=== PATIENT | female | born 1955 | race Caucasian/White ===

== ENCOUNTER → 2016-02-21 | Outpatient (CLI) | payer OTHER ==
--- NOTE | 2016-02-21 15:13 | CT ---
EXAMINATION TYPE: CT lumbar spine wo con DATE OF EXAM: 02/21/2016 2:51 PM COMPARISON: NONE HISTORY: Lumbago CT DLP: 2067.80 mGycm Automated exposure control for dose reduction was used. Unenhanced CT of the lumbar spine was performed. Bone and soft tissue window settings are submitted as well as coronal and sagittal reconstructions. L1-L2: Normal disc space height. No disc herniation protrusion or central stenosis. No facet joint arthropathy. No evidence for foraminal encroachment. L2-L3: There is broad-based central disc bulging with mild compression of the thecal sac and hypertro phic change of the facets. Mild bilateral foraminal encroachment L3-L4: Vacuum disc compatible severe degenerative disc disease and circumferential disc bulging with hypertrophic change of the facets. Mild bilateral foraminal encroachment. L4-L5: Severe degenerative disc disease. There is circumferential disc bulging and mild to moderate b ilateral foraminal encroachment. Hypertrophic changes anteriorly are noted. No focal herniation. Cent ral stenosis suggested. L5-S1: Severe degenerative disc disease with vacuum disc. Hypertrophic change of the facets are seen. There is moderate bilateral foraminal encroachment. Air within the spinal canal may be related to th e vacuum disc should be correlated clinically to exclude infectious etiology. IMPRESSION: Severe multilevel degenerative disc disease with probable canal stenosis at L4-L5. Foraminal encroach ment at levels L3-S1 noted bilaterally. Recommend follow-up MRI. Diffuse disc bulging L2-L3 with effacement of the thecal sac and mild bilateral foraminal encroachmen t.
== END | disposition home or self-care (01) ==
LOC: RADCTMAIN 13:59
PROVIDERS: ATTEND Psychiatry & Neurology Neurology
DX: M99.73 Connective tissue and disc stenosis of intervertebral foramina of lumbar region (principal); M51.26 Other intervertebral disc displacement, lumbar region; M51.36 Other intervertebral disc degeneration, lumbar region
CPT/HCPCS: 72131

== ENCOUNTER → 2016-04-05 | Outpatient (CLI) | payer OTHER ==
[2016-04-05 09:48] LABS: CH 27.3; CHCM 32.6; HCT 39.6 % (34.0-46.0); HDW 2.61; HGB 13.3 gm/dL (11.4-16.0); MCH 28.2 pg (25.0-35.0); MCHC 33.6 g/dL (31.0-37.0); Mean Platelet Volume 7.4; RBC 4.71 m/uL (3.80-5.40); RDW 13.5 % (11.5-15.5); WBC 10.7 k/uL (3.8-10.6)
[2016-04-05 10:37] LABS: ALT 105 U/L (9-52); AST 105 U/L (14-36); Alkaline Phosphatase 77 U/L (38-126); Anion Gap 15 mmol/L; Blood Urea Nitrogen 19 mg/dL (7-17); C Reactive Protein 17.7 mg/L (<10.0); Carbon Dioxide 23 mmol/L (22-30); Chloride 102 mmol/L (98-107); Creatine Kinase 271 U/L (30-135); Glucose 285 mg/dL (74-99); Magnesium 1.5 mg/dL (1.6-2.3); Non-African American GFR(MDRD) >60 (>60 ml/min/1.73 sqM); Potassium 4.9 mmol/L (3.5-5.1); Sodium 140 mmol/L (137-145); Total Bilirubin 0.5 mg/dL (0.2-1.3); Total Protein 7.3 g/dL (6.3-8.2)
[2016-04-05 12:02] LABS: Erythrocyte Sedimentation Rate 22 mm/hr (0-20)
[2016-04-05 12:38] LABS: Hemoglobin A1C 9.4 % (4.2-6.1)
[2016-04-14 16:35] LABS: Vitamin K 827 pg/mL (80-1160)
== END | disposition home or self-care (01) ==
LOC: LABWHC1 09:03
PROVIDERS: ATTEND Psychiatry & Neurology Pain Medicine
DX: M79.7 Fibromyalgia (principal)
CPT/HCPCS: 36415; 80053; 82550; 83036; 83519; 83735; 84425; 84590; 84597; 85027; 85652; 86140

== ENCOUNTER → 2016-06-04 | Outpatient (CLI) | payer OTHER ==
[2016-06-04 11:53] LABS: Blood Urea Nitrogen 17 mg/dL (7-17); Non-African American GFR(MDRD) >60 (>60 ml/min/1.73 sqM)
[2016-06-04 16:34] LABS: ANA w/Reflex to Titer NEGATIVE (NEGATIVE)
[2016-06-27 08:06] LABS: Mis test requested (Blood) PMSCL
== END | disposition home or self-care (01) ==
LOC: LABWHC1 10:51
PROVIDERS: ATTEND Psychiatry & Neurology Pain Medicine
DX: Z01.812 Encounter for preprocedural laboratory examination (principal); M25.50 Pain in unspecified joint; R51 Headache; M54.2 Cervicalgia; Z79.899 Other long term (current) drug therapy
CPT/HCPCS: 36415; 82565; 83516; 84520; 86038; 86200; 86225; 86235

== ENCOUNTER 2016-09-28 08:01 | Emergency (ER) | payer OTHER ==
[2016-09-28 08:07] VITALS: RESP 18
[2016-09-28] MEDS ORDERED: ONDANSETRON 4 MG/2 ML VIAL IVP STA (08:26)
[2016-09-28] MEDS ORDERED: SODIUM CHLORIDE 0.9% 1,000 ML IV STA ×2 (08:26)
[2016-09-28] MEDS ORDERED: DICYCLOMINE 10 MG/ML 2 ML AMP IM STA (08:27)
--- NOTE | 2016-09-28 08:32 | ED ---
General Adult HPI - General Chief complaint: Nausea/Vomiting/Diarrhea Stated complaint: DIARRHEA Time Seen by Provider: 09/28/16 08:11 Source: patient, RN notes reviewed Mode of arrival: wheelchair Limitations: no limitations - History of Present Illness Initial comments: Patient 60-year-old female who presents emergency room today with a chief complaint of diarrhea 6 days. She states she's been going on average approximately 50 times a day. She states it has been a dark color but believes it may be due to something that she ate. She states not seeing any obvious blood. Denies any nausea or vomiting. She states she has brought up to her doctor in the past about having bouts of diarrhea. She states usually last approximately 3 days at a time this is been much longer. States she's never had further workup. She denies any other complaints or symptoms. Denies any recent travel or antibiotic use. Patient denies any recent fever, chills, shortness of breath, chest pain, back pain, numbness or tingling, dysuria or hematuria, constipation, headaches or visual changes, or any other complaints. - Related Data Home Medications Medication Instructions Recorded Confirmed DULoxetine HCL [Cymbalta] 60 mg PO W/BRKFST 06/21/13 09/28/16 Omeprazole [PriLOSEC] 20 mg PO W/SUPPER 04/12/14 09/28/16 sitaGLIPtin [Januvia] 100 mg PO W/BRKFST 12/03/14 09/28/16 Lisinopril [Zestril] 5 mg PO W/BRKFST 03/13/15 09/28/16 Aspirin EC [Ecotrin Low Dose] 81 mg PO W/LUNCH 03/14/15 09/28/16 Cyclobenzaprine [Flexeril] 10 mg PO HS 03/14/15 09/28/16 Multivitamins, Thera [Multivitamin 1 tab PO DAILY 03/14/15 09/28/16 (formulary)] metFORMIN HCL [Glucophage] 850 mg PO TID 03/14/15 09/28/16 Atenolol 100 mg PO BID 11/20/15 09/28/16 Clopidogrel [Plavix] 75 mg PO AC-LUNCH 11/20/15 09/28/16 Levothyroxine Sodium [Synthroid] 50 mcg PO DAILY 11/20/15 09/28/16 amLODIPine [Norvasc] 5 mg PO DAILY 11/20/15 09/28/16 Albuterol Inhaler [Ventolin Hfa 1 - 2 puff INHALATION RT-Q6H PRN 09/28/16 Inhaler] Cholecalciferol [Vitamin D3] 1,000 unit PO DAILY 09/28/16 09/28/16 Gabapentin 800 mg PO TID 09/28/16 09/28/16 Insulin Glargine [Lantus] 55 unit SQ HS 09/28/16 09/28/16 [place] Unknown Dose 1 tab PO DAILY PRN 09/28/16 09/28/16 Vitamin C/Biotin [Hair, Skin and 1 tab PO DAILY 09/28/16 09/28/16 Nails] Previous Rx's Medication Instructions Recorded Dicyclomine [Bentyl] 20 mg PO QID #20 tablet 09/28/16 Allergies Allergy/AdvReac Type Severity Reaction Status Date / Time No Known Allergies Allergy Verified 09/28/16 08:43 Review of Systems ROS Statement: Those systems with pertinent positive or pertinent negative responses have been documented in the HPI. ROS Other: All systems not noted in ROS Statement are negative. Past Medical History Past Medical History: Asthma, CVA/TIA, Eye Disorder, Fibromyalgia, GERD/Reflux, Hypertension, Liver Disease, Osteoarthritis (OA), Pneumonia, Thyroid Disorder Additional Past Medical History / Comment(s): 03/14/15 Pt presented to [facility] ER with back pain which started after a long bike ride and HTN. She is admitted with clinical impression of HTN. Other HX: TIA, NIDDM type II, pneumonia 2014, hypothyroidism, chronic low back pain, sciatica, ddd, DJD, basal cell ca 2007 removed L nares, PARTIAL DETATCHED RETINA LT EYE, MIGRAINES, SHAMAR [place] SPOTTED FEVER , bilateral legs and feet NEUROPATHY, migraines, fatty liver, stomach ulcer, hx of fx's R thumb, R wrist, L hand. History of Any Multi-Drug Resistant Organisms: None Reported Past Surgical History: Back Surgery, Cholecystectomy, Heart Catheterization, Hernia Repair, Hysterectomy, Tonsillectomy Additional Past Surgical History / Comment(s): cardiac cath, L nares skin cancer removed, UMBILCAL HERNIA SX three times, RT Hand SX for TRIGGER FINGER, FIBROID TUMORS REMOVED ABD/BACK, LAPROSCOPIES x 3, L5-S1 SX for HERNIATED DISCS Past Anesthesia/Blood Transfusion Reactions: Postoperative Nausea & Vomiting ( PONV) Additional Past Anesthesia/Blood Transfusion Reaction / Comment(s): AND SEVERE HEADACHE Past Psychological History: Anxiety, Bipolar, Depression Smoking Status: Former smoker Past Alcohol Use History: Rare Past Drug Use History: Marijuana - Past Family History Father Family Medical History: Unable to Obtain Additional Family Medical History / Comment(s): ONLY MET HIM ONCE IN HER LIFE [employer] IN HIS FAMILY Mother Family Medical History: Cancer Additional Family Medical History / Comment(s): breast CA. Mother is alive and is 85yrs old. General Exam - General Exam Comments Initial Comments: General: The patient is awake and alert, in no distress, and does not appear acutely ill. Eye: Pupils are equal, round and reactive to light, extra-ocular movements are intact. No nystagmus. There is normal conjunctiva bilaterally. No signs of icterus. Ears, nose, mouth and throat: There are moist mucous membranes and no oral lesions. Neck: The neck is supple, there is no tenderness or JVD. Cardiovascular: There is a regular rate and rhythm. No murmur, rub or gallop is appreciated. Respiratory: Lungs are clear to auscultation, respirations are non-labored, breath sounds are equal. No wheezes, stridor, rales, or rhonchi. Gastrointestinal: Soft, non-distended, non-tender abdomen without masses or organomegaly noted. There is no rebound or guarding present. No CVA tenderness. Bowel sounds are unremarkable. Musculoskeletal: Normal ROM, no tenderness. Strength 5/5. Sensation intact. Pulses equal bilaterally 2+. Neurological: A&O x 3. CN II-XII intact, There are no obvious motor or sensory deficits. Coordination appears grossly intact. Speech is normal. Skin: Skin is warm and dry and no rashes or lesions are noted. Psychiatric: Cooperative, appropriate mood & affect, normal judgment. Limitations: no limitations Course Vital Signs 09/28/16 09/28/16 08:03 10:00 Temperature 98.1 F Pulse Rate 76 69 Respiratory 18 18 Rate Blood Pressure 153/75 122/72 O2 Sat by Pulse 97 94 L Oximetry Medical Decision Making - Medical Decision Making Patient's CT shows 1. Irregular slightly hypodense lesion posterior right mid liver noncompatible with a cyst. However, this had a more normal appearance without enlargement from 2012 suggesting this is likely benign. Consider gregoria- angioma within the differential. 2. No suspicious acute changes CT abdomen and pelvis. As read by radiologist Dr. Cedeno. Please follow-up the family doctor over the next 2 days. Please have stool sample returned here to the emergency room. Please return to emergency room if any symptoms increase worsen or for any other concerns - Lab Data Result diagrams: 09/28/16 08:25 09/28/16 08:25 Lab Results 09/28/16 09/28/16 09/28/16 Range/Units 08:25 08:25 09:38 WBC 12.9 H (3.8-10.6) k/uL RBC 5.49 H (3.80-5.40) m/uL Hgb 14.9 (11.4-16.0) gm/dL Hct 47.0 H (34.0-46.0) % MCV 85.8 (80.0-100.0) fL MCH 27.2 (25.0-35.0) pg MCHC 31.7 (31.0-37.0) g/dL RDW 14.8 (11.5-15.5) % Plt Count 361 (150-450) k/uL Neutrophils % 56 % Lymphocytes % 35 % Monocytes % 5 % Eosinophils % 2 % Basophils % 1 % Neutrophils # 7.2 (1.3-7.7) k/uL Lymphocytes # 4.4 (1.0-4.8) k/uL Monocytes # 0.6 (0-1.0) k/uL Eosinophils # 0.2 (0-0.7) k/uL Basophils # 0.1 (0-0.2) k/uL Sodium 141 (137-145) mmol/L Potassium 4.6 (3.5-5.1) mmol/L Chloride 104 (98-107) mmol/L Carbon Dioxide 21 L (22-30) mmol/L Anion Gap 16 mmol/L BUN 15 (7-17) mg/dL Creatinine 0.95 (0.52-1.04) mg/dL Est GFR (MDRD) Af Amer >60 (>60 ml/min/1.73 sqM) Est GFR (MDRD) Non-Af 60 (>60 ml/min/1.73 sqM) Glucose 171 H (74-99) mg/dL Calcium 10.1 (8.4-10.2) mg/dL Total Bilirubin 0.6 (0.2-1.3) mg/dL AST 61 H (14-36) U/L ALT 102 H (9-52) U/L Alkaline Phosphatase 70 (38-126) U/L Total Protein 7.4 (6.3-8.2) g/dL Albumin 4.5 (3.5-5.0) g/dL Amylase <30 L (30-110) U/L Lipase 131 (23-300) U/L Urine Color Yellow Urine Appearance Cloudy H (Clear) Urine pH 6.0 (5.0-8.0) Ur Specific [place] 1.034 (1.001-1.035) Urine Protein 2+ H (Negative) Urine Glucose (UA) Negative (Negative) Urine Ketones Negative (Negative) Urine Blood Negative (Negative) Urine Nitrite Negative (Negative) Urine Bilirubin Negative (Negative) Urine Urobilinogen <2.0 (<2.0) mg/dL Ur Leukocyte Esterase Trace H (Negative) Urine RBC 1 (0-5) /hpf Urine WBC 4 (0-5) /hpf Ur Squamous Epith Cells 2 (0-4) /hpf Hyaline Casts 40 H (0-2) /lpf Urine Mucus Rare H (None) /hpf Disposition Clinical Impression: Acute diarrhea Disposition: HOME SELF-CARE Condition: Good Instructions: Acute Diarrhea (ED) Additional Instructions: Please follow-up family doctor over the next 2 days. Please have stool sample brought here to the lab for further analysis. Please return to emergency room symptoms increase or worsen or for any other concerns. Prescriptions: Dicyclomine [Bentyl] 20 mg PO QID #20 tablet Referrals: Benedicto Cabello DO [Primary Care Provider] - 1-2 days Time of Disposition: 10:44
[2016-09-28 08:57] LABS: Basophils # (A) 0.1 k/uL (0-0.2); Basophils % (A) 1 %; CH 28.3; CHCM 33.1; Eosinophils # (A) 0.2 k/uL (0-0.7); Eosinophils % (A) 2 %; HDW 2.51; HGB 14.9 gm/dL (11.4-16.0); Luc # (Auto) 0.24; Luc % (Auto) 2; Lymphocytes # (A) 4.4 k/uL (1.0-4.8); Lymphocytes % (A) 35 %; MCH 27.2 pg (25.0-35.0); MCHC 31.7 g/dL (31.0-37.0); MCV 85.8 fL (80.0-100.0); Mean Platelet Volume 7.9; Monocytes # (A) 0.6 k/uL (0-1.0); Monocytes % (A) 5 %; Neutrophils # (A) 7.2 k/uL (1.3-7.7); Neutrophils % (A) 56 %; RBC 5.49 m/uL (3.80-5.40); RDW 14.8 % (11.5-15.5); WBC 12.9 k/uL (3.8-10.6); WBC (Perox) 12.18
[2016-09-28 09:00] LABS: ALT 102 U/L (9-52); AST 61 U/L (14-36); Alkaline Phosphatase 70 U/L (38-126); Amylase <30 U/L (30-110); Anion Gap 16 mmol/L; Blood Urea Nitrogen 15 mg/dL (7-17); Calcium 10.1 mg/dL (8.4-10.2); Carbon Dioxide 21 mmol/L (22-30); Chloride 104 mmol/L (98-107); Glucose 171 mg/dL (74-99); Non-African American GFR(MDRD) 60 (>60 ml/min/1.73 sqM); Potassium 4.6 mmol/L (3.5-5.1); Sodium 141 mmol/L (137-145); Total Bilirubin 0.6 mg/dL (0.2-1.3); Total Protein 7.4 g/dL (6.3-8.2)
--- NOTE | 2016-09-28 09:00 | XR ---
EXAMINATION TYPE: XR KUB DATE OF EXAM: 09/28/2016 COMPARISON: 05/06/2012 INDICATION: Abdomen pain history of gallbladder surgery TECHNIQUE: Single view abdomen upright view FINDINGS: There is a normal bowel gas pattern. Psoas margins are normal. No organomegaly is present. No suspicious air-fluid levels or differential air-fluid levels are present. No free air is present. Cholecystectomy clips are present. IMPRESSION: 1. Unremarkable Abdomen
[2016-09-28] MEDS ORDERED: RX INFO: IV CONTRAST WAS GIVEN 1 EACH MISC MISCELLANE PRN (09:01)
--- NOTE | 2016-09-28 09:57 | CT ---
EXAMINATION TYPE: CT abdomen pelvis w con DATE OF EXAM: 09/28/2016 COMPARISON: 05/07/2011 INDICATION: diarrhea for 8 days DLP: 1829.5 mGycm, Automated exposure control for dose reduction was used. CONTRAST: 100 mL of Omnipaque 300. Study performed without Oral Contrast TECHNIQUE: Axial images were obtained from above the diaphragm to the pubic rami in the axial plane a t 5 mm thick sections. Reconstructed images are reviewed on the computer in the coronal plane. FINDINGS: Limited CT sections are obtained the lung bases. The lung bases are clear. CT ABDOMEN: Liver: It is moderate fatty infiltration to the liver. Within the posterior right mid liver is a 1.7 cm hypodensity. This is not a simple cyst. Spleen: Normal. Multiple splenules are adjacent. Pancreas: Normal Adrenal glands: The adrenal glands are normal. Gallbladder: Surgically absent Kidneys: No masses are evident. No hydronephrosis is present. No cysts are present. Delayed images were obtained through the kidneys, which remain unremarkable. Aorta: Vascular calcification is within the aorta. Inferior vena cava: Normal. There is an anterior abdominal wall hernia with mesenteric fat in the periumbilical region. A surgica l clip is within this region. The opening appears to be 3.[address] PELVIS: Loops of bowel within the abdomen and pelvis are normal. Appendix: Not identified. Urinary bladder: Normal. Genitourinary structures: Uterus and ovaries are not identified. No free fluid is within the pelvis. Osseous structures: No suspicious lytic or sclerotic lesions. Sacroiliac joint degenerative changes a re present. Some facet hypertrophy is the L5-S1 level. IMPRESSIONS: 1. Irregular slightly hypodense lesion posterior right mid liver not compatible with a cyst. However this had a more normal appearance without enlargement from 2011 suggesting this is likely benign. Co nsider hemangioma within the differential. 2. No suspicious acute changes CT abdomen pelvis
[2016-09-28 10:31] LABS: Appearance,Urine Cloudy (Clear); Bilirubin,Urine Negative (Negative); Glucose,Urine (UA) Negative (Negative); Ketones,Urine Negative (Negative); Leukocyte Esterase,Urine Trace (Negative); Mucus,Urine Rare /hpf; Nitrite,Urine Negative (Negative); Particle Count 5089; Protein,Urine 2+ (Negative); RBC,Urine 1 /hpf (0-5); Specific Gravity,Urine 1.034 (1.001-1.035); Squamous Epithelial Cell,Urine 2 /hpf (0-4); UA Billing (MACRO vs. MICRO) MICRO; Urobilinogen,Urine <2.0 mg/dL (<2.0); WBC,Urine 4 /hpf (0-5)
[2016-09-28 10:55] VITALS: BP 106/56; PULSE 71; TEMP 97.5
== END 2016-09-28 10:57 | disposition home or self-care (01) ==
LOC: EC 08:01
DX: R19.7 Diarrhea, unspecified (principal); J45.909 Unspecified asthma, uncomplicated; M79.7 Fibromyalgia; K21.9 Gastro-esophageal reflux disease without esophagitis; I10 Essential (primary) hypertension; M19.90 Unspecified osteoarthritis, unspecified site; E07.9 Disorder of thyroid, unspecified; E11.40 Type 2 diabetes mellitus with diabetic neuropathy, unspecified; F31.9 Bipolar disorder, unspecified; F41.9 Anxiety disorder, unspecified; Z86.73 Personal history of transient ischemic attack (TIA), and cerebral infarction without residual deficits; Z87.891 Personal history of nicotine dependence; Z79.01 Long term (current) use of anticoagulants; Z79.4 Long term (current) use of insulin; Z79.899 Other long term (current) drug therapy; Z79.82 Long term (current) use of aspirin
CPT/HCPCS: 36415; 80053; 82150; 83690; 85025; 81001; 74000; 74177; 99284; 96374; 96361 ×2; 96372; J0500; J2405; Q9967

== ENCOUNTER 2016-10-11 11:15 | Observation (INO) | payer OTHER ==
[2016-10-11] MEDS ORDERED: ASPIRIN 81 MG PO STA (11:34)
[2016-10-11] MEDS ORDERED: NITROGLYCERIN OINT 1 INCH/GM PACKET TOPICAL STA (11:34)
--- NOTE | 2016-10-11 11:37 | ED ---
General Adult HPI - General Chief complaint: Chest Pain Stated complaint: POSS CARDIAC ISSUE Time Seen by Provider: 10/11/16 11:15 Source: patient, RN notes reviewed Mode of arrival: ambulatory Limitations: no limitations - History of Present Illness Initial comments: This is a 60-year-old female who presents to the emergency department complaining of a diaphoretic episode last night associated with chest pressure tingling in her left arm mild shortness of breath and dizziness. Patient states the dizziness is sensation that she might fall over or that things are spinning not a near syncopal episode or feeling. Patient states she continues to have chest discomfort today and the dizziness. Patient denies any fever chills or cough. Patient denies any palpitations. Patient denies any abdominal pain patient denies nausea or vomiting currently however last night when it started she did vomit once. Patient denies any headache patient denies any numbness or weakness. - Related Data Home Medications Medication Instructions Recorded Confirmed DULoxetine HCL [Cymbalta] 60 mg PO W/BRKFST 06/21/13 09/28/16 Omeprazole [PriLOSEC] 20 mg PO W/SUPPER 04/12/14 09/28/16 sitaGLIPtin [Januvia] 100 mg PO W/BRKFST 12/03/14 09/28/16 Lisinopril [Zestril] 5 mg PO W/BRKFST 03/13/15 09/28/16 Aspirin EC [Ecotrin Low Dose] 81 mg PO W/LUNCH 03/14/15 09/28/16 Cyclobenzaprine [Flexeril] 10 mg PO HS 03/14/15 09/28/16 Multivitamins, Thera [Multivitamin 1 tab PO DAILY 03/14/15 09/28/16 (formulary)] metFORMIN HCL [Glucophage] 850 mg PO TID 03/14/15 09/28/16 Atenolol 100 mg PO BID 11/20/15 09/28/16 Clopidogrel [Plavix] 75 mg PO AC-LUNCH 11/20/15 09/28/16 Levothyroxine Sodium [Synthroid] 50 mcg PO DAILY 11/20/15 09/28/16 amLODIPine [Norvasc] 5 mg PO DAILY 11/20/15 09/28/16 Albuterol Inhaler [Ventolin Hfa 1 - 2 puff INHALATION RT-Q6H PRN 09/28/16 Inhaler] Cholecalciferol [Vitamin D3] 1,000 unit PO DAILY 09/28/16 09/28/16 Gabapentin 800 mg PO TID 09/28/16 09/28/16 Insulin Glargine [Lantus] 55 unit SQ HS 09/28/16 09/28/16 [place] Unknown Dose 1 tab PO DAILY PRN 09/28/16 09/28/16 Vitamin C/Biotin [Hair, Skin and 1 tab PO DAILY 09/28/16 09/28/16 Nails] Previous Rx's Medication Instructions Recorded Dicyclomine [Bentyl] 20 mg PO QID #20 tablet 09/28/16 Allergies Allergy/AdvReac Type Severity Reaction Status Date / Time No Known Allergies Allergy Verified 10/11/16 11:21 Review of Systems ROS Statement: Those systems with pertinent positive or pertinent negative responses have been documented in the HPI. ROS Other: All systems not noted in ROS Statement are negative. Past Medical History Past Medical History: Asthma, CVA/TIA, Eye Disorder, Fibromyalgia, GERD/Reflux, Hypertension, Liver Disease, Osteoarthritis (OA), Pneumonia, Thyroid Disorder Additional Past Medical History / Comment(s): 03/14/15 Pt presented to [facility] ER with back pain which started after a long bike ride and HTN. She is admitted with clinical impression of HTN. Other HX: TIA, NIDDM type II, pneumonia 2014, hypothyroidism, chronic low back pain, sciatica, ddd, DJD, basal cell ca 2007 removed L nares, PARTIAL DETATCHED RETINA LT EYE, MIGRAINES, SHAMAR [place] SPOTTED FEVER , bilateral legs and feet NEUROPATHY, migraines, fatty liver, stomach ulcer, hx of fx's R thumb, R wrist, L hand. History of Any Multi-Drug Resistant Organisms: None Reported Past Surgical History: Back Surgery, Cholecystectomy, Heart Catheterization, Hernia Repair, Hysterectomy, Tonsillectomy Additional Past Surgical History / Comment(s): cardiac cath, L nares skin cancer removed, UMBILCAL HERNIA SX three times, RT Hand SX for TRIGGER FINGER, FIBROID TUMORS REMOVED ABD/BACK, LAPROSCOPIES x 3, L5-S1 SX for HERNIATED DISCS Past Anesthesia/Blood Transfusion Reactions: Postoperative Nausea & Vomiting ( PONV) Additional Past Anesthesia/Blood Transfusion Reaction / Comment(s): AND SEVERE HEADACHE Past Psychological History: Anxiety, Bipolar, Depression Smoking Status: Former smoker Past Alcohol Use History: Rare Past Drug Use History: Marijuana - Past Family History Father Family Medical History: Unable to Obtain Additional Family Medical History / Comment(s): ONLY MET HIM ONCE IN HER LIFE [employer] IN HIS FAMILY Mother Family Medical History: Cancer Additional Family Medical History / Comment(s): breast CA. Mother is alive and is 85yrs old. General Exam - General Exam Comments Initial Comments: GENERAL: Patient is well-developed and well-nourished. Patient is nontoxic and well- hydrated and is in mild distress. ENT: Neck is soft and supple. No significant lymphadenopathy is noted. Oropharynx is clear. Moist mucous membranes. Neck has full range of motion without eliciting any pain. EYES: The sclera were anicteric and conjunctiva were pink and moist. Extraocular movements were intact and pupils were equal round and reactive to light. Eyelids were unremarkable. PULMONARY: Unlabored respirations. Good breath sounds bilaterally. No audible rales rhonchi or wheezing was noted. CARDIOVASCULAR: There is a regular rate and rhythm without any murmurs gallops or rubs. ABDOMEN: Soft and nontender with normal bowel sounds. No palpable organomegaly was noted. There is no palpable pulsatile mass. SKIN: Skin is clear with no lesions or rashes and otherwise unremarkable. NEUROLOGIC: Patient is alert and oriented x3. Cranial nerves II through XII are grossly intact. Motor and sensory are also intact. Normal speech, volume and content. Symmetrical smile. Cerebellar testing was normal bilaterally MUSCULOSKELETAL: Normal extremities with adequate strength and full range of motion. No lower extremity swelling or edema. No calf tenderness. LYMPHATICS: No significant lymphadenopathy is noted PSYCHIATRIC: Normal psychiatric evaluation. Normal interpersonal interactions appears functionally intact in deals appropriately with others. No signs of depression. No signs of anxiety. Limitations: no limitations Course Vital Signs 10/11/16 10/11/16 10/11/16 11:17 12:00 13:07 Temperature 97.6 F Pulse Rate 67 60 69 Respiratory 18 16 18 Rate Blood Pressure 116/67 112/60 113/59 O2 Sat by Pulse 97 96 95 Oximetry Medical Decision Making - Medical Decision Making EKG shows normal sinus rhythm at 65 bpm IL interval 128 QRS is 98 QT interval is 450 QTC is 468. Patient's EKG shows no ST segment elevation or depression or T wave abnormalities are noted. Patient's chest x-ray shows no acute abnormality. Patient's computed tomography scan of the brain shows no acute abnormality. Patient continues to have some chest pressure intermittently in the emergency department so at this point, decided to admit the patient and have her follow up with cardiology as an inpatient. I wrote admitting orders I spoke with Dr. Yanez. - Lab Data Result diagrams: 10/11/16 11:52 10/11/16 11:52 Lab Results 10/11/16 10/11/16 10/11/16 Range/Units 11:52 11:52 11:52 WBC 13.6 H (3.8-10.6) k/uL RBC 4.70 (3.80-5.40) m/uL Hgb 12.8 (11.4-16.0) gm/dL Hct 39.1 (34.0-46.0) % MCV 83.2 (80.0-100.0) fL MCH 27.2 (25.0-35.0) pg MCHC 32.7 (31.0-37.0) g/dL RDW 13.8 (11.5-15.5) % Plt Count 300 (150-450) k/uL Neutrophils % 49 % Lymphocytes % 41 % Monocytes % 4 % Eosinophils % 3 % Basophils % 1 % Neutrophils # 6.7 (1.3-7.7) k/uL Lymphocytes # 5.6 H (1.0-4.8) k/uL Monocytes # 0.5 (0-1.0) k/uL Eosinophils # 0.4 (0-0.7) k/uL Basophils # 0.1 (0-0.2) k/uL Polychromasia Present PT (9.0-12.0) sec INR (<1.2) APTT (22.0-30.0) sec Sodium 137 (137-145) mmol/L Potassium 4.1 (3.5-5.1) mmol/L Chloride 101 (98-107) mmol/L Carbon Dioxide 23 (22-30) mmol/L Anion Gap 13 mmol/L BUN 24 H (7-17) mg/dL Creatinine 1.37 H (0.52-1.04) mg/dL Est GFR (MDRD) Af Amer 47 (>60 ml/min/1.73 sqM) Est GFR (MDRD) Non-Af 39 (>60 ml/min/1.73 sqM) Glucose 104 H (74-99) mg/dL Calcium 8.9 (8.4-10.2) mg/dL Magnesium 1.4 L (1.6-2.3) mg/dL Total Bilirubin 0.4 (0.2-1.3) mg/dL AST 68 H (14-36) U/L ALT 81 H (9-52) U/L Alkaline Phosphatase 63 (38-126) U/L Total Creatine Kinase 268 H (30-135) U/L CK-MB (CK-2) 1.7 (0.0-2.4) ng/mL CK-MB (CK-2) Rel Index 0.6 Troponin I <0.012 (0.000-0.034) ng/mL Total Protein 6.9 (6.3-8.2) g/dL Albumin 4.3 (3.5-5.0) g/dL 10/11/16 Range/Units 11:52 WBC (3.8-10.6) k/uL RBC (3.80-5.40) m/uL Hgb (11.4-16.0) gm/dL Hct (34.0-46.0) % MCV (80.0-100.0) fL MCH (25.0-35.0) pg MCHC (31.0-37.0) g/dL RDW (11.5-15.5) % Plt Count (150-450) k/uL Neutrophils % % Lymphocytes % % Monocytes % % Eosinophils % % Basophils % % Neutrophils # (1.3-7.7) k/uL Lymphocytes # (1.0-4.8) k/uL Monocytes # (0-1.0) k/uL Eosinophils # (0-0.7) k/uL Basophils # (0-0.2) k/uL Polychromasia PT 10.8 (9.0-12.0) sec INR 1.1 (<1.2) APTT 25.2 (22.0-30.0) sec Sodium (137-145) mmol/L Potassium (3.5-5.1) mmol/L Chloride (98-107) mmol/L Carbon Dioxide (22-30) mmol/L Anion Gap mmol/L BUN (7-17) mg/dL Creatinine (0.52-1.04) mg/dL Est GFR (MDRD) Af Amer (>60 ml/min/1.73 sqM) Est GFR (MDRD) Non-Af (>60 ml/min/1.73 sqM) Glucose (74-99) mg/dL Calcium (8.4-10.2) mg/dL Magnesium (1.6-2.3) mg/dL Total Bilirubin (0.2-1.3) mg/dL AST (14-36) U/L ALT (9-52) U/L Alkaline Phosphatase (38-126) U/L Total Creatine Kinase (30-135) U/L CK-MB (CK-2) (0.0-2.4) ng/mL CK-MB (CK-2) Rel Index Troponin I (0.000-0.034) ng/mL Total Protein (6.3-8.2) g/dL Albumin (3.5-5.0) g/dL Critical Care Time Critical Care Time: Yes Total Critical Care Time: 35 Disposition Clinical Impression: Unstable angina pectoris, Vertigo Disposition: ADMITTED IP TO THIS HOSP Referrals: Benedicto Cabello DO [Primary Care Provider] - 1-2 days Time of Disposition: 13:48
[2016-10-11] MEDS ORDERED: MECLIZINE 25 MG TAB PO STA (12:04)
--- NOTE | 2016-10-11 12:09 | XR ---
EXAMINATION TYPE: XR chest 2V DATE OF EXAM: 10/11/2016 COMPARISON: Chest x-ray April 11, 2014 HISTORY: Weakness and chest pain. TECHNIQUE: Frontal and lateral views of the chest are obtained. FINDINGS: There is chronic parenchymal change without suspicious focal air space opacity, pleural ef fusion, or pneumothorax seen. The cardiac silhouette size is within normal limits with atherosclerot ic thoracic aorta. Slight underlying scoliotic curvature to the spine is redemonstrated. Cholecystect brandy clips are redemonstrated on lateral view IMPRESSION: Chronic changes without acute pulmonary process.
[2016-10-11 12:15] LABS: INR 1.1 (<1.2); Partial Thromboplastin Time 25.2 sec (22.0-30.0); Prothrombin Time 10.8 sec (9.0-12.0)
[2016-10-11 12:16] LABS: Calcium 8.9 mg/dL (8.4-10.2); Magnesium 1.4 mg/dL (1.6-2.3); Potassium 4.1 mmol/L (3.5-5.1); Total Bilirubin 0.4 mg/dL (0.2-1.3); Total Protein 6.9 g/dL (6.3-8.2)
[2016-10-11 12:20] LABS: Basophils # (A) 0.1 k/uL (0-0.2); Basophils % (A) 1 %; CH 27.3; CHCM 32.9; Eosinophils # (A) 0.4 k/uL (0-0.7); Eosinophils % (A) 3 %; HCT 39.1 % (34.0-46.0); HGB 12.8 gm/dL (11.4-16.0); Luc # (Auto) 0.32; Luc % (Auto) 2; Lymphocytes # (A) 5.6 k/uL (1.0-4.8); Lymphocytes % (A) 41 %; MCH 27.2 pg (25.0-35.0); MCHC 32.7 g/dL (31.0-37.0); MCV 83.2 fL (80.0-100.0); Mean Platelet Volume 6.7; Monocytes # (A) 0.5 k/uL (0-1.0); Monocytes % (A) 4 %; Neutrophils # (A) 6.7 k/uL (1.3-7.7); Neutrophils % (A) 49 %; RDW 13.8 % (11.5-15.5); WBC 13.6 k/uL (3.8-10.6); WBC (Perox) 13.62
[2016-10-11 12:26] LABS: Creatine Kinase 268 U/L (30-135)
[2016-10-11 12:40] LABS: Creatine Kinase MB 1.7 ng/mL (0.0-2.4); Troponin I <0.012 ng/mL (0.000-0.034)
--- NOTE | 2016-10-11 12:44 | CT ---
EXAMINATION TYPE: CT brain wo con DATE OF EXAM: 10/11/2016 HISTORY: Lt arm numbness, dizzy CT DLP: 1098.8 mGycm. Automated Exposure Control for Dose Reduction was Utilized. TECHNIQUE: CT scan of the head is performed without contrast. COMPARISON: CT brain December 03, 2014. FINDINGS: There is no acute intracranial hemorrhage or midline shift identified. There is diffuse v entricular and sulcal prominence consistent with diffuse age-related cerebral atrophy. There is low- attenuation in the periventricular white matter consistent with chronic small vessel ischemic change. The globes are intact and the visualized sinuses are clear. IMPRESSION: No acute intracranial hemorrhage or midline shift. There is mild diffuse age-related ce rebral atrophy and chronic small vessel ischemic change redemonstrated without significant change fro m prior study seen.
[2016-10-11 13:02] LABS: Polychromasia Present
[2016-10-11] MEDS ORDERED: KETOROLAC 60 MG/2 ML VIAL IVP STA (13:47)
[2016-10-11] MEDS ORDERED: HEPARIN SODIUM,PORCINE 5,000 UNIT/ML 1 ML VIAL IV ONE (13:48)
[2016-10-11] MEDS ORDERED: NITROGLYCERIN SL TABS 0.4 MG TAB SUBLINGUAL PRN (13:49)
--- NOTE | 2016-10-11 13:58 | CT ---
EXAMINATION TYPE: CT discontinued procedure DATE OF EXAM: 10/11/2016 COMPARISON: NONE HISTORY: Pain and diarrhea. CT DLP:Automated exposure control for dose reduction was used. FINDINGS: 2 director business management images of the abdomen and pelvis were performed by technologist and then exam was canceled by emergency care physician as was being performed on wrong patient. Seamer Operator images are grossly unremarka ble. IMPRESSION: ABOVE
[2016-10-11] MEDS ORDERED: HEPARIN SODIUM,PORCINE/D5W PMX 25,000 UNIT in DEXTROSE/WATER 1 500ML.BAG IV SCH (14:00)
[2016-10-11] MEDS ORDERED: SODIUM CHLORIDE 0.9% 1,000 ML IV STA (14:08)
[2016-10-11] MEDS ORDERED: HYDROcodone/APAP 7.5-325MG 1 EACH TAB PO PRN (15:49)
[2016-10-11] MEDS ORDERED: ALBUTEROL NEBULIZED 2.5 MG/3 ML INHALATION PRN (15:49)
[2016-10-11 16:51] LABS: Glucose,Whole Blood 101 mg/dL (75-99)
[2016-10-11] MEDS: amLODIPine 5 MG TAB PO SCH (17:00)
[2016-10-11] MEDS: GABAPENTIN 400 MG CAP PO SCH ×2 (17:01→20:25)
[2016-10-11] MEDS: LISINOPRIL 5 MG TAB PO SCH (17:02)
[2016-10-11] MEDS: DICYCLOMINE 20 MG TAB PO SCH (17:02)
[2016-10-11] MEDS: MULTIVITAMINS, THERA 1 EACH TAB PO SCH (17:02)
[2016-10-11] MEDS: ASCORBIC ACID 500 MG TAB PO SCH (17:03)
[2016-10-11] MEDS: metFORMIN 850 MG TAB PO SCH ×2 (17:03→18:58)
[2016-10-11] MEDS: DULoxetine HCL 60 MG CAPSULE.DR PO SCH (17:03)
[2016-10-11] MEDS: CLOPIDOGREL 75 MG TAB PO SCH (17:04)
[2016-10-11] MEDS: CHOLECALCIFEROL 1,000 UNIT TAB PO SCH (17:04)
[2016-10-11] MEDS ORDERED: PANTOPRAZOLE 40 MG TABLET PO SCH (17:30)
[2016-10-11 18:21] LABS: Creatine Kinase 219 U/L (30-135)
[2016-10-11 18:34] LABS: Creatine Kinase MB 1.4 ng/mL (0.0-2.4); Troponin I <0.012 ng/mL (0.000-0.034)
--- NOTE | 2016-10-11 19:11 | P.HPIM ---
History of Present Illness H&P Date: 10/11/16 Chief Complaint: Chest pain Mrs. 60-year-old female with history of fibromyalgia depression chronic back pain comes in to the hospital with this episode of sudden onset diaphoresis thereafter noted pain in her midsternal region and to the left side. Patient stated that she has had multiple episodes previously denies having any prior episodes of significant pain. Patient states that she is had some watery diarrhea over the last few days which is something new for her In the emergency room patient's EKG did not reveal ST-T wave changes initial troponin was negative patient was initially initiated on heparin. Patient apparently is very inactive is bedridden pretty much due to her fibromyalgia states that she is only able to take about 7 or 8 steps. Patient also has a history of COPD previous history of smoking Patient's last stress test was over 2 years ago has had a cardiac catheterization done by Dr. Newman multiple years ago without any intervention At this time patient states that her symptoms are improved however has some reproducible pain in her chest No cough fevers chills nausea or abdominal pain urinary urgency or frequency is reported Review of Systems All systems: negative (Noted in HPI) Past Medical History Past Medical History: Asthma, CVA/TIA, Eye Disorder, Fibromyalgia, GERD/Reflux, Hypertension, Liver Disease, Osteoarthritis (OA), Pneumonia, Thyroid Disorder Additional Past Medical History / Comment(s): 03/14/15 Pt presented to [facility] ER with back pain which started after a long bike ride and HTN. She is admitted with clinical impression of HTN. Other HX: TIA, NIDDM type II, pneumonia 2014, hypothyroidism, chronic low back pain, sciatica, ddd, DJD, basal cell ca 2007 removed L nares, PARTIAL DETATCHED RETINA LT EYE, MIGRAINES, SHAMAR [place] SPOTTED FEVER infant, bilateral legs and feet NEUROPATHY, migraines, fatty liver, stomach ulcer, hx of fx's R thumb, R wrist, L hand. History of Any Multi-Drug Resistant Organisms: None Reported Past Surgical History: Back Surgery, Cholecystectomy, Heart Catheterization, Hernia Repair, Hysterectomy, Tonsillectomy Additional Past Surgical History / Comment(s): cardiac cath, L nares skin cancer removed, UMBILCAL HERNIA SX three times, RT Hand SX for TRIGGER FINGER, FIBROID TUMORS REMOVED ABD/BACK, LAPROSCOPIES x 3, L5-S1 SX for HERNIATED DISCS Past Anesthesia/Blood Transfusion Reactions: Postoperative Nausea & Vomiting ( PONV) Additional Past Anesthesia/Blood Transfusion Reaction / Comment(s): AND SEVERE HEADACHE Past Psychological History: Anxiety, Bipolar, Depression Additional Psychological History / Comment(s): Pt resides alone in an apartment. She is independent. 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 She uses her insurance company's ride service or bikes. She uses either a cane of walker at times depending on how she is feeling. Smoking Status: Former smoker Past Alcohol Use History: Rare Additional Past Alcohol Use History / Comment(s): Pt states she quit smoking in 2004 and had started smoking in 1971. Past Drug Use History: Marijuana Additional Drug Use History / Comment(s): Pt states she has a medical marijuana card and once a month or more she may smoke or use edible marijuana if it is available to her. She denies any other drug use. Old medical record indicated chronic narcotic abuse and opiate use as well as illicit drug use in the past.. - Past Family History Father Family Medical History: Unable to Obtain Additional Family Medical History / Comment(s): ONLY MET HIM ONCE IN HER LIFE [employer] IN HIS FAMILY Mother Family Medical History: Cancer Additional Family Medical History / Comment(s): breast CA. Mother is alive and is 85yrs old. Medications and Allergies Home Medications Medication Instructions Recorded Confirmed Type DULoxetine HCL [Cymbalta] 60 mg PO W/BRKFST 06/21/13 10/11/16 History Omeprazole [PriLOSEC] 20 mg PO W/SUPPER 04/12/14 10/11/16 History sitaGLIPtin [Januvia] 100 mg PO W/BRKFST 12/03/14 10/11/16 History Lisinopril [Zestril] 5 mg PO W/BRKFST 03/13/15 10/11/16 History Aspirin EC [Ecotrin Low Dose] 81 mg PO W/LUNCH 03/14/15 10/11/16 History Cyclobenzaprine [Flexeril] 10 mg PO HS 03/14/15 10/11/16 History Multivitamins, Thera [Multivitamin 1 tab PO DAILY 03/14/15 10/11/16 History (formulary)] metFORMIN HCL [Glucophage] 850 mg PO TID 03/14/15 10/11/16 History Atenolol 100 mg PO BID 11/20/15 10/11/16 History Clopidogrel [Plavix] 75 mg PO AC-LUNCH 11/20/15 10/11/16 History Levothyroxine Sodium [Synthroid] 50 mcg PO DAILY 11/20/15 10/11/16 History amLODIPine [Norvasc] 5 mg PO DAILY 11/20/15 10/11/16 History Albuterol Inhaler [Ventolin Hfa 1 - 2 puff INHALATION RT-Q6H PRN 09/28/16 History Inhaler] Cholecalciferol [Vitamin D3] 1,000 unit PO DAILY 09/28/16 10/11/16 History Dicyclomine [Bentyl] 20 mg PO QID #20 tablet 09/28/16 10/11/16 Rx Gabapentin 800 mg PO TID 09/28/16 10/11/16 History Insulin Glargine [Lantus] 55 unit SQ HS 09/28/16 10/11/16 History Vitamin C/Biotin [Hair, Skin and 1 tab PO DAILY 09/28/16 10/11/16 History Nails] Ciprofloxacin HCl [Cipro] 500 mg PO BID 10/11/16 10/11/16 History HYDROcodone/APAP 7.5-325MG [[place] 1 tab PO DAILY PRN 10/11/16 10/11/16 History 7.5-325] Allergies Allergy/AdvReac Type Severity Reaction Status Date / Time No Known Allergies Allergy Verified 10/11/16 14:15 Physical Exam Vitals: Vital Signs Temp Pulse Pulse Resp BP BP Pulse Ox 10/11/16 16:43 16 10/11/16 15:48 97 10/11/16 14:40 97.7 F 68 16 110/68 94 L 10/11/16 14:34 98.0 F 66 18 125/61 95 10/11/16 13:07 69 18 113/59 95 10/11/16 12:00 60 16 112/60 96 10/11/16 11:17 97.6 F 67 18 116/67 97 Intake and Output 10/11/16 10/11/16 10/11/16 06:59 14:59 22:59 Other: Voiding Method Toilet Weight 108.862 kg Patient Weight 10/12/16 06:59 Weight 108.862 kg Physical exam Gen. appearance oriented 3 in no distress Neck is supple no JVD Lungs good air entry clear to auscultation no rhonchi or wheezing Heart S1-S2 heard regular rate and rhythm no murmurs appreciated point tenderness noted on the left side of the chest around the fourth intercostal space closer to the sternum Abdomen is soft nontender no organomegaly bowel sounds are intact Neurologically cranial nerves II-12 grossly intact no focal motor or sensory deficits noted Skin no abnormalities appreciated Results CBC & Chem 7: 10/11/16 11:52 10/11/16 11:52 Labs: Abnormal Lab Results - Last 24 Hours (Table) 10/11/16 10/11/16 10/11/16 Range/Units 11:52 11:52 11:52 WBC 13.6 H (3.8-10.6) k/uL Lymphocytes # 5.6 H (1.0-4.8) k/uL BUN 24 H (7-17) mg/dL Creatinine 1.37 H (0.52-1.04) mg/dL Glucose 104 H (74-99) mg/dL POC Glucose (mg/dL) (75-99) mg/dL Magnesium 1.4 L (1.6-2.3) mg/dL AST 68 H (14-36) U/L ALT 81 H (9-52) U/L Total Creatine Kinase 268 H (30-135) U/L 10/11/16 10/11/16 Range/Units 16:50 17:44 WBC (3.8-10.6) k/uL Lymphocytes # (1.0-4.8) k/uL BUN (7-17) mg/dL Creatinine (0.52-1.04) mg/dL Glucose (74-99) mg/dL POC Glucose (mg/dL) 101 H (75-99) mg/dL Magnesium (1.6-2.3) mg/dL AST (14-36) U/L ALT (9-52) U/L Total Creatine Kinase 219 H (30-135) U/L Thrombosis Risk Factor Assmnt - Choose All That Apply Each Factor Represents 1 point: Obesity (BMI >25) Other Risk Factors: Yes Each Risk Factor Represents 2 Points: Age 61-74 years Thrombosis Risk Factor Assessment Total Risk Factor Score: 3 Thrombosis Risk Factor Assessment Level: Moderate Risk Assessment and Plan Plan: #1 atypical chest pain #2 presyncopal episode #3 essential hypertension #4 fibromyalgia #5 dyslipidemia #6 diabetes myelitis #Chronic low back pain #8 COPD #9 obesity Plan Rule out ACS Cardiology evaluation will be requested DC heparin Telemetry monitoring DVT prophylaxis
[2016-10-11] MEDS ORDERED: SODIUM CHLORIDE 0.9% 1,000 ML IV SCH (19:15)
[2016-10-11] MEDS: NITROGLYCERIN OINT 1 INCH/GM PACKET TOPICAL SCH ×2 (20:16→23:31)
[2016-10-11 20:17] LABS: Glucose,Whole Blood 132 mg/dL (75-99)
[2016-10-11] MEDS ORDERED: INSULIN GLARGINE 100 UNIT/ML 10 ML VIAL SQ SCH (21:00)
[2016-10-11] MEDS ORDERED: CIPROFLOXACIN HCL 500 MG TAB PO SCH (21:00)
[2016-10-11] MEDS ORDERED: CYCLOBENZAPRINE 10 MG TAB PO SCH (21:00)
[2016-10-11] MEDS ORDERED: MELATONIN 3 MG TABLET PO PRN (23:45)
[2016-10-12] MEDS: ATENOLOL 50 MG TAB PO SCH ×2 (00:03→09:53)
[2016-10-12] MEDS: DICYCLOMINE 20 MG TAB PO SCH ×3 (00:03→13:20)
[2016-10-12 00:12] LABS: Creatine Kinase 169 U/L (30-135)
[2016-10-12 00:26] LABS: Creatine Kinase MB 1.1 ng/mL (0.0-2.4); Troponin I <0.012 ng/mL (0.000-0.034)
[2016-10-12 01:29] LABS: Appearance,Urine Clear (Clear); Bilirubin,Urine Negative (Negative); Glucose,Urine (UA) Negative (Negative); Ketones,Urine Negative (Negative); Leukocyte Esterase,Urine Negative (Negative); Nitrite,Urine Negative (Negative); PH, Urine 5.5 (5.0-8.0); Protein,Urine Negative (Negative); Specific Gravity,Urine 1.004 (1.001-1.035); UA Billing (MACRO vs. MICRO) CHEM; Urobilinogen,Urine <2.0 mg/dL (<2.0)
[2016-10-12 05:35] LABS: Basophils # (A) 0.1 k/uL (0-0.2); Basophils % (A) 1 %; CH 26.9; CHCM 32.4; Eosinophils # (A) 0.4 k/uL (0-0.7); Eosinophils % (A) 4 %; HCT 36.8 % (34.0-46.0); HDW 2.64; HGB 12.3 gm/dL (11.4-16.0); Luc # (Auto) 0.21; Luc % (Auto) 2; Lymphocytes % (A) 39 %; MCH 27.9 pg (25.0-35.0); MCHC 33.4 g/dL (31.0-37.0); MCV 83.3 fL (80.0-100.0); Mean Platelet Volume 6.9; Monocytes # (A) 0.4 k/uL (0-1.0); Monocytes % (A) 4 %; Neutrophils # (A) 5.3 k/uL (1.3-7.7); Neutrophils % (A) 52 %; RBC 4.41 m/uL (3.80-5.40); RDW 13.6 % (11.5-15.5); WBC 10.3 k/uL (3.8-10.6); WBC (Perox) 10.73
[2016-10-12 05:47] LABS: ALT 94 U/L (9-52); AST 85 U/L (14-36); Alkaline Phosphatase 62 U/L (38-126); Anion Gap 11 mmol/L; Blood Urea Nitrogen 21 mg/dL (7-17); Calcium 9.2 mg/dL (8.4-10.2); Carbon Dioxide 23 mmol/L (22-30); Chloride 105 mmol/L (98-107); Cholesterol 194 mg/dL (<200); Glucose 116 mg/dL (74-99); HDL Cholesterol 24 mg/dL (40-60); Non-African American GFR(MDRD) >60 (>60 ml/min/1.73 sqM); Potassium 4.5 mmol/L (3.5-5.1); Sodium 139 mmol/L (137-145); Total Bilirubin 0.3 mg/dL (0.2-1.3); Total Protein 6.1 g/dL (6.3-8.2)
[2016-10-12] MEDS ORDERED: LEVOTHYROXINE 50 MCG TAB PO SCH (06:30)
[2016-10-12 07:00] LABS: Glucose,Whole Blood 91 mg/dL (75-99)
[2016-10-12] MEDS ORDERED: LINAGLIPTIN 5 MG TABLET PO SCH (07:30)
[2016-10-12 08:03] VITALS: RESP 16
[2016-10-12] MEDS ORDERED: ASPIRIN 325 MG TAB PO SCH (09:00)
[2016-10-12] MEDS: metFORMIN 850 MG TAB PO SCH ×2 (09:53→13:20)
[2016-10-12] MEDS: DULoxetine HCL 60 MG CAPSULE.DR PO SCH (09:54)
[2016-10-12] MEDS: NITROGLYCERIN OINT 1 INCH/GM PACKET TOPICAL SCH ×2 (09:54→13:19)
[2016-10-12] MEDS: GABAPENTIN 400 MG CAP PO SCH (09:54)
[2016-10-12] MEDS: MULTIVITAMINS, THERA 1 EACH TAB PO SCH (09:55)
[2016-10-12] MEDS: amLODIPine 5 MG TAB PO SCH (09:55)
[2016-10-12] MEDS: LISINOPRIL 5 MG TAB PO SCH (09:55)
[2016-10-12] MEDS: ASCORBIC ACID 500 MG TAB PO SCH (09:55)
[2016-10-12] MEDS: CHOLECALCIFEROL 1,000 UNIT TAB PO SCH (09:56)
[2016-10-12 10:55] VITALS: BP 111/67
[2016-10-12] MEDS: MAGNESIUM OXIDE 400 MG TAB PO SCH ×2 (11:23→13:18)
[2016-10-12 11:48] LABS: Glucose,Whole Blood 172 mg/dL (75-99)
[2016-10-12] MEDS ORDERED: ASPIRIN 81 MG PO SCH (12:30)
[2016-10-12 12:31] VITALS: PULSE 61; TEMP 97.9
[2016-10-12] MEDS: CLOPIDOGREL 75 MG TAB PO SCH (13:20)
--- NOTE | 2016-10-12 16:52 | P.DS ---
Providers Date of admission: 10/11/16 13:49 Attending physician: Red Yanez MD Consults: 10/11/16 13:49 Consult Physician Urgent Consulting Provider: [facility] Consult Reason/Comments: Unstable angina Do you want consulting provider notified?: Yes Primary care physician: Benedicto Cabello [facility] Course: Acute kidney injury likely prerenal Hypothyroidism Original Note: History of Present Illness H&P Date: 10/11/16 Chief Complaint: Chest pain Mrs. 60-year-old female with history of fibromyalgia depression chronic back pain comes in to the hospital with this episode of sudden onset diaphoresis thereafter noted pain in her midsternal region and to the left side. Patient stated that she has had multiple episodes previously denies having any prior episodes of significant pain. Patient states that she is had some watery diarrhea over the last few days which is something new for her In the emergency room patient's EKG did not reveal ST-T wave changes initial troponin was negative patient was initially initiated on heparin. Patient apparently is very inactive is bedridden pretty much due to her fibromyalgia states that she is only able to take about 7 or 8 steps. Patient also has a history of COPD previous history of smoking Patient's last stress test was over 2 years ago has had a cardiac catheterization done by Dr. Newman multiple years ago without any intervention At this time patient states that her symptoms are improved however has some reproducible pain in her chest No cough fevers chills nausea or abdominal pain urinary urgency or frequency is reported 10/12/2016 Patient is having any further episodes of chest pain. Patient does state to have had a previous episode of from vagal symptoms at that time apparently patient was told about a abnormal heart rhythm which resolved on its own Physical exam Gen. appearance oriented 3 in no distress Neck is supple no JVD Lungs good air entry clear to auscultation no rhonchi or wheezing Heart S1-S2 heard regular rate and rhythm no murmurs appreciated point tenderness noted on the left side of the chest around the fourth intercostal space closer to the sternum Abdomen is soft nontender no organomegaly bowel sounds are intact Neurologically cranial nerves II-12 grossly intact no focal motor or sensory deficits noted Skin no abnormalities appreciated Assessment and Plan Plan: #1 atypical chest pain #2 suspicion for SVT #3 essential hypertension #4 fibromyalgia #5 dyslipidemia #6 diabetes myelitis #Chronic low back pain #8 COPD #9 obesity She'll be discharged home blood pressure medications were changed patient is to follow-up for EP study to an induce if there is any arrhythmogenic potential A statin will also be initiated Plan - Discharge Summary New Discharge Prescriptions: New Pravastatin Sodium [Pravachol] 20 mg PO DAILY #30 tab Continue DULoxetine HCL [Cymbalta] 60 mg PO W/BRKFST Omeprazole [PriLOSEC] 20 mg PO W/SUPPER sitaGLIPtin [Januvia] 100 mg PO W/BRKFST metFORMIN HCL [Glucophage] 850 mg PO TID Multivitamins, Thera [Multivitamin (formulary)] 1 tab PO DAILY Cyclobenzaprine [Flexeril] 10 mg PO HS Aspirin EC [Ecotrin Low Dose] 81 mg PO W/LUNCH Clopidogrel [Plavix] 75 mg PO AC-LUNCH Levothyroxine Sodium [Synthroid] 50 mcg PO DAILY Vitamin C/Biotin [Hair, Skin and Nails] 1 tab PO DAILY Insulin Glargine [Lantus] 55 unit SQ HS Cholecalciferol [Vitamin D3] 1,000 unit PO DAILY Gabapentin 800 mg PO TID Albuterol Inhaler [Ventolin Hfa Inhaler] 1 - 2 puff INHALATION RT-Q6H PRN PRN Reason: Shortness Of Breath Dicyclomine [Bentyl] 20 mg PO QID #20 tablet HYDROcodone/APAP 7.5-325MG [[place] 7.5-325] 1 tab PO DAILY PRN PRN Reason: Pain Changed amLODIPine [Norvasc] 10 mg PO DAILY #0 Atenolol 50 mg PO DAILY #30 Lisinopril [Zestril] 20 mg PO W/BRKFST #30 Discontinued Ciprofloxacin HCl [Cipro] 500 mg PO BID Discharge Medication List DULoxetine HCL [Cymbalta] 60 mg PO W/BRKFST 06/21/13 [History] Omeprazole [PriLOSEC] 20 mg PO W/SUPPER 04/12/14 [History] sitaGLIPtin [Januvia] 100 mg PO W/BRKFST 12/03/14 [History] Aspirin EC [Ecotrin Low Dose] 81 mg PO W/LUNCH 03/14/15 [History] Cyclobenzaprine [Flexeril] 10 mg PO HS 03/14/15 [History] Multivitamins, Thera [Multivitamin (formulary)] 1 tab PO DAILY 03/14/15 [History ] metFORMIN HCL [Glucophage] 850 mg PO TID 03/14/15 [History] Clopidogrel [Plavix] 75 mg PO AC-LUNCH 11/20/15 [History] Levothyroxine Sodium [Synthroid] 50 mcg PO DAILY 11/20/15 [History] Albuterol Inhaler [Ventolin Hfa Inhaler] 1 - 2 puff INHALATION RT-Q6H PRN [History] Cholecalciferol [Vitamin D3] 1,000 unit PO DAILY 09/28/16 [History] Dicyclomine [Bentyl] 20 mg PO QID #20 tablet 09/28/16 [Rx] Gabapentin 800 mg PO TID 09/28/16 [History] Insulin Glargine [Lantus] 55 unit SQ HS 09/28/16 [History] Vitamin C/Biotin [Hair, Skin and Nails] 1 tab PO DAILY 09/28/16 [History] HYDROcodone/APAP 7.5-325MG [[place] 7.5-325] 1 tab PO DAILY PRN 10/11/16 [History] Atenolol 50 mg PO DAILY #30 10/12/16 [Rx] Lisinopril [Zestril] 20 mg PO W/BRKFST #30 10/12/16 [Rx] Pravastatin Sodium [Pravachol] 20 mg PO DAILY #30 tab 10/12/16 [Rx] amLODIPine [Norvasc] 10 mg PO DAILY #0 10/12/16 [Rx] Follow up Appointment(s)/Referral(s): Luan Stearns MD [STAFF PHYSICIAN] - 10/15/16 Benedicto Cabello DO [Primary Care Provider] - 1-2 days Patient Instructions/Handouts: Chest Pain (GEN) Activity/Diet/Wound Care/Special Instructions: hold atenolol on the day of ep study, Dr Stearns's office will call you to inform Discharge Disposition: HOME SELF-CARE
--- NOTE | 2016-10-12 17:16 | CONS ---
CONSULTATION This is a 59-year-old female patient of Dr. Ronak Martinez who comes in once again with symptoms that resemble what happened 5-7 years back. The patient states that she was lying in bed when she had sudden onset of sweating. She was a bit nauseous and very dizzy. She may have had a rapid heart beat. She sat up and she felt worse and, therefore, came to the emergency room. By the time she came to the emergency room her ECG showed sinus mechanism at 65 beats per minute. Her prior ECG showed sinus rhythm, normal RI, narrow QRS, no delta waves, normal ST segments, normal QT interval. Followup ECG did not show any significant change, the heart rate is down in the 50s. She is on atenolol 100 mg twice daily. PAST HISTORY: She has had a similar episode about 7 years back with sudden onset of sweating and being extremely dizzy. According to her, when she was in the ambulance one of the shredded filler cigar maker machine told her that her heart was beating very fast but by the time she came to the emergency room he heart rhythm was normal and nothing else was found. At that time, she underwent coronary angiography which revealed mild coronary artery disease. I do not have the details with me at the time. This is about 7 years back. In the interim, she has never had any similar episodes. Last year she came in with hypertension. Past history also includes diabetes, hypertension and dyslipidemia. She has increased BMI. HOME MEDICATION LIST: Was reviewed and includes atenolol 100 mg twice daily, aspirin and she is also on Plavix. She has never undergone coronary stenting, I am not sure why she is on Plavix. Synthroid, diabetes medications, lisinopril 5 mg a day, amlodipine 5 mg a day, Metformin. PAST SOCIAL HISTORY: She was a smoker in the past. She stopped in 1996. She has a history of marijuana use in the past. She has a history of partially detached retina in the left eye, history of migraines, history of [place] spotted fever. PAST SURGICAL HISTORY: Cholecystectomy, coronary angiography by Dr. Ronak Martinez 7 years back, hernia repair, hysterectomy, tonsillectomy, skin cancer which has been removed, umbilical hernia, anxiety disorder. 2D echo last year showed normal LV size and systolic function. EXAMINATION: Her blood pressure is in the normal range, 124/76, 136/84 and 111/67 mmHg. She is mildly orthostatic, about 20 points. Heart rate in the 50s, afebrile. HEAD AND NECK: Normal. HEART: Heart sounds are normal. LUNGS: Clear to auscultation. EXTREMITIES: Warm. No edema. She is obese, BMI of 38.7. IMPRESSION: 1. Two episodes of sudden onset of sweating with feeling very lightheaded and dizzy and possibly may have had palpitations. Normal cardiac enzymes, normal ECG. No arrhythmias here. 2. Past history of the exact same scenario. At that time the EMT told her that her that her heart was beating extremely fast while she was in the ambulance. 3. Diabetes on medical treatment. 4. Hypertension. Blood pressure is well controlled on current medication. 5. Dyslipidemia but she is not on a statin. SUGGEST: 1. This lady could possibly be experiencing an arrhythmia based upon her history. I would suggest a diagnostic EP study and if she has any inducible SVT we should proceed with an ablation at the same time. Otherwise, a loop monitor may be considered since she has had only 2 such episodes almost 5 to 7 years apart. Therefore, a short duration monitor would be pointless. 2. Diabetes mellitus, managed by admitting physician. 3. For hypertension, I would increase the dose of atenolol to 10 mg p.o. daily, lisinopril to 20 mg p.o. daily and I would back off on the atenolol prior to the EP study to 50 mg once daily. She can hold her atenolol on the day of the EP study which I will schedule as an outpatient. If the EP study is completely normal then a loop monitor should be considered. She is also not on a statin and should be on statins. She has a history of fibromyalgia and I suspect that is the reason why she is not taking it. I would at least give her Pravachol 10 mg p.o. daily but I would draw a lipid panel on her to get a baseline value at this time. I would also check a TSH on her. She may go home from a cardiac standpoint today and I will schedule her for an EP study and give her a call on Thursday and hopefully we should be able to do the study in the next 1-2 weeks. MMODL / IJN: [id number] /
== END 2016-10-12 15:08 | disposition home or self-care (01) ==
LOC: EC 11:15 → 3OBS 13:49
PROVIDERS: ADMIT Internal Medicine; ATTEND Internal Medicine
DX: R07.89 Other chest pain (principal); I10 Essential (primary) hypertension; M79.7 Fibromyalgia; E78.5 Hyperlipidemia, unspecified; G89.29 Other chronic pain; M54.5 Low back pain; J44.9 Chronic obstructive pulmonary disease, unspecified; E66.9 Obesity, unspecified; Z68.38 Body mass index [BMI] 38.0-38.9, adult; R19.7 Diarrhea, unspecified; R61 Generalized hyperhidrosis; R55 Syncope and collapse; R42 Dizziness and giddiness; E11.40 Type 2 diabetes mellitus with diabetic neuropathy, unspecified; R20.2 Paresthesia of skin; R06.02 Shortness of breath; E03.9 Hypothyroidism, unspecified; N17.9 Acute kidney failure, unspecified; Z79.899 Other long term (current) drug therapy; Z79.82 Long term (current) use of aspirin; Z79.84 Long term (current) use of oral hypoglycemic drugs; Z79.02 Long term (current) use of antithrombotics/antiplatelets; Z79.4 Long term (current) use of insulin; Z87.891 Personal history of nicotine dependence; Z85.828 Personal history of other malignant neoplasm of skin; Z80.3 Family history of malignant neoplasm of breast; Z86.73 Personal history of transient ischemic attack (TIA), and cerebral infarction without residual deficits; Z87.01 Personal history of pneumonia (recurrent); Z87.11 Personal history of peptic ulcer disease; J45.909 Unspecified asthma, uncomplicated; K21.9 Gastro-esophageal reflux disease without esophagitis; M19.90 Unspecified osteoarthritis, unspecified site; F41.9 Anxiety disorder, unspecified; F32.9 Major depressive disorder, single episode, unspecified; F31.9 Bipolar disorder, unspecified; K76.0 Fatty (change of) liver, not elsewhere classified; G62.9 Polyneuropathy, unspecified
CPT/HCPCS: 99291; 96374; 96375 ×2; 36415; 93005; 80061; 80053 ×2; 82550; 82553; 83735; 84484; 85025 ×2; 85610; 85730; 81003; 71020; 70450; G0378 ×2; J1644 ×2; J1885; 76380

== ENCOUNTER → 2017-04-21 | Outpatient (CLI) | payer OTHER ==
--- NOTE | 2017-04-22 13:13 | MM ---
Reason for exam: screening (asymptomatic). Last mammogram was performed 2 years and 2 months ago. History: Patient is postmenopausal and history of other cancer. Family history of premenopausal breast cancer in mother. Physical Findings: A clinical breast exam by your physician is recommended on an annual basis and results should be correlated with mammographic findings. MG Screening Mammo w CAD Bilateral CC and MLO view(s) were taken. Prior study comparison: March 06, 2015, bilateral MG screening mammo w CAD. May 18, 2013, bilateral digital screening mammo w/CAD. There are scattered fibroglandular densities. No significant changes when compared with prior studies. ASSESSMENT: Negative, BI-RAD 1 RECOMMENDATION: Routine screening mammogram of both breasts in 1 year.
== END | disposition home or self-care (01) ==
LOC: RADMAMWWP 13:01
PROVIDERS: ATTEND Family Medicine
DX: Z12.31 Encounter for screening mammogram for malignant neoplasm of breast (principal)
CPT/HCPCS: 77067

== ENCOUNTER → 2017-05-07 | Outpatient (CLI) | payer OTHER ==
[2017-05-07 13:33] LABS: INR 1.1 (<1.2)
[2017-05-07 13:34] LABS: Prothrombin Time 10.6 sec (9.0-12.0)
== END | disposition home or self-care (01) ==
LOC: LABWHC1 12:40
PROVIDERS: ATTEND Psychiatry & Neurology Neurology
DX: D65 Disseminated intravascular coagulation [defibrination syndrome] (principal)
CPT/HCPCS: 36415; 85610

== ENCOUNTER 2017-05-19 07:57 | Emergency (ER) | payer OTHER ==
[2017-05-19] MEDS ORDERED: SODIUM CHLORIDE 0.9% 1,000 ML IV STA (08:15)
[2017-05-19] MEDS ORDERED: MECLIZINE 12.5 MG TAB PO STA (08:16)
[2017-05-19 08:27] LABS: Glucose,Whole Blood 189 mg/dL (75-99)
[2017-05-19] MEDS ORDERED: IPRATROPIUM-ALBUTEROL 3 ML NEB INHALATION STA (08:31)
[2017-05-19 08:34] VITALS: RESP 18
[2017-05-19 08:49] LABS: Basophils # (A) 0.1 k/uL (0-0.2); Basophils % (A) 1 %; Eosinophils # (A) 0.5 k/uL (0-0.7); Eosinophils % (A) 5 %; HGB 13.9 gm/dL (11.4-16.0); Lymphocytes # (A) 4.7 k/uL (1.0-4.8); Lymphocytes % (A) 45 %; MCH 26.8 pg (25.0-35.0); MCHC 33.1 g/dL (31.0-37.0); MCV 80.8 fL (80.0-100.0); Mean Platelet Volume 7.8; Monocytes # (A) 0.5 k/uL (0-1.0); Monocytes % (A) 5 %; Neutrophils # (A) 4.5 k/uL (1.3-7.7); Neutrophils % (A) 43 %; Platelet Count 321 k/uL (150-450); RDW 14.6 % (11.5-15.5); WBC 10.5 k/uL (3.8-10.6)
--- NOTE | 2017-05-19 08:54 | ED ---
General Adult HPI - General Chief complaint: Nausea/Vomiting/Diarrhea Stated complaint: NV Time Seen by Provider: 05/19/17 08:03 Source: patient, EMS, RN notes reviewed, old records reviewed Mode of arrival: EMS - History of Present Illness Initial comments: 61-year-old female presents emergency Department chief complaint of nausea, sweats, and dizziness. She reports it's been having symptoms for the past 2 weeks. She also reports that today she's had some episodes of vomiting and diarrhea. She's been coughing. Heart was diagnosed with bronchitis. She is not on any antibiotics currently. Patient relates that she will feel dizzy and weak and ate a small snack. Shortly afterwards she'll break out in severe sweats. She states that this happened last night multiple times. Patient reports she has no significant abdominal pain this time. She denies any chest pain but does feel short of breath due to the coughing. - Related Data Home Medications Medication Instructions Recorded Confirmed DULoxetine HCL [Cymbalta] 60 mg PO W/BRKFST 06/21/13 05/19/17 Omeprazole [PriLOSEC] 20 mg PO W/SUPPER 04/12/14 05/19/17 sitaGLIPtin [Januvia] 100 mg PO W/BRKFST 12/03/14 05/19/17 Aspirin EC [Ecotrin Low Dose] 81 mg PO W/LUNCH 03/14/15 05/19/17 Cyclobenzaprine [Flexeril] 10 mg PO HS 03/14/15 05/19/17 Multivitamins, Thera [Multivitamin 1 tab PO DAILY 03/14/15 05/19/17 (formulary)] metFORMIN HCL [Glucophage] 850 mg PO TID 03/14/15 05/19/17 Levothyroxine Sodium [Synthroid] 50 mcg PO DAILY 11/20/15 05/19/17 Albuterol Inhaler [Ventolin Hfa 1 - 2 puff INHALATION RT-Q6H PRN 09/28/16 Inhaler] Cholecalciferol [Vitamin D3] 1,000 unit PO DAILY 09/28/16 05/19/17 Gabapentin 800 mg PO TID 09/28/16 05/19/17 Insulin Glargine [Lantus] 120 unit SQ HS 09/28/16 05/19/17 Vitamin C/Biotin [Hair, Skin and 1 tab PO DAILY 09/28/16 05/19/17 Nails] HYDROcodone/APAP 7.5-325MG [[place] 1 tab PO TID 10/11/16 05/19/17 7.5-325] Glimepiride [Amaryl] 4 mg PO BID 11/24/16 05/19/17 Lisinopril [Zestril] 5 mg PO DAILY 11/24/16 05/19/17 Atenolol [Tenormin] 25 mg PO DAILY 05/19/17 05/19/17 Warfarin [Coumadin] 5 mg PO SUTUTHSA 05/19/17 05/19/17 Warfarin [Coumadin] 10 mg PO MOWEFR 05/19/17 05/19/17 Previous Rx's Medication Instructions Recorded Pravastatin Sodium [Pravachol] 20 mg PO DAILY #30 tab 10/12/16 amLODIPine [Norvasc] 10 mg PO DAILY #0 10/12/16 Rivaroxaban [Xarelto] 20 mg PO DAILY #30 tab 11/27/16 Albuterol Inhaler [Ventolin Hfa 1 - 2 puff INHALATION Q6HR PRN #1 05/19/17 Inhaler] inhaler Levofloxacin [Levaquin] 750 mg PO DAILY 5 Days #5 tab 05/19/17 predniSONE 50 mg PO DAILY #5 tablet 05/19/17 Allergies Allergy/AdvReac Type Severity Reaction Status Date / Time No Known Allergies Allergy Verified 05/19/17 08:33 Review of Systems ROS Statement: Those systems with pertinent positive or pertinent negative responses have been documented in the HPI. ROS Other: All systems not noted in ROS Statement are negative. Past Medical History Past Medical History: Asthma, Cancer, COPD, CVA/TIA, Diabetes Mellitus, Eye Disorder, Fibromyalgia, GERD/Reflux, Hypertension, Osteoarthritis (OA), Pneumonia, Thyroid Disorder Additional Past Medical History / Comment(s): chronic low back pain, sciatica, ddd, DJD, basal cell ca 2007 removed L nares, PARTIAL DETATCHED RETINA LT EYE , MIGRAINES, SHAMAR [place] SPOTTED FEVER infant, bilateral legs and feet NEUROPATHY, [place] LEFT, fatty liver, stomach ulcer, hx of fx's R thumb, R wrist, L hand. History of Any Multi-Drug Resistant Organisms: None Reported Past Surgical History: Back Surgery, Cholecystectomy, Heart Catheterization, Hernia Repair, Hysterectomy, Tonsillectomy Additional Past Surgical History / Comment(s): L nares skin cancer removed, UMBILICAL HERNIA SX 3X, RT Hand SX for TRIGGER FINGER, FIBROID TUMORS REMOVED ABD/BACK, LAPROSCOPIES x 3, L5-S1 SX for HERNIATED DISCS Past Anesthesia/Blood Transfusion Reactions: Postoperative Nausea & Vomiting ( PONV) Additional Past Anesthesia/Blood Transfusion Reaction / Comment(s): AND SEVERE HEADACHE Past Psychological History: Anxiety, Bipolar, Depression Smoking Status: Former smoker - Past Family History Father Family Medical History: Unable to Obtain Additional Family Medical History / Comment(s): ONLY MET HIM ONCE IN HER LIFE [employer] IN HIS FAMILY Mother Family Medical History: Cancer Additional Family Medical History / Comment(s): breast CA. Mother is alive and is 85yrs old. General Exam - General Exam Comments Initial Comments: 61-year-old female. Patient appears weak. General: Well appearing, well nourished, in no distress. Oriented x 3, normal mood and affect . Ambulating without difficulty. Skin: Good turgor, no rash, unusual bruising or prominent lesions Hair: Normal texture and distribution. HEENT: Head: Normocephalic, atraumatic, no visible or palpable masses, depressions, or scaring. Eyes: Visual acuity intact, conjunctiva clear, sclera non-icteric, EOM intact, PERRL. Ears: EACs clear, TMs translucent & cone of light visualized. hearing intact. Nose: No external lesions, mucosa non-inflamed, septum and turbinates normal Mouth: Mucous membranes moist, no mucosal lesions. Teeth/Gums: No obvious caries or periodontal disease. No gingival inflammation or significant resorption. Pharynx: Mucosa non-inflamed, no tonsillar hypertrophy or exudate Neck: Supple, without lesions, bruits, or adenopathy, thyroid non-enlarged and non-tender Heart: No cardiomegaly or thrills; regular rate and rhythm, no murmur or gallop Lungs: Patient has wheezing noted bilaterally. Abdomen: Bowel sounds normal, no tenderness, organomegaly, masses, or hernia Back: Spine normal without deformity or tenderness, no CVA tenderness Extremities: No amputations or deformities, cyanosis, edema or varicosities, peripheral pulses intact Musculoskeletal: Normal gait and station. No misalignment, asymmetry, crepitation, defects, tenderness, masses, effusions, decreased range of motion, instability, atrophy or abnormal strength or tone in the head, neck, spine, ribs , pelvis or extremities. Neurologic: CN 2-12 normal. Sensation to pain, touch, and proprioception normal. DTRs normal in upper and lower extremities. No pathologic reflexes. Psychiatric: Oriented X3, intact recent and remote memory, judgment and insight , normal mood and affect. Course Vital Signs 05/19/17 05/19/17 05/19/17 07:57 08:49 09:00 Temperature 99.1 F Pulse Rate 98 96 96 Respiratory 18 Rate Blood Pressure 117/86 O2 Sat by Pulse 98 Oximetry 05/19/17 12:06 Temperature Pulse Rate 86 Respiratory 18 Rate Blood Pressure 131/69 O2 Sat by Pulse 97 Oximetry Medical Decision Making - Medical Decision Making 61-year-old female presents emergency department today chief complaint of cough congestion dizziness. She states that she also has episodes of sweating after she eats. At this time patient was given IV fluids labwork obtained. LABWORK was reviewed and normal. Chest x-ray shows diffuse changes but no significant she had her medicines including pneumonia. Troponins negative. EKG was within normal limits. KUB is normal. She is no abdominal tenderness or pain. Patient does have some wheezing noted. Patient will be given treatment for bronchitis with Levaquin and steroids. Discussed using breathing treatments. All questions answered and return parameters were discussed. - Lab Data Result diagrams: 05/19/17 08:00 05/19/17 08:00 Lab Results 05/19/17 05/19/17 05/19/17 Range/Units 08:00 08:00 08:00 WBC 10.5 (3.8-10.6) k/uL RBC 5.20 (3.80-5.40) m/uL Hgb 13.9 (11.4-16.0) gm/dL Hct 42.0 (34.0-46.0) % MCV 80.8 (80.0-100.0) fL MCH 26.8 (25.0-35.0) pg MCHC 33.1 (31.0-37.0) g/dL RDW 14.6 (11.5-15.5) % Plt Count 321 (150-450) k/uL Neutrophils % 43 % Lymphocytes % 45 % Monocytes % 5 % Eosinophils % 5 % Basophils % 1 % Neutrophils # 4.5 (1.3-7.7) k/uL Lymphocytes # 4.7 (1.0-4.8) k/uL Monocytes # 0.5 (0-1.0) k/uL Eosinophils # 0.5 (0-0.7) k/uL Basophils # 0.1 (0-0.2) k/uL PT (9.0-12.0) sec INR (<1.2) APTT (22.0-30.0) sec Sodium 142 (137-145) mmol/L Potassium 4.8 (3.5-5.1) mmol/L Chloride 101 (98-107) mmol/L Carbon Dioxide 22 (22-30) mmol/L Anion Gap 19 mmol/L BUN 17 (7-17) mg/dL Creatinine 1.03 (0.52-1.04) mg/dL Est GFR (CKD-EPI)AfAm 67 (>60 ml/min/1.73 sqM) Est GFR (CKD-EPI)NonAf 58 (>60 ml/min/1.73 sqM) Glucose 161 H (74-99) mg/dL POC Glucose (mg/dL) (75-99) mg/dL POC Glu [employer]ated [employer] Specialist ID Calcium 9.7 (8.4-10.2) mg/dL Magnesium 1.3 L (1.6-2.3) mg/dL Total Bilirubin 0.5 (0.2-1.3) mg/dL AST 61 H (14-36) U/L ALT 48 (9-52) U/L Alkaline Phosphatase 63 (38-126) U/L Total Creatine Kinase 204 H (30-135) U/L CK-MB (CK-2) 1.1 (0.0-2.4) ng/mL CK-MB (CK-2) Rel Index 0.5 Troponin I <0.012 (0.000-0.034) ng/mL Total Protein 7.2 (6.3-8.2) g/dL Albumin 4.3 (3.5-5.0) g/dL Amylase 49 (30-110) U/L Lipase 259 (23-300) U/L Urine Color Urine Appearance (Clear) Urine pH (5.0-8.0) Ur Specific [place] (1.001-1.035) Urine Protein (Negative) Urine Glucose (UA) (Negative) Urine Ketones (Negative) Urine Blood (Negative) Urine Nitrite (Negative) Urine Bilirubin (Negative) Urine Urobilinogen (<2.0) mg/dL Ur Leukocyte Esterase (Negative) Urine RBC (0-5) /hpf Urine WBC (0-5) /hpf Ur Squamous Epith Cells (0-4) /hpf Hyaline Casts (0-2) /lpf Urine Mucus (None) /hpf 05/19/17 05/19/17 05/19/17 Range/Units 08:00 08:21 11:08 WBC (3.8-10.6) k/uL RBC (3.80-5.40) m/uL Hgb (11.4-16.0) gm/dL Hct (34.0-46.0) % MCV (80.0-100.0) fL MCH (25.0-35.0) pg MCHC (31.0-37.0) g/dL RDW (11.5-15.5) % Plt Count (150-450) k/uL Neutrophils % % Lymphocytes % % Monocytes % % Eosinophils % % Basophils % % Neutrophils # (1.3-7.7) k/uL Lymphocytes # (1.0-4.8) k/uL Monocytes # (0-1.0) k/uL Eosinophils # (0-0.7) k/uL Basophils # (0-0.2) k/uL PT 11.2 (9.0-12.0) sec INR 1.2 H (<1.2) APTT 27.0 (22.0-30.0) sec Sodium (137-145) mmol/L Potassium (3.5-5.1) mmol/L Chloride (98-107) mmol/L Carbon Dioxide (22-30) mmol/L Anion Gap mmol/L BUN (7-17) mg/dL Creatinine (0.52-1.04) mg/dL Est GFR (CKD-EPI)AfAm (>60 ml/min/1.73 sqM) Est GFR (CKD-EPI)NonAf (>60 ml/min/1.73 sqM) Glucose (74-99) mg/dL POC Glucose (mg/dL) 189 H (75-99) mg/dL POC Glu Automated Logistics Specialist ID Christina Arcos Calcium (8.4-10.2) mg/dL Magnesium (1.6-2.3) mg/dL Total Bilirubin (0.2-1.3) mg/dL AST (14-36) U/L ALT (9-52) U/L Alkaline Phosphatase (38-126) U/L Total Creatine Kinase (30-135) U/L CK-MB (CK-2) (0.0-2.4) ng/mL CK-MB (CK-2) Rel Index Troponin I (0.000-0.034) ng/mL Total Protein (6.3-8.2) g/dL Albumin (3.5-5.0) g/dL Amylase (30-110) U/L Lipase (23-300) U/L Urine Color Yellow Urine Appearance Clear (Clear) Urine pH 5.5 (5.0-8.0) Ur Specific [place] 1.008 (1.001-1.035) Urine Protein 1+ H (Negative) Urine Glucose (UA) Negative (Negative) Urine Ketones Negative (Negative) Urine Blood Negative (Negative) Urine Nitrite Negative (Negative) Urine Bilirubin Negative (Negative) Urine Urobilinogen <2.0 (<2.0) mg/dL Ur Leukocyte Esterase Trace H (Negative) Urine RBC <1 (0-5) /hpf Urine WBC 2 (0-5) /hpf Ur Squamous Epith Cells <1 (0-4) /hpf Hyaline Casts 4 H (0-2) /lpf Urine Mucus Rare H (None) /hpf 05/19/17 11:22 EKG performed 823 shows normal sinus rhythm with left axis deviation. WA interval is 140 ms. QRS duration 90 ms. QT QTC 396/476 ms. No evidence of ST elevation or T-wave inversion. No endometrial ventricular arrhythmias. Disposition Clinical Impression: Bronchitis, Sweating Disposition: HOME SELF-CARE Condition: Good Instructions: Acute Bronchitis (ED) Additional Instructions: Patient has a follow-up with primary care provider within the next 1-2 days. Take the medications as prescribed. Return to emergency department if any alarming signs or symptoms occur. Prescriptions: Albuterol Inhaler [Ventolin Hfa Inhaler] 1 - 2 puff INHALATION Q6HR PRN #1 inhaler PRN Reason: Shortness Of Breath Levofloxacin [Levaquin] 750 mg PO DAILY 5 Days #5 tab predniSONE 50 mg PO DAILY #5 tablet Referrals: Benedicto Cabello DO [Primary Care Provider] - 1-2 days Time of Disposition: 12:52
[2017-05-19 09:01] LABS: Albumin 4.3 g/dL (3.5-5.0); Calcium 9.7 mg/dL (8.4-10.2); Magnesium 1.3 mg/dL (1.6-2.3); Potassium 4.8 mmol/L (3.5-5.1); Total Bilirubin 0.5 mg/dL (0.2-1.3); Total Protein 7.2 g/dL (6.3-8.2)
[2017-05-19 09:10] LABS: INR 1.2 (<1.2); Prothrombin Time 11.2 sec (9.0-12.0)
[2017-05-19 09:16] LABS: Creatine Kinase 204 U/L (30-135)
[2017-05-19 09:28] LABS: Troponin I <0.012 ng/mL (0.000-0.034)
[2017-05-19 09:40] LABS: Creatine Kinase MB 1.1 ng/mL (0.0-2.4)
--- NOTE | 2017-05-19 10:24 | XR ---
EXAMINATION TYPE: XR chest 2V DATE OF EXAM: 05/19/2017 COMPARISON: 10/11/2016 HISTORY: 61-year-old female with chest pain TECHNIQUE: AP and lateral views FINDINGS: Heart normal size. Aorta and pulmonary vasculature within normal limits. Mild interstitial prominence of the chronic appearance. Anterior endplate spondylosis mid to lower thoracic spine. No consolidati on or pleural effusion. IMPRESSION: Chronic changes without acute cardiopulmonary process.
[2017-05-19] MEDS ORDERED: LEVOFLOXACIN 750 MG TAB PO STA (11:18)
[2017-05-19] MEDS ORDERED: metFORMIN 500 MG TAB PO STA (11:18)
[2017-05-19 11:35] LABS: Appearance,Urine Clear (Clear); Bilirubin,Urine Negative (Negative); Blood,Urine Negative (Negative); Color,Urine Yellow; Glucose,Urine (UA) Negative (Negative); Hyaline Casts,Urine 4 /lpf (0-2); Ketones,Urine Negative (Negative); Leukocyte Esterase,Urine Trace (Negative); Mucus,Urine Rare /hpf; Nitrite,Urine Negative (Negative); PH, Urine 5.5 (5.0-8.0); Protein,Urine 1+ (Negative); RBC,Urine <1 /hpf (0-5); Specific Gravity,Urine 1.008 (1.001-1.035); Squamous Epithelial Cell,Urine <1 /hpf (0-4); Urobilinogen,Urine <2.0 mg/dL (<2.0); WBC,Urine 2 /hpf (0-5)
[2017-05-19 13:09] VITALS: BP 122/61; PULSE 92; TEMP 98.9
== END 2017-05-19 13:21 | disposition home or self-care (01) ==
LOC: EC 07:57
DX: J40 Bronchitis, not specified as acute or chronic (principal); R61 Generalized hyperhidrosis; E11.9 Type 2 diabetes mellitus without complications; M79.7 Fibromyalgia; K21.9 Gastro-esophageal reflux disease without esophagitis; I10 Essential (primary) hypertension; M19.90 Unspecified osteoarthritis, unspecified site; E07.9 Disorder of thyroid, unspecified; F41.9 Anxiety disorder, unspecified; F32.9 Major depressive disorder, single episode, unspecified; Z87.891 Personal history of nicotine dependence; Z95.818 Presence of other cardiac implants and grafts; Z85.828 Personal history of other malignant neoplasm of skin; Z86.73 Personal history of transient ischemic attack (TIA), and cerebral infarction without residual deficits; Z79.01 Long term (current) use of anticoagulants; Z79.4 Long term (current) use of insulin; Z79.891 Long term (current) use of opiate analgesic; Z79.82 Long term (current) use of aspirin; Z79.899 Other long term (current) drug therapy
CPT/HCPCS: 36415; 71046; 80053; 81001; 82150; 82550; 82553; 83690; 83735; 84484; 85025; 85610; 85730; 87040; 93005; 94640; 96360; 96361; 99285

== ENCOUNTER 2017-06-08 16:30 | Inpatient (IN) | payer OTHER ==
[2017-06-08 17:38] LABS: Basophils # (A) 0.1 k/uL (0-0.2); Basophils % (A) 1 %; Eosinophils # (A) 0.3 k/uL (0-0.7); Eosinophils % (A) 2 %; HCT 40.9 % (34.0-46.0); HGB 13.3 gm/dL (11.4-16.0); Lymphocytes # (A) 4.5 k/uL (1.0-4.8); Lymphocytes % (A) 28 %; MCH 26.8 pg (25.0-35.0); MCHC 32.6 g/dL (31.0-37.0); MCV 82.2 fL (80.0-100.0); Mean Platelet Volume 6.7; Monocytes # (A) 0.7 k/uL (0-1.0); Monocytes % (A) 4 %; Neutrophils % (A) 63 %; Platelet Count 374 k/uL (150-450); RBC 4.97 m/uL (3.80-5.40); RDW 14.2 % (11.5-15.5); WBC 15.9 k/uL (3.8-10.6)
[2017-06-08 17:49] LABS: Partial Thromboplastin Time 59.1 sec (22.0-30.0); Prothrombin Time 60.3 sec (9.0-12.0)
[2017-06-08 17:52] LABS: INR 6.6 (<1.2)
[2017-06-08] MEDS ORDERED: ACETAMINOPHEN TAB 325 MG TAB PO STA (17:55)
[2017-06-08] MEDS ORDERED: ONDANSETRON 4 MG/2 ML VIAL IVP STA (17:55)
[2017-06-08] MEDS ORDERED: SODIUM CHLORIDE 0.9% 500 ML IV ONE (17:55)
[2017-06-08 17:56] LABS: Creatine Kinase 161 U/L (30-135)
[2017-06-08 18:03] LABS: Albumin 4.5 g/dL (3.5-5.0); Calcium 10.4 mg/dL (8.4-10.2); Potassium 5.1 mmol/L (3.5-5.1); Total Bilirubin 0.5 mg/dL (0.2-1.3); Total Protein 7.4 g/dL (6.3-8.2)
--- NOTE | 2017-06-08 18:04 | CT ---
EXAMINATION TYPE: CT brain sigifredoine wo con DATE OF EXAM: 06/08/2017 COMPARISON: CT brain October 11, 2016 HISTORY: Syncope with weakness and neck pain. Automated Exposure Control for Dose Reduction was Utilized. TECHNIQUE: CT scan of the head and cervical spine are performed without contrast. FINDINGS: There is no acute intracranial hemorrhage, mass effect, or midline shift identified. The ventricles and sulci are within normal limits in size. Some low-attenuation periventricular white m atter is redemonstrated. The calvarium is intact. The globes are intact and the visualized sinuses ar e clear. Cervical spine is visualized in its entirety from C1 through upper thoracic levels and demonstrates s traightened alignment without evidence of acute fracture or dislocation. Prevertebral soft tissue ap pears within normal limits. The C1-C2 articulation is within normal limits on the coronal images. Ve rtebral body heights and disc space heights are maintained. No large posterior disc herniations are s een on sagittal or axial images. Thyroid gland is felt within normal limits. Lung apices are clear. IMPRESSION: 1. There is no acute fracture or dislocation evident in the cervical spine. 2. No acute intracranial hemorrhage or midline shift is seen.
--- NOTE | 2017-06-08 18:04 | ED ---
General Adult HPI - General Chief complaint: Recheck/Abnormal Lab/Rx Stated complaint: lightheaded/syncope hit head Time Seen by Provider: 06/08/17 17:45 Source: patient Mode of arrival: wheelchair Limitations: no limitations - History of Present Illness Initial comments: 61-year-old female patient presents to the emergency department today for complaints of headache, nausea, and dizziness. Patient states that she has been taking Coumadin since of November and did experience a syncopal event on Thursday. She states that she did strike her head during the fall. Patient states that she was unconscious for a couple of seconds. Patient states leading up to that she was lightheaded and dizzy throughout the day. Patient states that she has been having intermittent left-sided chest pain for over a week. Describes the pain as sharp and in her "heart". Patient states she has been having sweats. Does have issues with low blood sugar occasionally, but has never passed out from this. Patient denies any recent rash, fever, chills, shortness breath, abdominal pain, diarrhea, constipation, back pain, numbness, tingling, weakness, hematuria, dysuria, urinary urgency, urinary frequency, or any other complaints. - Related Data Home Medications Medication Instructions Recorded Confirmed DULoxetine HCL [Cymbalta] 60 mg PO W/BRKFST 06/21/13 06/08/17 Omeprazole [PriLOSEC] 20 mg PO W/SUPPER 04/12/14 06/08/17 sitaGLIPtin [Januvia] 100 mg PO W/BRKFST 12/03/14 06/08/17 Aspirin EC [Ecotrin Low Dose] 81 mg PO W/LUNCH 03/14/15 06/08/17 Cyclobenzaprine [Flexeril] 10 mg PO HS 03/14/15 06/08/17 Multivitamins, Thera [Multivitamin 1 tab PO DAILY 03/14/15 06/08/17 (formulary)] Albuterol Inhaler [Ventolin Hfa 1 - 2 puff INHALATION RT-Q6H PRN 09/28/16 Inhaler] Cholecalciferol [Vitamin D3] 1,000 unit PO DAILY 09/28/16 06/08/17 Gabapentin 800 mg PO TID 09/28/16 06/08/17 Insulin Glargine [Lantus] 120 unit SQ HS 09/28/16 06/08/17 Vitamin C/Biotin [Hair, Skin and 1 tab PO DAILY 09/28/16 06/08/17 Nails] Glimepiride [Amaryl] 4 mg PO BID 11/24/16 06/08/17 Lisinopril [Zestril] 5 mg PO DAILY 11/24/16 06/08/17 Atenolol [Tenormin] 25 mg PO DAILY 05/19/17 06/08/17 Carbidopa-Levodopa 25-100 mg 1 tab PO TID 05/19/17 06/08/17 [Sinemet 25-100] HYDROcodone/APAP 10-325MG [[place] 1 tab PO TID PRN 05/19/17 06/08/17 10-325] Levothyroxine Sodium [Synthroid] 75 mcg PO DAILY 05/19/17 06/08/17 Metoclopramide [Reglan] 10 mg PO DAILY PRN 05/19/17 06/08/17 Primidone [Mysoline] 50 mg PO DAILY 05/19/17 06/08/17 Warfarin [Coumadin] 5 mg PO SUTUTHSA 05/19/17 06/08/17 Warfarin [Coumadin] 10 mg PO MOWEFR 05/19/17 06/08/17 Zolpidem [Ambien] 10 mg PO HS PRN 05/19/17 06/08/17 metFORMIN HCL [Glucophage] 500 mg PO BID 05/19/17 06/08/17 Previous Rx's Medication Instructions Recorded Pravastatin Sodium [Pravachol] 20 mg PO DAILY #30 tab 10/12/16 amLODIPine [Norvasc] 10 mg PO DAILY #0 10/12/16 Rivaroxaban [Xarelto] 20 mg PO DAILY #30 tab 11/27/16 Allergies Allergy/AdvReac Type Severity Reaction Status Date / Time No Known Allergies Allergy Verified 06/08/17 18:41 Review of Systems ROS Statement: Those systems with pertinent positive or pertinent negative responses have been documented in the HPI. ROS Other: All systems not noted in ROS Statement are negative. Past Medical History Past Medical History: Asthma, Cancer, COPD, CVA/TIA, Diabetes Mellitus, Eye Disorder, Fibromyalgia, GERD/Reflux, Hypertension, Osteoarthritis (OA), Pneumonia, Thyroid Disorder Additional Past Medical History / Comment(s): chronic low back pain, sciatica, ddd, DJD, basal cell ca 2008 removed L nares, PARTIAL DETATCHED RETINA LT EYE , MIGRAINES, SHAMAR [place] SPOTTED FEVER infant, bilateral legs and feet NEUROPATHY, [place] LEFT, fatty liver, stomach ulcer, hx of fx's R thumb, R wrist, L hand. History of Any Multi-Drug Resistant Organisms: None Reported Past Surgical History: Back Surgery, Cholecystectomy, Heart Catheterization, Hernia Repair, Hysterectomy, Tonsillectomy Additional Past Surgical History / Comment(s): L nares skin cancer removed, UMBILICAL HERNIA SX 3X, RT Hand SX for TRIGGER FINGER, FIBROID TUMORS REMOVED ABD/BACK, LAPROSCOPIES x 3, L5-S1 SX for HERNIATED DISCS Past Anesthesia/Blood Transfusion Reactions: Postoperative Nausea & Vomiting ( PONV) Additional Past Anesthesia/Blood Transfusion Reaction / Comment(s): AND SEVERE HEADACHE Past Psychological History: Anxiety, Bipolar, Depression Smoking Status: Former smoker Past Alcohol Use History: Rare Past Drug Use History: Marijuana - Past Family History Father Family Medical History: Unable to Obtain Additional Family Medical History / Comment(s): ONLY MET HIM ONCE IN HER LIFE [employer] IN HIS FAMILY Mother Family Medical History: Cancer Additional Family Medical History / Comment(s): breast CA. Mother is alive and is 85yrs old. General Exam Limitations: no limitations General appearance: alert, in no apparent distress, other (This is a well- developed, obese adult female patient in no acute distress. Vital signs upon presentation are temperature 98.1F, pulse 88, respirations 18, blood pressure 106/66, pulse ox 94% on room air.) Eye exam: Present: normal appearance, PERRL, EOMI. Absent: scleral icterus, conjunctival injection, periorbital swelling ENT exam: Present: normal exam, normal oropharynx, mucous membranes moist Neck exam: Present: normal inspection, full ROM, other (Nontender, no step-off, no deformity to firm midline palpation of the posterior cervical spine. Full range of motion without pain or limitation.). Absent: tenderness, meningismus, lymphadenopathy Respiratory exam: Present: normal lung sounds bilaterally. Absent: respiratory distress, wheezes, rales, rhonchi, stridor Cardiovascular Exam: Present: regular rate, normal rhythm, normal heart sounds. Absent: systolic murmur, diastolic murmur, rubs, gallop, clicks GI/Abdominal exam: Present: soft, normal bowel sounds. Absent: distended, tenderness, guarding, rebound, rigid Neurological exam: Present: alert, oriented X3, CN II-XII intact, other ( Strength in all 4 extremities is 5/5) Psychiatric exam: Present: normal affect, normal mood Skin exam: Present: warm, dry, intact, normal color. Absent: rash Course Vital Signs 06/08/17 06/08/17 16:49 20:25 Temperature 98.1 F 97.3 F L Pulse Rate 88 87 Respiratory 18 18 Rate Blood Pressure 106/66 128/73 O2 Sat by Pulse 94 L 93 L Oximetry EKG Findings - EKG Comments: EKG Findings:: EKG obtained at 1712 shows normal sinus rhythm with a ventricular rate of 83,. Interval 152, QRS duration 92, QT 388, QTC 455. No evidence of ST elevation or depression. No T-wave inversion. Medical Decision Making - Medical Decision Making 61-year-old female patient presented to the emergency department today for complaints of syncope, chest pain, and headache. Physical examination was unremarkable. Patient is neurologically intact. Labs reviewed and showed a white blood cell count of 15.9, PTT 60.3, INR 6.6, PTT 59.1. Urinalysis showed a cloudy appearance with 3+ protein, 3+ glucose, trace ketones, large blood, small leukocyte esterase, greater than 182 red blood cells, 37 white blood cells , 14 squamous epithelial cells, 105 hyaline casts, occasional mucous. EKG showed normal sinus rhythm. I did discuss findings with the patient, given her hypercoagulability, chest pain, and syncope we will admit her to the hospital for observation. We'll administer vitamin K. Urine has been cultured. Patient will be admitted to Dr. Cabello. She verbalizes understanding and agrees with this plan. - Lab Data Result diagrams: 06/08/17 17:23 06/08/17 17:23 Lab Results 06/08/17 06/08/17 06/08/17 Range/Units 17:23 17:23 17:23 WBC 15.9 H (3.8-10.6) k/uL RBC 4.97 (3.80-5.40) m/uL Hgb 13.3 (11.4-16.0) gm/dL Hct 40.9 (34.0-46.0) % MCV 82.2 (80.0-100.0) fL MCH 26.8 (25.0-35.0) pg MCHC 32.6 (31.0-37.0) g/dL RDW 14.2 (11.5-15.5) % Plt Count 374 (150-450) k/uL Neutrophils % 63 % Lymphocytes % 28 % Monocytes % 4 % Eosinophils % 2 % Basophils % 1 % Neutrophils # 10.0 H (1.3-7.7) k/uL Lymphocytes # 4.5 (1.0-4.8) k/uL Monocytes # 0.7 (0-1.0) k/uL Eosinophils # 0.3 (0-0.7) k/uL Basophils # 0.1 (0-0.2) k/uL PT (9.0-12.0) sec INR (<1.2) APTT (22.0-30.0) sec Sodium 141 (137-145) mmol/L Potassium 5.1 (3.5-5.1) mmol/L Chloride 101 (98-107) mmol/L Carbon Dioxide 22 (22-30) mmol/L Anion Gap 18 mmol/L BUN 19 H (7-17) mg/dL Creatinine 0.90 (0.52-1.04) mg/dL Est GFR (CKD-EPI)AfAm 79 (>60 ml/min/1.73 sqM) Est GFR (CKD-EPI)NonAf 69 (>60 ml/min/1.73 sqM) Glucose 237 H (74-99) mg/dL Calcium 10.4 H (8.4-10.2) mg/dL Total Bilirubin 0.5 (0.2-1.3) mg/dL AST 29 (14-36) U/L ALT 14 (9-52) U/L Alkaline Phosphatase 73 (38-126) U/L Total Creatine Kinase 161 H (30-135) U/L CK-MB (CK-2) 1.5 (0.0-2.4) ng/mL CK-MB (CK-2) Rel Index 0.9 Troponin I <0.012 (0.000-0.034) ng/mL Total Protein 7.4 (6.3-8.2) g/dL Albumin 4.5 (3.5-5.0) g/dL Amylase (30-110) U/L Lipase (23-300) U/L Urine Color Urine Appearance (Clear) Urine pH (5.0-8.0) Ur Specific [place] (1.001-1.035) Urine Protein (Negative) Urine Glucose (UA) (Negative) Urine Ketones (Negative) Urine Blood (Negative) Urine Nitrite (Negative) Urine Bilirubin (Negative) Urine Urobilinogen (<2.0) mg/dL Ur Leukocyte Esterase (Negative) Urine RBC (0-5) /hpf Urine WBC (0-5) /hpf Ur Squamous Epith Cells (0-4) /hpf Hyaline Casts (0-2) /lpf Urine Mucus (None) /hpf 06/08/17 06/08/17 06/08/17 Range/Units 17:23 17:23 18:15 WBC (3.8-10.6) k/uL RBC (3.80-5.40) m/uL Hgb (11.4-16.0) gm/dL Hct (34.0-46.0) % MCV (80.0-100.0) fL MCH (25.0-35.0) pg MCHC (31.0-37.0) g/dL RDW (11.5-15.5) % Plt Count (150-450) k/uL Neutrophils % % Lymphocytes % % Monocytes % % Eosinophils % % Basophils % % Neutrophils # (1.3-7.7) k/uL Lymphocytes # (1.0-4.8) k/uL Monocytes # (0-1.0) k/uL Eosinophils # (0-0.7) k/uL Basophils # (0-0.2) k/uL PT 60.3 H (9.0-12.0) sec INR 6.6 H* (<1.2) APTT 59.1 H (22.0-30.0) sec Sodium (137-145) mmol/L Potassium (3.5-5.1) mmol/L Chloride (98-107) mmol/L Carbon Dioxide (22-30) mmol/L Anion Gap mmol/L BUN (7-17) mg/dL Creatinine (0.52-1.04) mg/dL Est GFR (CKD-EPI)AfAm (>60 ml/min/1.73 sqM) Est GFR (CKD-EPI)NonAf (>60 ml/min/1.73 sqM) Glucose (74-99) mg/dL Calcium (8.4-10.2) mg/dL Total Bilirubin (0.2-1.3) mg/dL AST (14-36) U/L ALT (9-52) U/L Alkaline Phosphatase (38-126) U/L Total Creatine Kinase (30-135) U/L CK-MB (CK-2) (0.0-2.4) ng/mL CK-MB (CK-2) Rel Index Troponin I (0.000-0.034) ng/mL Total Protein (6.3-8.2) g/dL Albumin (3.5-5.0) g/dL Amylase 53 (30-110) U/L Lipase 176 (23-300) U/L Urine Color Red Urine Appearance Cloudy H (Clear) Urine pH 5.5 (5.0-8.0) Ur Specific [place] 1.020 (1.001-1.035) Urine Protein 3+ H (Negative) Urine Glucose (UA) 3+ H (Negative) Urine Ketones Trace H (Negative) Urine Blood Large H (Negative) Urine Nitrite Negative (Negative) Urine Bilirubin Negative (Negative) Urine Urobilinogen <2.0 (<2.0) mg/dL Ur Leukocyte Esterase Small H (Negative) Urine RBC >182 H (0-5) /hpf Urine WBC 37 H (0-5) /hpf Ur Squamous Epith Cells 14 H (0-4) /hpf Hyaline Casts 105 H (0-2) /lpf Urine Mucus Occasional H (None) /hpf - Radiology Data Radiology results: report reviewed, image reviewed Two-view x-ray of the chest shows chronic parenchymal changes suspicious no focal airspace opacity, pleural effusion, or pneumothorax. The cardiac silhouette size is within normal limits without reflect chronic changes in aortic knob. Cholecystectomy clips are noted on lateral view. Impression by Dr. Noel shows chronic changes without acute pulmonary process. Disposition Clinical Impression: Syncope, Hypercoagulopathy, Chest pain Disposition: ADMITTED IP TO THIS [facility] Condition: Serious Decision to Admit Reason: Admit from EC Decision Date: 06/08/17 Decision Time: 20:25
[2017-06-08 18:07] LABS: Creatine Kinase MB 1.5 ng/mL (0.0-2.4); Troponin I <0.012 ng/mL (0.000-0.034)
--- NOTE | 2017-06-08 18:45 | XR ---
EXAMINATION TYPE: XR chest 2V DATE OF EXAM: 06/08/2017 COMPARISON: Chest x-ray May 19, 2017 HISTORY: Syncope and weakness. TECHNIQUE: Frontal and lateral views of the chest are obtained. FINDINGS: There is some chronic parenchymal change without suspicious new focal air space opacity, p leural effusion, or pneumothorax seen. The cardiac silhouette size is within normal limits without r eflect chronic change in aortic knob. Minimal spurring in thoracic spine is redemonstrated. Cholecyst ectomy clips are noted on lateral view. IMPRESSION: Chronic changes without acute pulmonary process.
[2017-06-08 18:54] LABS: Appearance,Urine Cloudy (Clear); Bilirubin,Urine Negative (Negative); Blood,Urine Large (Negative); Color,Urine Red; Glucose,Urine (UA) 3+ (Negative); Hyaline Casts,Urine 105 /lpf (0-2); Ketones,Urine Trace (Negative); Leukocyte Esterase,Urine Small (Negative); Mucus,Urine Occasional /hpf; Nitrite,Urine Negative (Negative); PH, Urine 5.5 (5.0-8.0); Protein,Urine 3+ (Negative); RBC,Urine >182 /hpf (0-5); Squamous Epithelial Cell,Urine 14 /hpf (0-4); Urobilinogen,Urine <2.0 mg/dL (<2.0); WBC,Urine 37 /hpf (0-5)
[2017-06-08 19:02] LABS: Amylase 53 U/L (30-110); Lipase 176 U/L (23-300)
[2017-06-08] MEDS ORDERED: NALOXONE 0.4 MG/ML 1 ML VIAL IV PRN (19:49)
[2017-06-08] MEDS ORDERED: ACETAMINOPHEN TAB 325 MG TAB PO PRN (19:55)
[2017-06-08] MEDS ORDERED: ONDANSETRON 4 MG/2 ML VIAL IVP PRN (19:55)
[2017-06-08] MEDS ORDERED: PHYTONADIONE ORAL 5 MG/5 ML ORAL.SYRG PO STA (20:05)
[2017-06-08] MEDS ORDERED: ALBUTEROL NEBULIZED 2.5 MG/3 ML INHALATION PRN (20:35)
[2017-06-08] MEDS ORDERED: METOCLOPRAMIDE 10 MG TAB PO PRN (20:35)
[2017-06-08] MEDS ORDERED: ZOLPIDEM 10 MG TAB PO PRN (20:35)
[2017-06-08 20:56] LABS: Glucose,Whole Blood 149 mg/dL (75-99)
[2017-06-08] MEDS ORDERED: INSULIN DETEMIR 100 UNIT/ML 10 ML VIAL SQ SCH (21:00)
[2017-06-08] MEDS: SODIUM CHLORIDE 0.9% 1,000 ML IV SCH (21:39)
[2017-06-08] MEDS: CYCLOBENZAPRINE 10 MG TAB PO SCH (21:39)
[2017-06-08] MEDS: metFORMIN 500 MG TAB PO SCH (21:40)
[2017-06-08] MEDS: GABAPENTIN 400 MG CAP PO SCH (21:40)
[2017-06-08] MEDS: CARBIDOPA-LEVODOPA 25-100 MG 1 EACH TAB PO SCH (21:42)
[2017-06-09] MEDS: HYDROcodone/APAP 10-325MG 1 EACH TAB PO PRN ×3 (06:25→17:07)
[2017-06-09] MEDS: LEVOTHYROXINE 75 MCG TAB PO SCH (06:53)
[2017-06-09 07:26] LABS: Basophils % (A) 0 %; Eosinophils # (A) 0.3 k/uL (0-0.7); Eosinophils % (A) 2 %; HCT 34.9 % (34.0-46.0); HGB 11.3 gm/dL (11.4-16.0); Lymphocytes # (A) 4.6 k/uL (1.0-4.8); Lymphocytes % (A) 44 %; MCH 26.5 pg (25.0-35.0); MCHC 32.3 g/dL (31.0-37.0); MCV 82.2 fL (80.0-100.0); Mean Platelet Volume 6.8; Monocytes # (A) 0.4 k/uL (0-1.0); Monocytes % (A) 4 %; Neutrophils % (A) 48 %; Platelet Count 320 k/uL (150-450); RBC 4.24 m/uL (3.80-5.40); RDW 14.3 % (11.5-15.5); WBC 10.4 k/uL (3.8-10.6)
[2017-06-09 07:32] LABS: Prothrombin Time 49.7 sec (9.0-12.0)
[2017-06-09 07:38] LABS: INR 5.5 (<1.2)
[2017-06-09 08:19] LABS: Glucose,Whole Blood 139 mg/dL (75-99)
[2017-06-09 08:35] LABS: ALT 20 U/L (9-52); AST 27 U/L (14-36); Albumin 3.7 g/dL (3.5-5.0); Alkaline Phosphatase 64 U/L (38-126); Anion Gap 12 mmol/L; Blood Urea Nitrogen 20 mg/dL (7-17); Carbon Dioxide 23 mmol/L (22-30); Chloride 104 mmol/L (98-107); Glucose 144 mg/dL (74-99); Potassium 4.8 mmol/L (3.5-5.1); Sodium 139 mmol/L (137-145); Total Bilirubin 0.4 mg/dL (0.2-1.3); Total Protein 6.1 g/dL (6.3-8.2)
[2017-06-09] MEDS: metFORMIN 500 MG TAB PO SCH ×2 (09:53→17:08)
[2017-06-09] MEDS: CARBIDOPA-LEVODOPA 25-100 MG 1 EACH TAB PO SCH ×3 (09:53→21:09)
[2017-06-09] MEDS: GABAPENTIN 400 MG CAP PO SCH ×3 (09:54→21:08)
[2017-06-09] MEDS: DULoxetine HCL 60 MG CAPSULE.DR PO SCH (09:55)
[2017-06-09] MEDS: LINAGLIPTIN 5 MG TABLET PO SCH (09:55)
[2017-06-09] MEDS: GLIMEPIRIDE 4 MG TAB PO SCH ×2 (09:55→17:08)
[2017-06-09] MEDS: MULTIVITAMINS, THERA 1 EACH TAB PO SCH (09:56)
[2017-06-09] MEDS: PRIMIDONE 50 MG TAB PO SCH (09:56)
[2017-06-09] MEDS: CHOLECALCIFEROL 1,000 UNIT TAB PO SCH (09:56)
[2017-06-09] MEDS: PRAVASTATIN SODIUM 20 MG TAB PO SCH (09:57)
[2017-06-09] MEDS: ASPIRIN 81 MG PO SCH (09:57)
--- NOTE | 2017-06-09 15:12 | CONS ---
CONSULTATION This patient's medical chart is reviewed. Mrs. Edwards is a 61-year-old female, who came to the emergency room with a complaint of lightheadedness and syncope and head injury. The patient gives a history that she was working in her kitchen putting the groceries away and she felt lightheaded. She fell down. She subsequently got up and tried to do it again and she passed out and fell on her head. She did not have any significant nausea or vomiting. She denies any palpitations. The patient had occasional chest pains. This patient has a history of heart palpitations. She had underwent atrial flutter ablation in November of 2016. According to her she has been taking Coumadin but she is not taking Xarelto. Patient has a history of hypertension and diabetes. The patient's Coumadin is being monitored by Dr. Cabello. The patient gives a history that she had a cardiac catheterization done before. No significant coronary artery disease was detected. The patient is physically and functionally independent. HOME MEDICATIONS: Include Cymbalta, Prilosec, Januvia, Flexeril, vitamin D, Lantus, Amaryl, Zestril, Tenormin, Mysoline, Coumadin, Glucophage, Pravachol, amlodipine and Xarelto. REVIEW OF THE SYSTEM: Otherwise unremarkable. PAST MEDICAL HISTORY: Includes history of migraine, history of . history of atrial flutter ablation, back surgery, cholecystectomy, prior cardiac catheterization, hernia repair, hysterectomy and tonsillectomy. PHYSICAL EXAMINATION: At present reveals a 61-year-old, obesely built female who does not appear to be in any acute distress. The patient is afebrile. In the emergency room initially patient's vital signs were stable. Heart rate is 90 per minute, blood pressure is 106/66 mmHg. HEENT and neck examination is negative. Neck is slightly tender. Both the carotid pulses are felt. There is no bruit. Chest is symmetrical. Heart: The PMI is not felt. First and second heart sounds are normal. There is no evidence of any murmur. Lungs are clinically clear to auscultation and percussion. Abdomen is soft. Liver and spleen not enlarged. Extremities: Peripheral pulses are 2+. EKG shows sinus tachycardia without any acute ischemic changes. No arrhythmias are noted so far. The patient's electrolytes are normal. Patient's creatinine is 0.76. The patient's INR was 5.5. FINAL IMPRESSION: 1. This patient had an episode of syncope exact etiology undetermined, , rule out any significant arrhythmia. 2. The patient is status post atrial flutter ablation. 3. The patient's INR is elevated and a CT scan of the head was negative for any hemorrhage. RECOMMENDATIONS: We will continue to monitor the patient for 24 hours. Orthostatic blood pressure changes will be done. We will discharge the patient on Event monitor to rule out any significant arrhythmia and we will check that the patient is covered for Xarelto and discontinue Coumadin. MMODL / IJN: [id number] /
[2017-06-09] MEDS: [UNRECOGNIZED DRUG - OTHER] PO SCH (16:22)
[2017-06-09] MEDS: LISINOPRIL 5 MG TAB PO SCH (16:22)
[2017-06-09] MEDS: ATENOLOL 25 MG TAB PO SCH (16:22)
[2017-06-09] MEDS: BIOTIN PO SCH (16:22)
[2017-06-09] MEDS: amLODIPine 10 MG TAB PO SCH (16:22)
[2017-06-09 16:50] LABS: Glucose,Whole Blood 189 mg/dL (75-99)
[2017-06-09] MEDS ORDERED: PHYTONADIONE ORAL 5 MG/5 ML ORAL.SYRG PO STA (16:53)
[2017-06-09] MEDS: PANTOPRAZOLE 40 MG TABLET PO SCH (17:08)
[2017-06-09] MEDS: INSULIN ASPART 100 UNIT/ML 1 ML 10 ML VIAL SQ SCH ×2 (17:09→20:44)
[2017-06-09] MEDS: SODIUM CHLORIDE 0.9% 1,000 ML IV SCH (17:09)
[2017-06-09 20:56] LABS: Glucose,Whole Blood 115 mg/dL (75-99)
[2017-06-09] MEDS: CYCLOBENZAPRINE 10 MG TAB PO SCH (21:09)
[2017-06-09] MEDS: INSULIN DETEMIR 100 UNIT/ML 10 ML VIAL SQ SCH (21:09)
--- NOTE | 2017-06-09 22:50 | HP ---
HISTORY AND PHYSICAL DATE OF DICTATION AND DATE PATIENT WAS SEEN: 06/09/2017 This is a pleasant 61-year-old white female who was admitted through the emergency department with hypercoagulable state secondary to Coumadin toxicity. She initially had a syncopal event 2 days ago where she developed headache, nausea and some dizziness. She was worried about the fact that she was on Coumadin and easily bruising, but she had no idea that her levels were at this state. Her initial INR was over 6. She states she does not remember the events leading up to her syncopal episode, and she was only unconscious for a couple of seconds, but she states she did fall and hit her left posterior scalp and neck area during the fall. Also on admission she complained of some left-sided chest pain for approximately 1 week and has been having sweats associated with this. The patient has had other incidents of syncope, mostly related to sugar either too high or too low. She denies any nausea, vomiting, diarrhea, constipation. She denies any stroke or paralysis. MEDICATIONS: 1. Cymbalta. 2. Prilosec. 3. Januvia. 4. Ecotrin. 5. Flexeril. 6. Coumadin, which is currently on hold. 7. Albuterol. 8. Gabapentin. 9. Vitamin D. 10.Lantus. 11.Amaryl. 12.Zestril. 13.Tenormin. 14.Sinemet. 15.Synthroid. 16.Reglan. 17.Mysoline. 18.Ambien. 19.Glucophage. 20.[place]. ALLERGIES: NO KNOWN DRUG ALLERGIES. PAST MEDICAL HISTORY: 1. Diabetes, type 2. 2. Asthma. 3. COPD. 4. History of previous CVA/TIA. 5. Fibromyalgia. 6. Gastroesophageal reflux disease. 7. Degenerative osteoarthritis. 8. Degenerative spine. 9. Hypothyroidism. 10.Hypertension. 11.Chronic low back pain. 12.Sciatic nerve neuropathy. 13.Migraine headache. 14.Diabetes with diabetic neuropathy. 15.History of a detached retina, left eye. PAST SURGICAL HISTORY: 1. Laminectomy. 2. Cholecystectomy. 3. Heart catheterization. 4. Hernia repair. 5. Hysterectomy. 6. Tonsils and adenoids. 7. Umbilical hernia. 8. Fibroid tumor with multiple laparoscopies. 9. Herniated disc surgery. SOCIAL: Former smoker. Past abuse of narcotics as well as marijuana. FAMILY HISTORY: Her father had diabetes. Mother has a history of breast cancer. REVIEW OF SYSTEMS: The rest of review of systems is essentially unremarkable. PHYSICAL EXAMINATION: GENERAL: She is currently awake, alert, answering questions appropriately in the emergency department hold area. Pulse was tachy on admission with blood pressure in the 100/60 range. HEENT: Head normocephalic and atraumatic. Sclerae non-icteric. NECK: Supple. HEART: Regular rate and rhythm. LUNGS: Clear to auscultation. ABDOMEN: Soft, nontender. No rebound, rigidity or guarding. NEUROLOGICAL: Cranial nerves 2-12 grossly intact. PSYCHOLOGICAL: Answers questions appropriately. Skin is warm and dry to palpation. IMPRESSIONS: 1. Coumadin toxicity with coagulopathy. 2. Syncope with fall with head trauma with Coumadin toxicity. 3. Hematuria with urinary tract infection with sepsis with hypotension, tachycardia. 4. Diabetes, type 2, with diabetic neuropathy. 5. Leukocytosis, acute. 6. History of chronic obstructive pulmonary disease. 7. Hypothyroidism. PLAN: Admit patient. Correct coagulopathy. Continue to monitor patient's overall prognosis. Treat urinary tract infection. MMODL / IJN: [id number] /
[2017-06-10 01:39] LABS: Glucose,Whole Blood 120 mg/dL (75-99)
[2017-06-10] MEDS: HYDROcodone/APAP 10-325MG 1 EACH TAB PO PRN ×2 (02:02→10:25)
[2017-06-10 06:04] LABS: Glucose,Whole Blood 152 mg/dL (75-99)
[2017-06-10] MEDS: DULoxetine HCL 60 MG CAPSULE.DR PO SCH (06:21)
[2017-06-10] MEDS: GLIMEPIRIDE 4 MG TAB PO SCH ×2 (06:21→15:20)
[2017-06-10] MEDS: LEVOTHYROXINE 75 MCG TAB PO SCH (06:21)
[2017-06-10] MEDS: metFORMIN 500 MG TAB PO SCH ×2 (06:21→15:20)
[2017-06-10] MEDS: LINAGLIPTIN 5 MG TABLET PO SCH (06:22)
[2017-06-10] MEDS: INSULIN ASPART 100 UNIT/ML 1 ML 10 ML VIAL SQ SCH ×4 (06:29→21:34)
[2017-06-10 06:59] LABS: Basophils % (A) 0 %; Eosinophils # (A) 0.2 k/uL (0-0.7); Eosinophils % (A) 3 %; HCT 33.8 % (34.0-46.0); HGB 10.6 gm/dL (11.4-16.0); Hypochromasia Slight; Lymphocytes # (A) 3.9 k/uL (1.0-4.8); Lymphocytes % (A) 42 %; MCH 26.1 pg (25.0-35.0); MCHC 31.4 g/dL (31.0-37.0); Mean Platelet Volume 7.4; Monocytes # (A) 0.4 k/uL (0-1.0); Monocytes % (A) 5 %; Neutrophils # (A) 4.6 k/uL (1.3-7.7); Neutrophils % (A) 49 %; Platelet Count 237 k/uL (150-450); RBC 4.07 m/uL (3.80-5.40); RDW 14.4 % (11.5-15.5); WBC 9.3 k/uL (3.8-10.6)
[2017-06-10 07:14] LABS: INR 2.7 (<1.2)
[2017-06-10 07:18] LABS: ALT 20 U/L (9-52); AST 27 U/L (14-36); Albumin 3.4 g/dL (3.5-5.0); Alkaline Phosphatase 54 U/L (38-126); Anion Gap 13 mmol/L; Blood Urea Nitrogen 15 mg/dL (7-17); Carbon Dioxide 21 mmol/L (22-30); Chloride 106 mmol/L (98-107); Glucose 140 mg/dL (74-99); Sodium 140 mmol/L (137-145); Total Bilirubin 0.3 mg/dL (0.2-1.3); Total Protein 5.8 g/dL (6.3-8.2)
[2017-06-10] MEDS: GABAPENTIN 400 MG CAP PO SCH ×3 (08:17→21:25)
[2017-06-10] MEDS: amLODIPine 10 MG TAB PO SCH (08:18)
[2017-06-10] MEDS: CARBIDOPA-LEVODOPA 25-100 MG 1 EACH TAB PO SCH ×3 (08:18→21:25)
[2017-06-10] MEDS: CHOLECALCIFEROL 1,000 UNIT TAB PO SCH (08:18)
[2017-06-10] MEDS: ATENOLOL 25 MG TAB PO SCH (08:18)
[2017-06-10] MEDS: PRIMIDONE 50 MG TAB PO SCH (08:19)
[2017-06-10] MEDS: MULTIVITAMINS, THERA 1 EACH TAB PO SCH (08:19)
[2017-06-10] MEDS: PRAVASTATIN SODIUM 20 MG TAB PO SCH (08:19)
[2017-06-10] MEDS: LISINOPRIL 5 MG TAB PO SCH (08:19)
[2017-06-10] MEDS: [UNRECOGNIZED DRUG - OTHER] PO SCH (08:20)
[2017-06-10] MEDS: BIOTIN PO SCH (08:20)
--- NOTE | 2017-06-10 10:02 | P.PN ---
Subjective Progress Note Date: 06/10/17 06/09/2017-Per Dr. Cabello This is a pleasant 61-year-old white female who was admitted to the emergency department with hyper coagulable state secondary to Coumadin toxicity. She initially had a syncopal event 2 days ago where she developed headache, nausea and dizziness. She is worried about the fact that she was on Coumadin and easily bruises but she had no idea that her levels were at this state. Her initial INR was over 6. She states she does not reveal any events leading up to her syncopal episode and she was only unconscious for a couple of seconds but she states she did fall and hit her left posterior scalp and neck. During the fall. Also on admission she complained of some left-sided chest pain for approximately one week and has been having sweats associated with this. The patient has had other incidents of syncope mostly related to sugar either too high or too low. She denies any nausea, vomiting, diarrhea, constipation. She denies any stroke or paralysis. 06/10/2017 Patient seen and examined at the bedside on rounds with Dr. Cabello. Patient states he is not feeling well this morning. She states her appetite is good. She complains of right sided flank pain. Denies nausea or vomiting. Denies chest pain or pressure. Denies shortness of breath. INR this morning is 2.7. She received Vitamin K yesterday. Cardiology was consulted. Plan is to switch patient to Xarelto from Coumadin. Patient states she used to be on Xarelto in the past but does not remember why she switched back to Coumadin, but states it may have been due to cost. Patient to receive event monitor at the time of discharge per cardiology. Urine culture reveals normal skin and/or genital arely. Objective - Vital Signs Vital signs: Vital Signs Temp 97.2 F L 06/10/17 04:00 Pulse 85 06/10/17 06:32 Resp 16 06/10/17 04:00 BP 148/86 06/10/17 06:32 Pulse Ox 94 L 06/10/17 04:00 Intake & Output 06/09/17 06/10/17 06/10/17 18:59 06:59 18:59 Intake Total 400 236 Balance 400 236 Weight 107.3 kg Intake: Intake, IV Titration 400 Amount Sodium Chloride 0.9% 1, 400 000 ml @ 50 mls/hr IV . Q20H [facility] Rx#:[id number] Oral 236 Other: Voiding Method Bedside Commode # Voids 1 - Exam GENERAL: This is a 61-year-old female in no apparent distress at the time of examination. Pleasant and cooperative. HEENT: Head is atraumatic, normocephalic. Pupils are equal, round, and reactive to light. Sclerae anicteric. Conjunctivae are clear. Mucus membranes of the mouth are moist. Neck is supple. RESPIRATORY: Clear to ausculation. No wheezes, rales, or rhonchi. No use of accessory muscles. Patient maintaining oxygen saturation greater than 92%. No chest wall tenderness is noted on palpation or with deep breathing. CARDIOVASCULAR: Regular rate and rhythm. S1 and S2 noted. No systolic or diastolic murmur auscultated. No JVD noted. No S3 or S4 noted. GASTROINTESTINAL: No distention noted. Abdomen soft and round. Normal active bowel sounds auscultated x 4 quadrants. No pain or tenderness noted upon palpation. Patient does have pain and tenderness upon palpation of right flank region. INTEGUMENTARY: No cyanosis. No jaundice. No rashes noted. No cellulitis noted. EXTREMITIES: 2+ peripheral pulses. No evidence of peripheral edema. No calf tenderness noted. NEUROLOGIC: Cranial nerves II-XII intact. PSYCHIATRIC: Awake, alert, and oriented X 3. Appropriate affect. Intact judgement and insight. - Labs CBC & Chem 7: 06/10/17 06:14 06/10/17 06:14 Labs: Abnormal Lab Results - Last 24 Hours (Table) 06/09/17 06/09/17 06/10/17 Range/Units 16:43 20:44 01:27 Hgb (11.4-16.0) gm/dL Hct (34.0-46.0) % PT (9.0-12.0) sec INR (<1.2) Carbon Dioxide (22-30) mmol/L Glucose (74-99) mg/dL POC Glucose (mg/dL) 189 H 115 H 120 H (75-99) mg/dL Total Protein (6.3-8.2) g/dL Albumin (3.5-5.0) g/dL 06/10/17 06/10/17 06/10/17 Range/Units 06:03 06:14 06:14 Hgb 10.6 L (11.4-16.0) gm/dL Hct 33.8 L (34.0-46.0) % PT 24.0 H (9.0-12.0) sec INR 2.7 H (<1.2) Carbon Dioxide (22-30) mmol/L Glucose (74-99) mg/dL POC Glucose (mg/dL) 152 H (75-99) mg/dL Total Protein (6.3-8.2) g/dL Albumin (3.5-5.0) g/dL 06/10/17 Range/Units 06:14 Hgb (11.4-16.0) gm/dL Hct (34.0-46.0) % PT (9.0-12.0) sec INR (<1.2) Carbon Dioxide 21 L (22-30) mmol/L Glucose 140 H (74-99) mg/dL POC Glucose (mg/dL) (75-99) mg/dL Total Protein 5.8 L (6.3-8.2) g/dL Albumin 3.4 L (3.5-5.0) g/dL Microbiology - Last 24 Hours (Table) 06/08/17 20:40 Urine Culture - Final Urine,Voided Assessment and Plan Plan: ASSESSMENT: Syncope with fall with head trauma, CT negative for acute process, etiology unclear Coumadin toxicity with coagulopathy, resolved Hematuria, secondary to supratherapeutic INR, resolving Pyuria, suspected urinary tract infection, culture reveals normal genital arely Early sepsis with hypotension and tachycardia, due to UTI, resolved Diabetes mellitus, type II, with diabetic neuropathy Chronic obstructive pulmonary disease, no evidence of acute exacerbation Hypothyroidism Obesity: BMI 38.2 PLAN: Obtain US of kidneys and bladder Await cardiology recommendations regarding anticoagulation Patient to receive event monitor at time of discharge per cardiology Home meds as appropriate Monitor labs Monitor vital signs and address as appropriate Further recommendations pending patient's course Possible discharge home this afternoon Nurse practitioner note has been reviewed by physician. Signing provider agrees with the documented findings, assessment, and plan of care.
[2017-06-10] MEDS: cefTRIAXone IN SWFI 1,000 MG/10 ML SYRINGE IVP SCH (10:26)
--- NOTE | 2017-06-10 10:35 | US ---
EXAMINATION TYPE: US kidneys/renal and bladder DATE OF EXAM: 06/10/2017 COMPARISON: CT 09/28/2016, US 11/11/2011 CLINICAL HISTORY: flank pain. EXAM MEASUREMENTS: Right Kidney: 10.7 x 5.3 x 4.7 cm Left Kidney: 11.3 x 5.3 x 4.7 cm Right Kidney: No hydronephrosis or masses seen Left Kidney: No hydronephrosis or masses seen Bladder: wnl as visualized, not full distended Bilateral Jets seen: Yes Liver appears echogenic, probable fatty liver There is no evidence for hydronephrosis at this point in time. No nephrolithiasis is seen. No tere s are identified. The urinary bladder is anechoic. Bilateral ureteral jets are seen. IMPRESSION: 1. Unremarkable evaluation of the kidneys. 2. Probable hepatic steatosis is seen incidentally.
[2017-06-10] MEDS: SODIUM CHLORIDE 0.9% 1,000 ML IV SCH ×2 (11:14→15:21)
[2017-06-10] MEDS: ASPIRIN 81 MG PO SCH (11:16)
[2017-06-10 11:32] LABS: Glucose,Whole Blood 196 mg/dL (75-99)
[2017-06-10 12:42] LABS: Hemoglobin A1C 7.6 % (4.0-6.0)
[2017-06-10] MEDS: PANTOPRAZOLE 40 MG TABLET PO SCH (15:21)
--- NOTE | 2017-06-10 15:42 | P.PN ---
Subjective Progress Note Date: 06/10/17 Principal diagnosis: Syncope This is a 61-year-old female who presented to the hospital with symptoms of lightheadedness, followed by syncopal episode. She was seen in consultation yesterday by Dr. VC Marin. Patient does have history of atrial flutter for which she underwent an ablation in November 2016 since then the patient has been taking Coumadin. She does have history of hypertension and diabetes. It appears that her syncope may be vasovagal in nature. No arrhythmias have been noted on the monitor. No significant orthostasis documented. Blood pressure this morning 142/80 with a heart rate in the 80s. Hemoglobin 10.6, platelet count 237, INR 2.7, sodium 140, potassium 5.0, BUN 15, creatinine 0.6. Objective - Vital Signs Vital signs: Vital Signs Temp 97.8 F 06/10/17 12:00 Pulse 82 06/10/17 12:00 Resp 18 06/10/17 12:00 BP 143/82 06/10/17 12:00 Pulse Ox 91 L 06/10/17 12:00 Intake & Output 06/09/17 06/10/17 06/10/17 18:59 06:59 18:59 Intake Total 400 236 Balance 400 236 Weight 107.3 kg Intake: Intake, IV Titration 400 Amount Sodium Chloride 0.9% 1, 400 000 ml @ 50 mls/hr IV . Q20H [facility] Rx#:[id number] Oral 236 Other: Voiding Method Bedside Commode Bedside Commode # Voids 1 2 - Exam PHYSICAL EXAMINATION: HEENT: Head is atraumatic, normocephalic. Pupils equal, round. Neck is supple. There is no elevated jugular venous pressure. HEART EXAMINATION: Heart S1, S2 normal. No murmur or gallop heard. CHEST EXAMINATION: Lungs are clear to auscultation and precussion. No chest wall tenderness is noted on palpation or with deep breathing. ABDOMEN: Soft, nontender. Bowel sounds are heard. No organomegaly noted. EXTREMITIES: 2+ peripheral pulses with no evidence of peripheral edema and no calf tenderness noted. NEUROLOGIC patient is awake, alert and oriented -3. . - Labs CBC & Chem 7: 06/10/17 06:14 06/10/17 06:14 Labs: Abnormal Lab Results - Last 24 Hours (Table) 06/09/17 06/09/1706/10/18 Range/Units 16:43 20:44 01:27 Hgb (11.4-16.0) gm/dL Hct (34.0-46.0) % PT (9.0-12.0) sec INR (<1.2) Carbon Dioxide (22-30) mmol/L Glucose (74-99) mg/dL POC Glucose (mg/dL) 189 H 115 H 120 H (75-99) mg/dL Hemoglobin A1c (4.0-6.0) % Total Protein (6.3-8.2) g/dL Albumin (3.5-5.0) g/dL 06/10/17 06/10/17 06/10/17 Range/Units 06:03 06:14 06:14 Hgb 10.6 L (11.4-16.0) gm/dL Hct 33.8 L (34.0-46.0) % PT (9.0-12.0) sec INR (<1.2) Carbon Dioxide (22-30) mmol/L Glucose (74-99) mg/dL POC Glucose (mg/dL) 152 H (75-99) mg/dL Hemoglobin A1c 7.6 H (4.0-6.0) % Total Protein (6.3-8.2) g/dL Albumin (3.5-5.0) g/dL 06/10/17 06/10/17 06/10/17 Range/Units 06:14 06:14 11:29 Hgb (11.4-16.0) gm/dL Hct (34.0-46.0) % PT 24.0 H (9.0-12.0) sec INR 2.7 H (<1.2) Carbon Dioxide 21 L (22-30) mmol/L Glucose 140 H (74-99) mg/dL POC Glucose (mg/dL) 196 H (75-99) mg/dL Hemoglobin A1c (4.0-6.0) % Total Protein 5.8 L (6.3-8.2) g/dL Albumin 3.4 L (3.5-5.0) g/dL Microbiology - Last 24 Hours (Table) 06/08/17 20:40 Urine Culture - Final Urine,Voided Assessment and Plan Plan: Assessment and plan #1 syncope, no evidence of orthostatic hypotension, no arrhythmias noted on the monitor. Likely vasovagal in nature. CT negative. #2 history of atrial flutter ablation, on Coumadin for anticoagulation, coagulopathy on admission, resolved. #3 diabetes #4 hypothyroidism #5 urinary tract infection with early sepsis, hypotension and tachycardia, resolved. Plan No arrhythmias noted on the patient's monitor, the patient was discharged home we will recommend a 30 day event monitor on discharge. Follow-up in the office post discharge. DNP note has been reviewed, I agree with a documented findings and plan of care. Patient was seen and examined.
[2017-06-10 16:32] LABS: Glucose,Whole Blood 163 mg/dL (75-99)
[2017-06-10 20:46] LABS: Glucose,Whole Blood 197 mg/dL (75-99)
[2017-06-10] MEDS: CYCLOBENZAPRINE 10 MG TAB PO SCH (21:25)
[2017-06-10] MEDS: INSULIN DETEMIR 100 UNIT/ML 10 ML VIAL SQ SCH (21:34)
[2017-06-11 05:56] LABS: Glucose,Whole Blood 129 mg/dL (75-99)
[2017-06-11] MEDS: DULoxetine HCL 60 MG CAPSULE.DR PO SCH (06:44)
[2017-06-11] MEDS: LEVOTHYROXINE 75 MCG TAB PO SCH (06:44)
[2017-06-11] MEDS: INSULIN ASPART 100 UNIT/ML 1 ML 10 ML VIAL SQ SCH (06:45)
[2017-06-11] MEDS: GLIMEPIRIDE 4 MG TAB PO SCH (06:45)
[2017-06-11] MEDS: metFORMIN 500 MG TAB PO SCH (06:45)
[2017-06-11] MEDS: LINAGLIPTIN 5 MG TABLET PO SCH (06:45)
[2017-06-11] MEDS: HYDROcodone/APAP 10-325MG 1 EACH TAB PO PRN (06:51)
[2017-06-11 07:27] LABS: INR 1.5 (<1.2)
[2017-06-11 07:28] LABS: Prothrombin Time 13.9 sec (9.0-12.0)
[2017-06-11 07:43] LABS: ALT 27 U/L (9-52); AST 23 U/L (14-36); Alkaline Phosphatase 65 U/L (38-126); Anion Gap 14 mmol/L; Blood Urea Nitrogen 11 mg/dL (7-17); Calcium 9.4 mg/dL (8.4-10.2); Carbon Dioxide 28 mmol/L (22-30); Chloride 102 mmol/L (98-107); Glucose 117 mg/dL (74-99); Potassium 4.2 mmol/L (3.5-5.1); Sodium 144 mmol/L (137-145); Total Bilirubin 0.4 mg/dL (0.2-1.3); Total Protein 6.4 g/dL (6.3-8.2)
[2017-06-11 08:03] LABS: Basophils # (A) 0.1 k/uL (0-0.2); Basophils % (A) 1 %; Eosinophils # (A) 0.2 k/uL (0-0.7); Eosinophils % (A) 2 %; HCT 36.4 % (34.0-46.0); HGB 12.2 gm/dL (11.4-16.0); Lymphocytes # (A) 4.1 k/uL (1.0-4.8); Lymphocytes % (A) 36 %; MCH 26.5 pg (25.0-35.0); MCHC 33.5 g/dL (31.0-37.0); MCV 79.4 fL (80.0-100.0); Mean Platelet Volume 7.5; Monocytes # (A) 0.4 k/uL (0-1.0); Monocytes % (A) 4 %; Neutrophils # (A) 6.3 k/uL (1.3-7.7); Neutrophils % (A) 56 %; Platelet Count 346 k/uL (150-450); RBC 4.58 m/uL (3.80-5.40); RDW 13.7 % (11.5-15.5); WBC 11.2 k/uL (3.8-10.6)
[2017-06-11] MEDS: ATENOLOL 25 MG TAB PO SCH (08:04)
[2017-06-11] MEDS: CARBIDOPA-LEVODOPA 25-100 MG 1 EACH TAB PO SCH (08:05)
[2017-06-11] MEDS: amLODIPine 10 MG TAB PO SCH (08:05)
[2017-06-11] MEDS: PRAVASTATIN SODIUM 20 MG TAB PO SCH (08:06)
[2017-06-11] MEDS: LISINOPRIL 5 MG TAB PO SCH (08:06)
[2017-06-11] MEDS: PRIMIDONE 50 MG TAB PO SCH (08:06)
[2017-06-11] MEDS: CHOLECALCIFEROL 1,000 UNIT TAB PO SCH (08:06)
[2017-06-11] MEDS: MULTIVITAMINS, THERA 1 EACH TAB PO SCH (08:06)
[2017-06-11] MEDS: GABAPENTIN 400 MG CAP PO SCH (08:06)
[2017-06-11] MEDS: [UNRECOGNIZED DRUG - OTHER] PO SCH (08:07)
[2017-06-11] MEDS: cefTRIAXone IN SWFI 1,000 MG/10 ML SYRINGE IVP SCH (08:07)
[2017-06-11] MEDS: BIOTIN PO SCH (08:07)
[2017-06-11 09:13] VITALS: BP 131/80; PULSE 94; RESP 18; TEMP 98.4
[2017-06-11] MEDS ORDERED: DOCUSATE 100 MG CAP PO SCH (10:15)
--- NOTE | 2017-06-11 10:35 | P.DS ---
Providers Date of admission: 06/08/17 20:23 Expected date of discharge: 06/11/17 Attending physician: Benedicto Cabello Consults: 06/08/17 20:25 Consult Physician Urgent Consulting Provider: [facility] Consult Reason/Comments: Chest pain; Syncope Do you want consulting provider notified?: Yes Primary care physician: Benedicto Cabello Hospital Course: 61-year-old white female who was admitted to the emergency department with hyper coagulable state secondary to Coumadin toxicity. She initially had a syncopal event 2 days ago where she developed headache, nausea and dizziness. She is worried about the fact that she was on Coumadin and easily bruises but she had no idea that her levels were at this state. Her initial INR was over 6. She states she does not reveal any events leading up to her syncopal episode and she was only unconscious for a couple of seconds but she states she did fall and hit her left posterior scalp and neck. During the fall. Also on admission she complained of some left-sided chest pain for approximately one week and has been having sweats associated with this. The patient has had other incidents of syncope mostly related to sugar either too high or too low. She denies any nausea, vomiting, diarrhea, constipation. She denies any stroke or paralysis. Cardiology was consulted to evaluate patient during hospitalization. Her syncopal episode was thought to be secondary to vasovagal episode. No further episodes during hospitalization. Cardiology's original plan was to switch patient to Xarelto from Coumadin but have decided to continue with Coumadin at this time. Patient's coagulopathy has resolved and she was restarted on her previous home dose of Coumadin. She is to get her INR rechecked at her follow- up appointment with Dr. Cabello. She is to receive an event monitor at the time of discharge per cardiology Patient complained of flank pain during hospitalization. Patient underwent ultrasound of kidneys and bladder which was unremarkable. Her pain has since resolved. Patients UA revealed pyuria. Patient did receive IV Rocephin during hospitalization. Urine culture was negative for infection and revealed normal genital arely. The patient was deemed stable for discharge per Dr. Cabello. She is to follow up on an outpatient basis with Dr. Cabello and cardiology. She is to receive an event monitor at the time of discharge per cardiology. Patient to have her INR rechecked at her follow-up appointment with Dr. Cabello. DISCHARGE DIAGNOSIS: Syncope with fall with head trauma, CT negative for acute process, may be secondary to vasovagal per cardiology Coumadin toxicity with coagulopathy, resolved Hematuria, secondary to supratherapeutic INR, resolved Pyuria, suspected urinary tract infection, culture reveals normal genital arely Early sepsis with hypotension and tachycardia, due to UTI, resolved Diabetes mellitus, type II, with diabetic neuropathy Chronic obstructive pulmonary disease, no evidence of acute exacerbation Hypothyroidism Obesity: BMI 38.2 Nurse practitioner note has been reviewed by physician. Signing provider agrees with the documented findings, assessment, and plan of care. Patient Condition at Discharge: Stable Plan - Discharge Summary Discharge Rx Participant: No New Discharge Prescriptions: Continue DULoxetine HCL [Cymbalta] 60 mg PO DAILY Omeprazole [PriLOSEC] 20 mg PO AC-SUPPER sitaGLIPtin [Januvia] 100 mg PO W/BRKFST Multivitamins, Thera [Multivitamin (formulary)] 1 tab PO DAILY Cyclobenzaprine [Flexeril] 10 mg PO HS Aspirin EC [Ecotrin Low Dose] 81 mg PO AC-LUNCH Vitamin C/Biotin [Hair, Skin and Nails] 1 tab PO DAILY Insulin Glargine [Lantus] 120 unit SQ HS Cholecalciferol [Vitamin D3] 1,000 unit PO DAILY Gabapentin 800 mg PO TID Albuterol Inhaler [Ventolin Hfa Inhaler] 1 - 2 puff INHALATION RT-Q6H PRN PRN Reason: Shortness Of Breath amLODIPine [Norvasc] 10 mg PO DAILY #0 Pravastatin Sodium [Pravachol] 20 mg PO DAILY #30 tab Lisinopril [Zestril] 5 mg PO DAILY Glimepiride [Amaryl] 4 mg PO BID Warfarin [Coumadin] 10 mg PO MOWEFR Warfarin [Coumadin] 5 mg PO SUTUTHSA Atenolol [Tenormin] 25 mg PO DAILY Carbidopa-Levodopa 25-100 mg [Sinemet 25-100 mg] 1 tab PO TID HYDROcodone/APAP 10-325MG [Cambria 10-325] 1 tab PO TID PRN PRN Reason: Pain Levothyroxine Sodium [Synthroid] 75 mcg PO DAILY metFORMIN HCL [Glucophage] 500 mg PO BID Metoclopramide [Reglan] 10 mg PO DAILY PRN PRN Reason: Nausea Primidone [Mysoline] 50 mg PO DAILY Zolpidem [Ambien] 10 mg PO HS PRN PRN Reason: Insomnia DULoxetine HCL [Cymbalta] 30 mg PO DAILY No Action Clindamycin Phosphate 1 applic TOPICAL BID Discharge Medication List DULoxetine HCL [Cymbalta] 60 mg PO DAILY 06/21/13 [History] Omeprazole [PriLOSEC] 20 mg PO AC-SUPPER 04/12/14 [History] sitaGLIPtin [Januvia] 100 mg PO W/BRKFST 12/03/14 [History] Aspirin EC [Ecotrin Low Dose] 81 mg PO AC-LUNCH 03/14/15 [History] Cyclobenzaprine [Flexeril] 10 mg PO HS 03/14/15 [History] Multivitamins, Thera [Multivitamin (formulary)] 1 tab PO DAILY 03/14/15 [History ] Albuterol Inhaler [Ventolin Hfa Inhaler] 1 - 2 puff INHALATION RT-Q6H PRN [History] Cholecalciferol [Vitamin D3] 1,000 unit PO DAILY 09/28/16 [History] Gabapentin 800 mg PO TID 09/28/16 [History] Insulin Glargine [Lantus] 120 unit SQ HS 09/28/16 [History] Vitamin C/Biotin [Hair, Skin and Nails] 1 tab PO DAILY 09/28/16 [History] Pravastatin Sodium [Pravachol] 20 mg PO DAILY #30 tab 10/12/16 [Rx] amLODIPine [Norvasc] 10 mg PO DAILY #0 10/12/16 [Rx] Glimepiride [Amaryl] 4 mg PO BID 11/24/16 [History] Lisinopril [Zestril] 5 mg PO DAILY 11/24/16 [History] Atenolol [Tenormin] 25 mg PO DAILY 05/19/17 [History] Carbidopa-Levodopa 25-100 mg [Sinemet 25-100 mg] 1 tab PO TID 05/19/17 [History] HYDROcodone/APAP 10-325MG [Cambria 10-325] 1 tab PO TID PRN 05/19/17 [History] Levothyroxine Sodium [Synthroid] 75 mcg PO DAILY 05/19/17 [History] Metoclopramide [Reglan] 10 mg PO DAILY PRN 05/19/17 [History] Primidone [Mysoline] 50 mg PO DAILY 05/19/17 [History] Warfarin [Coumadin] 5 mg PO SUTUTHSA 05/19/17 [History] Warfarin [Coumadin] 10 mg PO MOWEFR 05/19/17 [History] Zolpidem [Ambien] 10 mg PO HS PRN 05/19/17 [History] metFORMIN HCL [Glucophage] 500 mg PO BID 05/19/17 [History] Clindamycin Phosphate 1 applic TOPICAL BID 06/09/17 [History] DULoxetine HCL [Cymbalta] 30 mg PO DAILY 06/09/17 [History] Follow up Appointment(s)/Referral(s): Luan Stearns MD [STAFF PHYSICIAN] - 06/26/17 10:15 am (thursday) Benedicto Cabello DO [Primary Care Provider] - 06/15/17 3:00 pm (Thursday Previously scheduled appointment) Patient Instructions/Handouts: Holter Monitoring (DC), Syncope (DC) Activity/Diet/Wound Care/Special Instructions: Recheck INR at follow up appointment with Dr. Cabello PLEASE STOP AT CARDIOLOGY OFFICE ON DISCHARGE AND LEAD CASTER HELPER AN EVENT MONITOR Discharge Disposition: HOME SELF-CARE
[2017-06-11 11:45] LABS: Glucose,Whole Blood 170 mg/dL (75-99)
--- NOTE | 2017-06-11 15:00 | P.PN ---
Subjective Progress Note Date: 06/11/17 Principal diagnosis: Syncope This is a 61-year-old female who presented to the hospital with symptoms of lightheadedness, followed by syncopal episode. She was seen in consultation yesterday by Dr. VC Marin. Patient does have history of atrial flutter for which she underwent an ablation in November 2016 since then the patient has been taking Coumadin. She does have history of hypertension and diabetes. It appears that her syncope may be vasovagal in nature. No arrhythmias have been noted on the monitor. No significant orthostasis documented. Blood pressure this morning 142/80 with a heart rate in the 80s. Hemoglobin 10.6, platelet count 237, INR 2.7, sodium 140, potassium 5.0, BUN 15, creatinine 0.6. 06/11/2017 Patient seen and examined this morning, feeling well overall, no dizziness or lightheadedness. From cardiology's perspective, she may be able to be discharged home today. We will make her a follow-up appointment in the office post discharge. We will also recommend on discharge the patient have a 30 day event monitor. Objective - Vital Signs Vital signs: Vital Signs Temp 98.4 F 06/11/17 08:00 Pulse 94 06/11/17 08:00 Resp 18 06/11/17 08:00 BP 131/80 06/11/17 08:00 Pulse Ox 94 L 06/11/17 10:07 Intake & Output 06/10/17 06/11/17 06/11/17 18:59 06:59 18:59 Intake Total 708 50 240 Output Total 500 Balance 708 -450 240 Weight 107.5 kg Intake: IV 50 Sodium Chloride 0.9% 1, 50 000 ml @ 50 mls/hr IV . Q20H [facility] Rx#:[id number] Oral 708 240 Output: Urine 500 Other: Voiding Method Bedside Commode # Voids 2 1 - Exam PHYSICAL EXAMINATION: HEENT: Head is atraumatic, normocephalic. Pupils equal, round. Neck is supple. There is no elevated jugular venous pressure. HEART EXAMINATION: Heart S1, S2 normal. No murmur or gallop heard. CHEST EXAMINATION: Lungs are clear to auscultation and precussion. No chest wall tenderness is noted on palpation or with deep breathing. ABDOMEN: Soft, nontender. Bowel sounds are heard. No organomegaly noted. EXTREMITIES: 2+ peripheral pulses with no evidence of peripheral edema and no calf tenderness noted. NEUROLOGIC patient is awake, alert and oriented -3. . - Labs CBC & Chem 7: 06/11/17 06:38 06/11/17 06:38 Labs: Abnormal Lab Results - Last 24 Hours (Table) 06/10/17 06/10/17 06/11/17 Range/Units 16:30 20:45 05:55 WBC (3.8-10.6) k/uL MCV (80.0-100.0) fL PT (9.0-12.0) sec INR (<1.2) Glucose (74-99) mg/dL POC Glucose (mg/dL) 163 H 197 H 129 H (75-99) mg/dL 06/11/17 06/11/17 06/11/17 Range/Units 06:38 06:38 06:38 WBC 11.2 H (3.8-10.6) k/uL MCV 79.4 L (80.0-100.0) fL PT 13.9 H (9.0-12.0) sec INR 1.5 H (<1.2) Glucose 117 H (74-99) mg/dL POC Glucose (mg/dL) (75-99) mg/dL 06/11/17 Range/Units 11:43 WBC (3.8-10.6) k/uL MCV (80.0-100.0) fL PT (9.0-12.0) sec INR (<1.2) Glucose (74-99) mg/dL POC Glucose (mg/dL) 170 H (75-99) mg/dL Assessment and Plan Plan: Assessment and plan #1 syncope, no evidence of orthostatic hypotension, no arrhythmias noted on the monitor. Likely vasovagal in nature. CT negative. #2 history of atrial flutter ablation, on Coumadin for anticoagulation, coagulopathy on admission, resolved. #3 diabetes #4 hypothyroidism #5 urinary tract infection with early sepsis, hypotension and tachycardia, resolved. Plan No arrhythmias noted on the patient's monitor, the patient may be discharged home from cardiology's perspective, we will recommend a 30 day event monitor on discharge. Follow-up in the office post discharge. DNP note has been reviewed, I agree with a documented findings and plan of care. Patient was seen and examined.
[2017-06-11] MEDS ORDERED: WARFARIN 5 MG TAB PO SCH (18:00)
[2017-06-12] MEDS ORDERED: WARFARIN 10 MG TAB PO SCH (18:00)
== END 2017-06-11 11:53 | disposition home or self-care (01) | DRG 917 ==
LOC: EC 16:30 → 6SEL 20:23 → OBSVTOIN 20:23 → 6SEL 22:47
PROVIDERS: ADMIT Family Medicine; ATTEND Family Medicine
DX: T45.511A Poisoning by anticoagulants, accidental (unintentional), initial encounter (principal); A41.9 Sepsis, unspecified organism; N39.0 Urinary tract infection, site not specified; E03.9 Hypothyroidism, unspecified; E11.40 Type 2 diabetes mellitus with diabetic neuropathy, unspecified; E66.9 Obesity, unspecified; I10 Essential (primary) hypertension; J44.9 Chronic obstructive pulmonary disease, unspecified; K21.9 Gastro-esophageal reflux disease without esophagitis; K76.0 Fatty (change of) liver, not elsewhere classified; M79.7 Fibromyalgia; S09.90XA Unspecified injury of head, initial encounter; T45.515A Adverse effect of anticoagulants, initial encounter; W19.XXXA Unspecified fall, initial encounter; R55 Syncope and collapse; Z68.38 Body mass index [BMI] 38.0-38.9, adult; Z79.01 Long term (current) use of anticoagulants; Z79.4 Long term (current) use of insulin; Z80.3 Family history of malignant neoplasm of breast; Z83.3 Family history of diabetes mellitus; Z85.828 Personal history of other malignant neoplasm of skin; Z86.73 Personal history of transient ischemic attack (TIA), and cerebral infarction without residual deficits; Z87.11 Personal history of peptic ulcer disease; Z87.891 Personal history of nicotine dependence; Z90.710 Acquired absence of both cervix and uterus; Z79.899 Other long term (current) drug therapy
CPT/HCPCS: 36415; 70450; 71046; 72125; 76770; 80053; 81001; 82150; 82550; 82553; 83036; 83690; 84484; 85025; 85610; 85730; 87086; 93005; 93270; 93271; 94640; 94760; 96374; 99285

== ENCOUNTER → 2017-06-16 | Outpatient (CLI) | payer OTHER ==
[2017-06-16 16:22] LABS: Blood Urea Nitrogen 16 mg/dL (7-17)
--- NOTE | 2017-06-16 21:23 | MR ---
EXAMINATION TYPE: MR brain wo/w con DATE OF EXAM: 06/16/2017 COMPARISON: NONE HISTORY: Headaches, Dizzy, Loss of Memory, Passed Out, Previous MRI on PACS, CONTRAST: Performed utilizing 11.5 mL intravenous Gadavist gadolinium contrast. TECHNIQUE: Multiplanar, multiecho imaging on a 3.0 Sugar magnet is performed through the brain. Stud y is performed within 24 hours of arrival to the hospital. Due to motion and claustrophobia, fast so hnique was utilized. The craniovertebral junction is normal. The pituitary is normal. Diffusion-weighted imaging is performed. No abnormal hyperintensity is present to suggest an acute i ntracranial infarct or acute ischemic change. There are scattered punctate areas of hyperintensity on T2 and Inversion Recovery weighted sequences which are non-specific but can be related to microvascular ischemic changes. These are nonspecific. C linical correlation is recommended for microvascular ischemic change. Differential could include Lyme disease, migraine headaches, vasculitis among other etiologies. No suspicious enhancement is evident. There may be an old lacunar infarct within the left cerebellum. Ventricles and sulci are slightly prominent for the patient age. IMPRESSIONS: 1. Scattered periventricular white matter ischemic type changes. Findings are nonspecific. Correlate for microvascular ischemic change.
== END | disposition home or self-care (01) ==
LOC: RADMRIMAIN 15:53
PROVIDERS: ATTEND Psychiatry & Neurology Pain Medicine
DX: I67.82 Cerebral ischemia (principal)
CPT/HCPCS: 82565; 84520; 70553; 36415; A9581

== ENCOUNTER → 2017-07-04 | Outpatient (CLI) | payer OTHER ==
--- NOTE | 2017-07-04 17:15 | MR ---
EXAMINATION TYPE: MR cervical spine wo con DATE OF EXAM: 07/04/2017 COMPARISON: CT cervical spine dated 06/08/2017 HISTORY: Neck pain, Fall TECHNIQUE: Multiplanar, multisequence images of the cervical spine were acquired. FINDINGS: The cervical spine vertebral bodies maintain normal vertebral body height and alignment. Th ere is no evidence of focal bone marrow edema to suggest osseous contusion or fracture. Paraspinal mu scles maintain normal signal. Spinal cord signal is also within normal limits. Posterior fossa is unr emarkable. C2-C3: No evidence for degenerative disc disease. No disc bulge/herniation or protrusion. No Canal stenosis. Foramina are patent bilaterally. C3-C4: There is mild uncovertebral hypertrophy and a small right eccentric broad-based disc bulge cre ating mild right neural foraminal narrowing and minimally effacing the ventral subarachnoid space wit hout significant spinal canal stenosis. Left neural foramen is patent. C4-C5: Small right paracentral disc osteophyte complex, facet arthropathy and uncovertebral hypertrop hy create moderate right neural foraminal narrowing and mild left neural foraminal narrowing. C5-C6: A small posterior disc osteophyte complex is seen in combination with uncovertebral hypertroph y and facet arthropathy mildly narrowing the bilateral neuroforamen. No significant spinal canal sten osis. C6-C7: There is a left paracentral small disc herniation mildly narrowing the spinal canal. Uncoverte bral hypertrophy and facet arthropathy are seen without significant neural foraminal narrowing. C7-T1: No evidence for degenerative disc disease. No disc bulge/herniation or protrusion. No Canal stenosis. Foramina are patent bilaterally. Incidental note is made of a medial course of the right carotid artery posterior to the right pirifor m sinus and impressing upon the airway. IMPRESSION: 1. No evidence of osseous contusion, cervical spine malalignment, or sequela of fracture in this vance ent with recent injury. 2. Small left paracentral disc herniation at C6-C7 creating mild spinal canal stenosis. 3. Mild multilevel degenerative disc disease creating variable degrees of neural foraminal narrowing as described above.
== END | disposition home or self-care (01) ==
LOC: RADMRIMAIN 13:28
PROVIDERS: ATTEND Psychiatry & Neurology Neurology
DX: M50.21 Other cervical disc displacement, high cervical region (principal); M48.02 Spinal stenosis, cervical region; M50.30 Other cervical disc degeneration, unspecified cervical region; M99.71 Connective tissue and disc stenosis of intervertebral foramina of cervical region
CPT/HCPCS: 72141

== ENCOUNTER 2017-07-19 08:55 | Emergency (ER) | payer OTHER ==
[2017-07-19 08:59] VITALS: RESP 18
[2017-07-19] MEDS ORDERED: SODIUM CHLORIDE 0.9% 500 ML IV STA ×2 (08:59→11:16)
[2017-07-19] MEDS ORDERED: ONDANSETRON 4 MG/2 ML VIAL IVP STA (08:59)
[2017-07-19] MEDS ORDERED: SODIUM CHLORIDE 0.9% 1,000 ML IV STA (08:59)
--- NOTE | 2017-07-19 09:02 | ED ---
Recheck HPI - General Chief Complaint: Recheck/Abnormal Lab/Rx Stated Complaint: NASH Time Seen by Provider: 07/19/17 08:55 Source: patient, EMS, RN notes reviewed, old records reviewed Mode of arrival: EMS Limitations: no limitations - History of Present Illness Initial Comments: This is a 61-year-old female who is brought in by EMS after initially being called for difficulty breathing she is not feeling well she was fine a glucose of 65 she took a total of [address] for her sugar was in 1:15 per EMS she was brought in she was very diaphoretic diaphoresis seen and cleared up. She complains some left hip pain nontraumatic. She states she last ate around midnight. She takes both insulin and oral medication. No recent cold or flu symptoms cough phlegm production dysuria. She states she started chilled diaphoretic again. She no longer feels short of breath. - Related Data Home Medications Medication Instructions Recorded Confirmed DULoxetine HCL [Cymbalta] 60 mg PO DAILY 06/21/13 06/09/17 Omeprazole [PriLOSEC] 20 mg PO AC-SUPPER 04/12/14 06/09/17 sitaGLIPtin [Januvia] 100 mg PO W/BRKFST 12/03/14 06/09/17 Aspirin EC [Ecotrin Low Dose] 81 mg PO AC-LUNCH 03/14/15 06/09/17 Cyclobenzaprine [Flexeril] 10 mg PO HS 03/14/15 06/09/17 Multivitamins, Thera [Multivitamin 1 tab PO DAILY 03/14/15 06/09/17 (formulary)] Albuterol Inhaler [Ventolin Hfa 1 - 2 puff INHALATION RT-Q6H PRN 09/28/16 Inhaler] Cholecalciferol [Vitamin D3] 1,000 unit PO DAILY 09/28/16 06/09/17 Gabapentin 800 mg PO TID 09/28/16 06/09/17 Insulin Glargine [Lantus] 120 unit SQ HS 09/28/16 06/09/17 Vitamin C/Biotin [Hair, Skin and 1 tab PO DAILY 09/28/16 06/09/17 Nails] Glimepiride [Amaryl] 4 mg PO BID 11/24/16 06/09/17 Lisinopril [Zestril] 5 mg PO DAILY 11/24/16 06/09/17 Atenolol [Tenormin] 25 mg PO DAILY 05/19/17 06/09/17 Carbidopa-Levodopa 25-100 mg 1 tab PO TID 05/19/17 06/09/17 [Sinemet 25-100 mg] HYDROcodone/APAP 10-325MG [[place] 1 tab PO TID PRN 05/19/17 06/09/17 10-325] Levothyroxine Sodium [Synthroid] 75 mcg PO DAILY 05/19/17 06/09/17 Metoclopramide [Reglan] 10 mg PO DAILY PRN 05/19/17 06/09/17 Primidone [Mysoline] 50 mg PO DAILY 05/19/17 06/09/17 Warfarin [Coumadin] 5 mg PO SUTUTHSA 05/19/17 06/09/17 Warfarin [Coumadin] 10 mg PO MOWEFR 05/19/17 06/09/17 Zolpidem [Ambien] 10 mg PO HS PRN 05/19/17 06/09/17 metFORMIN HCL [Glucophage] 500 mg PO BID 05/19/17 06/09/17 Clindamycin Phosphate 1 applic TOPICAL BID 06/09/17 06/09/17 DULoxetine HCL [Cymbalta] 30 mg PO DAILY 06/09/17 06/09/17 Previous Rx's Medication Instructions Recorded Pravastatin Sodium [Pravachol] 20 mg PO DAILY #30 tab 10/12/16 amLODIPine [Norvasc] 10 mg PO DAILY #0 10/12/16 Magnesium 200 mg PO DAILY #14 tablet 07/19/17 Potassium Chloride ER [K-Dur 20] 20 meq PO DAILY #14 tab 07/19/17 Allergies Allergy/AdvReac Type Severity Reaction Status Date / Time No Known Allergies Allergy Verified 07/19/17 11:40 Review of Systems ROS Statement: Those systems with pertinent positive or pertinent negative responses have been documented in the HPI. ROS Other: All systems not noted in ROS Statement are negative. Past Medical History Past Medical History: Asthma, Cancer, COPD, CVA/TIA, Diabetes Mellitus, Eye Disorder, Fibromyalgia, GERD/Reflux, Hypertension, Osteoarthritis (OA), Pneumonia, Thyroid Disorder Additional Past Medical History / Comment(s): Recent bronchitis/dehydration and completed antibiotics, past bronchitis, IDDM type II, bilateral lower leg and feet neuropathy, 2009 CVA with some memory issues, possible TIA, basal cell skin cancer removed from L nares, L eye has partially detached retina, gastric ulcer, hematemesis, DDD, DJD, chronic low back pain, sciatica mostly L side occasionally R side, migraines, hypothyroid, vertigo, fatty liver, palpitations , past fractures of R thumb/R wrist/L hand, [place] Spotted Fever as an History of Any Multi-Drug Resistant Organisms: None Reported Past Surgical History: Back Surgery, Cholecystectomy, Heart Catheterization, Hernia Repair, Hysterectomy, Tonsillectomy Additional Past Surgical History / Comment(s): 11/2016 EPS with A flutter ablation, 2007 cardiac cath-normal, L nares skin cancer removed, UMBILICAL HERNIA SX 3X, RT Hand SX for middle TRIGGER FINGER, FIBROID TUMORS REMOVED ABD/ BACK, LAPROSCOPIES x 3, L5-S1 SX for HERNIATED DISCS, EGD/colonoscopy. Past Anesthesia/Blood Transfusion Reactions: Postoperative Nausea & Vomiting ( PONV) Additional Past Anesthesia/Blood Transfusion Reaction / Comment(s): AND SEVERE HEADACHE Past Psychological History: Anxiety, Bipolar, Depression Smoking Status: Former smoker Past Alcohol Use History: None Reported Past Drug Use History: None Reported - Past Family History Father Family Medical History: Unable to Obtain Additional Family Medical History / Comment(s): ONLY MET HIM ONCE IN HER LIFE [employer] RUNS IN HIS FAMILY Mother Family Medical History: Cancer Additional Family Medical History / Comment(s): Breast CA. Mother is alive and is 86yrs old. General Exam - General Exam Comments Initial Comments: This a well-developed well-nourished lethargic female Limitations: no limitations General appearance: alert, in no apparent distress Head exam: Present: atraumatic, normocephalic, normal inspection Eye exam: Present: normal appearance, PERRL, EOMI. Absent: scleral icterus, conjunctival injection, periorbital swelling ENT exam: Present: mucous membranes dry Neck exam: Present: normal inspection. Absent: tenderness, meningismus, lymphadenopathy Respiratory exam: Present: normal lung sounds bilaterally. Absent: respiratory distress, wheezes, rales, rhonchi, stridor Cardiovascular Exam: Present: regular rate, normal rhythm, normal heart sounds. Absent: systolic murmur, diastolic murmur, rubs, gallop, clicks GI/Abdominal exam: Present: soft, normal bowel sounds. Absent: distended, tenderness, guarding, rebound, rigid Extremities exam: Present: normal inspection, full ROM, normal capillary refill. Absent: tenderness, pedal edema, joint swelling, calf tenderness Back exam: Present: normal inspection Neurological exam: Present: alert, oriented X3, CN II-XII intact Psychiatric exam: Present: normal affect, normal mood Skin exam: Present: warm, intact, normal color, diaphoretic. Absent: rash Course Vital Signs 07/19/17 07/19/17 07/19/17 08:57 10:00 10:47 Temperature 96.8 F L Pulse Rate 94 77 78 Respiratory 18 18 18 Rate Blood Pressure 135/70 122/71 127/70 O2 Sat by Pulse 96 100 100 Oximetry - Reevaluation(s) Reevaluation #1: 07/19/17 11:54 I did several reevaluation the patient she is now feeling much improved after IV fluids and correction of the glucose. Medical Decision Making - Medical Decision Making Patient is feeling much improved this time he'll be discharged presentation is consistent with a hypoglycemic episode chills he did demonstrate evidence of dehydration which she has had the past also hypo-ketonemia hypomagnesemia. She' ll be given prescription for supplements. - Lab Data Result diagrams: 07/19/17 09:00 07/19/17 09:00 Lab Results 07/19/17 07/19/17 07/19/17 Range/Units 09:00 09:00 09:00 WBC 22.3 H (3.8-10.6) k/uL RBC 4.72 (3.80-5.40) m/uL Hgb 12.9 (11.4-16.0) gm/dL Hct 37.9 (34.0-46.0) % MCV 80.4 (80.0-100.0) fL MCH 27.3 (25.0-35.0) pg MCHC 34.0 (31.0-37.0) g/dL RDW 14.8 (11.5-15.5) % Plt Count 418 (150-450) k/uL Neutrophils % 65 % Lymphocytes % 27 % Monocytes % 4 % Eosinophils % 3 % Basophils % 1 % Neutrophils # 14.5 H (1.3-7.7) k/uL Lymphocytes # 5.9 H (1.0-4.8) k/uL Monocytes # 0.9 (0-1.0) k/uL Eosinophils # 0.6 (0-0.7) k/uL Basophils # 0.1 (0-0.2) k/uL Manual Slide Review Performed RBC Morphology Normal D-Dimer (<0.60) mg/L FEU Sodium 144 (137-145) mmol/L Potassium 3.3 L (3.5-5.1) mmol/L Chloride 100 (98-107) mmol/L Carbon Dioxide 26 (22-30) mmol/L Anion Gap 18 mmol/L BUN 23 H (7-17) mg/dL Creatinine 1.11 H (0.52-1.04) mg/dL Est GFR (CKD-EPI)AfAm 61 (>60 ml/min/1.73 sqM) Est GFR (CKD-EPI)NonAf 53 (>60 ml/min/1.73 sqM) Glucose 39 L* (74-99) mg/dL POC Glucose (mg/dL) (75-99) mg/dL POC Glu Kitchen Manager ID Calcium 9.9 (8.4-10.2) mg/dL Magnesium 1.4 L (1.6-2.3) mg/dL Total Bilirubin 0.4 (0.2-1.3) mg/dL AST 41 H (14-36) U/L ALT 35 (9-52) U/L Alkaline Phosphatase 69 (38-126) U/L Total Creatine Kinase 424 H (30-135) U/L CK-MB (CK-2) 2.7 H* (0.0-2.4) ng/mL CK-MB (CK-2) Rel Index 0.6 Troponin I <0.012 (0.000-0.034) ng/mL Total Protein 7.5 (6.3-8.2) g/dL Albumin 4.7 (3.5-5.0) g/dL Urine Color Urine Appearance (Clear) Urine pH (5.0-8.0) Ur Specific [place] (1.001-1.035) Urine Protein (Negative) Urine Glucose (UA) (Negative) Urine Ketones (Negative) Urine Blood (Negative) Urine Nitrite (Negative) Urine Bilirubin (Negative) Urine Urobilinogen (<2.0) mg/dL Ur Leukocyte Esterase (Negative) Urine RBC (0-5) /hpf Urine WBC (0-5) /hpf Ur Squamous Epith Cells (0-4) /hpf Urine Bacteria (None) /hpf Urine Mucus (None) /hpf 07/19/17 07/19/17 07/19/17 Range/Units 09:00 09:08 09:29 WBC (3.8-10.6) k/uL RBC (3.80-5.40) m/uL Hgb (11.4-16.0) gm/dL Hct (34.0-46.0) % MCV (80.0-100.0) fL MCH (25.0-35.0) pg MCHC (31.0-37.0) g/dL RDW (11.5-15.5) % Plt Count (150-450) k/uL Neutrophils % % Lymphocytes % % Monocytes % % Eosinophils % % Basophils % % Neutrophils # (1.3-7.7) k/uL Lymphocytes # (1.0-4.8) k/uL Monocytes # (0-1.0) k/uL Eosinophils # (0-0.7) k/uL Basophils # (0-0.2) k/uL Manual Slide Review RBC Morphology D-Dimer <0.17 (<0.60) mg/L FEU Sodium (137-145) mmol/L Potassium (3.5-5.1) mmol/L Chloride (98-107) mmol/L Carbon Dioxide (22-30) mmol/L Anion Gap mmol/L BUN (7-17) mg/dL Creatinine (0.52-1.04) mg/dL Est GFR (CKD-EPI)AfAm (>60 ml/min/1.73 sqM) Est GFR (CKD-EPI)NonAf (>60 ml/min/1.73 sqM) Glucose (74-99) mg/dL POC Glucose (mg/dL) 48 L 65 L (75-99) mg/dL POC Glu Kitchen Manager ID Claire Denny Rachel Calcium (8.4-10.2) mg/dL Magnesium (1.6-2.3) mg/dL Total Bilirubin (0.2-1.3) mg/dL AST (14-36) U/L ALT (9-52) U/L Alkaline Phosphatase (38-126) U/L Total Creatine Kinase (30-135) U/L CK-MB (CK-2) (0.0-2.4) ng/mL CK-MB (CK-2) Rel Index Troponin I (0.000-0.034) ng/mL Total Protein (6.3-8.2) g/dL Albumin (3.5-5.0) g/dL Urine Color Urine Appearance (Clear) Urine pH (5.0-8.0) Ur Specific [place] (1.001-1.035) Urine Protein (Negative) Urine Glucose (UA) (Negative) Urine Ketones (Negative) Urine Blood (Negative) Urine Nitrite (Negative) Urine Bilirubin (Negative) Urine Urobilinogen (<2.0) mg/dL Ur Leukocyte Esterase (Negative) Urine RBC (0-5) /hpf Urine WBC (0-5) /hpf Ur Squamous Epith Cells (0-4) /hpf Urine Bacteria (None) /hpf Urine Mucus (None) /hpf 07/19/17 07/19/17 Range/Units 09:57 10:15 WBC (3.8-10.6) k/uL RBC (3.80-5.40) m/uL Hgb (11.4-16.0) gm/dL Hct (34.0-46.0) % MCV (80.0-100.0) fL MCH (25.0-35.0) pg MCHC (31.0-37.0) g/dL RDW (11.5-15.5) % Plt Count (150-450) k/uL Neutrophils % % Lymphocytes % % Monocytes % % Eosinophils % % Basophils % % Neutrophils # (1.3-7.7) k/uL Lymphocytes # (1.0-4.8) k/uL Monocytes # (0-1.0) k/uL Eosinophils # (0-0.7) k/uL Basophils # (0-0.2) k/uL Manual Slide Review RBC Morphology D-Dimer (<0.60) mg/L FEU Sodium (137-145) mmol/L Potassium (3.5-5.1) mmol/L Chloride (98-107) mmol/L Carbon Dioxide (22-30) mmol/L Anion Gap mmol/L BUN (7-17) mg/dL Creatinine (0.52-1.04) mg/dL Est GFR (CKD-EPI)AfAm (>60 ml/min/1.73 sqM) Est GFR (CKD-EPI)NonAf (>60 ml/min/1.73 sqM) Glucose (74-99) mg/dL POC Glucose (mg/dL) 80 (75-99) mg/dL POC Glu Kitchen Manager ID Lizy Sutherland Calcium (8.4-10.2) mg/dL Magnesium (1.6-2.3) mg/dL Total Bilirubin (0.2-1.3) mg/dL AST (14-36) U/L ALT (9-52) U/L Alkaline Phosphatase (38-126) U/L Total Creatine Kinase (30-135) U/L CK-MB (CK-2) (0.0-2.4) ng/mL CK-MB (CK-2) Rel Index Troponin I (0.000-0.034) ng/mL Total Protein (6.3-8.2) g/dL Albumin (3.5-5.0) g/dL Urine Color Light Yellow Urine Appearance Clear (Clear) Urine pH 5.0 (5.0-8.0) Ur Specific [place] 1.007 (1.001-1.035) Urine Protein Negative (Negative) Urine Glucose (UA) Negative (Negative) Urine Ketones Negative (Negative) Urine Blood Negative (Negative) Urine Nitrite Negative (Negative) Urine Bilirubin Negative (Negative) Urine Urobilinogen <2.0 (<2.0) mg/dL Ur Leukocyte Esterase Small H (Negative) Urine RBC 1 (0-5) /hpf Urine WBC 4 (0-5) /hpf Ur Squamous Epith Cells <1 (0-4) /hpf Urine Bacteria Rare H (None) /hpf Urine Mucus Rare H (None) /hpf - EKG Data -: EKG Interpreted by Ok EKG shows normal: sinus rhythm (Sinus rhythm of 82. Interval 186 QRS duration 104 QT since QTC 450/525 long Q-T no acute ST-T wave changes.) - Radiology Data Radiology results: report reviewed (Imaging shows no acute findings.), image reviewed Disposition Clinical Impression: Hypokalemia, Hypoglycemia, Hypomagnesemia, Dehydration Disposition: HOME SELF-CARE Condition: Good Instructions: Hypoglycemia in a Person with Diabetes (ED), Dehydration (ED), Hypokalemia (ED), Hypomagnesemia (ED) Prescriptions: Magnesium 200 mg PO DAILY #14 tablet Potassium Chloride ER [K-Dur 20] 20 meq PO DAILY #14 tab Is patient prescribed a controlled substance at d/c from ED?: No Referrals: Benedicto Cabello DO [Primary Care Provider] - 1-2 days
[2017-07-19 09:15] LABS: Basophils # (A) 0.1 k/uL (0-0.2); Basophils % (A) 1 %; Eosinophils # (A) 0.6 k/uL (0-0.7); Eosinophils % (A) 3 %; HCT 37.9 % (34.0-46.0); HGB 12.9 gm/dL (11.4-16.0); Lymphocytes % (A) 27 %; MCH 27.3 pg (25.0-35.0); MCV 80.4 fL (80.0-100.0); Mean Platelet Volume 6.3; Monocytes # (A) 0.9 k/uL (0-1.0); Monocytes % (A) 4 %; Neutrophils # (A) 14.5 k/uL (1.3-7.7); Neutrophils % (A) 65 %; Platelet Count 418 k/uL (150-450); RBC 4.72 m/uL (3.80-5.40); RDW 14.8 % (11.5-15.5); WBC 22.3 k/uL (3.8-10.6)
[2017-07-19 09:17] LABS: Lymphocytes # (A) 5.9 k/uL (1.0-4.8)
[2017-07-19 09:20] LABS: Glucose,Whole Blood 48 mg/dL (75-99)
[2017-07-19 09:37] LABS: Albumin 4.7 g/dL (3.5-5.0); Calcium 9.9 mg/dL (8.4-10.2); Magnesium 1.4 mg/dL (1.6-2.3); Potassium 3.3 mmol/L (3.5-5.1); Total Bilirubin 0.4 mg/dL (0.2-1.3); Total Protein 7.5 g/dL (6.3-8.2)
[2017-07-19 09:46] LABS: Creatine Kinase 424 U/L (30-135)
[2017-07-19 09:52] LABS: Glucose,Whole Blood 65 mg/dL (75-99)
[2017-07-19 09:59] LABS: Troponin I <0.012 ng/mL (0.000-0.034)
--- NOTE | 2017-07-19 09:59 | XR ---
EXAMINATION: XR chest 2V DATE AND TIME: 07/19/2017 9:48 AM ORDERING PROVIDER: Joselito Archer MD CLINICAL INDICATION: cough TECHNIQUE: PA and lateral COMPARISON: 06/08/2017 DESCRIPTION: The lungs are clear. The pleural spaces are negative. The cardiac silhouette is not enlarged. The mediastinal and pleural silhouettes are unremarkable. The skeletal structures are intact without focal findings. The soft tissues are unremarkable. IMPRESSION: NO ACUTE PROCESS.
[2017-07-19 10:04] LABS: Creatine Kinase MB 2.7 ng/mL (0.0-2.4)
[2017-07-19 10:17] LABS: Glucose,Whole Blood 80 mg/dL (75-99)
[2017-07-19 10:38] LABS: Appearance,Urine Clear (Clear); Bacteria,Urine Rare /hpf; Bilirubin,Urine Negative (Negative); Blood,Urine Negative (Negative); Color,Urine Light Yellow; Glucose,Urine (UA) Negative (Negative); Ketones,Urine Negative (Negative); Leukocyte Esterase,Urine Small (Negative); Mucus,Urine Rare /hpf; Nitrite,Urine Negative (Negative); Protein,Urine Negative (Negative); RBC,Urine 1 /hpf (0-5); Specific Gravity,Urine 1.007 (1.001-1.035); Squamous Epithelial Cell,Urine <1 /hpf (0-4); Urobilinogen,Urine <2.0 mg/dL (<2.0); WBC,Urine 4 /hpf (0-5)
[2017-07-19] MEDS ORDERED: MAGNESIUM SULFATE-D5W PMX 1 GM in DEXTROSE/WATER 1 100ML.BAG IVPB ONE (11:16)
[2017-07-19] MEDS ORDERED: POTASSIUM CHLORIDE ER 20 MEQ TAB.ER PO STA (11:17)
[2017-07-19 12:13] VITALS: BP 116/60; PULSE 83; TEMP 97.4
[2017-07-20 07:14] LABS: Glucose,Whole Blood 103 mg/dL (75-99)
== END 2017-07-19 12:13 | disposition home or self-care (01) ==
LOC: EC 08:55
DX: E83.42 Hypomagnesemia (principal); E86.0 Dehydration; E87.6 Hypokalemia; E11.649 Type 2 diabetes mellitus with hypoglycemia without coma; M25.552 Pain in left hip; I10 Essential (primary) hypertension; E11.42 Type 2 diabetes mellitus with diabetic polyneuropathy; J44.9 Chronic obstructive pulmonary disease, unspecified; K21.9 Gastro-esophageal reflux disease without esophagitis; E03.9 Hypothyroidism, unspecified; M79.7 Fibromyalgia; M19.90 Unspecified osteoarthritis, unspecified site; F31.9 Bipolar disorder, unspecified; F41.9 Anxiety disorder, unspecified; Z87.891 Personal history of nicotine dependence; Z79.01 Long term (current) use of anticoagulants; Z79.4 Long term (current) use of insulin; Z79.82 Long term (current) use of aspirin; Z79.899 Other long term (current) drug therapy; Z86.73 Personal history of transient ischemic attack (TIA), and cerebral infarction without residual deficits; Z85.828 Personal history of other malignant neoplasm of skin; Z98.890 Other specified postprocedural states
CPT/HCPCS: 36415; 85379; 80053; 82550; 82553; 83735; 84484; 85025; 81001; 71046; 99285; 96365; 96375; 96361 ×2; J2405; J3475

== ENCOUNTER 2017-09-14 12:34 | Emergency (ER) | payer OTHER ==
[2017-09-14 12:48] VITALS: RESP 18
[2017-09-14] MEDS ORDERED: KETOROLAC 60 MG/2 ML VIAL IM STA (15:10)
[2017-09-14] MEDS ORDERED: ORPHENADRINE 30 MG/ML 2 ML VIAL IM STA (15:10)
--- NOTE | 2017-09-14 15:16 | ED ---
General Adult HPI - General Chief complaint: Fall Stated complaint: Fell/rt side pain Time Seen by Provider: 09/14/17 12:45 Source: patient, RN notes reviewed Mode of arrival: ambulatory Limitations: no limitations - History of Present Illness Initial comments: This is a 61-year-old female who presents emergency Department complaining that she fell 4 days ago. Patient states she came to emergency department complaining of neck pain and she has a bruise on her right thigh that seems to be migrating down towards her knee. Patient is on Coumadin. Patient states she did not hit her head. Patient states she fell between her bed and and a dresser she states her neck was turned so that's why the muscles on both sides of her neck are now sore. Patient states her right arm is also sore at the shoulder but she has full range of motion of the arm elbow and hand. Patient denies any chest or abdominal pain. Patient denies any hip pain. Patient states the bruise on her thigh is tender to touch it. She has full range of motion about the hip and knee. Patient has no other complaints. Patient denies any other sites of bruising besides the thigh. - Related Data Home Medications Medication Instructions Recorded Confirmed Omeprazole [PriLOSEC] 20 mg PO AC-SUPPER 04/12/14 09/14/17 sitaGLIPtin [Januvia] 100 mg PO W/BRKFST 12/03/14 09/14/17 Aspirin EC [Ecotrin Low Dose] 81 mg PO AC-LUNCH 03/14/15 09/14/17 Cyclobenzaprine [Flexeril] 10 mg PO HS 03/14/15 09/14/17 Multivitamins, Thera [Multivitamin 1 tab PO DAILY 03/14/15 09/14/17 (formulary)] Albuterol Inhaler [Ventolin Hfa 1 - 2 puff INHALATION RT-Q6H PRN 09/28/16 Inhaler] Cholecalciferol [Vitamin D3] 1,000 unit PO DAILY 09/28/16 09/14/17 Gabapentin 800 mg PO TID 09/28/16 09/14/17 Insulin Glargine [Lantus] 120 unit SQ HS 09/28/16 09/14/17 Vitamin C/Biotin [Hair, Skin and 1 tab PO DAILY 09/28/16 09/14/17 Nails] Glimepiride [Amaryl] 4 mg PO BID 11/24/16 09/14/17 Lisinopril [Zestril] 5 mg PO DAILY 11/24/16 09/14/17 Atenolol [Tenormin] 25 mg PO DAILY 05/19/17 09/14/17 Carbidopa-Levodopa 25-100 mg 1 tab PO TID 05/19/17 09/14/17 [Sinemet 25-100 mg] HYDROcodone/APAP 10-325MG [[place] 1 tab PO TID PRN 05/19/17 09/14/17 10-325] Warfarin [Coumadin] 5 mg PO W/SUPPER 05/19/17 09/14/17 Clindamycin Phosphate 1 applic TOPICAL BID 06/09/17 09/14/17 DULoxetine HCL [Cymbalta] 30 mg PO DAILY 06/09/17 09/14/17 Levothyroxine Sodium [Synthroid] 50 mcg PO DAILY 09/14/17 09/14/17 metFORMIN HCL [Glucophage] 850 mg PO TID 09/14/17 09/14/17 Previous Rx's Medication Instructions Recorded Pravastatin Sodium [Pravachol] 20 mg PO DAILY #30 tab 10/12/16 amLODIPine [Norvasc] 10 mg PO DAILY #0 10/12/16 Cyclobenzaprine [Flexeril] 10 mg PO TID #20 tab 09/14/17 Ibuprofen [Motrin] 600 mg PO Q6HR PRN #20 tab 09/14/17 Allergies Allergy/AdvReac Type Severity Reaction Status Date / Time No Known Allergies Allergy Verified 09/14/17 15:16 Review of Systems ROS Statement: Those systems with pertinent positive or pertinent negative responses have been documented in the HPI. ROS Other: All systems not noted in ROS Statement are negative. Past Medical History Past Medical History: Asthma, Cancer, COPD, CVA/TIA, Diabetes Mellitus, Eye Disorder, Fibromyalgia, GERD/Reflux, Hypertension, Osteoarthritis (OA), Pneumonia, Thyroid Disorder Additional Past Medical History / Comment(s): Recent bronchitis/dehydration and completed antibiotics, past bronchitis, IDDM type II, bilateral lower leg and feet neuropathy, 2009 CVA with some memory issues, possible TIA, basal cell skin cancer removed from L nares, L eye has partially detached retina, gastric ulcer, hematemesis, DDD, DJD, chronic low back pain, sciatica mostly L side occasionally R side, migraines, hypothyroid, vertigo, fatty liver, palpitations , past fractures of R thumb/R wrist/L hand, [place] Spotted Fever as an infant History of Any Multi-Drug Resistant Organisms: None Reported Past Surgical History: Back Surgery, Cholecystectomy, Heart Catheterization, Hernia Repair, Hysterectomy, Tonsillectomy Additional Past Surgical History / Comment(s): 11/2016 EPS with A flutter ablation, 2007 cardiac cath-normal, L nares skin cancer removed, UMBILICAL HERNIA SX 3X, RT Hand SX for middle TRIGGER FINGER, FIBROID TUMORS REMOVED ABD/ BACK, LAPROSCOPIES x 3, L5-S1 SX for HERNIATED DISCS, EGD/colonoscopy. Past Anesthesia/Blood Transfusion Reactions: Postoperative Nausea & Vomiting ( PONV) Additional Past Anesthesia/Blood Transfusion Reaction / Comment(s): AND SEVERE HEADACHE Past Psychological History: Anxiety, Bipolar, Depression Smoking Status: Former smoker Past Alcohol Use History: None Reported Past Drug Use History: Marijuana - Past Family History Father Family Medical History: Unable to Obtain Additional Family Medical History / Comment(s): ONLY MET HIM ONCE IN HER LIFE Complexa RUNS IN HIS FAMILY Mother Family Medical History: Cancer Additional Family Medical History / Comment(s): Breast CA. Mother is alive and is 86yrs old. General Exam - General Exam Comments Initial Comments: GENERAL: Patient is well-developed and well-nourished. Patient is nontoxic and well- hydrated and is in mild distress. ENT: Neck is soft and supple. No significant lymphadenopathy is noted. Oropharynx is clear. Moist mucous membranes. Neck has full range of motion without eliciting any pain. Patient has some tenderness in both trapezius muscles. EYES: The sclera were anicteric and conjunctiva were pink and moist. Extraocular movements were intact and pupils were equal round and reactive to light. Eyelids were unremarkable. PULMONARY: Unlabored respirations. Good breath sounds bilaterally. No audible rales rhonchi or wheezing was noted. CARDIOVASCULAR: There is a regular rate and rhythm without any murmurs gallops or rubs. ABDOMEN: Soft and nontender with normal bowel sounds. SKIN: There is a bruise on the lateral aspect of right thigh is in the mid thigh region. Patient states that bruises moves somewhat distally close to the knee patient is mildly tender on the bruise. NEUROLOGIC: Patient is alert and oriented x3. Cranial nerves II through XII are grossly intact. Motor and sensory are also intact. Normal speech, volume and content. Symmetrical smile. MUSCULOSKELETAL: Normal extremities with adequate strength and full range of motion. LYMPHATICS: No significant lymphadenopathy is noted PSYCHIATRIC: Normal psychiatric evaluation. Limitations: no limitations Course Vital Signs 09/14/17 09/14/17 12:45 15:21 Temperature 98.6 F 97.5 F L Pulse Rate 88 69 Respiratory 18 18 Rate Blood Pressure 138/76 138/66 O2 Sat by Pulse 96 98 Oximetry Medical Decision Making - Medical Decision Making Patient was questioned again about any head trauma she denies head trauma she denies any headache. The patient got her shots she was feeling little bit better but stated she felt so the medicine made her nauseous psychiatric for Isela. Disposition Clinical Impression: Contusion, Cervical strain Disposition: HOME SELF-CARE Condition: Good Instructions: Cervical Strain (ED), Fall Prevention for Older Adults (ED) Prescriptions: Cyclobenzaprine [Flexeril] 10 mg PO TID #20 tab Ibuprofen [Motrin] 600 mg PO Q6HR PRN #20 tab PRN Reason: For pain Is patient prescribed a controlled substance at d/c from ED?: No Referrals: Benedicto Cabello DO [Primary Care Provider] - 1-2 days Time of Disposition: 15:18
[2017-09-14 15:28] VITALS: BP 138/66; PULSE 69; TEMP 97.5
[2017-09-14] MEDS ORDERED: ONDANSETRON ODT 4 MG TAB PO STA (15:31)
== END 2017-09-14 15:48 | disposition home or self-care (01) ==
LOC: EC 12:34
DX: S16.1XXA Strain of muscle, fascia and tendon at neck level, initial encounter (principal); S70.11XA Contusion of right thigh, initial encounter; R11.0 Nausea; M79.601 Pain in right arm; K21.9 Gastro-esophageal reflux disease without esophagitis; I10 Essential (primary) hypertension; E11.40 Type 2 diabetes mellitus with diabetic neuropathy, unspecified; E03.9 Hypothyroidism, unspecified; M79.7 Fibromyalgia; J44.9 Chronic obstructive pulmonary disease, unspecified; F41.9 Anxiety disorder, unspecified; F32.9 Major depressive disorder, single episode, unspecified; Z87.891 Personal history of nicotine dependence; Z79.82 Long term (current) use of aspirin; Z79.4 Long term (current) use of insulin; Z79.899 Other long term (current) drug therapy; Z79.01 Long term (current) use of anticoagulants; Z86.73 Personal history of transient ischemic attack (TIA), and cerebral infarction without residual deficits; Z85.828 Personal history of other malignant neoplasm of skin; Z95.5 Presence of coronary angioplasty implant and graft; W19.XXXA Unspecified fall, initial encounter
CPT/HCPCS: 99283; 96372 ×2; J2360; J1885

== ENCOUNTER 2018-01-15 13:56 | Emergency (ER) | payer OTHER ==
[2018-01-15 14:01] VITALS: TEMP 97.9
[2018-01-15] MEDS ORDERED: methylPREDNISolone ACETATE 40 MG/ML 1 ML VIAL INTRABURSA STA (14:54)
[2018-01-15] MEDS ORDERED: LIDOCAINE 1% INJ 10MG/ML (20 ML MDV) SQ STA (14:54)
[2018-01-15] MEDS ORDERED: MORPHINE SULFATE 4 MG/ML SYRINGE IV STA ×2 (15:13→16:16)
--- NOTE | 2018-01-15 15:14 | ED ---
General Adult HPI - General Chief complaint: Recheck/Abnormal Lab/Rx Stated complaint: Pain all over Source: patient, RN notes reviewed, old records reviewed Mode of arrival: ambulatory Limitations: no limitations - History of Present Illness Initial comments: 62-year-old female patient past medical history of chronic pain, fibromyalgia, chronic hip pain presents for acute exacerbation of right hip pain. Patient has previously been diagnosed with bursitis by her pain medicine rehabilitation doctor Dr. Lognoria. Patient is scheduled to have steroid injections done on Thursday. Patient presented to ER today because the pain was "unbearable". Patient states that she has felt pain like this in the past. Patient states that this is the pain she experiences an infraorbital between the steroid injections that she receives. Patient also takes oral analgesia of [place] on a daily basis. Patient is ambulatory, patient has full range of motion of leg, patient states that the headache is not red, no swelling, no cellulitis, patient denies fever chills, patient denies nausea vomiting diarrhea, patient has history of IV drug use. Patient denies chest pain, shortness of breath, abdominal pain. Systemic: Pt denies fatigue, myalgia, fever/chills, rash. Pt denies weakness, night sweats, weight loss. Neuro: Pt denies headache, visual disturbances, syncope or pre-syncope. HEENT: Pt denies ocular discharge or irritation, otalgia, rhinorrhea, pharyngitis or notable lymphadenopathy. Cardiopulmonary: Pt denies chest pain, SOB, heart palpitations, dyspnea on exertion. Abdominal/GI: Pt denies abdominal pain, n/v/d. : Pt denies dysuria, burning w/ urination, frequency/urgency. Denies new onset urinary or bowel incontinence. MSK: Pt denies myalgia, loss of strength or function in extremities. Neuro: Pt denies new onset weakness, paresthesias. - Related Data Home Medications Medication Instructions Recorded Confirmed Omeprazole [PriLOSEC] 20 mg PO AC-SUPPER 04/12/14 01/15/18 sitaGLIPtin [Januvia] 100 mg PO W/BRKFST 12/03/14 01/15/18 Aspirin EC [Ecotrin Low Dose] 81 mg PO AC-LUNCH 03/14/15 01/15/18 Multivitamins, Thera [Multivitamin 1 tab PO DAILY 03/14/15 01/15/18 (formulary)] Albuterol Inhaler [Ventolin Hfa 1 - 2 puff INHALATION RT-Q6H PRN 09/28/16 Inhaler] Gabapentin 800 mg PO TID 09/28/16 01/15/18 Vitamin C/Biotin [Hair, Skin and 1 tab PO DAILY 09/28/16 01/15/18 Nails] Glimepiride [Amaryl] 4 mg PO BID 11/24/16 01/15/18 Lisinopril [Zestril] 5 mg PO DAILY 11/24/16 01/15/18 Atenolol [Tenormin] 25 mg PO DAILY 05/19/17 01/15/18 Carbidopa-Levodopa 25-100 mg 1 tab PO TID 05/19/17 01/15/18 [Sinemet 25-100 mg] HYDROcodone/APAP 10-325MG [[place] 1 tab PO TID PRN 05/19/17 01/15/18 10-325] Warfarin [Coumadin] 15 mg PO W/SUPPER 05/19/17 01/15/18 Clindamycin Phosphate 1 applic TOPICAL BID 06/09/17 01/15/18 Levothyroxine Sodium [Synthroid] 50 mcg PO DAILY 09/14/17 01/15/18 metFORMIN HCL [Glucophage] 850 mg PO TID 09/14/17 01/15/18 DULoxetine HCL [Cymbalta] 60 mg PO DAILY 01/15/18 01/15/18 Magnesium Oxide [Mag-Ox] 250 mg PO DAILY 01/15/18 01/15/18 Previous Rx's Medication Instructions Recorded Pravastatin Sodium [Pravachol] 20 mg PO DAILY #30 tab 10/12/16 amLODIPine [Norvasc] 10 mg PO DAILY #0 10/12/16 Allergies Allergy/AdvReac Type Severity Reaction Status Date / Time No Known Allergies Allergy Verified 01/15/18 14:13 Review of Systems ROS Statement: Those systems with pertinent positive or pertinent negative responses have been documented in the HPI. ROS Other: All systems not noted in ROS Statement are negative. Past Medical History Past Medical History: Asthma, Cancer, COPD, CVA/TIA, Diabetes Mellitus, Eye Disorder, Fibromyalgia, GERD/Reflux, Hypertension, Osteoarthritis (OA), Pneumonia, Thyroid Disorder Additional Past Medical History / Comment(s): Recent bronchitis/dehydration and completed antibiotics, past bronchitis, IDDM type II, bilateral lower leg and feet neuropathy, 2009 CVA with some memory issues, possible TIA, basal cell skin cancer removed from L nares, L eye has partially detached retina, gastric ulcer, hematemesis, DDD, DJD, chronic low back pain, sciatica mostly L side occasionally R side, migraines, hypothyroid, vertigo, fatty liver, palpitations , past fractures of R thumb/R wrist/L hand, [place] Spotted Fever as an History of Any Multi-Drug Resistant Organisms: None Reported Past Surgical History: Back Surgery, Cholecystectomy, Heart Catheterization, Hernia Repair, Hysterectomy, Tonsillectomy Additional Past Surgical History / Comment(s): 11/2016 EPS with A flutter ablation, 2007 cardiac cath-normal, L nares skin cancer removed, UMBILICAL HERNIA SX 3X, RT Hand SX for middle TRIGGER FINGER, FIBROID TUMORS REMOVED ABD/ BACK, LAPROSCOPIES x 3, L5-S1 SX for HERNIATED DISCS, EGD/colonoscopy. Past Anesthesia/Blood Transfusion Reactions: Postoperative Nausea & Vomiting ( PONV) Additional Past Anesthesia/Blood Transfusion Reaction / Comment(s): AND SEVERE HEADACHE Past Psychological History: Anxiety, Bipolar, Depression Smoking Status: Former smoker Past Alcohol Use History: None Reported Past Drug Use History: Marijuana - Past Family History Father Family Medical History: Unable to Obtain Additional Family Medical History / Comment(s): ONLY MET HIM ONCE IN HER LIFE [employer] RUN[employer] IN HIS FAMILY Mother Family Medical History: Cancer Additional Family Medical History / Comment(s): Breast CA. Mother is alive and is 86yrs old. General Exam - General Exam Comments Initial Comments: Constitutional: NAD, AOX3, Pt has pleasant affect. HEENT: NC/AT, trachea midline, neck supple, no lymphadenopathy. Posterior pharynx non erythematous, without exudates. External ears appear normal, without discharge. Mucous membranes moist. Eyes PERRLA, EOM intact. There is no scleral icterus. No pallor noted. Cardiopulmonary: RRR, no murmurs, rubs or gallops, no JVD noted. Lungs CTAB in anterior and posterior paulino. No peripheral edema. Abdominal exam: Abdomen soft and non-distended. Abdomen non-tender to palpation in all 4 quadrants. Bowel sounds active in LLQ. No hepatosplenomegaly. No ecchymosis Neuro: CN II-XII intact. No deficit, no facial droop. No nuchal rigidity. MSK: Right ASIS mildly tender to palpation. Patient states that this is baseline for her bursitis that she experiences chronically. No erythema, no cellulitis, no drainage, no abscess. Patient has full active range of motion right hip. Patient is ambulatory. Sensation intact in upper or lower extremities. Psoas strength 5 out of 5 bilaterally, quadriceps strength 5 out of 5 bilaterally. No posterior calf tenderness bilaterally, homans sign negative bilaterally. Posterior tibialis and radial pulse +2 bilaterally. Limitations: no limitations Course Vital Signs 01/15/18 01/15/18 13:59 15:36 Temperature 97.9 F Pulse Rate 79 64 Respiratory 24 20 Rate Blood Pressure 150/87 154/90 O2 Sat by Pulse 99 100 Oximetry Medical Decision Making - Medical Decision Making 62-year-old female patient with past with history of chronic pain, chronic hip pain presents to ED with acute exacerbation of chronic hip pain. Patient follows up with Dr. Longoria for pain management. Patient states that she is due to see him again on Thursday. Patient states that the symptoms she is experiencing is similar to the pain she has felt in the past. Patient is ambulatory. Patient has full active range of motion of head. Right ASIS is mildly tender to palpation, patient states that this is baseline for her previously diagnosed bursitis. EKG did not display any acute pathology, no concerns for acute ischemia. CBC/CMP were not impressive. Pt had mild leukocytosis, but has a pmhx of high WBC, this value is lower than baseline, findings explained to pt. Initial CMP displayed some hemolysis, repeat CMP did not display any hyperkalemia. Patient states that her pain improved after IV analgesic. Patient to follow with PCP in 1-2 days. Patient to follow-up with pain management as scheduled. Patient to return to ED if any new signs or symptoms develop including worsening pain, fever chills, nausea vomiting diarrhea, chest pain, shortness of breath, abdominal pain, any other symptoms. Case discussed in depth with Dr. Elkins. Pt not driving home. - Lab Data Result diagrams: 01/15/18 14:52 01/15/18 16:39 Lab Results 12/07/18 12/07/18 12/07/18 Range/Units 14:52 14:52 16:39 WBC 12.0 H (3.8-10.6) k/uL RBC 4.84 (3.80-5.40) m/uL Hgb 12.9 (11.4-16.0) gm/dL Hct 40.5 (34.0-46.0) % MCV 83.8 (80.0-100.0) fL MCH 26.7 (25.0-35.0) pg MCHC 31.9 (31.0-37.0) g/dL RDW 14.3 (11.5-15.5) % Plt Count 366 (150-450) k/uL Neutrophils % 63 % Lymphocytes % 30 % Monocytes % 4 % Eosinophils % 2 % Basophils % 1 % Neutrophils # 7.5 (1.3-7.7) k/uL Lymphocytes # 3.6 (1.0-4.8) k/uL Monocytes # 0.4 (0-1.0) k/uL Eosinophils # 0.2 (0-0.7) k/uL Basophils # 0.1 (0-0.2) k/uL Sodium 139 143 (137-145) mmol/L Potassium 6.0 H 4.6 (3.5-5.1) mmol/L Chloride 106 107 (98-107) mmol/L Carbon Dioxide 20 L 25 (22-30) mmol/L Anion Gap 13 11 mmol/L BUN 18 H 18 H (7-17) mg/dL Creatinine 0.77 0.80 (0.52-1.04) mg/dL Est GFR (CKD-EPI)AfAm >90 >90 (>60 ml/min/1.73 sqM) Est GFR (CKD-EPI)NonAf 82 78 (>60 ml/min/1.73 sqM) Glucose 175 H 96 (74-99) mg/dL Calcium 10.2 10.5 H (8.4-10.2) mg/dL Total Bilirubin 0.9 0.4 (0.2-1.3) mg/dL AST 54 H 38 H (14-36) U/L ALT 32 42 (9-52) U/L Alkaline Phosphatase 50 63 (38-126) U/L Total Protein 8.0 8.3 H (6.3-8.2) g/dL Albumin 4.6 4.9 (3.5-5.0) g/dL - EKG Data -: EKG Interpreted by Me EKG Comments: Ventricular rate 69 beats for minute,. For 102, QRS 92, QT/QTc 416/45, normal sinus rhythm, no concern for acute ischemia. Disposition Clinical Impression: Chronic hip pain Disposition: HOME SELF-CARE Condition: Good Instructions: Chronic Pain (ED) Additional Instructions: Patient to adhere to previously discussed treatment plan and will take medication(s) as directed. Patient to follow up with PCP in 1-2 days. Patient to return to ED if symptoms do not improve. Is patient prescribed a controlled substance at d/c from ED?: No Referrals: Benedicto Cabello DO [Primary Care Provider] - 1-2 days Time of Disposition: 17:16
[2018-01-15 15:37] VITALS: BP 154/90; PULSE 64; RESP 20
[2018-01-15 15:43] LABS: Basophils # (A) 0.1 k/uL (0-0.2); Basophils % (A) 1 %; Eosinophils # (A) 0.2 k/uL (0-0.7); Eosinophils % (A) 2 %; HCT 40.5 % (34.0-46.0); HGB 12.9 gm/dL (11.4-16.0); Lymphocytes # (A) 3.6 k/uL (1.0-4.8); Lymphocytes % (A) 30 %; MCH 26.7 pg (25.0-35.0); MCHC 31.9 g/dL (31.0-37.0); MCV 83.8 fL (80.0-100.0); Mean Platelet Volume 6.7; Monocytes # (A) 0.4 k/uL (0-1.0); Monocytes % (A) 4 %; Neutrophils # (A) 7.5 k/uL (1.3-7.7); Neutrophils % (A) 63 %; Platelet Count 366 k/uL (150-450); RBC 4.84 m/uL (3.80-5.40); RDW 14.3 % (11.5-15.5)
[2018-01-15 15:56] LABS: ALT 32 U/L (9-52); AST 54 U/L (14-36); Albumin 4.6 g/dL (3.5-5.0); Alkaline Phosphatase 50 U/L (38-126); Anion Gap 13 mmol/L; Blood Urea Nitrogen 18 mg/dL (7-17); Calcium 10.2 mg/dL (8.4-10.2); Carbon Dioxide 20 mmol/L (22-30); Chloride 106 mmol/L (98-107); Glucose 175 mg/dL (74-99); Sodium 139 mmol/L (137-145); Total Bilirubin 0.9 mg/dL (0.2-1.3)
[2018-01-15 17:11] LABS: ALT 42 U/L (9-52); AST 38 U/L (14-36); Albumin 4.9 g/dL (3.5-5.0); Alkaline Phosphatase 63 U/L (38-126); Anion Gap 11 mmol/L; Blood Urea Nitrogen 18 mg/dL (7-17); Calcium 10.5 mg/dL (8.4-10.2); Carbon Dioxide 25 mmol/L (22-30); Chloride 107 mmol/L (98-107); Glucose 96 mg/dL (74-99); Potassium 4.6 mmol/L (3.5-5.1); Sodium 143 mmol/L (137-145); Total Bilirubin 0.4 mg/dL (0.2-1.3); Total Protein 8.3 g/dL (6.3-8.2)
== END 2018-01-15 17:31 | disposition home or self-care (01) ==
LOC: EC 13:56
DX: G89.29 Other chronic pain (principal); M25.551 Pain in right hip; J44.9 Chronic obstructive pulmonary disease, unspecified; E11.40 Type 2 diabetes mellitus with diabetic neuropathy, unspecified; K21.9 Gastro-esophageal reflux disease without esophagitis; I10 Essential (primary) hypertension; E03.9 Hypothyroidism, unspecified; F41.9 Anxiety disorder, unspecified; F32.9 Major depressive disorder, single episode, unspecified; Z79.01 Long term (current) use of anticoagulants; Z79.82 Long term (current) use of aspirin; Z79.84 Long term (current) use of oral hypoglycemic drugs; Z79.899 Other long term (current) drug therapy; Z95.5 Presence of coronary angioplasty implant and graft; Z86.73 Personal history of transient ischemic attack (TIA), and cerebral infarction without residual deficits; Z85.828 Personal history of other malignant neoplasm of skin; Z87.891 Personal history of nicotine dependence
CPT/HCPCS: 36415; 93005; 80053; 85025; 99284; 96374; 96376; J2270

== ENCOUNTER 2018-03-05 20:40 | Inpatient (IN) | payer MEDICAID, OTHER ==
[2018-03-05] MEDS ORDERED: LORazepam 1 MG TAB PO STA (21:24)
[2018-03-05 21:57] LABS: Basophils % (A) 0 %; Eosinophils # (A) 0.3 k/uL (0-0.7); Eosinophils % (A) 3 %; HCT 39.1 % (34.0-46.0); HGB 12.7 gm/dL (11.4-16.0); Lymphocytes # (A) 3.3 k/uL (1.0-4.8); Lymphocytes % (A) 32 %; MCH 26.9 pg (25.0-35.0); MCHC 32.4 g/dL (31.0-37.0); MCV 83.1 fL (80.0-100.0); Mean Platelet Volume 6.8; Monocytes # (A) 0.3 k/uL (0-1.0); Monocytes % (A) 3 %; Neutrophils % (A) 59 %; Platelet Count 309 k/uL (150-450); RDW 14.4 % (11.5-15.5); WBC 10.1 k/uL (3.8-10.6)
[2018-03-05 22:02] LABS: Appearance,Urine Clear (Clear); Bacteria,Urine Rare /hpf; Bilirubin,Urine Negative (Negative); Blood,Urine Negative (Negative); Color,Urine Yellow; Glucose,Urine (UA) 3+ (Negative); Ketones,Urine Negative (Negative); Leukocyte Esterase,Urine Negative (Negative); Mucus,Urine Rare /hpf; Nitrite,Urine Negative (Negative); Protein,Urine 3+ (Negative); RBC,Urine 1 /hpf (0-5); Squamous Epithelial Cell,Urine <1 /hpf (0-4); Urobilinogen,Urine <2.0 mg/dL (<2.0); WBC,Urine 1 /hpf (0-5)
[2018-03-05 22:09] LABS: Amphetamine Screen,Urine Not Detected (NotDetected); Barbiturate Screen,Urine Not Detected (NotDetected); Benzodiazepines Screen,Urine Detected (NotDetected); Cocaine Screen,Urine Not Detected (NotDetected); Methadone Screen, Urine Not Detected (NotDetected); Opiate Screen,Urine Detected (NotDetected); Oxycodone Screen, Urine Not Detected (NotDetected); Phencyclidine Screen,Urine Not Detected (NotDetected); Tricyclic Antidepressant,Urine Not Detected (NotDetected); Urn Cannabinoid Scrn Detected (NotDetected)
[2018-03-05 22:21] LABS: ALT 38 U/L (9-52); AST 51 U/L (14-36); Acetaminophen <10.0 ug/mL; Albumin 4.4 g/dL (3.5-5.0); Alkaline Phosphatase 70 U/L (38-126); Anion Gap 12 mmol/L; Blood Urea Nitrogen 16 mg/dL (7-17); Calcium 9.4 mg/dL (8.4-10.2); Carbon Dioxide 24 mmol/L (22-30); Chloride 105 mmol/L (98-107); Glucose 206 mg/dL (74-99); Potassium 4.6 mmol/L (3.5-5.1); Salicylate <1.0 mg/dL; Sodium 141 mmol/L (137-145); Total Bilirubin 0.3 mg/dL (0.2-1.3); Total Protein 7.4 g/dL (6.3-8.2)
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
[2018-03-05] MEDS ORDERED: amLODIPine 5 MG TAB PO SCH (23:00)
[2018-03-05] MEDS ORDERED: MAGNESIUM HYDROXIDE 2,400 MG/10 ML CUP PO PRN (23:57)
[2018-03-05] MEDS ORDERED: MAG HYDROX/AL HYDROX/SIMETH 30 ML CUP PO PRN (23:57)
[2018-03-05] MEDS ORDERED: ZIPRASIDONE 20 MG VIAL IM PRN (23:57)
[2018-03-06] MEDS ORDERED: LORazepam 2 MG/ML INJ IM PRN (00:03)
[2018-03-06 00:19] LABS: Glucose,Whole Blood 179 mg/dL (75-99)
[2018-03-06] MEDS ORDERED: ZIPRASIDONE 20 MG CAP PO STA (01:59)
[2018-03-06] MEDS: ACETAMINOPHEN TAB 325 MG TAB PO PRN (02:49)
[2018-03-06 06:57] LABS: Glucose,Whole Blood 156 mg/dL (75-99)
[2018-03-06] MEDS: INSULIN ASPART 100 UNIT/ML 1 ML 10 ML VIAL SQ SCH ×2 (09:07→22:12)
[2018-03-06 12:52] LABS: Glucose,Whole Blood 169 mg/dL (75-99)
[2018-03-06] MEDS ORDERED: ACETAMINOPHEN TAB 325 MG TAB ONE (14:46)
[2018-03-06] MEDS ORDERED: LORazepam 1 MG TAB ONE ×2 (14:46)
[2018-03-06] MEDS ORDERED: INSULIN ASPART 100 UNIT/ML 1 ML 10 ML VIAL SQ ONE (14:46)
[2018-03-06 18:47] LABS: Glucose,Whole Blood 236 mg/dL (75-99)
[2018-03-06 20:36] LABS: Glucose,Whole Blood 255 mg/dL (75-99)
[2018-03-06] MEDS ORDERED: amLODIPine 5 MG TAB PO SCH (21:00)
[2018-03-06] MEDS ORDERED: LABETALOL 100 MG TAB PO PRN (21:14)
[2018-03-06] MEDS ORDERED: ZIPRASIDONE 20 MG CAP PO PRN (21:15)
[2018-03-06] MEDS: CARBIDOPA-LEVODOPA 25-100 MG 1 EACH TAB PO SCH (21:59)
[2018-03-06] MEDS: GABAPENTIN 300 MG CAP PO SCH (21:59)
[2018-03-06] MEDS: metFORMIN 500 MG TAB PO SCH (21:59)
[2018-03-07 01:03] LABS: INR 2.5 (<1.2); Prothrombin Time 24.3 sec (9.0-12.0)
[2018-03-07] MEDS: IBUPROFEN 600 MG TAB PO PRN (06:29)
[2018-03-07 06:40] LABS: Glucose,Whole Blood 177 mg/dL (75-99)
[2018-03-07] MEDS: GLIMEPIRIDE 4 MG TAB PO SCH ×2 (07:34→17:34)
[2018-03-07] MEDS: metFORMIN 500 MG TAB PO SCH ×2 (07:34→17:34)
[2018-03-07] MEDS: INSULIN ASPART 100 UNIT/ML 1 ML 10 ML VIAL SQ SCH ×5 (07:34→20:55)
[2018-03-07] MEDS: GABAPENTIN 300 MG CAP PO SCH ×3 (07:34→20:52)
[2018-03-07] MEDS: CARBIDOPA-LEVODOPA 25-100 MG 1 EACH TAB PO SCH ×3 (07:35→20:51)
[2018-03-07] MEDS: PRAVASTATIN SODIUM 20 MG TAB PO SCH (07:35)
[2018-03-07] MEDS: LINAGLIPTIN 5 MG TABLET PO SCH (07:35)
[2018-03-07] MEDS: LEVOTHYROXINE 50 MCG TAB PO SCH (07:35)
[2018-03-07] MEDS: ATENOLOL 25 MG TAB PO SCH (07:35)
[2018-03-07] MEDS: amLODIPine 5 MG TAB PO SCH ×2 (07:35→20:51)
[2018-03-07] MEDS: MAGNESIUM OXIDE 400 MG TAB PO SCH (07:35)
[2018-03-07] MEDS: LISINOPRIL 5 MG TAB PO SCH (07:35)
[2018-03-07] MEDS ORDERED: amLODIPine 10 MG TAB PO SCH (09:00)
[2018-03-07 11:11] VITALS: BMI 37.1
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
[2018-03-07] MEDS: LORazepam 1 MG TAB PO PRN (12:21)
[2018-03-07 12:37] LABS: Glucose,Whole Blood 154 mg/dL (75-99)
[2018-03-07] MEDS: ASPIRIN 81 MG PO SCH (12:39)
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
[2018-03-07] MEDS: DULoxetine HCL 60 MG CAPSULE.DR PO SCH (13:51)
[2018-03-07 17:34] LABS: Glucose,Whole Blood 161 mg/dL (75-99)
[2018-03-07] MEDS: PANTOPRAZOLE 40 MG TABLET PO SCH (17:43)
[2018-03-07] MEDS ORDERED: WARFARIN 5 MG TAB PO SCH (18:00)
[2018-03-07 20:07] LABS: Glucose,Whole Blood 214 mg/dL (75-99)
[2018-03-08] MEDS: LORazepam 1 MG TAB PO PRN (00:11)
[2018-03-08] MEDS: LEVOTHYROXINE 50 MCG TAB PO SCH (06:11)
[2018-03-08 06:31] LABS: Glucose,Whole Blood 148 mg/dL (75-99)
[2018-03-08] MEDS: INSULIN ASPART 100 UNIT/ML 1 ML 10 ML VIAL SQ SCH ×4 (07:51→21:34)
[2018-03-08] MEDS: GLIMEPIRIDE 4 MG TAB PO SCH ×2 (07:57→18:03)
[2018-03-08] MEDS: metFORMIN 500 MG TAB PO SCH ×2 (07:57→18:02)
[2018-03-08] MEDS: DULoxetine HCL 60 MG CAPSULE.DR PO SCH (07:57)
[2018-03-08] MEDS: ATENOLOL 25 MG TAB PO SCH (07:58)
[2018-03-08] MEDS: LISINOPRIL 5 MG TAB PO SCH (07:58)
[2018-03-08] MEDS: amLODIPine 5 MG TAB PO SCH ×2 (07:58→21:33)
[2018-03-08] MEDS: ASPIRIN 81 MG PO SCH (07:58)
[2018-03-08] MEDS: PRAVASTATIN SODIUM 20 MG TAB PO SCH (07:58)
[2018-03-08] MEDS: CARBIDOPA-LEVODOPA 25-100 MG 1 EACH TAB PO SCH (07:58)
[2018-03-08] MEDS: GABAPENTIN 300 MG CAP PO SCH (07:58)
[2018-03-08] MEDS: MAGNESIUM OXIDE 400 MG TAB PO SCH (07:58)
[2018-03-08] MEDS: LINAGLIPTIN 5 MG TABLET PO SCH (08:02)
[2018-03-08 10:12] LABS: Hemoglobin A1C 7.9 % (4.0-6.0)
[2018-03-08] MEDS: IBUPROFEN 600 MG TAB PO PRN (11:11)
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
[2018-03-08 12:40] LABS: Glucose,Whole Blood 163 mg/dL (75-99)
[2018-03-08] MEDS: MELOXICAM 7.5 MG TAB PO SCH ×2 (14:47→21:35)
[2018-03-08 15:39] LABS: INR 1.3 (<1.2); Prothrombin Time 13.4 sec (9.0-12.0)
--- NOTE | 2018-03-08 15:54 | XR ---
EXAMINATION TYPE: XR cervical spine w flex/ext DATE OF EXAM: 03/08/2018 COMPARISON: NONE HISTORY: Pain TECHNIQUE: 8 views are submitted. FINDINGS: The odontoid is intact. There are no compression deformities. The prevertebral soft tissue structur es are within normal limits. There is a slight anterolisthesis of C3 on C4 and C4 on C5 on flexion v iews. Foraminal encroachment the right C4-5 and C5-C6 on the left. Calcification soft tissue the neck likely related carotid artery calcification. Lung apices clear. Facet arthropathy is noted involving the mid and lower cervical spine there is mild degenerative disc disease at levels C4-T1. IMPRESSION: 1. Mild multilevel facet arthropathy and degenerative disc disease with minimal anterolisthesis C3 on C4 and C4 on C5 seen on flexion views only.
[2018-03-08] MEDS: PANTOPRAZOLE 40 MG TABLET PO SCH (18:02)
[2018-03-08] MEDS: WARFARIN 10 MG TAB PO SCH (18:02)
[2018-03-08 20:10] LABS: Glucose,Whole Blood 211 mg/dL (75-99)
[2018-03-08] MEDS ORDERED: lamoTRIgine 25 MG TAB PO SCH (21:00)
[2018-03-08] MEDS: PALIPERIDONE 3 MG TAB.ER.24 PO SCH (21:35)
[2018-03-09 06:38] LABS: Glucose,Whole Blood 132 mg/dL (75-99)
[2018-03-09] MEDS: LEVOTHYROXINE 50 MCG TAB PO SCH (06:43)
[2018-03-09] MEDS: MELOXICAM 7.5 MG TAB PO SCH ×2 (08:30→20:50)
[2018-03-09] MEDS: amLODIPine 5 MG TAB PO SCH ×2 (08:30→20:50)
[2018-03-09] MEDS: ATENOLOL 25 MG TAB PO SCH (08:30)
[2018-03-09] MEDS: LISINOPRIL 5 MG TAB PO SCH (08:30)
[2018-03-09] MEDS: PRAVASTATIN SODIUM 20 MG TAB PO SCH (08:30)
[2018-03-09] MEDS: MAGNESIUM OXIDE 400 MG TAB PO SCH (08:30)
[2018-03-09] MEDS: LINAGLIPTIN 5 MG TABLET PO SCH (08:32)
[2018-03-09] MEDS: INSULIN ASPART 100 UNIT/ML 1 ML 10 ML VIAL SQ SCH ×4 (08:32→20:51)
[2018-03-09] MEDS: metFORMIN 500 MG TAB PO SCH ×2 (08:32→18:09)
[2018-03-09] MEDS: GLIMEPIRIDE 4 MG TAB PO SCH ×2 (08:32→18:11)
[2018-03-09] MEDS: ASPIRIN 81 MG PO SCH (12:08)
[2018-03-09 12:10] LABS: Glucose,Whole Blood 148 mg/dL (75-99)
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
[2018-03-09] MEDS: LORazepam 1 MG TAB PO PRN (15:37)
[2018-03-09 17:41] LABS: Glucose,Whole Blood 148 mg/dL (75-99)
[2018-03-09] MEDS ORDERED: WARFARIN 7.5 MG TAB PO SCH (18:00)
[2018-03-09] MEDS: PANTOPRAZOLE 40 MG TABLET PO SCH (18:09)
[2018-03-09 20:00] LABS: Glucose,Whole Blood 184 mg/dL (75-99)
[2018-03-09] MEDS: PALIPERIDONE 3 MG TAB.ER.24 PO SCH (20:50)
[2018-03-10] MEDS: LORazepam 1 MG TAB PO PRN (01:53)
[2018-03-10] MEDS: ACETAMINOPHEN TAB 325 MG TAB PO PRN (01:53)
[2018-03-10] MEDS: LEVOTHYROXINE 50 MCG TAB PO SCH (05:43)
[2018-03-10 06:40] LABS: Glucose,Whole Blood 124 mg/dL (75-99)
[2018-03-10] MEDS: LISINOPRIL 5 MG TAB PO SCH (08:07)
[2018-03-10] MEDS: LINAGLIPTIN 5 MG TABLET PO SCH (08:07)
[2018-03-10] MEDS: ATENOLOL 25 MG TAB PO SCH (08:07)
[2018-03-10] MEDS: metFORMIN 500 MG TAB PO SCH ×2 (08:07→18:10)
[2018-03-10] MEDS: PRAVASTATIN SODIUM 20 MG TAB PO SCH (08:07)
[2018-03-10] MEDS: GLIMEPIRIDE 4 MG TAB PO SCH ×2 (08:07→18:10)
[2018-03-10] MEDS: amLODIPine 5 MG TAB PO SCH ×2 (08:07→20:22)
[2018-03-10] MEDS: MAGNESIUM OXIDE 400 MG TAB PO SCH (08:07)
[2018-03-10] MEDS: INSULIN ASPART 100 UNIT/ML 1 ML 10 ML VIAL SQ SCH ×4 (08:08→20:22)
[2018-03-10] MEDS: MELOXICAM 7.5 MG TAB PO SCH ×2 (08:08→20:25)
[2018-03-10] MEDS: ASPIRIN 81 MG PO SCH (11:45)
[2018-03-10 12:04] LABS: Glucose,Whole Blood 155 mg/dL (75-99)
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
[2018-03-10 16:34] LABS: Basophils # (A) 0.1 k/uL (0-0.2); Basophils % (A) 1 %; Eosinophils # (A) 0.3 k/uL (0-0.7); Eosinophils % (A) 2 %; HCT 39.5 % (34.0-46.0); HGB 12.4 gm/dL (11.4-16.0); Lymphocytes # (A) 4.7 k/uL (1.0-4.8); Lymphocytes % (A) 39 %; MCH 25.9 pg (25.0-35.0); MCHC 31.4 g/dL (31.0-37.0); MCV 82.4 fL (80.0-100.0); Mean Platelet Volume 6.4; Monocytes # (A) 0.5 k/uL (0-1.0); Monocytes % (A) 4 %; Neutrophils # (A) 6.4 k/uL (1.3-7.7); Neutrophils % (A) 53 %; Platelet Count 349 k/uL (150-450); RBC 4.79 m/uL (3.80-5.40); RDW 14.1 % (11.5-15.5); WBC 12.1 k/uL (3.8-10.6)
[2018-03-10 17:08] LABS: Albumin 4.5 g/dL (3.5-5.0); Calcium 10.7 mg/dL (8.4-10.2); Potassium 5.3 mmol/L (3.5-5.1); Total Bilirubin 0.3 mg/dL (0.2-1.3); Total Protein 7.3 g/dL (6.3-8.2)
[2018-03-10 17:36] LABS: Glucose,Whole Blood 135 mg/dL (75-99)
[2018-03-10] MEDS: PANTOPRAZOLE 40 MG TABLET PO SCH (18:10)
[2018-03-10 18:42] LABS: INR 2.5 (<1.2); Prothrombin Time 24.7 sec (9.0-12.0)
[2018-03-10] MEDS: DICLOFENAC SODIUM GEL 100 GM TUBE TOPICAL SCH ×2 (18:56→20:14)
[2018-03-10] MEDS: WARFARIN 10 MG TAB PO SCH (19:40)
[2018-03-10] MEDS ORDERED: WARFARIN 5 MG TAB PO SCH (19:45)
[2018-03-10 20:16] LABS: Glucose,Whole Blood 144 mg/dL (75-99)
[2018-03-10] MEDS: PALIPERIDONE 6 MG TAB.ER.24 PO SCH (20:26)
[2018-03-10] MEDS ORDERED: lamoTRIgine 25 MG TAB PO SCH (21:00)
[2018-03-11] MEDS: LORazepam 1 MG TAB PO PRN (00:32)
[2018-03-11] MEDS ORDERED: NITROGLYCERIN SL TABS 0.4 MG TAB SUBLINGUAL STA (02:13)
[2018-03-11] MEDS ORDERED: ASPIRIN 325 MG TAB PO STA (02:18)
[2018-03-11] MEDS: NITROGLYCERIN SL TABS 0.4 MG TAB SUBLINGUAL PRN ×2 (02:43→03:06)
[2018-03-11] MEDS: LEVOTHYROXINE 50 MCG TAB PO SCH (06:16)
[2018-03-11 06:44] LABS: Glucose,Whole Blood 129 mg/dL (75-99)
[2018-03-11] MEDS: INSULIN ASPART 100 UNIT/ML 1 ML 10 ML VIAL SQ SCH ×4 (07:48→20:16)
[2018-03-11] MEDS: metFORMIN 500 MG TAB PO SCH ×2 (07:50→17:35)
[2018-03-11] MEDS: LINAGLIPTIN 5 MG TABLET PO SCH (07:50)
[2018-03-11] MEDS: DICLOFENAC SODIUM GEL 100 GM TUBE TOPICAL SCH ×4 (07:50→21:17)
[2018-03-11] MEDS: amLODIPine 5 MG TAB PO SCH ×2 (07:50→20:15)
[2018-03-11] MEDS: ATENOLOL 25 MG TAB PO SCH (07:50)
[2018-03-11] MEDS: GLIMEPIRIDE 4 MG TAB PO SCH ×2 (07:50→17:35)
[2018-03-11] MEDS: MELOXICAM 7.5 MG TAB PO SCH ×2 (07:51→20:14)
[2018-03-11] MEDS: LISINOPRIL 5 MG TAB PO SCH (07:51)
[2018-03-11] MEDS: MAGNESIUM OXIDE 400 MG TAB PO SCH (07:51)
[2018-03-11] MEDS: PRAVASTATIN SODIUM 20 MG TAB PO SCH (07:51)
[2018-03-11 12:45] LABS: Glucose,Whole Blood 154 mg/dL (75-99)
[2018-03-11] MEDS: ASPIRIN 81 MG PO SCH (12:49)
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
[2018-03-11 17:28] LABS: Glucose,Whole Blood 146 mg/dL (75-99)
[2018-03-11] MEDS: PANTOPRAZOLE 40 MG TABLET PO SCH (17:35)
[2018-03-11] MEDS: ACETAMINOPHEN TAB 325 MG TAB PO PRN (17:37)
[2018-03-11] MEDS ORDERED: WARFARIN 7.5 MG TAB PO SCH (18:00)
[2018-03-11 20:15] LABS: Glucose,Whole Blood 140 mg/dL (75-99)
[2018-03-11] MEDS ORDERED: lamoTRIgine 100 MG TAB PO SCH (21:00)
[2018-03-11] MEDS: PALIPERIDONE 6 MG TAB.ER.24 PO SCH (21:17)
[2018-03-12] MEDS: LORazepam 1 MG TAB PO PRN (00:44)
[2018-03-12] MEDS: LEVOTHYROXINE 50 MCG TAB PO SCH (05:54)
[2018-03-12 06:10] LABS: Glucose,Whole Blood 139 mg/dL (75-99)
[2018-03-12 06:50] VITALS: TEMP 97.8
[2018-03-12] MEDS: INSULIN ASPART 100 UNIT/ML 1 ML 10 ML VIAL SQ SCH ×2 (07:32→13:08)
[2018-03-12] MEDS: metFORMIN 500 MG TAB PO SCH (08:03)
[2018-03-12] MEDS: amLODIPine 5 MG TAB PO SCH (08:03)
[2018-03-12] MEDS: ASPIRIN 81 MG PO SCH (08:03)
[2018-03-12] MEDS: LISINOPRIL 5 MG TAB PO SCH (08:03)
[2018-03-12] MEDS: MAGNESIUM OXIDE 400 MG TAB PO SCH (08:04)
[2018-03-12] MEDS: ATENOLOL 25 MG TAB PO SCH (08:04)
[2018-03-12] MEDS: MELOXICAM 7.5 MG TAB PO SCH (08:04)
[2018-03-12] MEDS: PRAVASTATIN SODIUM 20 MG TAB PO SCH (08:04)
[2018-03-12] MEDS: GLIMEPIRIDE 4 MG TAB PO SCH (08:04)
[2018-03-12 08:20] VITALS: BP 144/90; PULSE 102; RESP 22
[2018-03-12] MEDS: LINAGLIPTIN 5 MG TABLET PO SCH (08:38)
[2018-03-12] MEDS: DICLOFENAC SODIUM GEL 100 GM TUBE TOPICAL SCH ×2 (08:39→13:08)
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
[2018-03-12 10:24] LABS: INR 2.9 (<1.2); Prothrombin Time 27.6 sec (9.0-12.0)
[2018-03-12 12:45] LABS: Glucose,Whole Blood 130 mg/dL (75-99)
== END 2018-03-12 13:05 | disposition home or self-care (01) | DRG 885 ==
LOC: EC 20:40 → 3MHU 23:37
PROVIDERS: ADMIT Psychiatry & Neurology Psychiatry; ATTEND Psychiatry & Neurology Psychiatry
DX: F33.3 Major depressive disorder, recurrent, severe with psychotic symptoms (principal); R45.851 Suicidal ideations; E11.40 Type 2 diabetes mellitus with diabetic neuropathy, unspecified; E11.65 Type 2 diabetes mellitus with hyperglycemia; K76.0 Fatty (change of) liver, not elsewhere classified; I69.911 Memory deficit following unspecified cerebrovascular disease; R40.2362 Coma scale, best motor response, obeys commands, at arrival to emergency department; R40.2142 Coma scale, eyes open, spontaneous, at arrival to emergency department; R40.2252 Coma scale, best verbal response, oriented, at arrival to emergency department; F40.240 Claustrophobia; F51.5 Nightmare disorder; I10 Essential (primary) hypertension; M79.7 Fibromyalgia; K21.9 Gastro-esophageal reflux disease without esophagitis; M19.90 Unspecified osteoarthritis, unspecified site; J44.9 Chronic obstructive pulmonary disease, unspecified; G89.29 Other chronic pain; M54.42 Lumbago with sciatica, left side; M54.41 Lumbago with sciatica, right side; M54.2 Cervicalgia; E03.9 Hypothyroidism, unspecified; G43.909 Migraine, unspecified, not intractable, without status migrainosus; E78.5 Hyperlipidemia, unspecified; E78.1 Pure hyperglyceridemia; I25.2 Old myocardial infarction; F41.9 Anxiety disorder, unspecified; F14.11 Cocaine abuse, in remission; E66.9 Obesity, unspecified; Z68.35 Body mass index [BMI] 35.0-35.9, adult; Z91.14 Patient's other noncompliance with medication regimen; Z79.01 Long term (current) use of anticoagulants; Z79.84 Long term (current) use of oral hypoglycemic drugs; Z79.82 Long term (current) use of aspirin; Z79.890 Hormone replacement therapy; Z79.899 Other long term (current) drug therapy; Z85.828 Personal history of other malignant neoplasm of skin; Z87.11 Personal history of peptic ulcer disease; Z86.19 Personal history of other infectious and parasitic diseases; Z91.410 Personal history of adult physical and sexual abuse; Z62.810 Personal history of physical and sexual abuse in childhood; Z86.79 Personal history of other diseases of the circulatory system; Z90.49 Acquired absence of other specified parts of digestive tract; Z90.710 Acquired absence of both cervix and uterus; Z87.891 Personal history of nicotine dependence; Z87.01 Personal history of pneumonia (recurrent); Z87.81 Personal history of (healed) traumatic fracture; Z86.69 Personal history of other diseases of the nervous system and sense organs; Z80.3 Family history of malignant neoplasm of breast; Z83.3 Family history of diabetes mellitus; Z80.0 Family history of malignant neoplasm of digestive organs; Z82.0 Family history of epilepsy and other diseases of the nervous system; Z81.8 Family history of other mental and behavioral disorders
CPT/HCPCS: 36415; 72052; 80053; 80061; 80306; 81001; 82075; 83036; 83520; 84439; 84443; 84484; 85025; 85610; 93005; 99285

== ENCOUNTER → 2018-05-04 | Outpatient (CLI) | payer OTHER ==
--- NOTE | 2018-05-06 10:00 | MM ---
Reason for exam: screening (asymptomatic). Last mammogram was performed 1 year ago. History: Patient is postmenopausal and history of other cancer. Family history of premenopausal breast cancer in mother. Physical Findings: A clinical breast exam by your physician is recommended on an annual basis and results should be correlated with mammographic findings. MG Screening Mammo w CAD Bilateral CC and MLO view(s) were taken. Prior study comparison: April 21, 2017, bilateral MG screening mammo w CAD. March 06, 2015, bilateral MG screening mammo w CAD. There are scattered fibroglandular densities. No significant changes when compared with prior studies. ASSESSMENT: Negative, BI-RAD 1 RECOMMENDATION: Routine screening mammogram of both breasts in 1 year.
== END ==
LOC: RADMAMWWP 13:11
PROVIDERS: ATTEND Family Medicine
DX: Z12.31 Encounter for screening mammogram for malignant neoplasm of breast (principal)
CPT/HCPCS: 77067

== ENCOUNTER → 2018-05-13 | Outpatient (CLI) | payer OTHER ==
[2018-05-13 12:52] LABS: Basophils # (A) 0.1 k/uL (0-0.2); Basophils % (A) 0 %; Eosinophils # (A) 0.2 k/uL (0-0.7); Eosinophils % (A) 2 %; HCT 39.1 % (34.0-46.0); HGB 12.7 gm/dL (11.4-16.0); Lymphocytes # (A) 3.4 k/uL (1.0-4.8); Lymphocytes % (A) 27 %; MCH 26.4 pg (25.0-35.0); MCHC 32.4 g/dL (31.0-37.0); MCV 81.3 fL (80.0-100.0); Mean Platelet Volume 7.7; Monocytes # (A) 0.5 k/uL (0-1.0); Monocytes % (A) 4 %; Neutrophils # (A) 8.6 k/uL (1.3-7.7); Neutrophils % (A) 67 %; Platelet Count 397 k/uL (150-450); RBC 4.81 m/uL (3.80-5.40); RDW 15.2 % (11.5-15.5); WBC 12.8 k/uL (3.8-10.6)
[2018-05-13 18:48] LABS: Potassium 5.5 mmol/L (3.5-5.5)
[2018-05-13 18:57] LABS: T4, Free (Free Thyroxine) 1.2 ng/dL (0.80-1.80)
[2018-05-13 19:08] LABS: Iron Saturation 9.97 (12.00-45.00)
[2018-05-13 19:16] LABS: DHEA Sulfate 60.8 ug/dL (26.0-430.0)
== END ==
LOC: LABWHC1 10:57
PROVIDERS: ATTEND Nurse Practitioner Family
DX: L65.0 Telogen effluvium (principal)
CPT/HCPCS: 36415; 82306; 82565; 82627; 83540; 83550; 84132; 84439; 84443; 84520; 85025

== ENCOUNTER 2018-06-07 15:22 | Emergency (ER) | payer OTHER ==
[2018-06-07 15:27] VITALS: RESP 18
[2018-06-07] MEDS ORDERED: SODIUM CHLORIDE 0.9% 1,000 ML IV STA (15:38)
[2018-06-07 16:04] LABS: Basophils # (A) 0.1 k/uL (0-0.2); Basophils % (A) 1 %; Eosinophils # (A) 0.3 k/uL (0-0.7); Eosinophils % (A) 2 %; HCT 37.1 % (34.0-46.0); HGB 12.2 gm/dL (11.4-16.0); Lymphocytes # (A) 3.7 k/uL (1.0-4.8); Lymphocytes % (A) 31 %; MCH 26.6 pg (25.0-35.0); MCHC 32.8 g/dL (31.0-37.0); MCV 81.1 fL (80.0-100.0); Mean Platelet Volume 7.4; Monocytes # (A) 0.4 k/uL (0-1.0); Monocytes % (A) 4 %; Neutrophils # (A) 7.3 k/uL (1.3-7.7); Neutrophils % (A) 61 %; Platelet Count 348 k/uL (150-450); RBC 4.58 m/uL (3.80-5.40); RDW 14.8 % (11.5-15.5); WBC 12.1 k/uL (3.8-10.6)
--- NOTE | 2018-06-07 16:06 | ED ---
Abdominal Pain HPI - General Chief Complaint: Abdominal Pain Stated Complaint: Stomach pain Time Seen by Provider: 06/07/18 15:32 Source: patient, RN notes reviewed Mode of arrival: ambulatory Limitations: no limitations - History of Present Illness Initial Comments: This a 62-year-old female presents emergency Department with chief complaint abdominal pain. Patient states that she had this pain on and off for last 4 months in which she's had a known ulcer. Patient states his epigastric region. Patient saw PCP who was no scheduled her for EGD and colonoscopy. Patient states that she's been taking Pepto-Bismol states that her stools have turned black. Patient had lab work which showed no evidence of anemia. Patient denies any chest pain or shortness breath no dysuria no hematuria. Patient had some intermittent diarrhea and constipation. Patient states that she's had a weight loss which is been unintentional and states this is also reason she is scheduled for colonoscopy. - Related Data Home Medications Medication Instructions Recorded Confirmed Aspirin EC [Ecotrin Low Dose] 81 mg PO AC-LUNCH 03/14/15 06/07/18 Ammonium Lactate Lotion 1 applic TOPICAL DAILY 06/07/18 06/07/18 [Lac-Hydrin 12% Lotion] Cholecalciferol [Vitamin D3] 4,000 unit PO DAILY 06/07/18 06/07/18 Ferrous Sulfate [Feosol] 325 mg PO DAILY 06/07/18 06/07/18 Ibuprofen [Motrin] 800 mg PO TID 06/07/18 06/07/18 Melatonin 5 mg PO HS PRN 06/07/18 06/07/18 Multivitamins, Thera [Multivitamin 1 tab PO DAILY 06/07/18 06/07/18 (formulary)] Omeprazole 20 mg PO DAILY 06/07/18 06/07/18 metFORMIN HCL [Glucophage] 850 mg PO BID 06/07/18 06/07/18 metroNIDAZOLE 0.75% CREAM 1 applic TOPICAL DAILY 06/07/18 06/07/18 [Metrocream] traZODone HCL 50 mg PO HS PRN 06/07/18 06/07/18 Previous Rx's Medication Instructions Recorded Atenolol [Tenormin] 25 mg PO DAILY 30 Days #30 tablet 03/12/18 Diclofenac Sodium Gel [Voltaren 2 gm TOPICAL QID 30 Days #1 tube 03/12/18 Gel] Glimepiride [Amaryl] 4 mg PO BID 30 Days #60 tab 03/12/18 Levothyroxine Sodium [Synthroid] 50 mcg PO DAILY 30 Days #60 tab 03/12/18 Lisinopril [Zestril] 5 mg PO DAILY 30 Days #30 tab 03/12/18 Pravastatin Sodium [Pravachol] 20 mg PO DAILY #30 tab 03/12/18 amLODIPine [Norvasc] 5 mg PO BID tab 03/12/18 sitaGLIPtin [Januvia] 100 mg PO W/BRKFST 30 Days #30 tab 03/12/18 Omeprazole 40 mg PO DAILY #14 capsule. 06/07/18 Allergies Allergy/AdvReac Type Severity Reaction Status Date / Time No Known Allergies Allergy Verified 06/07/18 16:14 Review of Systems ROS Statement: Those systems with pertinent positive or pertinent negative responses have been documented in the HPI. ROS Other: All systems not noted in ROS Statement are negative. Past Medical History Past Medical History: Asthma, Cancer, COPD, CVA/TIA, Diabetes Mellitus, Eye Disorder, Fibromyalgia, GERD/Reflux, Hypertension, Osteoarthritis (OA), Pneumonia, Thyroid Disorder Additional Past Medical History / Comment(s): Recent bronchitis/dehydration and completed antibiotics, past bronchitis, IDDM type II, bilateral lower leg and feet neuropathy, 2008 CVA with some memory issues, possible TIA, basal cell skin cancer removed from L nares, L eye has partially detached retina, gastric ulcer, hematemesis, DDD, DJD, chronic low back pain, sciatica mostly L side occasionally R side, migraines, hypothyroid, vertigo, fatty liver, palpitations, past fractures of R thumb/R wrist/L hand, [place] Spotted Fever as an History of Any Multi-Drug Resistant Organisms: None Reported Past Surgical History: Back Surgery, Cholecystectomy, Heart Catheterization, Hernia Repair, Hysterectomy, Tonsillectomy Additional Past Surgical History / Comment(s): 11/2016 EPS with A flutter ablation, 2007 cardiac cath-normal, L nares skin cancer removed, UMBILICAL HERNIA SX 3X, RT Hand SX for middle TRIGGER FINGER, FIBROID TUMORS REMOVED ABD/BACK, LAPROSCOPIES x 3, L5-S1 SX for HERNIATED DISCS, EGD/colonoscopy. Past Anesthesia/Blood Transfusion Reactions: Postoperative Nausea & Vomiting (PONV) Additional Past Anesthesia/Blood Transfusion Reaction / Comment(s): AND SEVERE HEADACHE Past Psychological History: Anxiety, Bipolar, Depression Smoking Status: Current some day smoker Past Alcohol Use History: None Reported Past Drug Use History: Marijuana - Past Family History Father Family Medical History: Unable to Obtain Additional Family Medical History / Comment(s): ONLY MET HIM ONCE IN HER LIFE [employer] IN [employer] FAMILY Mother Family Medical History: Cancer Additional Family Medical History / Comment(s): Breast CA. Mother is alive and is 86yrs old. General Exam Limitations: no limitations General appearance: alert, in no apparent distress Head exam: Present: atraumatic, normocephalic, normal inspection Eye exam: Present: normal appearance, PERRL, EOMI. Absent: scleral icterus, conjunctival injection, periorbital swelling Respiratory exam: Present: normal lung sounds bilaterally. Absent: respiratory distress, wheezes, rales, rhonchi, stridor Cardiovascular Exam: Present: regular rate, normal rhythm, normal heart sounds. Absent: systolic murmur, diastolic murmur, rubs, gallop, clicks GI/Abdominal exam: Present: soft, tenderness (Mild epigastric tenderness), normal bowel sounds. Absent: distended, guarding, rebound, rigid Back exam: Absent: CVA tenderness (R), CVA tenderness (L) Skin exam: Present: warm, dry, intact, normal color. Absent: rash Course Vital Signs 06/07/18 15:24 Temperature 98.3 F Pulse Rate 67 Respiratory 18 Rate Blood Pressure 165/81 O2 Sat by Pulse 99 Oximetry Medical Decision Making - Medical Decision Making 62-year-old female presented for upper abdominal pain, change in bowel habits and weight loss. Patient CT is unremarkable. Patient will follow-up for her scheduled colonoscopy and EGD as directed she'll be increased on her omeprazole 40 mg as she has was likely underlying gastritis. Patient will be discharged return parameters were discussed. - Lab Data Result diagrams: 06/07/18 15:47 06/07/18 15:47 Lab Results 06/07/18 06/07/18 06/07/18 Range/Units 15:47 15:47 15:47 WBC 12.1 H (3.8-10.6) k/uL RBC 4.58 (3.80-5.40) m/uL Hgb 12.2 (11.4-16.0) gm/dL Hct 37.1 (34.0-46.0) % MCV 81.1 (80.0-100.0) fL MCH 26.6 (25.0-35.0) pg MCHC 32.8 (31.0-37.0) g/dL RDW 14.8 (11.5-15.5) % Plt Count 348 (150-450) k/uL Neutrophils % 61 % Lymphocytes % 31 % Monocytes % 4 % Eosinophils % 2 % Basophils % 1 % Neutrophils # 7.3 (1.3-7.7) k/uL Lymphocytes # 3.7 (1.0-4.8) k/uL Monocytes # 0.4 (0-1.0) k/uL Eosinophils # 0.3 (0-0.7) k/uL Basophils # 0.1 (0-0.2) k/uL PT 10.0 (9.0-12.0) sec INR 0.9 (<1.2) APTT 25.3 (22.0-30.0) sec Sodium 139 (137-145) mmol/L Potassium 4.6 (3.5-5.1) mmol/L Chloride 107 (98-107) mmol/L Carbon Dioxide 20 L (22-30) mmol/L Anion Gap 12 mmol/L BUN 13 (7-17) mg/dL Creatinine 0.81 (0.52-1.04) mg/dL Est GFR (CKD-EPI)AfAm 89 (>60 ml/min/1.73 sqM) Est GFR (CKD-EPI)NonAf 78 (>60 ml/min/1.73 sqM) Glucose 122 H (74-99) mg/dL Calcium 10.0 (8.4-10.2) mg/dL Total Bilirubin 0.4 (0.2-1.3) mg/dL AST 24 (14-36) U/L ALT 34 (9-52) U/L Alkaline Phosphatase 53 (38-126) U/L Troponin I (0.000-0.034) ng/mL Total Protein 7.0 (6.3-8.2) g/dL Albumin 4.5 (3.5-5.0) g/dL Lipase 273 (23-300) U/L 04/29/19 Range/Units 15:47 WBC (3.8-10.6) k/uL RBC (3.80-5.40) m/uL Hgb (11.4-16.0) gm/dL Hct (34.0-46.0) % MCV (80.0-100.0) fL MCH (25.0-35.0) pg MCHC (31.0-37.0) g/dL RDW (11.5-15.5) % Plt Count (150-450) k/uL Neutrophils % % Lymphocytes % % Monocytes % % Eosinophils % % Basophils % % Neutrophils # (1.3-7.7) k/uL Lymphocytes # (1.0-4.8) k/uL Monocytes # (0-1.0) k/uL Eosinophils # (0-0.7) k/uL Basophils # (0-0.2) k/uL PT (9.0-12.0) sec INR (<1.2) APTT (22.0-30.0) sec Sodium (137-145) mmol/L Potassium (3.5-5.1) mmol/L Chloride (98-107) mmol/L Carbon Dioxide (22-30) mmol/L Anion Gap mmol/L BUN (7-17) mg/dL Creatinine (0.52-1.04) mg/dL Est GFR (CKD-EPI)AfAm (>60 ml/min/1.73 sqM) Est GFR (CKD-EPI)NonAf (>60 ml/min/1.73 sqM) Glucose (74-99) mg/dL Calcium (8.4-10.2) mg/dL Total Bilirubin (0.2-1.3) mg/dL AST (14-36) U/L ALT (9-52) U/L Alkaline Phosphatase (38-126) U/L Troponin I <0.012 (0.000-0.034) ng/mL Total Protein (6.3-8.2) g/dL Albumin (3.5-5.0) g/dL Lipase (23-300) U/L - EKG Data EKG Comments: EKG performed at 15:59 normal sinus rhythm with a rate of 66 NV 164 QRS 92 QT/QTC 420/440 Disposition Clinical Impression: Gastritis, Abdominal pain Disposition: HOME SELF-CARE Condition: Stable Instructions (If sedation given, give patient instructions): Abdominal Pain (ED) Additional Instructions: Please return to the Emergency Department if symptoms worsen or any other concerns. Prescriptions: Omeprazole 40 mg PO DAILY #14 capsule.dr Is patient prescribed a controlled substance at d/c from ED?: No Referrals: Benedicto Cabello DO [Primary Care Provider] - 1-2 days Time of Disposition: 17:13
[2018-06-07 16:14] LABS: Albumin 4.5 g/dL (3.5-5.0); Potassium 4.6 mmol/L (3.5-5.1); Total Bilirubin 0.4 mg/dL (0.2-1.3)
[2018-06-07 16:21] LABS: INR 0.9 (<1.2); Partial Thromboplastin Time 25.3 sec (22.0-30.0)
--- NOTE | 2018-06-07 17:07 | CT ---
EXAMINATION TYPE: CT abdomen pelvis w con DATE OF EXAM: 06/07/2018 HISTORY: Upper abdominal pain, black stools and [address] DLP: 1330.6mGycm Automated Exposure Control for Dose Reduction was Utilized. CONTRAST: CT scan of the abdomen and pelvis is performed without oral but with IV Contrast, patient injected wi th 100 mL of Isovue 300. COMPARISON: CT abdomen pelvis September 28, 2016 FINDINGS: LUNG BASES: No significant abnormality is appreciated. LIVER/GB: Cholecystectomy clips are redemonstrated. Liver remains diffusely low dense consistent with fatty infiltration relative to spleen. Simple appearing thin-walled 1.5 cm cyst posterior segment ri ght hepatic lobe axial image 22 is redemonstrated PANCREAS: No significant abnormality is seen. SPLEEN: 2 large splenule in the anterior splenic hilum are redemonstrated. ADRENALS: Slight nodular thickening to left adrenal gland axial image 26 favoring benign adenoma is s table. KIDNEYS: Symmetric cortical medullary uptake and excretion without hydronephrosis bilaterally. Mild w all thickening anterior bladder wall redemonstrated, correlate clinically to exclude acute cystitis. Finding could be related to chronic outlet obstruction. BOWEL: Evaluation bowel is suboptimal secondary to lack of enteric contrast. No suspicious small or l arge bowel dilatation is present. Cecum is slightly wandering into the midline of the lower abdomen a xial image 55. UTERUS/ADNEXA: Uterus is surgically absent. Scattered pelvic phleboliths are seen. LYMPH NODES: No greater than 1cm abdominal or pelvic lymph nodes are appreciated. OSSEOUS STRUCTURES: Mild to moderate disc space narrowing with vacuum disc phenomenon L4-L5 and L5-S1 levels is redemonstrated.. OTHER: There is stable [place] ventral wall hernia near umbilicus on axial image 65 containing fat with some surgical clips in hernia and deep to the hernia opening redemonstrated. IMPRESSION: No significant new or acute finding is seen to account for patient's clinical symptoms.
[2018-06-07] MEDS ORDERED: PANTOPRAZOLE 40 MG/10 ML VIAL IVP STA (17:11)
[2018-06-07 17:37] VITALS: BP 158/89; PULSE 63; TEMP 98
== END 2018-06-07 17:41 | disposition home or self-care (01) ==
LOC: EC 15:22
DX: K29.70 Gastritis, unspecified, without bleeding (principal); I10 Essential (primary) hypertension; E11.40 Type 2 diabetes mellitus with diabetic neuropathy, unspecified; K21.9 Gastro-esophageal reflux disease without esophagitis; F41.9 Anxiety disorder, unspecified; F31.9 Bipolar disorder, unspecified; F17.200 Nicotine dependence, unspecified, uncomplicated; Z79.84 Long term (current) use of oral hypoglycemic drugs; Z79.82 Long term (current) use of aspirin; Z79.899 Other long term (current) drug therapy; Z90.49 Acquired absence of other specified parts of digestive tract; Z95.5 Presence of coronary angioplasty implant and graft; Z85.828 Personal history of other malignant neoplasm of skin; Z86.73 Personal history of transient ischemic attack (TIA), and cerebral infarction without residual deficits
CPT/HCPCS: 36415; 93005; 80053; 83690; 84484; 85025; 85610; 85730; 74177; 99284; 96374; 96361 ×2; C9113; Q9967

== ENCOUNTER 2018-06-28 08:46 | Day surgery (SDC) | payer OTHER ==
[2018-06-24 15:09] VITALS: BMI 34.1
[~2018-06-28 08:46] MED LIST: LACTATED RINGERS 1,000 ML IV SCH
[2018-06-28 09:39] VITALS: RESP 16; TEMP 97.6
[2018-06-28 09:42] LABS: Glucose,Whole Blood 151 mg/dL (75-99)
[2018-06-28] MEDS ORDERED: MIDAZOLAM (PF) 2 MG/2 ML VIAL IV ONE (09:49)
[2018-06-28] MEDS ORDERED: PROPOFOL 10 MG/ML 20 ML VIAL IV ONE (10:26)
[2018-06-28] MEDS ORDERED: GLYCOPYRROLATE 0.2 MG/ML 2 ML VIAL ONE (10:26)
[2018-06-28] MEDS ORDERED: LIDOCAINE 1% INJ 10MG/ML (20 ML MDV) ONE (10:26)
--- NOTE | 2018-06-28 10:35 | P.GSHP ---
History of Present Illness H&P Date: 06/28/18 Chief Complaint: Anemia, weight loss, abdominal pain This is a 62-year-old female who complaints of anemia, epigastric abdominal pain, GERD. The patient states that she has lost prostate 45 pounds in the last 6 months. She presents today for EGD and colonoscopy. Past Medical History Past Medical History: Asthma, Cancer, COPD, CVA/TIA, Diabetes Mellitus, Eye Disorder, Fibromyalgia, GERD/Reflux, Hyperlipidemia, Hypertension, Osteoa rthritis (OA), Pneumonia, Thyroid Disorder Additional Past Medical History / Comment(s): Recent bronchitis/dehydration and completed antibiotics, past bronchitis, IDDM type II, bilateral lower leg and feet neuropathy, 2008 CVA with some memory issues, possible TIA, basal cell skin cancer removed from L nares, L eye has partially detached retina, gastric ulcer, hematemesis, chronic low back pain, sciatica mostly L side occasionally R side, migraines, vertigo, fatty liver, palpitations, past fractures of R thumb/R wrist/L hand, [place] Spotted Fever as an infant History of Any Multi-Drug Resistant Organisms: None Reported Past Surgical History: Ablation, Back Surgery, Cholecystectomy, Heart Catheterization, Hernia Repair, Hysterectomy, Tonsillectomy Additional Past Surgical History / Comment(s): 11/2016 EPS with A flutter ablation, 2007 cardiac cath-normal, L nares skin cancer removed, UMBILICAL HERNIA SX 3X, RT Hand SX for middle TRIGGER FINGER, FIBROID TUMORS REMOVED ABD/BACK, LAPROSCOPIES x 3, L5-S1 SX for HERNIATED DISCS, EGD/colonoscopy. Past Anesthesia/Blood Transfusion Reactions: Postoperative Nausea & Vomiting (PONV) Additional Past Anesthesia/Blood Transfusion Reaction / Comment(s): AND SEVERE HEADACHE WITH ANESTHESIA IN PAST Smoking Status: Former smoker - Past Family History Father Family Medical History: Unable to Obtain Additional Family Medical History / Comment(s): ONLY MET HIM ONCE IN HER LIFE [employer] IN HIS FAMILY Mother Family Medical History: Cancer Additional Family Medical History / Comment(s): Breast CA. Medications and Allergies Home Medications Medication Instructions Recorded Confirmed Type Aspirin EC [Ecotrin Low Dose] 81 mg PO AC-LUNCH 03/14/15 06/24/18 History Atenolol [Tenormin] 25 mg PO DAILY 30 Days #30 tablet 03/12/18 06/24/18 Rx Glimepiride [Amaryl] 4 mg PO BID 30 Days #60 tab 03/12/18 06/24/18 Rx Levothyroxine Sodium [Synthroid] 50 mcg PO DAILY 30 Days #60 tab 03/12/18 06/24/18 Rx Lisinopril [Zestril] 5 mg PO DAILY 30 Days #30 tab 03/12/18 06/24/18 Rx Pravastatin Sodium [Pravachol] 20 mg PO DAILY #30 tab 03/12/18 06/24/18 Rx sitaGLIPtin [Januvia] 100 mg PO W/BRKFST 30 Days #30 tab 03/12/18 06/24/18 Rx Ammonium Lactate Lotion 1 applic TOPICAL DAILY 06/07/18 06/24/18 History [Lac-Hydrin 12% Lotion] Cholecalciferol [Vitamin D3] 4,000 unit PO DAILY 06/07/18 06/24/18 History Ferrous Sulfate [Feosol] 325 mg PO DAILY 06/07/18 06/24/18 History Ibuprofen [Motrin] 800 mg PO TID 06/07/18 06/24/18 History Multivitamins, Thera [Multivitamin 1 tab PO DAILY 06/07/18 06/24/18 History (formulary)] Omeprazole 40 mg PO DAILY #14 capsule. 06/07/18 06/24/18 Rx metFORMIN HCL [Glucophage] 850 mg PO TID 06/07/18 06/24/18 History metroNIDAZOLE 0.75% CREAM 1 applic TOPICAL DAILY 06/07/18 06/24/18 History [Metrocream] Diclofenac Sodium Gel [Voltaren 2 gm TOPICAL QID PRN 06/24/18 06/24/18 History Gel] amLODIPine [Norvasc] 2.5 mg PO BID 06/24/18 06/24/18 History Allergies Allergy/AdvReac Type Severity Reaction Status Date / Time No Known Allergies Allergy Verified 06/28/18 09:26 Surgical - Exam Vital Signs Temp Pulse Resp BP Pulse Ox 97.6 F 62 16 122/66 96 06/28/18 09:33 06/28/18 09:33 06/28/18 09:33 06/28/18 09:33 06/28/18 09:33 - General well developed, well nourished, no distress - Eyes PERRL - ENT normal pinna - Neck no masses - Respiratory normal expansion - Cardiovascular Rhythm: regular - Abdomen 4 cm umbilical hernia Abdomen: soft, non tender Results - Labs Abnormal Lab Results - Last 24 Hours (Table) 06/28/18 Range/Units 09:36 POC Glucose (mg/dL) 151 H (75-99) mg/dL Assessment and Plan Assessment: Anemia, epigastric dull pain pain, GERD. Perform EGD and colonoscopy.
--- NOTE | 2018-06-28 10:56 | P.OP ---
Date of Procedure: 06/28/18 Preoperative Diagnosis: Anemia Epigastric abdominal pain Weight loss Postoperative Diagnosis: Antral gastritis No evidence of hiatal hernia Mild esophagitis Normal colon Procedure(s) Performed: EGD Colonoscopy Anesthesia: MAC Surgeon: Yusuf Villanueva Pathology: other (Antrum, esophagus) Condition: stable Disposition: PACU Description of Procedure: The patient was placed on the endoscopy table in the lateral position. She received IV sedation. The gastroscope placed oropharynx and passed into the esophagus and into the stomach. Scope was then placed through the pylorus. The first and second portion of the duodenum appeared normal. Scope was then brought back the antrum this. Mesh inflamed. A biopsies was performed. The scope was then retroflexed remainder stomach appeared normal. The GE junction was at 40 cm. The distal esophagus appeared minimally inflamed. A biopsies was performed. There was no significant hiatal hernia. The proximal esophagus appeared normal. Scope withdrawn for patient. Next digital rectal exam was performed which revealed no abnormalities. The fle xible colonoscope was then placed patient anus and passed throughout the entire colon. The ileocecal valve was visualized. The cecum, ascending and transverse colon appeared normal. The descending and sigmoid colon appeared normal. Scope was then was withdrawn into the rectum and this. Scope was withdrawn for patient. There is no evidence of any GI bleed.
[2018-06-28 10:57] VITALS: PULSE 63
[2018-06-28 11:16] VITALS: BP 101/70
== END 2018-06-28 12:05 | disposition home or self-care (01) ==
LOC: ORWHC2ENDO 08:46
PROVIDERS: ATTEND Surgery
DX: K29.50 Unspecified chronic gastritis without bleeding (principal); K21.0 Gastro-esophageal reflux disease with esophagitis; D64.9 Anemia, unspecified; E07.9 Disorder of thyroid, unspecified; E11.40 Type 2 diabetes mellitus with diabetic neuropathy, unspecified; E78.5 Hyperlipidemia, unspecified; I10 Essential (primary) hypertension; J44.9 Chronic obstructive pulmonary disease, unspecified; M19.90 Unspecified osteoarthritis, unspecified site; M79.7 Fibromyalgia; Z79.4 Long term (current) use of insulin; Z79.82 Long term (current) use of aspirin; Z85.828 Personal history of other malignant neoplasm of skin; Z86.73 Personal history of transient ischemic attack (TIA), and cerebral infarction without residual deficits; Z87.891 Personal history of nicotine dependence; Z79.890 Hormone replacement therapy; Z79.899 Other long term (current) drug therapy; I25.10 Atherosclerotic heart disease of native coronary artery without angina pectoris; J45.909 Unspecified asthma, uncomplicated; Z79.84 Long term (current) use of oral hypoglycemic drugs
CPT/HCPCS: 88305; 45378; 43239; J2001; J2704; J2250

== ENCOUNTER 2018-08-01 10:53 | Inpatient (IN) | payer OTHER ==
[2018-08-01] MEDS ORDERED: ASPIRIN 81 MG PO STA (11:21)
[2018-08-01] MEDS ORDERED: NITROGLYCERIN OINT 1 INCH/GM PACKET TOPICAL STA (11:21)
--- NOTE | 2018-08-01 11:24 | ED ---
General Adult HPI - General Chief complaint: Chest Pain Stated complaint: Chest Pain Time Seen by Provider: 08/01/18 10:59 Source: patient, RN notes reviewed Mode of arrival: wheelchair Limitations: no limitations - History of Present Illness Initial comments: Patient is a pleasant 62-year-old female presenting to the emergency Department with complaints of chest discomfort. Discomfort is currently rated 4/10. Discomfort was more severe last night. Patient has had intermittent episodes over the past week or 2, getting worse starting last night. Current episode started around a half an hour ago. Discomfort is described as indigestion across her upper chest. Patient states there is some radiation to both eyes sepsis and maybe a little bit towards the shoulders and upper back as well. No history of similar symptoms previously. No nausea or vomiting. No diaphoresis. Patient does feel slightly short of breath. - Related Data Home Medications Medication Instructions Recorded Confirmed Aspirin EC [Ecotrin Low Dose] 81 mg PO AC-LUNCH 03/14/15 08/01/18 Ammonium Lactate Lotion 1 applic TOPICAL DAILY 06/07/18 08/01/18 [Lac-Hydrin 12% Lotion] Cholecalciferol [Vitamin D3] 4,000 unit PO DAILY 06/07/18 08/01/18 Ferrous Sulfate [Feosol] 325 mg PO DAILY 06/07/18 08/01/18 Ibuprofen [Motrin] 800 mg PO TID 06/07/18 08/01/18 Multivitamins, Thera [Multivitamin 1 tab PO DAILY 06/07/18 08/01/18 (formulary)] metFORMIN HCL [Glucophage] 850 mg PO TID 06/07/18 08/01/18 Diclofenac Sodium Gel [Voltaren 2 gm TOPICAL QID PRN 06/24/18 08/01/18 Gel] amLODIPine [Norvasc] 2.5 mg PO BID 06/24/18 08/01/18 Atenolol [Tenormin] 25 mg PO DAILY 08/01/18 08/01/18 Previous Rx's Medication Instructions Recorded Glimepiride [Amaryl] 4 mg PO BID 30 Days #60 tab 03/12/18 Levothyroxine Sodium [Synthroid] 50 mcg PO DAILY 30 Days #60 tab 03/12/18 Lisinopril [Zestril] 5 mg PO DAILY 30 Days #30 tab 03/12/18 Pravastatin Sodium [Pravachol] 20 mg PO DAILY #30 tab 03/12/18 sitaGLIPtin [Januvia] 100 mg PO W/BRKFST 30 Days #30 tab 03/12/18 Omeprazole 40 mg PO DAILY #14 capsule. 06/07/18 Allergies Allergy/AdvReac Type Severity Reaction Status Date / Time No Known Allergies Allergy Verified 08/01/18 11:22 Review of Systems ROS Statement: Those systems with pertinent positive or pertinent negative responses have been documented in the HPI. ROS Other: All systems not noted in ROS Statement are negative. Constitutional: Denies: fever Eyes: Denies: eye pain ENT: Denies: ear pain Respiratory: Denies: cough Cardiovascular: Reports: chest pain Endocrine: Denies: fatigue Gastrointestinal: Denies: abdominal pain Genitourinary: Denies: dysuria Musculoskeletal: Denies: back pain Skin: Denies: rash Neurological: Denies: weakness Past Medical History Past Medical History: Asthma, Cancer, COPD, CVA/TIA, Diabetes Mellitus, Eye Disorder, Fibromyalgia, GERD/Reflux, Hyperlipidemia, Hypertension, Osteoarthritis (OA), Pneumonia, Thyroid Disorder Additional Past Medical History / Comment(s): Recent bronchitis/dehydration and completed antibiotics, past bronchitis, IDDM type II, bilateral lower leg and feet neuropathy, 2008 CVA with some memory issues, possible TIA, basal cell skin cancer removed from L nares, L eye has partially detached retina, gastric ulcer, hematemesis, chronic low back pain, sciatica mostly L side occasionally R side, migraines, vertigo, fatty liver, palpitations, past fractures of R thumb/R wrist/L hand, [place] Spotted Fever as an infant History of Any Multi-Drug Resistant Organisms: None Reported Past Surgical History: Ablation, Back Surgery, Cholecystectomy, Heart Catheterization, Hernia Repair, Hysterectomy, Tonsillectomy Additional Past Surgical History / Comment(s): 11/2016 EPS with A flutter ablation, 2007 cardiac cath-normal, L nares skin cancer removed, UMBILICAL HERNIA SX 3X, RT Hand SX for middle TRIGGER FINGER, FIBROID TUMORS REMOVED ABD/BACK, LAPROSCOPIES x 3, L5-S1 SX for HERNIATED DISCS, EGD/colonoscopy. Past Anesthesia/Blood Transfusion Reactions: Postoperative Nausea & Vomiting (PONV) Additional Past Anesthesia/Blood Transfusion Reaction / Comment(s): AND SEVERE HEADACHE WITH ANESTHESIA IN PAST Past Psychological History: Anxiety, Bipolar, Depression Smoking Status: Former smoker - Past Family History Father Family Medical History: Unable to Obtain Additional Family Medical History / Comment(s): ONLY MET HIM ONCE IN HER LIFE [email or web address] IN HIS FAMILY Mother Family Medical History: Cancer Additional Family Medical History / Comment(s): Breast CA. General Exam Limitations: no limitations General appearance: alert, in no apparent distress Head exam: Present: atraumatic Eye exam: Present: normal appearance, PERRL ENT exam: Present: normal oropharynx Neck exam: Present: normal inspection Respiratory exam: Present: normal lung sounds bilaterally, chest wall tenderness Cardiovascular Exam: Present: regular rate, normal rhythm Expanded Peripheral pulses: 2+: Radial (R), Radial (L), Posterior Tibialis (R), Posterior Tibialis (L), Dorsalis Pedis (R), Dorsalis Pedis (L) GI/Abdominal exam: Present: soft. Absent: tenderness Extremities exam: Present: normal inspection. Absent: pedal edema, calf tenderness Neurological exam: Present: alert Psychiatric exam: Present: normal affect, normal mood Skin exam: Present: normal color Course Vital Signs 08/01/18 10:56 Temperature 98 F Pulse Rate 90 Respiratory 18 Rate Blood Pressure 184/114 O2 Sat by Pulse 99 Oximetry EKG Findings - EKG Comments: EKG Findings:: Sinus rhythm at 80. PVCs present. HI 164. QRS 90. QT 458. QTC 528. Left axis. Normal QRS. T wave inversion leads V2 through V5. Medical Decision Making - Medical Decision Making Patient reevaluated and resting comfortably in bed. No complaints at this time. Patient is updated on results and plan. Dr. Mcdaniel has been paged, covering for Dr. Cabello for admission. - Lab Data Result diagrams: 08/01/18 12:08 08/01/18 12:08 Lab Results 08/01/18 08/01/18 08/01/18 Range/Units 12:08 12:08 12:08 WBC 15.5 H (3.8-10.6) k/uL RBC 4.88 (3.80-5.40) m/uL Hgb 13.0 (11.4-16.0) gm/dL Hct 39.9 (34.0-46.0) % MCV 81.7 (80.0-100.0) fL MCH 26.6 (25.0-35.0) pg MCHC 32.6 (31.0-37.0) g/dL RDW 14.7 (11.5-15.5) % Plt Count 322 (150-450) k/uL Neutrophils % 69 % Lymphocytes % 23 % Monocytes % 4 % Eosinophils % 2 % Basophils % 0 % Neutrophils # 10.7 H (1.3-7.7) k/uL Lymphocytes # 3.6 (1.0-4.8) k/uL Monocytes # 0.6 (0-1.0) k/uL Eosinophils # 0.3 (0-0.7) k/uL Basophils # 0.1 (0-0.2) k/uL PT 9.6 (9.0-12.0) sec INR 0.9 (<1.2) APTT 24.6 (22.0-30.0) sec D-Dimer 0.44 (<0.60) mg/L FEU Sodium 142 (137-145) mmol/L Potassium 4.5 (3.5-5.1) mmol/L Chloride 106 (98-107) mmol/L Carbon Dioxide 22 (22-30) mmol/L Anion Gap 14 mmol/L BUN 23 H (7-17) mg/dL Creatinine 0.93 (0.52-1.04) mg/dL Est GFR (CKD-EPI)AfAm 76 (>60 ml/min/1.73 sqM) Est GFR (CKD-EPI)NonAf 66 (>60 ml/min/1.73 sqM) Glucose 170 H (74-99) mg/dL Calcium 10.1 (8.4-10.2) mg/dL Magnesium 1.6 (1.6-2.3) mg/dL Total Bilirubin 0.3 (0.2-1.3) mg/dL AST 22 (14-36) U/L ALT 15 (9-52) U/L Alkaline Phosphatase 69 (38-126) U/L Troponin I (0.000-0.034) ng/mL Total Protein 7.3 (6.3-8.2) g/dL Albumin 4.5 (3.5-5.0) g/dL 08/01/18 Range/Units 12:08 WBC (3.8-10.6) k/uL RBC (3.80-5.40) m/uL Hgb (11.4-16.0) gm/dL Hct (34.0-46.0) % MCV (80.0-100.0) fL MCH (25.0-35.0) pg MCHC (31.0-37.0) g/dL RDW (11.5-15.5) % Plt Count (150-450) k/uL Neutrophils % % Lymphocytes % % Monocytes % % Eosinophils % % Basophils % % Neutrophils # (1.3-7.7) k/uL Lymphocytes # (1.0-4.8) k/uL Monocytes # (0-1.0) k/uL Eosinophils # (0-0.7) k/uL Basophils # (0-0.2) k/uL PT (9.0-12.0) sec INR (<1.2) APTT (22.0-30.0) sec D-Dimer (<0.60) mg/L FEU Sodium (137-145) mmol/L Potassium (3.5-5.1) mmol/L Chloride (98-107) mmol/L Carbon Dioxide (22-30) mmol/L Anion Gap mmol/L BUN (7-17) mg/dL Creatinine (0.52-1.04) mg/dL Est GFR (CKD-EPI)AfAm (>60 ml/min/1.73 sqM) Est GFR (CKD-EPI)NonAf (>60 ml/min/1.73 sqM) Glucose (74-99) mg/dL Calcium (8.4-10.2) mg/dL Magnesium (1.6-2.3) mg/dL Total Bilirubin (0.2-1.3) mg/dL AST (14-36) U/L ALT (9-52) U/L Alkaline Phosphatase (38-126) U/L Troponin I 0.284 H* (0.000-0.034) ng/mL Total Protein (6.3-8.2) g/dL Albumin (3.5-5.0) g/dL - Radiology Data Radiology results: image reviewed (Chest x-ray shows no acute process) Critical Care Time Critical Care Time: Yes Total Critical Care Time: 33 Disposition Clinical Impression: NSTEMI (non-ST elevated myocardial infarction) Disposition: ADMITTED IP TO THIS HOSP Condition: Serious Is patient prescribed a controlled substance at d/c from ED?: No Referrals: Benedicto Cabello DO [Primary Care Provider] - 1-2 days Decision Time: 13:30
[2018-08-01 12:23] LABS: Basophils # (A) 0.1 k/uL (0-0.2); Basophils % (A) 0 %; Eosinophils # (A) 0.3 k/uL (0-0.7); Eosinophils % (A) 2 %; HCT 39.9 % (34.0-46.0); Lymphocytes # (A) 3.6 k/uL (1.0-4.8); Lymphocytes % (A) 23 %; MCH 26.6 pg (25.0-35.0); MCHC 32.6 g/dL (31.0-37.0); MCV 81.7 fL (80.0-100.0); Mean Platelet Volume 7.5; Monocytes # (A) 0.6 k/uL (0-1.0); Monocytes % (A) 4 %; Neutrophils # (A) 10.7 k/uL (1.3-7.7); Neutrophils % (A) 69 %; Platelet Count 322 k/uL (150-450); RBC 4.88 m/uL (3.80-5.40); RDW 14.7 % (11.5-15.5); WBC 15.5 k/uL (3.8-10.6)
[2018-08-01 12:38] LABS: Albumin 4.5 g/dL (3.5-5.0); Calcium 10.1 mg/dL (8.4-10.2); Magnesium 1.6 mg/dL (1.6-2.3); Potassium 4.5 mmol/L (3.5-5.1); Total Bilirubin 0.3 mg/dL (0.2-1.3); Total Protein 7.3 g/dL (6.3-8.2)
--- NOTE | 2018-08-01 12:40 | XR ---
EXAMINATION TYPE: XR chest 2V DATE OF EXAM: 08/01/2018 HISTORY: Chest Pain. REFERENCE: Previous study dated 07/19/2017. FINDINGS: Lungs remain clear. Pleural spaces are clear. The heart is not enlarged. IMPRESSION: NO ACTIVE INTRATHORACIC DISEASE.
[2018-08-01 12:41] LABS: D-Dimer 0.44 mg/L FEU (<0.60); INR 0.9 (<1.2); Partial Thromboplastin Time 24.6 sec (22.0-30.0); Prothrombin Time 9.6 sec (9.0-12.0)
[2018-08-01] MEDS ORDERED: HEPARIN SODIUM,PORCINE 5,000 UNIT/ML 1 ML VIAL IV PRN (13:22)
[2018-08-01] MEDS ORDERED: NITROGLYCERIN SL TABS 0.4 MG TAB SUBLINGUAL PRN (13:22)
[2018-08-01] MEDS ORDERED: HEPARIN SODIUM,PORCINE 5,000 UNIT/ML 1 ML VIAL IV ONE (13:22)
[2018-08-01] MEDS ORDERED: HEPARIN SOD,PORK IN 0.45% NACL 25,000 UNIT in 0.45% NACL 1 250ML.BAG IV SCH (13:30)
[2018-08-01] MEDS ORDERED: SODIUM CHLORIDE 0.9% 1,000 ML IV STA (13:52)
[2018-08-01] MEDS: LABETALOL 100 MG TAB PO SCH ×2 (14:17→22:40)
[2018-08-01 14:27] LABS: Appearance,Urine Clear (Clear); Bilirubin,Urine Negative (Negative); Blood,Urine Trace (Negative); Color,Urine Light Yellow; Glucose,Urine (UA) Negative (Negative); Ketones,Urine Negative (Negative); Leukocyte Esterase,Urine Negative (Negative); Nitrite,Urine Negative (Negative); Protein,Urine 3+ (Negative); RBC,Urine 1 /hpf (0-5); Specific Gravity,Urine 1.012 (1.001-1.035); Squamous Epithelial Cell,Urine 1 /hpf (0-4); Urobilinogen,Urine <2.0 mg/dL (<2.0)
[2018-08-01] MEDS ORDERED: amLODIPine 5 MG TAB PO STA (15:10)
[2018-08-01] MEDS ORDERED: METOPROLOL TARTRATE 50 MG TAB PO STA (15:12)
[2018-08-01] MEDS: NITROGLYCERIN-D5W PMX 50 MG in DEXTROSE/WATER 1 250ML.BAG IV SCH (15:33)
[2018-08-01] MEDS ORDERED: HYDROcodone/APAP 5-325MG 1 EACH TAB PO STA (16:22)
[2018-08-01 17:01] LABS: Glucose,Whole Blood 104 mg/dL (75-99)
[2018-08-01] MEDS ORDERED: SODIUM CHLORIDE 0.9% 1,000 ML in EMPTY BAG 1 BAG IV ONE (17:27)
[2018-08-01] MEDS ORDERED: MAGNESIUM SULFATE-D5W PMX 1 GM in DEXTROSE/WATER 1 100ML.BAG IVPB ONE (17:40)
[2018-08-01] MEDS ORDERED: NALOXONE 0.4 MG/ML 1 ML VIAL IV PRN (17:46)
[2018-08-01] MEDS ORDERED: NITROGLYCERIN OINT 1 INCH/GM PACKET TOPICAL SCH (18:00)
[2018-08-01] MEDS: ACETAMINOPHEN TAB 325 MG TAB PO PRN (19:17)
--- NOTE | 2018-08-01 19:29 | P.HPIM ---
History of Present Illness H&P Date: 08/01/18 Chief Complaint: Chest pain Ms. Edwards is a 52-year-old female , who follows with Dr. Cabello in an outpatient setting, with a past medical history of hypertension, diabetes, COPD, fibromyalgia, hyperlipidemia, thyroid disorder, coming into the hospital with a chief complaint of chest pain. Patient states that she has been having chest tightness like a burning sensation running across her chest for the past 3 days. She states that sensation goes to both of her hands. She mentions that mostly her left arm and forearm have been feeling heavy. Patient was also having sweating and she starts having this chest pains. She also reports metallic taste in her mouth and nausea. But she did not throw up. Patient denies having any lower extremity swelling. She reports mild difficulty in breathing when she has this chest tightness. Patient denies having any orthopnea or PND .Patient denies having any cough. No fevers chills or rigors. No complaints of burning micturition or blood in her urine. No abdominal pain nausea vomiting or diarrhea. No constipation. Patient is a former smoker smokes for almost 40 years half to 1 pack a day. She quit smoking 2 months back. She mentions that her mother and mother's sister have coronary artery disease. Patient's diabetes is controlled with a hemoglobin A1c of 7.5.She also reports having chronic low back pain. Patient denies having any headaches and stiffness or blurring of vision. No weakness of her extremities. All 13 review of systems are negative except for the ones mentioned above. In the emergency department patient had labs done showing an elevation of troponins at 0.284 and an EKG showing T-wave inversion in V1 to V6 leads. Patient has been started on heparin drip and admitted to the ICU. Cardiology has been consulted. Review of Systems REVIEW OF SYSTEMS: PSYCH: History of anxiety, panic attacks NEURO:No c/o weakness of the extremties, No facial droop, No speech abnormalities. VASCULAR: Peripheral nervous system within the normal limits no edema HEMATOLOGIC: No history of easy bleeding and bruising . No recent infections . RESPIRATORY: No cough, No SOB, No chest discomfort. IMMUNE: No infections INTEGUMENT: no rashes OPHTHALMOLOGIC: No blurry vision and no eye discharge : No dysuria or hematuria FIRST PRESS OPERATOR: No bleeding PV CARDIAC: As per HPI MUSCULOSKELETAL : No Aches or pains in the joints or muscles. GI: No abdominal pain, Nausea or vomiting. No constipation or diarrhea. Past Medical History Past Medical History: Asthma, Cancer, COPD, CVA/TIA, Diabetes Mellitus, Eye Disorder, Fibromyalgia, GERD/Reflux, Hyperlipidemia, Hypertension, Osteoarthritis (OA), Pneumonia, Thyroid Disorder Additional Past Medical History / Comment(s): Recent bronchitis/dehydration and completed antibiotics, past bronchitis, IDDM type II, bilateral lower leg and feet neuropathy, 2008 CVA with some memory issues, possible TIA, basal cell skin cancer removed from L nares, L eye has partially detached retina, cateracts, gastric ulcer, hematemesis, chronic low back pain, sciatica mostly L side occasionally R side, migraines, vertigo, fatty liver, palpitations, past fractures of R thumb/R wrist/L hand, [place] Spotted Fever as an infant, hypothyrodism History of Any Multi-Drug Resistant Organisms: None Reported Past Surgical History: Ablation, Back Surgery, Cholecystectomy, Heart Catheterization, Hernia Repair, Hysterectomy, Tonsillectomy Additional Past Surgical History / Comment(s): 11/2016 EPS with A flutter ablation, 2007 cardiac cath-normal, L nares skin cancer removed, UMBILICAL HERNIA SX 3X, RT Hand SX for middle TRIGGER FINGER, FIBROID TUMORS REMOVED ABD/BACK, LAPROSCOPIES x 3, L5-S1 SX for HERNIATED DISCS, EGD/colonoscopy. Past Anesthesia/Blood Transfusion Reactions: Postoperative Nausea & Vomiting (PONV) Additional Past Anesthesia/Blood Transfusion Reaction / Comment(s): AND SEVERE HEADACHE WITH ANESTHESIA IN PAST Past Psychological History: Anxiety, Bipolar, Depression Additional Psychological History / Comment(s): Pt resides alone in an apartment. She has a glucometer. She has a cane which she uses prn. She does not own a vehicle. She gets to appointments usually thru her home insurance. She states she has had some increased depression lately but denies suicidal thoughts/plans. She states she does not receive any psychiatric care presently but has in the past but cannot recall name. Smoking Status: Former smoker Past Alcohol Use History: Rare Additional Past Alcohol Use History / Comment(s): Pt states she quit smoking in 2010 and had started smoking in 1971. SMOKED1/2-1PPD QUIT ON AND OFF Past Drug Use History: Marijuana Additional Drug Use History / Comment(s): USES OCCASIONALLY - Past Family History Father Family Medical History: Diabetes Mellitus Additional Family Medical History / Comment(s): ONLY MET HIM ONCE IN HER LIFE DAIEndeca RUNS IN HIS FAMILY Mother Family Medical History: Cancer Additional Family Medical History / Comment(s): Breast CA. Medications and Allergies Home Medications Medication Instructions Recorded Confirmed Type Aspirin EC [Ecotrin Low Dose] 81 mg PO AC-LUNCH 03/14/15 08/01/18 History Glimepiride [Amaryl] 4 mg PO BID 30 Days #60 tab 03/12/18 08/01/18 Rx Levothyroxine Sodium [Synthroid] 50 mcg PO DAILY 30 Days #60 tab 03/12/18 08/01/18 Rx Lisinopril [Zestril] 5 mg PO DAILY 30 Days #30 tab 03/12/18 08/01/18 Rx Pravastatin Sodium [Pravachol] 20 mg PO DAILY #30 tab 03/12/18 08/01/18 Rx sitaGLIPtin [Januvia] 100 mg PO W/BRKFST 30 Days #30 tab 03/12/18 08/01/18 Rx Ammonium Lactate Lotion 1 applic TOPICAL DAILY 06/07/18 08/01/18 History [Lac-Hydrin 12% Lotion] Cholecalciferol [Vitamin D3] 4,000 unit PO DAILY 06/07/18 08/01/18 History Ferrous Sulfate [Feosol] 325 mg PO DAILY 06/07/18 08/01/18 History Ibuprofen [Motrin] 800 mg PO TID 06/07/18 08/01/18 History Multivitamins, Thera [Multivitamin 1 tab PO DAILY 06/07/18 08/01/18 History (formulary)] Omeprazole 40 mg PO DAILY #14 capsule. 06/07/18 08/01/18 Rx metFORMIN HCL [Glucophage] 850 mg PO TID 06/07/18 08/01/18 History Diclofenac Sodium Gel [Voltaren 2 gm TOPICAL QID PRN 06/24/18 08/01/18 History Gel] amLODIPine [Norvasc] 2.5 mg PO BID 06/24/18 08/01/18 History Atenolol [Tenormin] 25 mg PO DAILY 08/01/18 08/01/18 History Allergies Allergy/AdvReac Type Severity Reaction Status Date / Time No Known Allergies Allergy Verified 08/01/18 11:22 Physical Exam Vitals: Vital Signs Temp Pulse Resp BP Pulse Ox 08/01/18 18:00 82 20 134/86 93 L 08/01/18 17:00 98.0 F 82 20 145/98 95 08/01/18 16:54 98 F 08/01/18 16:17 82 18 151/82 94 L 08/01/18 14:00 77 18 171/109 96 08/01/18 13:00 83 18 153/96 96 08/01/18 12:00 89 16 142/96 96 08/01/18 10:56 98 F 90 18 184/114 99 Intake and Output 08/01/18 08/01/18 08/01/18 06:59 14:59 22:59 Intake Total 175 Output Total 175 Balance 0 Intake: IV 175 Magnesium Sulfate-D5w Pmx 100 1 gm In Dextrose/Water 1 100ml.bag @ 100 mls/hr IVPB ONCE ONE Rx#: [id number] Sodium Chloride 0.9% 1, 75 000 ml @ 75 mls/hr IV . [id number] STA Rx#:[id number] Output: Urine 175 Other: Weight 92.986 kg GEN. APPEARANCE: alert, in no apparent distress HEAD EXAM: Atraumatic normocephalic. EYE EXAM: No pallor. No icterus. ENT EXAM: Mucous membranes are moist. NECK EXAM: No neck masses or thyromegaly felt RESPIRATORY EXAM: Bilateral breath sounds are positive. No wheezes or crackles. CARDIOVASCULAR EXAM: S1-S2 heard. No abnormal sounds. GI/ABDOMINAL EXAM: Abdomen is soft nontender. No dysphagia guarding. Bowel sounds are positive. EXTREMITIES EXAM: No pedal edema. NEUROLOGICAL EXAM: alert, oriented X3, no focal neurological deficits PSYCHIATRIC EXAM: Patient appears to be anxious, as per nursing staff she is tearful at times SKIN EXAM: warm, dry, intact, normal color. Absent: rash Results CBC & Chem 7: 08/01/18 12:08 08/01/18 12:08 Labs: Abnormal Lab Results - Last 24 Hours (Table) 08/01/18 08/01/18 08/01/18 Range/Units 12:08 12:08 12:08 WBC 15.5 H (3.8-10.6) k/uL Neutrophils # 10.7 H (1.3-7.7) k/uL BUN 23 H (7-17) mg/dL Glucose 170 H (74-99) mg/dL POC Glucose (mg/dL) (75-99) mg/dL Troponin I 0.284 H* (0.000-0.034) ng/mL Urine Protein (Negative) Urine Blood (Negative) 08/01/18 08/01/18 Range/Units 14:16 16:58 WBC (3.8-10.6) k/uL Neutrophils # (1.3-7.7) k/uL BUN (7-17) mg/dL Glucose (74-99) mg/dL POC Glucose (mg/dL) 104 H (75-99) mg/dL Troponin I (0.000-0.034) ng/mL Urine Protein 3+ H (Negative) Urine Blood Trace H (Negative) Thrombosis Risk Factor Assmnt - Choose All That Apply Any of the Below Risk Factors Present?: Yes Each Factor Represents 1 point: Abnormal pulmonary function (COPD), Obesity (BMI >25) Other Risk Factors: Yes Each Risk Factor Represents 2 Points: Age 61-74 years Thrombosis Risk Factor Assessment Total Risk Factor Score: 4 Thrombosis Risk Factor Assessment Level: Moderate Risk Assessment and Plan Assessment: ASSESSMENT Non-ST elevation RI Type 2 diabetes mellitus Hypertension Fibromyalgia Hyperlipidemia Chronic low back pain with herniated discs Diabetic neuropathy History of migraine headaches Hypothyroidism GERD Asthma/COPD Stroke/TIA PLAN: Patient has been started on heparin drip and a nitro drip for ongoing chest pain. Will get serial troponins and EKGs. Cardiology on board and patient is currently in the ICU. As the patient seems to have panic attacks, Ruperto has been ordered when necessary for anxiety. She requested something to help her to sleep at night as she is having anxiety about her health so melatonin ordered. Rest of the home medications reconciled. Further recommendations depending on the progress of the patient. The treatment plan was discussed in detail with the patient at bedside today.
--- NOTE | 2018-08-01 21:20 | P.CNPUL ---
History of Present Illness Consult date: 08/01/18 Reason for consult: other (ICU management) Chief complaint: chest pain History of present illness: this is a 62-year-old female with history of multiple medical problems including hypertension, type 2 diabetes, smoker, dyslipidemia, strong family history of coronary artery disease, obesity, patient presented to the hospital today with recurrent episodes of substernal chest pain with radiation to both arms. Her initial episode was about 2 weeks ago, however her episodes have been coming back intermittently lasting anywhere between 20-30 minutes. Her pains are described as chest tightness with burning sensation across the chest has been quite severe over the last 3 days. No specific trigger factor for her symptoms and no specific relieving factor to her symptoms. Patienthad abnormal EKG on admission showing T-wave inversion in V1 to V6, there was also evidence of elevated troponin. Upon arrival to the ER, patient was placed on heparin and on nitroglycerin drip. Cardiology was consulted, and the patient was scheduled to undergo cardiac catheterization sports attorney tomorrow. In the meantime the patient was admitted to the ICU, and this consult was initiated. During my evaluation, the patient had some vague chest discomfort, pain was reproducible, she had no anginal symptoms no diaphoresis, and no radiation of pain. And she was hemodynamically stable. And she had no specific concerning complaints. Review of Systems Constitutional: no fever no chills no weight loss.. HEENT: no headache no blurred vision no dizziness no sore throat no headache. CARDIAC: as noted in HPI, recurrent episodes of substernal chest pain with radiation to arms RESPIRATORY: no cough no wheezing no shortness of breath no chest pain.n. GI: rubio nausea no vomiting no abdominal pain no melena no hematemesis. : no dysuria and no frequency no urgency no hematuria MUSCULOSKELETAL: no arthralgia or myalgia. NEUROLOGIC:no headache no blurred vision no dizziness no strokes. ENDOCRINE: no heat or cold intolerance.known history of diabetes SKIN: no rashes, no itching. PSYCHIATRIC: no active depression. Past Medical History Past Medical History: Asthma, Cancer, COPD, CVA/TIA, Diabetes Mellitus, Eye Disorder, Fibromyalgia, GERD/Reflux, Hyperlipidemia, Hypertension, Osteoarthritis (OA), Pneumonia, Thyroid Disorder Additional Past Medical History / Comment(s): Recent bronchitis/dehydration and completed antibiotics, past bronchitis, IDDM type II, bilateral lower leg and feet neuropathy, 2008 CVA with some memory issues, possible TIA, basal cell skin cancer removed from L nares, L eye has partially detached retina, cateracts, gastric ulcer, hematemesis, chronic low back pain, sciatica mostly L side occasionally R side, migraines, vertigo, fatty liver, palpitations, past fractures of R thumb/R wrist/L hand, [place] Spotted Fever as an , hypothyrodism History of Any Multi-Drug Resistant Organisms: None Reported Past Surgical History: Ablation, Back Surgery, Cholecystectomy, Heart Catheterization, Hernia Repair, Hysterectomy, Tonsillectomy Additional Past Surgical History / Comment(s): 11/2016 EPS with A flutter ablation, 2007 cardiac cath-normal, L nares skin cancer removed, UMBILICAL HERNIA SX 3X, RT Hand SX for middle TRIGGER FINGER, FIBROID TUMORS REMOVED ABD/BACK, LAPROSCOPIES x 3, L5-S1 SX for HERNIATED DISCS, EGD/colonoscopy. Past Anesthesia/Blood Transfusion Reactions: Postoperative Nausea & Vomiting (PONV) Additional Past Anesthesia/Blood Transfusion Reaction / Comment(s): AND SEVERE HEADACHE WITH ANESTHESIA IN PAST Past Psychological History: Anxiety, Bipolar, Depression Additional Psychological History / Comment(s): Pt resides alone in an apartment. She has a glucometer. She has a cane which she uses prn. She does not own a vehicle. She gets to appointments usually thru her home insurance. She states she has had some increased depression lately but denies suicidal thoughts/plans. She states she does not receive any psychiatric care presently but has in the past but cannot recall name. Smoking Status: Former smoker Past Alcohol Use History: Rare Additional Past Alcohol Use History / Comment(s): Pt states she quit smoking in 2010 and had started smoking in 1971. SMOKED1/2-1PPD QUIT ON AND OFF Past Drug Use History: Marijuana Additional Drug Use History / Comment(s): USES OCCASIONALLY - Past Family History Father Family Medical History: Diabetes Mellitus Additional Family Medical History / Comment(s): ONLY MET HIM ONCE IN HER LIFE DAICreditEase RUNS IN HIS FAMILY Mother Family Medical History: Cancer Additional Family Medical History / Comment(s): Breast CA. Medications and Allergies Home Medications Medication Instructions Recorded Confirmed Type Aspirin EC [Ecotrin Low Dose] 81 mg PO AC-LUNCH 03/14/15 08/01/18 History Glimepiride [Amaryl] 4 mg PO BID 30 Days #60 tab 03/12/18 08/01/18 Rx Levothyroxine Sodium [Synthroid] 50 mcg PO DAILY 30 Days #60 tab 03/12/18 08/01/18 Rx Lisinopril [Zestril] 5 mg PO DAILY 30 Days #30 tab 03/12/18 08/01/18 Rx Pravastatin Sodium [Pravachol] 20 mg PO DAILY #30 tab 03/12/18 08/01/18 Rx sitaGLIPtin [Januvia] 100 mg PO W/BRKFST 30 Days #30 tab 03/12/18 08/01/18 Rx Ammonium Lactate Lotion 1 applic TOPICAL DAILY 06/07/18 08/01/18 History [Lac-Hydrin 12% Lotion] Cholecalciferol [Vitamin D3] 4,000 unit PO DAILY 06/07/18 08/01/18 History Ferrous Sulfate [Feosol] 325 mg PO DAILY 06/07/18 08/01/18 History Ibuprofen [Motrin] 800 mg PO TID 06/07/18 08/01/18 History Multivitamins, Thera [Multivitamin 1 tab PO DAILY 06/07/18 08/01/18 History (formulary)] Omeprazole 40 mg PO DAILY #14 capsule. 06/07/18 08/01/18 Rx metFORMIN HCL [Glucophage] 850 mg PO TID 06/07/18 08/01/18 History Diclofenac Sodium Gel [Voltaren 2 gm TOPICAL QID PRN 06/24/18 08/01/18 History Gel] amLODIPine [Norvasc] 2.5 mg PO BID 06/24/18 08/01/18 History Atenolol [Tenormin] 25 mg PO DAILY 08/01/18 08/01/18 History Allergies Allergy/AdvReac Type Severity Reaction Status Date / Time No Known Allergies Allergy Verified 08/01/18 11:22 Physical Exam Vitals: Vital Signs Temp Pulse Resp BP Pulse Ox 08/01/18 19:00 77 22 139/108 94 L 08/01/18 18:00 82 20 134/86 93 L 08/01/18 17:00 98.0 F 82 20 145/98 95 08/01/18 16:54 98 F 08/01/18 16:17 82 18 151/82 94 L 08/01/18 14:00 77 18 171/109 96 08/01/18 13:00 83 18 153/96 96 08/01/18 12:00 89 16 142/96 96 08/01/18 10:56 98 F 90 18 184/114 99 Intake and Output 08/01/18 08/01/18 08/01/18 06:59 14:59 22:59 Intake Total 673.308 Output Total 175 Balance 498.308 Intake: IV 250 Magnesium Sulfate-D5w Pmx 100 1 gm In Dextrose/Water 1 100ml.bag @ 100 mls/hr IVPB ONCE ONE Rx#: [id number] Sodium Chloride 0.9% 1, 150 000 ml @ 75 mls/hr IV . [id number] STA Rx#:[id number] Intake, IV Titration 63.308 Amount Heparin Sod,Pork in 0.45% 63.308 NaCl 25,000 unit In 0.45 % NaCl 1 250ml.bag @ 10. 75 UNITS/KG/HR 9.996 mls/ hr IV .Q24H ERICA Rx#: [id number] Oral 360 Output: Urine 175 Other: Voiding Method Bedside Commode Weight 92.986 kg physical exam revealed a 62-year-old female in no distress, extremely pleasant. Head: Atraumatic normocephalic. HEENT:[Neck is supple.] [No neck masses.] [No thyromegaly.] [No JVD.]moist mucous membranes, pale conjunctivae. No icterus. Chest: [Clear breath sounds bilaterally, no crackles or rhonchi or wheezes, tenderness noted in the left parasternal area on palpation. Cardiac Exam: [regular rate and rhythm, normal S1 and S2, no S3 gallop.r.] Abdomen: obese, soft, nontender, no megaly, no rebound, no guarding, positive bowel sounds..] Extremities: [No clubbing, no edema, no cyanosis.] Neurological Exam: lalert oriented 3, no gross focal neurologic deficits. Psychiatric: Normal mood affect and normal mental status examination. Skin: No rashes. Lymphatics: No lymphadenopathy. Results - Laboratory Findings CBC and BMP: 08/01/18 12:08 08/01/18 12:08 PT/INR, D-dimer PT 9.6 sec (9.0-12.0) 08/01/18 12:08 INR 0.9 (<1.2) 08/01/18 12:08 D-Dimer 0.44 mg/L FEU (<0.60) 08/01/18 12:08 Abnormal lab findings: Abnormal Labs 08/01/18 08/01/18 08/01/18 12:08 12:08 12:08 WBC 15.5 H Neutrophils # 10.7 H APTT BUN 23 H Glucose 170 H POC Glucose (mg/dL) Troponin I 0.284 H* Urine Protein Urine Blood 08/01/18 08/01/18 08/01/18 14:16 16:58 18:50 WBC Neutrophils # APTT 31.9 H BUN Glucose POC Glucose (mg/dL) 104 H Troponin I Urine Protein 3+ H Urine Blood Trace H 08/01/18 18:50 WBC Neutrophils # APTT BUN Glucose POC Glucose (mg/dL) Troponin I 0.247 H* Urine Protein Urine Blood - Diagnostic Findings Chest x-ray: image reviewed (chest x-ray was reviewed, no active intrathoracic disease) Additional studies: EKG showed sinus rhythm, frequent premature ventricular complexes, T-wave inversion/ abnormality noted consistent with anterolateral ischemia. Assessment and Plan Assessment: impression: 1acute non-ST elevation myocardial infarction 2 benign essential hypertension 3 type 2 diabetes 4 tobacco dependence syndrome, supposedly quit recently. 5 dyslipidemia 6 strong family history of coronary artery disease 7 suspect some component of COPD presently inactive 8 diabetic neuropathy 9 history of hypothyroidism 10 chronic disability secondary to chronic low back pain and herniated disc 11 fibromyalgia. Recommendation: Patient is presently asymptomatic, hemodynamically stable, she is on heparin and nitroglycerin drip, and she is scheduled to undergo cardiac catheterization in a.m.cardiology has been aware of this patient,all her meds were reviewed she is presently on amlodipine, nitroglycerin, heparin, aspirin, atorvastatin, back on her levothyroxine,she is also on metoprolol,on Protonix, she'll be monitored overnight, we will continue to follow closely. Agree with plans for cardiac catheterization in a.m. Time with Patient: Greater than 30
[2018-08-01] MEDS: METOPROLOL TARTRATE 50 MG TAB PO SCH (22:34)
[2018-08-01] MEDS: DIAZEPAM 5 MG TAB PO PRN (22:35)
[2018-08-01] MEDS: MELATONIN 5 MG TABLET PO SCH (22:35)
[2018-08-01] MEDS: INSULIN ASPART (NovoLOG) 100 UNIT/ML VIAL SQ SCH (22:37)
--- NOTE | 2018-08-02 00:07 | CONS ---
CONSULTATION DATE OF SERVICE: 08/01/2018 Mrs. Jane Edwards is a 62-year-old lady with a known history of hypertension and hypercholesterolemia and type 2 diabetes mellitus. She also has obesity, has a chronic back problems and has had a previous unremarkable cardiac cath per patient and does not recall when her last cardiac cath was. She used to see Dr. Anibal Martinez in the outpatient setting and now sees Dr. Stearns. She apparently also had ablation performed in November 2016 for atrial flutter. She had a ablation of atrial flutter in November 2016. She has no history of atrial fibrillation. She carried a diagnosis of paroxysmal SVT, which turned out to be atrial flutter. She is a reasonably active lady and started for the last 3 days having chest pressure with mild activity and at rest. She had 3 episodes, last 1 was at 4:00 am this morning and she came to the emergency room. In the emergency room, she had mild discomfort which relieved very quickly and she is completely pain-free, resting comfortably. Her initial troponin is 0.28 suggestive of a non-ST elevation HI. She is resting comfortably without symptoms at the time of my evaluation. PAST MEDICAL HISTORY: The patient has no documented evidence of any obstructive CAD. According to her, she had a cardiac cath that was performed in the past, but she did not have any obstructive disease. The cath was probably in 2007 with minimal CAD. She also has type 2 diabetes. She has hypertension and hyperlipidemia. She has SVT/atrial flutter and underwent a flutter ablation November 2006 with good results. She also has history of back problems and underwent back surgery. The details of which are not available at the time of my evaluation. The patient also had a cholecystectomy, tonsillectomy and hysterectomy. MEDICATIONS: At home include aspirin 81 mg daily, ibuprofen, metformin 850 mg t.i.d., Norvasc 2.5 mg b.i.d., atenolol 25 mg daily. She also takes Synthroid 50 mcg daily, Amaryl 4 mg b.i.d., pravastatin 20 mg daily, lisinopril 5 mg daily, Januvia 100 mg daily, omeprazole 20 mg daily. ALLERGIES: None. REVIEW OF SYSTEMS: Unremarkable other than above-mentioned facts. PHYSICAL EXAMINATION: Blood pressure is elevated at 150/100, pulse rate is about 90 per minute, regular. HEENT unremarkable. Fundus was not examined by me. Neck is supple. There is no JVD. I do not hear a carotid bruit. There is no thyromegaly., Heart exam reveals S1, S2 heard normally. No significant murmurs. Lungs are clear. ABDOMEN: Soft. LOWER EXTREMITIES reveal diminished but palpable pulses. No edema. Central nervous system is normal. EKG revealed a sinus mechanism with a precordial ST and T-wave abnormalities suggestive of ischemia with isolated PVCs. LAB DATA: Suggests the troponin is 0.284. Magnesium is low at 1.6. IMPRESSION: 1. Non ST elevation myocardial infarction without chest pain at the time of my evaluation. The patient is hemodynamically stable. 2. Type 2 diabetes mellitus. 3. Hypertension. 4. Hyperlipidemia. 5. History of chronic back pain with previous back surgery. 6. History of atrial flutter status post ablation in 2017. RECOMMENDATIONS: I am recommending that we continue IV heparin. I will add Lopressor 50 mg b.i.d. and Norvasc 5 mg daily. Additionally, we will place her on nitroglycerin drip, send her to the ICU and watch her closely. If she has any symptoms, we will study of sooner. Otherwise, she is scheduled at 7:30 am for a cardiac cath. The rationale, risks, benefits, options related to cardiac cath were explained. Patient understands all details and wishes to proceed with the procedure. LOTTIE / KARINN: [id number] /
[2018-08-02 05:39] LABS: Basophils # (A) 0.1 k/uL (0-0.2); Basophils % (A) 0 %; Eosinophils # (A) 0.2 k/uL (0-0.7); Eosinophils % (A) 2 %; HCT 33.6 % (34.0-46.0); HGB 10.5 gm/dL (11.4-16.0); Lymphocytes # (A) 4.7 k/uL (1.0-4.8); Lymphocytes % (A) 41 %; MCH 25.6 pg (25.0-35.0); MCHC 31.3 g/dL (31.0-37.0); Mean Platelet Volume 8.1; Monocytes # (A) 0.4 k/uL (0-1.0); Monocytes % (A) 4 %; Neutrophils % (A) 51 %; Platelet Count 264 k/uL (150-450); RBC 4.09 m/uL (3.80-5.40); RDW 14.8 % (11.5-15.5); WBC 11.7 k/uL (3.8-10.6)
[2018-08-02 05:51] LABS: Calcium 9.6 mg/dL (8.4-10.2); Magnesium 1.9 mg/dL (1.6-2.3); Potassium 4.5 mmol/L (3.5-5.1)
[2018-08-02] MEDS ORDERED: SODIUM CHLORIDE 0.9% 1,000 ML in EMPTY BAG 1 BAG IV ONE (06:00)
[2018-08-02] MEDS ORDERED: ASPIRIN 325 MG TAB PO ONE (06:00)
[2018-08-02] MEDS ORDERED: ATORVASTATIN 80 MG TAB PO ONE (06:00)
[2018-08-02] MEDS: LABETALOL 100 MG TAB PO SCH (06:38)
[2018-08-02] MEDS: MAGNESIUM SULFATE-D5W PMX 1 GM in DEXTROSE/WATER 1 100ML.BAG IVPB SCH ×2 (06:38→10:31)
[2018-08-02] MEDS: PANTOPRAZOLE 40 MG TABLET PO SCH (06:40)
[2018-08-02] MEDS: METOPROLOL TARTRATE 50 MG TAB PO SCH ×2 (06:40→21:35)
[2018-08-02] MEDS: LEVOTHYROXINE 50 MCG TAB PO SCH (06:40)
[2018-08-02] MEDS: INSULIN ASPART (NovoLOG) 100 UNIT/ML VIAL SQ SCH ×4 (06:56→21:42)
[2018-08-02 07:06] LABS: Glucose,Whole Blood 128 mg/dL (75-99)
[2018-08-02] MEDS ORDERED: IV FLUID CONTINUATION 500 ML IV ONE (07:28)
[2018-08-02] MEDS ORDERED: SODIUM CHLORIDE 0.9% 250 ML IV ONE (07:28)
[2018-08-02] MEDS ORDERED: VERAPAMIL 2.5 MG/ML 2 ML AMP ONE ×2 (07:40→08:13)
[2018-08-02] MEDS ORDERED: LIDOCAINE 1% INJ 10MG/ML (20 ML MDV) ONE (07:40)
[2018-08-02] MEDS ORDERED: HYDROmorphone 1 MG/ML 1 ML SYRINGE ONE ×2 (07:46→08:47)
[2018-08-02] MEDS ORDERED: HEPARIN SODIUM 1,000 UN/ML (10ML VL) ONE (07:50)
[2018-08-02] MEDS ORDERED: MIDAZOLAM (PF) 2 MG/2 ML VIAL IV ONE (07:52)
[2018-08-02] MEDS ORDERED: LIDOCAINE 1% INJ 10MG/ML (20 ML MDV) SQ ONE (07:53)
[2018-08-02] MEDS: HYDROmorphone 1 MG/ML 1 ML SYRINGE IVP ONE ×2 (07:56→08:15)
[2018-08-02] MEDS: VERAPAMIL SYRINGE (5 MG/10 ML) INTRAARTER ONE ×4 (07:59→08:42)
[2018-08-02] MEDS ORDERED: HEPARIN SODIUM 1,000 UN/ML (10ML VL) IV ONE (08:11)
[2018-08-02] MEDS ORDERED: BIVALIRUDIN BOLUS 250 MG/50 ML IV ONE (08:15)
[2018-08-02] MEDS ORDERED: BIVALIRUDIN 250 MG in SODIUM CHLORIDE 0.9% 50 ML IV ONE (08:16)
[2018-08-02] MEDS ORDERED: NITROGLYCERIN 1000MCG/10ML SYRINGE INTRACORON ONE (08:28)
[2018-08-02] MEDS ORDERED: IOPAMIDOL-370 100ML BTL INJ ONE ×2 (08:35)
[2018-08-02] MEDS ORDERED: PRASUGREL 10 MG TAB ONE (08:38)
[2018-08-02] MEDS ORDERED: PRASUGREL 10 MG TAB PO ONE (08:44)
[2018-08-02] MEDS ORDERED: NITROGLYCERIN SL TABS 0.4 MG TAB SUBLINGUAL PRN (08:49)
[2018-08-02] MEDS ORDERED: RX INFO: IV CONTRAST WAS GIVEN 1 EACH MISC MISCELLANE PRN (08:49)
[2018-08-02] MEDS ORDERED: ATROPINE SULFATE 0.1 MG/ML 10ML SYRINGE IV PRN (08:49)
[2018-08-02] MEDS ORDERED: MAG HYDROX/AL HYDROX/SIMETH 30 ML CUP PO PRN (08:49)
[2018-08-02] MEDS ORDERED: ZOLPIDEM 5 MG TAB PO PRN (08:49)
[2018-08-02] MEDS ORDERED: amLODIPine 5 MG TAB PO SCH (09:00)
[2018-08-02] MEDS ORDERED: ASPIRIN 325 MG TAB PO SCH (09:00)
--- NOTE | 2018-08-02 09:21 | P.PN ---
Subjective Progress Note Date: 08/02/18 Principal diagnosis: Acute non-ST elevated myocardial infarction this is a 62-year-old female with history of multiple medical problems including hypertension, type 2 diabetes, smoker, dyslipidemia, strong family history of coronary artery disease, obesity, patient presented to the hospital today with recurrent episodes of substernal chest pain with radiation to both arms. Her initial episode was about 2 weeks ago, however her episodes have been coming back intermittently lasting anywhere between 20-30 minutes. Her pains are described as chest tightness with burning sensation across the chest has been quite severe over the last 3 days. No specific trigger factor for her symptoms and no specific relieving factor to her symptoms. Patienthad abnormal EKG on admission showing T-wave inversion in V1 to V6, there was also evidence of elevated troponin. Upon arrival to the ER, patient was placed on heparin and on nitroglycerin drip. Cardiology was consulted, and the patient was scheduled to undergo cardiac catheterization specialist field engineer tomorrow. In the meantime the patient was admitted to the ICU, and this consult was initiated. During my evaluation, the patient had some vague chest discomfort, pain was reproducible, she had no anginal symptoms no diaphoresis, and no radiation of pain. And she was hemodynamically stable. And she had no specific concerning complaints. On 08/02/2018 patient seen in follow-up in intensive care unit, she is awake and alert, she is on room air, with a O2 sat of 93%, afebrile, hemodynamically stable, she was admitted on 08/01/2018 with complaints of chest pain, she was ruled in for non-ST elevated myocardial infarction. Troponins were elevated, at 0.284, 0.247, 0.147, and 0.122, blood work for today has been reviewed, white blood cell count is 11.7, hemoglobin is 10.5, electrolytes are within normal limits, BUN is 23, creatinine is 1.0. Patient has no history of chronic artery disease, last catheterization was in 2007 with minimal CAD, she does have the risk factors in the form of type 2 diabetes, hypertension, hyperlipidemia. Patient 's been evaluated by cardiology, and is scheduled for cardiac catheterization this morning. These include 0.9 normal saline at a rate of 75 ML per hour, nitroglycerin at 10 mics per minute. Objective - Vital Signs Vital signs: Vital Signs Temp 98.0 F 08/02/18 04:00 Pulse 70 08/02/18 06:00 Resp 12 08/02/18 06:00 BP 125/74 08/02/18 06:00 Pulse Ox 93 L 08/02/18 06:00 Intake & Output 08/01/18 08/02/18 08/02/18 18:59 06:59 18:59 Intake Total 175 1823.956 275 Output Total 175 1100 Balance 0 723.956 275 Weight 92.986 kg 95.2 kg Intake: IV 175 1033 275 Magnesium Sulfate-D5w Pmx 100 100 1 gm In Dextrose/Water 1 100ml.bag @ 100 mls/hr IVPB ONCE ONE Rx#: [id number] Nitroglycerin-D5w Pmx 50 33 mg In Dextrose/Water 1 250ml.bag @ 10 MCG/MIN 3 mls/hr IV .Q24H ERICA Rx#: [id number] Sodium Chloride 0.9% 1, 75 900 000 ml @ 75 mls/hr IV . [id number] STA Rx#:[id number] Intake, IV Titration 190.956 Amount Heparin Sod,Pork in 0.45% 190.956 NaCl 25,000 unit In 0.45 % NaCl 1 250ml.bag @ 10. 75 UNITS/KG/HR 9.996 mls/ hr IV .Q24H ERICA Rx#: [id number] Oral 600 Output: Urine 175 1100 Other: Voiding Method Bedside Commode Bedside Commode # Bowel Movements 1 - Exam GENERAL EXAM: Alert, pleasant, 62-year-old white female on room air comfortable in no apparent distress. HEAD: Normocephalic/atraumatic. EYES: Normal reaction of pupils, equal size. Conjunctiva pink, sclera white. NOSE: Clear with pink turbinates. THROAT: No erythema or exudates. NECK: No masses, no JVD, no thyroid enlargement, no adenopathy. CHEST: No chest wall deformity. Symmetrical expansion. LUNGS: Equal air entry with no crackles, wheeze, rhonchi or dullness. CVS: Regular rate and rhythm, normal S1 and S2, no gallops, no murmurs, no rubs ABDOMEN: Soft, nontender. No hepatosplenomegaly, normal bowel sounds, no guarding or rigidity. EXTREMITIES: No clubbing, no edema, no cyanosis, 2+ pulses and upper and lower extremities. MUSCULOSKELETAL: Muscle strength and tone normal. SPINE: No scoliosis or deformity SKIN: No rashes CENTRAL NERVOUS SYSTEM: Alert and oriented -3. No focal deficits, tone is normal in all 4 extremities. PSYCHIATRIC: Alert and oriented -3. Appropriate affect. Intact judgment and insight. - Labs CBC & Chem 7: 08/02/18 05:08 08/02/18 05:08 Labs: Abnormal Lab Results - Last 24 Hours (Table) 08/01/18 08/01/18 08/01/18 Range/Units 12:08 12:08 12:08 WBC 15.5 H (3.8-10.6) k/uL Hgb (11.4-16.0) gm/dL Hct (34.0-46.0) % Neutrophils # 10.7 H (1.3-7.7) k/uL APTT (22.0-30.0) sec BUN 23 H (7-17) mg/dL Glucose 170 H (74-99) mg/dL POC Glucose (mg/dL) (75-99) mg/dL Troponin I 0.284 H* (0.000-0.034) ng/mL Triglycerides (<150) mg/dL HDL Cholesterol (40-60) mg/dL Urine Protein (Negative) Urine Blood (Negative) 08/01/18 08/01/18 08/01/18 Range/Units 14:16 16:58 18:50 WBC (3.8-10.6) k/uL Hgb (11.4-16.0) gm/dL Hct (34.0-46.0) % Neutrophils # (1.3-7.7) k/uL APTT 31.9 H (22.0-30.0) sec BUN (7-17) mg/dL Glucose (74-99) mg/dL POC Glucose (mg/dL) 104 H (75-99) mg/dL Troponin I (0.000-0.034) ng/mL Triglycerides (<150) mg/dL HDL Cholesterol (40-60) mg/dL Urine Protein 3+ H (Negative) Urine Blood Trace H (Negative) 08/01/18 08/02/18 08/02/18 Range/Units 18:50 01:04 01:04 WBC (3.8-10.6) k/uL Hgb (11.4-16.0) gm/dL Hct (34.0-46.0) % Neutrophils # (1.3-7.7) k/uL APTT 38.1 H (22.0-30.0) sec BUN (7-17) mg/dL Glucose (74-99) mg/dL POC Glucose (mg/dL) (75-99) mg/dL Troponin I 0.247 H* 0.147 H* (0.000-0.034) ng/mL Triglycerides (<150) mg/dL HDL Cholesterol (40-60) mg/dL Urine Protein (Negative) Urine Blood (Negative) 08/02/18 08/02/18 08/02/18 Range/Units 05:08 05:08 05:08 WBC 11.7 H (3.8-10.6) k/uL Hgb 10.5 L (11.4-16.0) gm/dL Hct 33.6 L (34.0-46.0) % Neutrophils # (1.3-7.7) k/uL APTT (22.0-30.0) sec BUN 23 H (7-17) mg/dL Glucose 124 H (74-99) mg/dL POC Glucose (mg/dL) (75-99) mg/dL Troponin I 0.122 H* (0.000-0.034) ng/mL Triglycerides 254 H (<150) mg/dL HDL Cholesterol 35 L (40-60) mg/dL Urine Protein (Negative) Urine Blood (Negative) 08/02/18 Range/Units 06:53 WBC (3.8-10.6) k/uL Hgb (11.4-16.0) gm/dL Hct (34.0-46.0) % Neutrophils # (1.3-7.7) k/uL APTT (22.0-30.0) sec BUN (7-17) mg/dL Glucose (74-99) mg/dL POC Glucose (mg/dL) 128 H (75-99) mg/dL Troponin I (0.000-0.034) ng/mL Triglycerides (<150) mg/dL HDL Cholesterol (40-60) mg/dL Urine Protein (Negative) Urine Blood (Negative) Assessment and Plan Plan: Assessment: 1acute non-ST elevation myocardial infarction 2 benign essential hypertension 3 type 2 diabetes 4 tobacco dependence syndrome, supposedly quit recently. 5 dyslipidemia 6 strong family history of coronary artery disease 7 suspect some component of COPD presently inactive 8 diabetic neuropathy 9 history of hypothyroidism 10 chronic disability secondary to chronic low back pain and herniated disc 11 fibromyalgia. Plan: Patient is going for cardiac catheterization this morning, was dynamically sta ble, she is on nitroglycerin drip. Denies any shortness of breath, maintaining oxygenation on room air, vital signs are stable. We will continue to follow, with further recommendations from cardiology. I performed a history & physical examination of the patient and discussed their management with my nurse practitioner, Danya Wilburn. I reviewed the nurse practitioner's note and agree with the documented findings and plan of care. Lung sounds are positive for clear lung sounds. The findings and the impression was discussed with the patient. I attest to the documentation by the nurse pr actitioner. Time with Patient: Less than 30
[2018-08-02] MEDS: SODIUM CHLORIDE 0.9% 1,000 ML IV SCH ×2 (10:23→23:56)
[2018-08-02 11:56] VITALS: BMI 34.9
[2018-08-02 12:02] LABS: Glucose,Whole Blood 149 mg/dL (75-99)
--- NOTE | 2018-08-02 12:08 | CC ---
CARDIAC CATHETERIZATION REPORT DATE OF SERVICE: 08/02/2018 PROCEDURE: 1. Left heart catheterization, coronary angiography and left ventriculography. 2. PTCA and stenting of mid LAD with a drug-eluting stent. PERFORMED BY: Dr. Jazmyn Martinez Moderate conscious sedation time was 47 minutes. Patient was administered Versed, Dilaudid, and oxygen saturation hemodynamics and EKG were monitored closely. CLINICAL INFORMATION: Mrs. Jane Edwards is a 62-year-old lady with type 2 diabetes, hypertension, hyperlipidemia, previous back surgery, came into the hospital with chest pain that was probably going on for nearly 2-3 weeks according to her. The pain progressively worsened and culminated into a prolonged episode of chest pain on 3 occasions, last one at 4:00 am yesterday and she came into the hospital. She had a troponin elevation and precordial ST a T-wave inversion. She was placed on intravenous heparin and nitroglycerin drip and through the night she did not have any further chest pain. The troponin actually showed a downward trend suggesting that she may have infarcted 36 hours prior to arrival. She was advised coronary angiography. Risks, benefits, options, rationale were explained. She was brought in for the procedure this morning. PROCEDURE NOTE: Under local anesthesia and strict aseptic precautions, a 6-[place]inean introducer was placed in the right radial artery. There was a lot of spasm and I gave substantial amounts of verapamil. Using Ultimata 1 catheter I performed selective coronary angiography of the left system. The same catheter was used to check our right coronary artery as well. I have proceeded to perform intervention of the LAD because of a significant 99% mid lesion. Following the PCI procedure I used a pigtail catheter and checked LV pressures and performed an LV-gram in a 30 degree BECKMAN projection. The sheath was taken out and TR band applied as per protocol with good hemostasis and saturation in the fingers of the right hand was 93%. The patient received Angiomax bolus and infusion as per protocol and she also received 60 mg of Effient of Effient. Excellent angiographic result was achieved. CARDIAC CATHETERIZATION FINDINGS: The left ventricle end-diastolic pressure was 16 mmHg without any gradient across aortic valve. LEFT VENTRICULOGRAM: This was performed in 30 degree BECKMAN projection performed in 30 degree BECKMAN projection and study revealed left ventricle which is of normal size with anteroapical and inferoapical hypokinesia. Estimated ejection fraction of about 35% to 40% by visual inspection. There is no mitral regurgitation. CORONARY ARTERY: Short patent vessel free of significant disease that bifurcates into LAD and circumflex. LEFT ANTERIOR DESCENDING CORONARY ARTERY: Good caliber vessel extends along the anterior wall, gives off small septal and diagonal branches and in the midportion there is a 99% narrowing which is the culprit lesion beyond the narrowed segment. There is haziness and then the caliber improves and vessel runs all the way to the apex to supply the inferoapical portion of left ventricle. The LAD therefore has a long area of disease segment with haziness but 1 focal area of 99% stenosis. LEFT POSTERIOR CIRCUMFLEX CORONARY ARTERY: Technically nondominant vessel gives off a single large obtuse marginal that runs laterally has minor irregularities of 20-30 percent. No significant disease. There is another small posterolateral branch that has diffuse disease. RIGHT CORONARY ARTERY: This was performed in is a dominant vessel has no significant disease. Its origin course earlier correction is no significant disease. Its origin. The proximal and midportion is free of significant disease and distally bifurcates into PDA and PLV, both of which supply a fair amount of myocardium. There are minor irregularities in the dominant RCA, but no significant disease. FINAL IMPRESSION: This patient has a 99% mid LAD lesion. Filling pressures are mildly elevated. There is a ejection fraction of about 35% to 40% with anteroapical and inferoapical hypokinesia. The dominant RCA and circumflex are free of significant disease. RECOMMENDATION: I recommended PCI of LAD and perform this in the same setting. I used a JL3.5 guide catheter of 6-[place]inean caliber to cannulate left coronary artery. I had to use additional verapamil with a Glidewire to the to a go through the spastic radial artery. A run-through wire was used to cross the lesion. A 2.5 caliber 12 mm NC Trek balloon was used to pre-dilate the lesion. The lesion appeared to be longer than I initially thought. There was some haziness distal to the lesion as well. I deployed a 23 mm long to 23 mm long 3.0 caliber Xience stent at 14 atmospheres. Patient had chest pain and mild ST elevation in the precordial leads where there was already some T-wave inversion. Excellent angiographic result was achieved without complication. The sheath was taken out and TR band applied as per protocol. The patient was sent to the room in a stable condition. Results were discussed with the patient but her daughter is not available by phone. Excellent angiographic result without complication was achieved. I expect the patient will be discharged the next 48- 72 hours. LOTTIE / ARAM: [id number] /
[2018-08-02 12:23] LABS: T4, Free (Free Thyroxine) 1.27 ng/dL (0.78-2.19)
--- NOTE | 2018-08-02 12:38 | PN ---
PROGRESS NOTE Mrs. Edwards had a non-ST elevation PR but the troponin profile suggests that there is a continued decrease suggesting her infarction was at least 36 hours prior to hospitalization. She had chest pain and had headache with nitroglycerin, but she is hemodynamically stable, doing well. Plan to proceed with coronary angiography and PCI today. Her vital signs are stable. S1-S2 heard normally. Lungs are clear. Abdomen and lower extremity exam is unchanged. MMODL / IJN: [id number] /
--- NOTE | 2018-08-02 13:11 | ECHOF ---
Referral Reason:nstemi MEASUREMENTS -------- HEIGHT: 165.1 cm WEIGHT: 94.8 kg BP: RVIDd: 1.4 cm (< 3.3) IVSd: 1.2 cm (0.6 - 1.1) LVIDd: 4.5 cm (3.9 - 5.3) LVPWd: 1.3 cm (0.6 - 1.1) IVSs: 1.6 cm LVIDs: 3.6 cm LVPWs: 1.1 cm LAESV Index (A-L): 26.97 ml/m Ao Diam: 2.5 cm (2.0 - 3.7) AV Cusp: 1.1 cm (1.5 - 2.6) LA Diam: 3.1 cm (2.7 - 3.8) MV EXCURSION: 14.577 mm (> 18.000) MV EF SLOPE: 53 mm/s (70 - 150) EPSS: 0.5 cm MV E John: 0.63 m/s MV DecT: 238 ms MV A John: 0.98 m/s MV E/A Ratio: 0.64 AV maxP.72 mmHg AV meanP.87 mmHg RAP: 5.00 mmHg RVSP: 22.55 mmHg FINDINGS -------- Sinus rhythm. This was a technically good study. The left ventricular size is normal. There is mild concentric left ventricular hypertrophy. Overa ll left ventricular systolic function is moderately impaired with, an EF between 35 - 40 %. Mid ant erior LV wall motion is hypokinetic. Mid anteroseptal LV wall motion is hypokinetic. Apical ant erior LV wall motion is hypokinetic. Apical lateral LV wall motion is hypokinetic. Apical septu m LV wall motion is hypokinetic. The right ventricle is normal in size. Normal LA size by volume 22+/-6 ml/m2. The right atrial size is normal. Interatrial and interventricular septum intact. Aortic valve is trileaflet and is mildly thickened. There is mild aortic stenosis present. Peak/m len gradient across the Aortic Valve is 20.72mmHg / 9.87mmHg. The mitral valve is normal. Mild mitral regurgitation is present. Mild tricuspid regurgitation present. Right ventricular systolic pressure is normal at < 35 mmHg. There is no pulmonic regurgitation present. The aortic root size is normal. Normal inferior vena cava with normal inspiratory collapse consistent with estimated right atrial pre ssure of 5 mmHg. There is a small, generalized pericardial effusion present. CONCLUSIONS -------- 1. Sinus rhythm. 2. This was a technically good study. 3. The left ventricular size is normal. 4. There is mild concentric left ventricular hypertrophy. 5. Overall left ventricular systolic function is moderately impaired with, an EF between 35 - 40 %. 6. Mid anterior LV wall motion is hypokinetic. 7. Mid anteroseptal LV wall motion is hypokinetic. 8. Apical anterior LV wall motion is hypokinetic. 9. Apical lateral LV wall motion is hypokinetic. 10. Apical septum LV wall motion is hypokinetic. 11. Normal LA size by volume 22+/-6 ml/m2. 12. Aortic valve is trileaflet and is mildly thickened. 13. There is mild aortic stenosis present. 14. Peak/mean gradient across the Aortic Valve is 20.72mmHg / 9.87mmHg. 15. The mitral valve is normal. 16. Mild mitral regurgitation is present. 17. Mild tricuspid regurgitation present. 18. Right ventricular systolic pressure is normal at < 35 mmHg. 19. There is no pulmonic regurgitation present. 20. The aortic root size is normal. 21. Normal inferior vena cava with normal inspiratory collapse consistent with estimated right atrial pressure of 5 mmHg. 22. There is a small, generalized pericardial effusion present. WIRE STRIPPER: Mai Tolentino [facility]
[2018-08-02 14:38] LABS: Hemoglobin A1C 6.6 % (4.0-6.0)
[2018-08-02] MEDS: ACETAMINOPHEN TAB 325 MG TAB PO PRN ×2 (14:58→21:38)
[2018-08-02 17:06] LABS: Glucose,Whole Blood 121 mg/dL (75-99)
--- NOTE | 2018-08-02 18:26 | P.PN ---
Subjective Ms. Edwards is a 52-year-old female , who follows with Dr. Cabello in an outpatient setting, with a past medical history of hypertension, diabetes, COPD, fibromyalgia, hyperlipidemia, thyroid disorder, coming into the hospital with a chief complaint of chest pain. Patient states that she has been having chest tightness like a burning sensation running across her chest for the past 3 days. She states that sensation goes to both of her hands. She mentions that mostly her left arm and forearm have been feeling heavy. Patient was also having sweating and she starts having this chest pains. She also reports metallic taste in her mouth and nausea. But she did not throw up. Patient denies having any lower extremity swelling. She reports mild difficulty in breathing when she has this chest tightness. Patient denies having any orthopnea or PND .Patient denies having any cough. No fevers chills or rigors. No complaints of burning micturition or blood in her urine. No abdominal pain nausea vomiting or diarrhea. No constipation. Patient is a former smoker smokes for almost 40 years half to 1 pack a day. She quit smoking 2 months back. She mentions that her mother and mother's sister have coronary artery disease. Patient's diabetes is controlled with a hemoglobin A1c of 7.5.She also reports having chronic low back pain. Patient denies having any headaches and stiffness or blurring of vision. No weakness of her extremities. 08/02/2018 pt is admitted with chest pain ,she is status post cardiac cath with stent placement . she is still in icu , fully awake and oriented, no chest pain and she feels better . Objective - Vital Signs Vital signs: Vital Signs Temp 97.5 F L 08/02/18 16:00 Pulse 77 08/02/18 17:00 Resp 9 L 08/02/18 17:00 BP 118/71 08/02/18 17:00 Pulse Ox 97 08/02/18 15:00 Intake & Output 08/01/18 08/02/18 08/02/18 18:59 06:59 18:59 Intake Total 175 2001.335 9459.5 Output Total 175 1100 200 Balance 0 003.940 3126.5 Weight 92.986 kg 95.2 kg 95.2 kg Intake: IV 175 1033 1208.5 Magnesium Sulfate-D5w Pmx 100 100 1 gm In Dextrose/Water 1 100ml.bag @ 100 mls/hr IVPB ONCE ONE Rx#: [id number] Nitroglycerin-D5w Pmx 50 33 mg In Dextrose/Water 1 250ml.bag @ 10 MCG/MIN 3 mls/hr IV .Q24H ERICA Rx#: [id number] Sodium Chloride 0.9% 1, 75 900 900 000 ml @ 75 mls/hr IV . [id number] STA Rx#:[id number] Intake, IV Titration 190.956 Amount Heparin Sod,Pork in 0.45% 190.956 NaCl 25,000 unit In 0.45 % NaCl 1 250ml.bag @ 10. 75 UNITS/KG/HR 9.996 mls/ hr IV .Q24H ERICA Rx#: [id number] Oral 600 Output: Urine 175 1100 200 Other: Voiding Method Bedside Commode Bedside Commode Bedside Commode # Voids 2 # Bowel Movements 1 1 - Exam HEENT: Head is atraumatic, normocephalic. Pupils equal, round. Neck is supple. There is no elevated jugular venous pressure. HEART EXAMINATION: Heart S1-S2, no murmur is heard CHEST EXAMINATION: Lungs reveal no expiratory wheezes throughout otherwise essentially clear. ABDOMEN: Soft, nontender. Bowel sounds are heard. No organomegaly noted. EXTREMITIES: 2+ peripheral pulses with no evidence of peripheral edema and no calf tenderness noted. NEUROLOGIC patient is awake, alert and oriented -3. - Labs CBC & Chem 7: 08/02/18 05:08 08/02/18 05:08 Labs: Abnormal Lab Results - Last 24 Hours (Table) 08/01/18 08/01/18 08/02/18 Range/Units 18:50 18:50 01:04 WBC (3.8-10.6) k/uL Hgb (11.4-16.0) gm/dL Hct (34.0-46.0) % APTT 31.9 H (22.0-30.0) sec BUN (7-17) mg/dL Glucose (74-99) mg/dL POC Glucose (mg/dL) (75-99) mg/dL Hemoglobin A1c (4.0-6.0) % Troponin I 0.247 H* 0.147 H* (0.000-0.034) ng/mL Triglycerides (<150) mg/dL HDL Cholesterol (40-60) mg/dL TSH (0.465-4.680) mIU/L 08/02/18 08/02/18 08/02/18 Range/Units 01:04 05:08 05:08 WBC (3.8-10.6) k/uL Hgb (11.4-16.0) gm/dL Hct (34.0-46.0) % APTT 38.1 H (22.0-30.0) sec BUN 23 H (7-17) mg/dL Glucose 124 H (74-99) mg/dL POC Glucose (mg/dL) (75-99) mg/dL Hemoglobin A1c 6.6 H (4.0-6.0) % Troponin I (0.000-0.034) ng/mL Triglycerides 254 H (<150) mg/dL HDL Cholesterol 35 L (40-60) mg/dL TSH (0.465-4.680) mIU/L 08/02/18 08/02/18 08/02/18 Range/Units 05:08 05:08 06:53 WBC 11.7 H (3.8-10.6) k/uL Hgb 10.5 L (11.4-16.0) gm/dL Hct 33.6 L (34.0-46.0) % APTT (22.0-30.0) sec BUN (7-17) mg/dL Glucose (74-99) mg/dL POC Glucose (mg/dL) 128 H (75-99) mg/dL Hemoglobin A1c (4.0-6.0) % Troponin I 0.122 H* (0.000-0.034) ng/mL Triglycerides (<150) mg/dL HDL Cholesterol (40-60) mg/dL TSH (0.465-4.680) mIU/L 08/02/18 08/02/18 08/02/18 Range/Units 10:36 10:36 12:00 WBC (3.8-10.6) k/uL Hgb (11.4-16.0) gm/dL Hct (34.0-46.0) % APTT 57.4 H (22.0-30.0) sec BUN (7-17) mg/dL Glucose (74-99) mg/dL POC Glucose (mg/dL) 149 H (75-99) mg/dL Hemoglobin A1c (4.0-6.0) % Troponin I (0.000-0.034) ng/mL Triglycerides (<150) mg/dL HDL Cholesterol (40-60) mg/dL TSH 9.220 H (0.465-4.680) mIU/L 08/02/18 Range/Units 17:03 WBC (3.8-10.6) k/uL Hgb (11.4-16.0) gm/dL Hct (34.0-46.0) % APTT (22.0-30.0) sec BUN (7-17) mg/dL Glucose (74-99) mg/dL POC Glucose (mg/dL) 121 H (75-99) mg/dL Hemoglobin A1c (4.0-6.0) % Troponin I (0.000-0.034) ng/mL Triglycerides (<150) mg/dL HDL Cholesterol (40-60) mg/dL TSH (0.465-4.680) mIU/L Assessment and Plan Assessment: Non-ST elevation PA Type 2 diabetes mellitus Hypertension Fibromyalgia Hyperlipidemia Chronic low back pain with herniated discs Diabetic neuropathy History of migraine headaches Hypothyroidism GERD Asthma/COPD Stroke/TIA Patient s/p cardiac cath and stent placement. Cardiology on board and patient is currently in the ICU. pt is on asa and plavix Rest of the home medications reconciled. Further recommendations depending on the progress of the patient. The treatment plan was discussed in detail with the patient at bedside today.gi and dvt px
[2018-08-02] MEDS: NITROGLYCERIN-D5W PMX 50 MG in DEXTROSE/WATER 1 250ML.BAG IV SCH (19:36)
[2018-08-02 20:53] LABS: Glucose,Whole Blood 164 mg/dL (75-99)
[2018-08-02] MEDS: LOSARTAN 50 MG TAB PO SCH (21:35)
[2018-08-02] MEDS: ATORVASTATIN 80 MG TAB PO SCH (21:35)
[2018-08-02] MEDS: MELATONIN 5 MG TABLET PO SCH (21:35)
[2018-08-02] MEDS: DIAZEPAM 5 MG TAB PO PRN (21:35)
[2018-08-03 05:35] LABS: Basophils # (A) 0.1 k/uL (0-0.2); Basophils % (A) 1 %; Eosinophils # (A) 0.2 k/uL (0-0.7); Eosinophils % (A) 2 %; HCT 34.4 % (34.0-46.0); HGB 10.3 gm/dL (11.4-16.0); Lymphocytes # (A) 4.1 k/uL (1.0-4.8); Lymphocytes % (A) 40 %; MCH 24.6 pg (25.0-35.0); MCV 82.1 fL (80.0-100.0); Mean Platelet Volume 7.6; Monocytes # (A) 0.4 k/uL (0-1.0); Monocytes % (A) 4 %; Neutrophils # (A) 5.3 k/uL (1.3-7.7); Neutrophils % (A) 52 %; Platelet Count 266 k/uL (150-450); RBC 4.19 m/uL (3.80-5.40); RDW 14.8 % (11.5-15.5); WBC 10.3 k/uL (3.8-10.6)
[2018-08-03 05:50] LABS: Calcium 9.6 mg/dL (8.4-10.2); Magnesium 1.9 mg/dL (1.6-2.3); Potassium 4.2 mmol/L (3.5-5.1)
[2018-08-03 06:34] LABS: Glucose,Whole Blood 147 mg/dL (75-99)
[2018-08-03] MEDS: INSULIN ASPART (NovoLOG) 100 UNIT/ML VIAL SQ SCH ×4 (06:38→20:48)
--- NOTE | 2018-08-03 08:54 | P.PN ---
Subjective Progress Note Date: 08/03/18 Principal diagnosis: Acute non-ST elevated myocardial infarction this is a 62-year-old female with history of multiple medical problems including hypertension, type 2 diabetes, smoker, dyslipidemia, strong family history of coronary artery disease, obesity, patient presented to the hospital today with recurrent episodes of substernal chest pain with radiation to both arms. Her initial episode was about 2 weeks ago, however her episodes have been coming back intermittently lasting anywhere between 20-30 minutes. Her pains are described as chest tightness with burning sensation across the chest has been quite severe over the last 3 days. No specific trigger factor for her symptoms and no specific relieving factor to her symptoms. Patienthad abnormal EKG on admission showing T-wave inversion in V1 to V6, there was also evidence of elevated troponin. Upon arrival to the ER, patient was placed on heparin and on nitroglycerin drip. Cardiology was consulted, and the patient was scheduled to undergo cardiac catheterization master plumber tomorrow. In the meantime the patient was admitted to the ICU, and this consult was initiated. During my evaluation, the patient had some vague chest discomfort, pain was reproducible, she had no anginal symptoms no diaphoresis, and no radiation of pain. And she was hemodynamically stable. And she had no specific concerning complaints. On 08/02/2018 patient seen in follow-up in intensive care unit, she is awake and alert, she is on room air, with a O2 sat of 93%, afebrile, hemodynamically stable, she was admitted on 08/01/2018 with complaints of chest pain, she was ruled in for non-ST elevated myocardial infarction. Troponins were elevated, at 0.284, 0.247, 0.147, and 0.122, blood work for today has been reviewed, white blood cell count is 11.7, hemoglobin is 10.5, electrolytes are within normal limits, BUN is 23, creatinine is 1.0. Patient has no history of chronic artery disease, last catheterization was in 2007 with minimal CAD, she does have the risk factors in the form of type 2 diabetes, hypertension, hyperlipidemia. Patient 's been evaluated by cardiology, and is scheduled for cardiac catheterization this morning. These include 0.9 normal saline at a rate of 75 ML per hour, nitroglycerin at 10 mics per minute. On 08/03/2018 patient seen in follow-up in the intensive care unit, she is awake and alert, in no acute distress, denies any chest pain, denies any shortness of breath, patient is status post heart catheterization with PCI, and stent placement to the LAD. No ongoing chest pain, room air pulse ox is 94%, afebrile, hemodynamically stable. Lung sounds are clear. Patient's biggest complaint is discomfort in the right shoulder, right arm, states she does have history of fibromyalgia, and osteoarthritis. Will inquire with the primary care as far as pain management. Otherwise comfortable. Today's labs have been reviewed, showing white blood cell count 10.3, hemoglobin of 10.3, serum sodium is 142, potassium is 4.2, chloride is 110, CO2 is 23, B1 is 19, creatinine 0.93. Patient is on dual antiplatelet therapy, when the form of Plavix, and aspirin 81 mg daily. Objective - Vital Signs Vital signs: Vital Signs Temp 97.8 F 08/03/18 04:00 Pulse 70 08/03/18 07:00 Resp 13 08/03/18 07:00 BP 160/86 08/03/18 07:00 Pulse Ox 94 L 08/03/18 07:00 Intake & Output 08/02/18 08/03/18 08/03/18 18:59 06:59 18:59 Intake Total 1283.5 1140 75 Output Total 200 1850 Balance 1083.5 -710 75 Weight 95.2 kg 93.3 kg Intake: IV 1283.5 750 75 Sodium Chloride 0.9% 1, 75 75 000 ml @ 75 mls/hr IV . [id number] [facility] Rx#:[id number] Sodium Chloride 0.9% 1, 975 675 000 ml @ 75 mls/hr IV . [id number] [facility] Rx#:[id number] Intake, IV Titration 150 Amount Sodium Chloride 0.9% 1, 150 000 ml @ 75 mls/hr IV . [id number] [facility] Rx#:[id number] Oral 240 Output: Urine 200 1850 Other: Voiding Method Bedside Commode Bedside Commode # Voids 2 1 # Bowel Movements 1 - Exam GENERAL EXAM: Alert, pleasant, 62-year-old white female on room air comfortable in no apparent distress. HEAD: Normocephalic/atraumatic. EYES: Normal reaction of pupils, equal size. Conjunctiva pink, sclera white. NOSE: Clear with pink turbinates. THROAT: No erythema or exudates. NECK: No masses, no JVD, no thyroid enlargement, no adenopathy. CHEST: No chest wall deformity. Symmetrical expansion. LUNGS: Equal air entry with no crackles, wheeze, rhonchi or dullness. CVS: Regular rate and rhythm, normal S1 and S2, no gallops, no murmurs, no rubs ABDOMEN: Soft, nontender. No hepatosplenomegaly, normal bowel sounds, no guarding or rigidity. EXTREMITIES: No clubbing, no edema, no cyanosis, 2+ pulses and upper and lower extremities. MUSCULOSKELETAL: Muscle strength and tone normal. SPINE: No scoliosis or deformity SKIN: No rashes CENTRAL NERVOUS SYSTEM: Alert and oriented -3. No focal deficits, tone is normal in all 4 extremities. PSYCHIATRIC: Alert and oriented -3. Appropriate affect. Intact judgment and insight. - Labs CBC & Chem 7: 08/03/18 05:19 08/03/18 05:19 Labs: Abnormal Lab Results - Last 24 Hours (Table) 08/02/18 08/02/18 08/02/18 Range/Units 05:08 10:36 10:36 Hgb (11.4-16.0) gm/dL MCH (25.0-35.0) pg MCHC (31.0-37.0) g/dL APTT 57.4 H (22.0-30.0) sec Chloride (98-107) mmol/L BUN (7-17) mg/dL Glucose (74-99) mg/dL POC Glucose (mg/dL) (75-99) mg/dL Hemoglobin A1c 6.6 H (4.0-6.0) % TSH 9.220 H (0.465-4.680) mIU/L 08/02/18 08/02/18 08/02/18 Range/Units 12:00 17:03 20:50 Hgb (11.4-16.0) gm/dL MCH (25.0-35.0) pg MCHC (31.0-37.0) g/dL APTT (22.0-30.0) sec Chloride (98-107) mmol/L BUN (7-17) mg/dL Glucose (74-99) mg/dL POC Glucose (mg/dL) 149 H 121 H 164 H (75-99) mg/dL Hemoglobin A1c (4.0-6.0) % TSH (0.465-4.680) mIU/L 08/03/18 08/03/18 08/03/18 Range/Units 05:19 05:19 06:32 Hgb 10.3 L (11.4-16.0) gm/dL MCH 24.6 L (25.0-35.0) pg MCHC 30.0 L (31.0-37.0) g/dL APTT (22.0-30.0) sec Chloride 110 H (98-107) mmol/L BUN 19 H (7-17) mg/dL Glucose 123 H (74-99) mg/dL POC Glucose (mg/dL) 147 H (75-99) mg/dL Hemoglobin A1c (4.0-6.0) % TSH (0.465-4.680) mIU/L Assessment and Plan Plan: Assessment: 1acute non-ST elevation myocardial infarction 2 coronary artery disease, status post PCI stenting to the LAD 3 ischemic cardiomyopathy, with moderately impaired LV function, with a EF of 35-40% 4 benign essential hypertension 5 type 2 diabetes 6 tobacco dependence syndrome, supposedly quit recently. 7 dyslipidemia 8 strong family history of coronary artery disease 9 suspect some component of COPD presently inactive 10 diabetic neuropathy 11 history of hypothyroidism 12 chronic disability secondary to chronic low back pain and herniated disc 13 fibromyalgia. Plan: Continue current medical treatment, patient denies any chest pain or shortness of breath, doing well, echocardiogram results have been reviewed, has a moderately impaired LV function, with EF of 35-40%. Cardiac medications per cardiology, including antiplatelet therapy, I dose statins, JOYCE inhibitor, and beta blockers. No acute events overnight. Stable for transfer to [facility] care unit today. I performed a history & physical examination of the patient and discussed their management with my nurse practitioner, Danya Wilburn. I reviewed the nurse practitioner's note and agree with the documented findings and plan of care. Lung sounds are positive for clear lung sounds. The findings and the impression was discussed with the patient. I attest to the documentation by the nurse practitioner. Time with Patient: Less than 30
[2018-08-03] MEDS ORDERED: ATORVASTATIN 40 MG TAB PO SCH (09:00)
[2018-08-03] MEDS: ASPIRIN 81 MG PO SCH (09:29)
[2018-08-03] MEDS: LEVOTHYROXINE 50 MCG TAB PO SCH (09:29)
[2018-08-03] MEDS: METOPROLOL TARTRATE 50 MG TAB PO SCH ×2 (09:29→20:48)
[2018-08-03] MEDS: PANTOPRAZOLE 40 MG TABLET PO SCH (09:29)
[2018-08-03] MEDS: CLOPIDOGREL 75 MG TAB PO SCH ×2 (09:29→09:31)
--- NOTE | 2018-08-03 11:31 | P.PN ---
Subjective Ms. Edwards is a 52-year-old female , who follows with Dr. Cabello in an outpatient setting, with a past medical history of hypertension, diabetes, COPD, fibromyalgia, hyperlipidemia, thyroid disorder, coming into the hospital with a chief complaint of chest pain. Patient states that she has been having chest tightness like a burning sensation running across her chest for the past 3 days. She states that sensation goes to both of her hands. She mentions that mostly her left arm and forearm have been feeling heavy. Patient was also having sweating and she starts having this chest pains. She also reports metallic taste in her mouth and nausea. But she did not throw up. Patient denies having any lower extremity swelling. She reports mild difficulty in breathing when she has this chest tightness. Patient denies having any orthopnea or PND .Patient denies having any cough. No fevers chills or rigors. No complaints of burning micturition or blood in her urine. No abdominal pain nausea vomiting or diarrhea. No constipation. Patient is a former smoker smokes for almost 40 years half to 1 pack a day. She quit smoking 2 months back. She mentions that her mother and mother's sister have coronary artery disease. Patient's diabetes is controlled with a hemoglobin A1c of 7.5.She also reports having chronic low back pain. Patient denies having any headaches and stiffness or blurring of vision. No weakness of her extremities. 08/02/2018 pt is admitted with chest pain ,she is status post cardiac cath with stent placement . she is still in icu , fully awake and oriented, no chest pain and she feels better . 08/03/2018 Patient is doing well after cath placed today postprocedure day #1. She denies chest pain or dyspnea. She has some pain in her right arm which is mild, or discomfort to her pain of her fibromyalgia and degenerative joint disease. She is on Tylenol and Ultram is been added. Patient does not look in distress and her pain is controlled. Patient is been up to the bathroom with gait is improving its at baseline with no difficulty walking. I do think patient will need physical therapy evaluation. Patient is currently on aspirin and Plavix., Importance of addressing therapy explained to the patient and she verbalized understanding and acceptance. Ejection fraction 35-40%. She is hemodynamically stable. CBC and BMP were unremarkable and sugar control. Magnesium 1.9. Leukocytosis back to normal at 10.3 K. Cardiology team are following the case. She remains in the ICU but she can go to [facility] unit soon. IV fluids and nitroglycerin drips were stopped Objective - Vital Signs Vital signs: Vital Signs Temp 97.4 F L 08/03/18 08:00 Pulse 71 08/03/18 11:00 Resp 14 08/03/18 11:00 BP 160/95 08/03/18 11:00 Pulse Ox 94 L 08/03/18 11:00 Intake & Output 08/02/18 08/03/18 08/03/18 18:59 06:59 18:59 Intake Total 1283.5 1140 225 Output Total 200 1850 1350 Balance 1083.5 -710 -1125 Weight 95.2 kg 93.3 kg Intake: IV 1283.5 750 225 Sodium Chloride 0.9% 1, 75 225 000 ml @ 75 mls/hr IV . [id number] [facility] Rx#:[id number] Sodium Chloride 0.9% 1, 975 675 000 ml @ 75 mls/hr IV . [id number] STA Rx#:[id number] Intake, IV Titration 150 Amount Sodium Chloride 0.9% 1, 150 000 ml @ 75 mls/hr IV . [id number] [facility] Rx#:[id number] Oral 240 Output: Urine 200 1850 1350 Other: Voiding Method Bedside Commode Bedside Commode Bedside Commode # Voids 2 1 0 # Bowel Movements 1 1 - Exam HEENT: Head is atraumatic, normocephalic. Pupils equal, round. Neck is supple. There is no elevated jugular venous pressure. HEART EXAMINATION: Heart S1-S2, no murmur is heard CHEST EXAMINATION: Lungs reveal no expiratory wheezes throughout otherwise essentially clear. ABDOMEN: Soft, nontender. Bowel sounds are heard. No organomegaly noted. EXTREMITIES: 2+ peripheral pulses with no evidence of peripheral edema and no calf tenderness noted. NEUROLOGIC patient is awake, alert and oriented -3. - Labs CBC & Chem 7: 08/03/18 05:19 08/03/18 05:19 Labs: Abnormal Lab Results - Last 24 Hours (Table) 08/02/18 08/02/18 08/02/18 Range/Units 05:08 10:36 12:00 Hgb (11.4-16.0) gm/dL MCH (25.0-35.0) pg MCHC (31.0-37.0) g/dL Chloride (98-107) mmol/L BUN (7-17) mg/dL Glucose (74-99) mg/dL POC Glucose (mg/dL) 149 H (75-99) mg/dL Hemoglobin A1c 6.6 H (4.0-6.0) % TSH 9.220 H (0.465-4.680) mIU/L 08/02/18 08/02/18 08/03/18 Range/Units 17:03 20:50 05:19 Hgb 10.3 L (11.4-16.0) gm/dL MCH 24.6 L (25.0-35.0) pg MCHC 30.0 L (31.0-37.0) g/dL Chloride (98-107) mmol/L BUN (7-17) mg/dL Glucose (74-99) mg/dL POC Glucose (mg/dL) 121 H 164 H (75-99) mg/dL Hemoglobin A1c (4.0-6.0) % TSH (0.465-4.680) mIU/L 08/03/18 08/03/18 Range/Units 05:19 06:32 Hgb (11.4-16.0) gm/dL MCH (25.0-35.0) pg MCHC (31.0-37.0) g/dL Chloride 110 H (98-107) mmol/L BUN 19 H (7-17) mg/dL Glucose 123 H (74-99) mg/dL POC Glucose (mg/dL) 147 H (75-99) mg/dL Hemoglobin A1c (4.0-6.0) % TSH (0.465-4.680) mIU/L Assessment and Plan Assessment: Non-ST elevation VA. Status post cardiac cath and stent placed to the LAD Type 2 diabetes mellitus. Hypertension Fibromyalgia Hyperlipidemia Chronic low back pain with herniated discs Diabetic neuropathy History of migraine headaches Hypothyroidism GERD Asthma/COPD Stroke/TIA Patient s/p cardiac cath and stent placement. Cardiology on board and patient is currently in the ICU. pt is on asa and plavix Rest of the home medications reconciled. Further recommendations depending on the progress of the patient. The treatment plan was discussed in detail with the patient at bedside today.gi and dvt px
--- NOTE | 2018-08-03 11:51 | PN ---
PROGRESS NOTE Mrs. Edwards presented with a non-ST elevation OR, underwent stenting of a mid LAD yesterday with a good result from right radial approach. She complained of a lot of discomfort in the radial site. She had a lot of spasm. However, the pulse is excellent, site is good. She is feeling well. LV gram revealed significant LV dysfunction for this patient. Plan is to continue her current medical regimen and see how she does. Hopefully, there will be recovery in her LV function. I am recommending that we will continue her current medications which include dual antiplatelet therapy, losartan, and also metoprolol. The patient is not in overt heart failure. JVD is 1 cm. S1-S2 heard normally. Lungs are clear. Abdomen and lower extremity exam unchanged. Blood pressure is about 148/80 pulse rate is about 70 per minute. EKG revealed sinus rhythm with precordial T-wave inversion. Plan is to continue current therapy. Gradual increase in activity and echocardiogram that was performed yesterday revealed ejection fraction of 35%-40% with anteroapical septal hypokinesia. MMODL / IJN: [id number] /
[2018-08-03 11:54] LABS: Glucose,Whole Blood 141 mg/dL (75-99)
[2018-08-03 16:48] LABS: Glucose,Whole Blood 149 mg/dL (75-99)
[2018-08-03] MEDS: traMADol 50 MG TAB PO PRN (17:11)
[2018-08-03 20:41] LABS: Glucose,Whole Blood 122 mg/dL (75-99)
[2018-08-03] MEDS: LOSARTAN 50 MG TAB PO SCH (20:48)
[2018-08-03] MEDS: ATORVASTATIN 80 MG TAB PO SCH (20:48)
[2018-08-03] MEDS: ACETAMINOPHEN TAB 325 MG TAB PO PRN (20:49)
[2018-08-03] MEDS: DIAZEPAM 5 MG TAB PO PRN (20:49)
[2018-08-03] MEDS: MELATONIN 5 MG TABLET PO SCH (20:49)
[2018-08-04 06:18] LABS: Basophils # (A) 0.1 k/uL (0-0.2); Basophils % (A) 1 %; Eosinophils # (A) 0.3 k/uL (0-0.7); Eosinophils % (A) 3 %; HCT 36.2 % (34.0-46.0); HGB 11.6 gm/dL (11.4-16.0); Lymphocytes # (A) 3.8 k/uL (1.0-4.8); Lymphocytes % (A) 37 %; MCH 26.4 pg (25.0-35.0); MCV 82.4 fL (80.0-100.0); Mean Platelet Volume 7.6; Monocytes # (A) 0.5 k/uL (0-1.0); Monocytes % (A) 4 %; Neutrophils # (A) 5.5 k/uL (1.3-7.7); Neutrophils % (A) 54 %; Platelet Count 262 k/uL (150-450); RDW 15.1 % (11.5-15.5); WBC 10.3 k/uL (3.8-10.6)
[2018-08-04] MEDS: LEVOTHYROXINE 50 MCG TAB PO SCH (06:29)
[2018-08-04 06:38] LABS: Albumin 3.8 g/dL (3.5-5.0); Calcium 10.1 mg/dL (8.4-10.2); Potassium 4.5 mmol/L (3.5-5.1); Total Bilirubin 0.5 mg/dL (0.2-1.3); Total Protein 6.4 g/dL (6.3-8.2)
[2018-08-04 06:54] LABS: Glucose,Whole Blood 137 mg/dL (75-99)
[2018-08-04] MEDS: INSULIN ASPART (NovoLOG) 100 UNIT/ML VIAL SQ SCH ×4 (07:04→23:36)
[2018-08-04] MEDS: CLOPIDOGREL 75 MG TAB PO SCH (08:59)
[2018-08-04] MEDS: METOPROLOL TARTRATE 50 MG TAB PO SCH ×2 (08:59→21:50)
[2018-08-04] MEDS: PANTOPRAZOLE 40 MG TABLET PO SCH (08:59)
[2018-08-04] MEDS: LOSARTAN 50 MG TAB PO SCH (08:59)
[2018-08-04] MEDS: ASPIRIN 81 MG PO SCH (08:59)
[2018-08-04] MEDS: traMADol 50 MG TAB PO PRN ×2 (09:03→21:50)
--- NOTE | 2018-08-04 09:11 | PN ---
PROGRESS NOTE Mrs. Edwards is doing well today. Denies chest pain or shortness of breath. She is maintaining sinus rhythm. Hemodynamically stable. Blood pressure is slightly elevated. I will increase the losartan to 100 mg daily. She has no significant disease of circumflex or RCA and LAD was stented. However, she came somewhat late. There is significant LV dysfunction and hopefully this will improve. Plan is to continue current medications, increase activity, move her to telemetry. Blood pressure is 154/84. S1, S2 heard normally. No JVD. Lungs are clear. Abdomen and lower extremity exam unchanged. Plan is to increase activity and increased losartan for control and hopefully plan for discharge soon. MMODL / IJN: [id number] /
--- NOTE | 2018-08-04 09:22 | P.PN ---
Subjective Progress Note Date: 08/04/18 Principal diagnosis: Acute non-ST elevated myocardial infarction this is a 62-year-old female with history of multiple medical problems including hypertension, type 2 diabetes, smoker, dyslipidemia, strong family history of coronary artery disease, obesity, patient presented to the hospital today with recurrent episodes of substernal chest pain with radiation to both arms. Her initial episode was about 2 weeks ago, however her episodes have been coming back intermittently lasting anywhere between 20-30 minutes. Her pains are described as chest tightness with burning sensation across the chest has been quite severe over the last 3 days. No specific trigger factor for her symptoms and no specific relieving factor to her symptoms. Patienthad abnormal EKG on admission showing T-wave inversion in V1 to V6, there was also evidence of elevated troponin. Upon arrival to the ER, patient was placed on heparin and on nitroglycerin drip. Cardiology was consulted, and the patient was scheduled to undergo cardiac catheterization spiral gear generator tomorrow. In the meantime the patient was admitted to the ICU, and this consult was initiated. During my evaluation, the patient had some vague chest discomfort, pain was reproducible, she had no anginal symptoms no diaphoresis, and no radiation of pain. And she was hemodynamically stable. And she had no specific concerning complaints. On 08/02/2018 patient seen in follow-up in intensive care unit, she is awake and alert, she is on room air, with a O2 sat of 93%, afebrile, hemodynamically stable, she was admitted on 08/01/2018 with complaints of chest pain, she was ruled in for non-ST elevated myocardial infarction. Troponins were elevated, at 0.284, 0.247, 0.147, and 0.122, blood work for today has been reviewed, white blood cell count is 11.7, hemoglobin is 10.5, electrolytes are within normal limits, BUN is 23, creatinine is 1.0. Patient has no history of chronic artery disease, last catheterization was in 2007 with minimal CAD, she does have the risk factors in the form of type 2 diabetes, hypertension, hyperlipidemia. Patient 's been evaluated by cardiology, and is scheduled for cardiac catheterization this morning. These include 0.9 normal saline at a rate of 75 ML per hour, nitroglycerin at 10 mics per minute. On 08/03/2018 patient seen in follow-up in the intensive care unit, she is awake and alert, in no acute distress, denies any chest pain, denies any shortness of breath, patient is status post heart catheterization with PCI, and stent placement to the LAD. No ongoing chest pain, room air pulse ox is 94%, afebrile, hemodynamically stable. Lung sounds are clear. Patient's biggest complaint is discomfort in the right shoulder, right arm, states she does have history of fibromyalgia, and osteoarthritis. Will inquire with the primary care as far as pain management. Otherwise comfortable. Today's labs have been reviewed, showing white blood cell count 10.3, hemoglobin of 10.3, serum sodium is 142, potassium is 4.2, chloride is 110, CO2 is 23, B1 is 19, creatinine 0.93. Patient is on dual antiplatelet therapy, when the form of Plavix, and aspirin 81 mg daily. On 08/04/2016 patient seen in follow-up in the intensive care unit, she is awake and alert, oriented 3, she sits up in a recliner, in no acute distress, she has been up ambulating in the room, denies any shortness of breath or chest pain. Lung sounds are clear, she is on room air, no running IVs. Acute events overnight, right shoulder pain has resolved. Today's labs have been reviewed, CBC is unremarkable, serum sodium was 142, potassium is 4.5, BUN was 22, creatinine 0.97. Is on dual antiplatelet therapy in the form of Plavix and aspirin 81 mg daily. Objective - Vital Signs Vital signs: Vital Signs Temp 97.8 F 08/04/18 08:00 Pulse 70 08/04/18 08:00 Resp 14 08/04/18 08:00 BP 144/69 08/04/18 08:00 Pulse Ox 94 L 08/04/18 08:00 Intake & Output 08/03/18 08/04/18 08/04/18 18:59 06:59 18:59 Intake Total 225 450 Output Total 2270 1900 0 Balance -2044 450 Weight 93.7 kg Intake: IV 225 Sodium Chloride 0.9% 1, 225 000 ml @ 75 mls/hr IV . [id number] [facility] Rx#:[id number] Tube Feeding 450 Output: Urine 0 1900 0 Other: Voiding Method Bedside Commode Bedside Commode # Voids 2 0 # Bowel Movements 1 - Exam GENERAL EXAM: Alert, pleasant, 62-year-old white female on room air comfortable in no apparent distress. HEAD: Normocephalic/atraumatic. EYES: Normal reaction of pupils, equal size. Conjunctiva pink, sclera white. NOSE: Clear with pink turbinates. THROAT: No erythema or exudates. NECK: No masses, no JVD, no thyroid enlargement, no adenopathy. CHEST: No chest wall deformity. Symmetrical expansion. LUNGS: Equal air entry with no crackles, wheeze, rhonchi or dullness. CVS: Regular rate and rhythm, normal S1 and S2, no gallops, no murmurs, no rubs ABDOMEN: Soft, nontender. No hepatosplenomegaly, normal bowel sounds, no guarding or rigidity. EXTREMITIES: No clubbing, no edema, no cyanosis, 2+ pulses and upper and lower extremities. MUSCULOSKELETAL: Muscle strength and tone normal. SPINE: No scoliosis or deformity SKIN: No rashes CENTRAL NERVOUS SYSTEM: Alert and oriented -3. No focal deficits, tone is normal in all 4 extremities. PSYCHIATRIC: Alert and oriented -3. Appropriate affect. Intact judgment and insight. - Labs CBC & Chem 7: 08/04/18 05:45 08/04/18 05:45 Labs: Abnormal Lab Results - Last 24 Hours (Table) 08/03/18 08/03/18 08/03/18 Range/Units 11:50 16:45 20:29 Chloride (98-107) mmol/L BUN (7-17) mg/dL Glucose (74-99) mg/dL POC Glucose (mg/dL) 141 H 149 H 122 H (75-99) mg/dL 08/04/18 08/04/18 Range/Units 05:45 06:52 Chloride 108 H (98-107) mmol/L BUN 22 H (7-17) mg/dL Glucose 136 H (74-99) mg/dL POC Glucose (mg/dL) 137 H (75-99) mg/dL Assessment and Plan Plan: Assessment: 1acute non-ST elevation myocardial infarction 2 coronary artery disease, status post PCI stenting to the LAD 3 ischemic cardiomyopathy, with moderately impaired LV function, with a EF of 35-40% 4 benign essential hypertension 5 type 2 diabetes 6 tobacco dependence syndrome, supposedly quit recently. 7 dyslipidemia 8 strong family history of coronary artery disease 9 suspect some component of COPD presently inactive 10 diabetic neuropathy 11 history of hypothyroidism 12 chronic disability secondary to chronic low back pain and herniated disc 13 fibromyalgia. Plan: Increase activity as tolerated, ambulation, patient is on room air, denies any acute complaints, no chest pain, no shortness of breath. No acute events overnight, vital signs are stable, stable for transfer to [facility] care unit today. I performed a history & physical examination of the patient and discussed their management with my nurse practitioner, Danya Wilburn. I reviewed the nurse ochoa douglas's note and agree with the documented findings and plan of care. Lung sounds are positive for clear lung sounds. The findings and the impression was discussed with the patient. I attest to the documentation by the nurse practitioner. Time with Patient: Less than 30
--- NOTE | 2018-08-04 11:55 | CDI ---
-- Documentation Clarification Form Date: 08/04/2018 11:39:34 AM From: Nubia Blood RN CCDS Admit Date: 08/01/2018 1:22:00 PM Patient Name: Jane Edwards Visit Number: [id number] Discharge Date: ATTENTION: The Clinical Documentation Specialists (CDI) and [facility] Coding Staff appreciate your assistance in clarifying documentation. Please respond to the clarification below the line at the bottom and electronically sign. The CDI & [facility] Coding staff will review the response and follow-up if needed. Please note: Queries are made part of the Legal Health Record. If you have any questions, please contact the author of this message via ITS. Dr. Phuong Martinez The patient is not in overt heart failure is noted in your progress note 08/03/2018 History/Risk Factors: 62 year old female presents to the ED with chest tightness like a burnng sensation running across her chest for the past 3 days. Medical History of HTN, DM , COPD, Hyperlipidemia. Clinical Indicators: VS/Pulse OX: 142/82 68 19 96% ra Echocardiogram Results: Overall left ventricular systolic function is moderately impaired with, an EF between 35 40% Treatment: Losartan , Metoprolol. In your professional opinion, can you please clarify the acuity and type of CHF if known? Systolic Heart Failure: Acute Chronic Acute on Chronic Systolic & Diastolic Heart Failure: Acute Chronic Acute on Chronic Heart Failure Unable to Determine Other, please specify (Last Revision: May 2017) MTDD
[2018-08-04 12:15] LABS: Glucose,Whole Blood 134 mg/dL (75-99)
[2018-08-04 17:24] LABS: Glucose,Whole Blood 129 mg/dL (75-99)
[2018-08-04 20:38] LABS: Glucose,Whole Blood 211 mg/dL (75-99)
[2018-08-04] MEDS: ATORVASTATIN 80 MG TAB PO SCH (21:49)
[2018-08-04] MEDS: MELATONIN 5 MG TABLET PO SCH (21:49)
[2018-08-04] MEDS: DIAZEPAM 5 MG TAB PO PRN (21:52)
--- NOTE | 2018-08-04 23:19 | P.PN ---
Subjective Ms. Edwards is a 52-year-old female , who follows with Dr. Cabello in an outpatient setting, with a past medical history of hypertension, diabetes, COPD, fibromyalgia, hyperlipidemia, thyroid disorder, coming into the hospital with a chief complaint of chest pain. Patient states that she has been having chest tightness like a burning sensation running across her chest for the past 3 days. She states that sensation goes to both of her hands. She mentions that mostly her left arm and forearm have been feeling heavy. Patient was also having sweating and she starts having this chest pains. She also reports metallic taste in her mouth and nausea. But she did not throw up. Patient denies having any lower extremity swelling. She reports mild difficulty in breathing when she has this chest tightness. Patient denies having any orthopnea or PND .Patient denies having any cough. No fevers chills or rigors. No complaints of burning micturition or blood in her urine. No abdominal pain nausea vomiting or diarrhea. No constipation. Patient is a former smoker smokes for almost 40 years half to 1 pack a day. She quit smoking 2 months back. She mentions that her mother and mother's sister have coronary artery disease. Patient's diabetes is controlled with a hemoglobin A1c of 7.5.She also reports having chronic low back pain. Patient denies having any headaches and stiffness or blurring of vision. No weakness of her extremities. 08/02/2018 pt is admitted with chest pain ,she is status post cardiac cath with stent placement . she is still in icu , fully awake and oriented, no chest pain and she feels better . 08/03/2018 Patient is doing well after cath placed today postprocedure day #1. She denies chest pain or dyspnea. She has some pain in her right arm which is mild, or discomfort to her pain of her fibromyalgia and degenerative joint disease. She is on Tylenol and Ultram is been added. Patient does not look in distress and her pain is controlled. Patient is been up to the bathroom with gait is improving its at baseline with no difficulty walking. I do think patient will need physical therapy evaluation. Patient is currently on aspirin and Plavix., Importance of addressing therapy explained to the patient and she verbalized understanding and acceptance. Ejection fraction 35-40%. She is hemodynamically stable. CBC and BMP were unremarkable and sugar control. Magnesium 1.9. Leukocytosis back to normal at 10.3 K. Cardiology team are following the case. She remains in the ICU but she can go to select unit soon. IV fluids and nitroglycerin drips were stopped 08/04/2018 pt is doing well , she denies chest pain or dyspnea, she is ambulating with no difficulty , she is afebrile , losartan added for systolic BP 150-160s. cbc ,bmp unremarkable, sugar is controlled Objective - Vital Signs Vital signs: Vital Signs Temp 97.9 F 08/04/18 16:00 Pulse 64 08/04/18 16:00 Resp 14 08/04/18 16:00 BP 124/72 08/04/18 16:00 Pulse Ox 92 L 08/04/18 16:00 Intake & Output 08/04/18 08/04/18 08/05/18 06:59 18:59 06:59 Intake Total 700 Output Total 1900 850 650 Balance -1900 -150 -650 Weight 93.7 kg Intake: Oral 250 Tube Feeding 450 Output: Urine 1900 850 650 Other: Voiding Method Bedside Commode Bedside Commode # Voids 0 1 - Exam HEENT: Head is atraumatic, normocephalic. Pupils equal, round. Neck is supple. There is no elevated jugular venous pressure. HEART EXAMINATION: Heart S1-S2, no murmur is heard CHEST EXAMINATION: Lungs reveal no expiratory wheezes throughout otherwise essentially clear. ABDOMEN: Soft, nontender. Bowel sounds are heard. No organomegaly noted. EXTREMITIES: 2+ peripheral pulses with no evidence of peripheral edema and no calf tenderness noted. NEUROLOGIC patient is awake, alert and oriented -3. - Labs CBC & Chem 7: 08/04/18 05:45 08/04/18 05:45 Labs: Abnormal Lab Results - Last 24 Hours (Table) 08/03/18 08/04/18 08/04/18 Range/Units 20:29 05:45 06:52 Chloride 108 H (98-107) mmol/L BUN 22 H (7-17) mg/dL Glucose 136 H (74-99) mg/dL POC Glucose (mg/dL) 122 H 137 H (75-99) mg/dL 08/04/18 08/04/18 Range/Units 12:11 17:22 Chloride (98-107) mmol/L BUN (7-17) mg/dL Glucose (74-99) mg/dL POC Glucose (mg/dL) 134 H 129 H (75-99) mg/dL Assessment and Plan Assessment: Non-ST elevation NV. Status post cardiac cath and stent placed to the LAD Type 2 diabetes mellitus. Hypertension Fibromyalgia Hyperlipidemia Chronic low back pain with herniated discs Diabetic neuropathy History of migraine headaches Hypothyroidism GERD Asthma/COPD Stroke/TIA Plan: Patient s/p cardiac cath and stent placement in LAD. Cardiology on board and patient is currently clear to go to general medical floor. pt is on asa and plavix Rest of the home medications reconciled. losartan added. Further recommendations depending on the progress of the patient. The treatment plan wa s discussed in detail with the patient at bedside today.gi and dvt px
[2018-08-05 06:53] LABS: Glucose,Whole Blood 125 mg/dL (75-99)
[2018-08-05] MEDS: INSULIN ASPART (NovoLOG) 100 UNIT/ML VIAL SQ SCH ×4 (06:53→21:03)
[2018-08-05] MEDS: PANTOPRAZOLE 40 MG TABLET PO SCH (06:55)
[2018-08-05] MEDS: LEVOTHYROXINE 50 MCG TAB PO SCH (06:55)
[2018-08-05 08:07] LABS: Basophils # (A) 0.1 k/uL (0-0.2); Basophils % (A) 1 %; Eosinophils # (A) 0.3 k/uL (0-0.7); Eosinophils % (A) 2 %; HCT 36.1 % (34.0-46.0); HGB 11.7 gm/dL (11.4-16.0); Lymphocytes # (A) 4.8 k/uL (1.0-4.8); Lymphocytes % (A) 39 %; MCH 26.5 pg (25.0-35.0); MCHC 32.5 g/dL (31.0-37.0); MCV 81.7 fL (80.0-100.0); Mean Platelet Volume 7.6; Monocytes # (A) 0.4 k/uL (0-1.0); Monocytes % (A) 4 %; Neutrophils # (A) 6.7 k/uL (1.3-7.7); Neutrophils % (A) 53 %; Platelet Count 283 k/uL (150-450); RBC 4.42 m/uL (3.80-5.40); RDW 15.2 % (11.5-15.5); WBC 12.5 k/uL (3.8-10.6)
[2018-08-05 08:11] LABS: Potassium 4.7 mmol/L (3.5-5.1); Total Bilirubin 0.4 mg/dL (0.2-1.3); Total Protein 6.6 g/dL (6.3-8.2)
[2018-08-05] MEDS: ASPIRIN 81 MG PO SCH (09:19)
[2018-08-05] MEDS: METOPROLOL TARTRATE 50 MG TAB PO SCH ×2 (09:19→21:03)
[2018-08-05] MEDS: LOSARTAN 50 MG TAB PO SCH (09:19)
[2018-08-05] MEDS: traMADol 50 MG TAB PO PRN ×2 (09:19→21:02)
[2018-08-05] MEDS: CLOPIDOGREL 75 MG TAB PO SCH (09:20)
--- NOTE | 2018-08-05 09:54 | P.PN ---
Subjective Progress Note Date: 08/05/18 Principal diagnosis: Acute non-ST segment elevation myocardial infarction this is a 62-year-old female with history of multiple medical problems including hypertension, type 2 diabetes, smoker, dyslipidemia, strong family history of coronary artery disease, obesity, patient presented to the hospital today with recurrent episodes of substernal chest pain with radiation to both arms. Her initial episode was about 2 weeks ago, however her episodes have been coming back intermittently lasting anywhere between 20-30 minutes. Her pains are described as chest tightness with burning sensation across the chest has been quite severe over the last 3 days. No specific trigger factor for her symptoms and no specific relieving factor to her symptoms. Patienthad abnormal EKG on a dmission showing T-wave inversion in V1 to V6, there was also evidence of elevated troponin. Upon arrival to the ER, patient was placed on heparin and on nitroglycerin drip. Cardiology was consulted, and the patient was scheduled to undergo cardiac catheterization rn allergy tomorrow. In the meantime the patient was admitted to the ICU, and this consult was initiated. During my evaluation, the patient had some vague chest discomfort, pain was reproducible, she had no anginal symptoms no diaphoresis, and no radiation of pain. And she was hemodynamically stable. And she had no specific concerning complaints. On 08/02/2018 patient seen in follow-up in intensive care unit, she is awake and alert, she is on room air, with a O2 sat of 93%, afebrile, hemodynamically stable, she was admitted on 08/01/2018 with complaints of chest pain, she was ruled in for non-ST elevated myocardial infarction. Troponins were elevated, at 0.284, 0.247, 0.147, and 0.122, blood work for today has been reviewed, white blood cell count is 11.7, hemoglobin is 10.5, electrolytes are within normal limits, BUN is 23, creatinine is 1.0. Patient has no history of chronic artery disease, last catheterization was in 2007 with minimal CAD, she does have the risk factors in the form of type 2 diabetes, hypertension, hyperlipidemia. Patient 's been evaluated by cardiology, and is scheduled for cardiac ca theterization this morning. These include 0.9 normal saline at a rate of 75 ML per hour, nitroglycerin at 10 mics per minute. On 08/03/2018 patient seen in follow-up in the intensive care unit, she is awake and alert, in no acute distress, denies any chest pain, denies any shortness of breath, patient is status post heart catheterization with PCI, and stent placement to the LAD. No ongoing chest pain, room air pulse ox is 94%, afebrile, hemodynamically stable. Lung sounds are clear. Patient's biggest complaint is discomfort in the right shoulder, right arm, states she does have history of fibromyalgia, and osteoarthritis. Will inquire with the primary care as far as pain management. Otherwise comfortable. Today's labs have been reviewed, showing white blood cell count 10.3, hemoglobin of 10.3, serum sodium is 142, potassium is 4.2, chloride is 110, CO2 is 23, B1 is 19, creatinine 0.93. Patient is on dual antiplatelet therapy, when the form of Plavix, and aspirin 81 mg daily. On 08/04/2016 patient seen in follow-up in the intensive care unit, she is awake and alert, oriented 3, she sits up in a recliner, in no acute distress, she has been up ambulating in the room, denies any shortness of breath or chest pain. Lung sounds are clear, she is on room air, no running IVs. Acute events overnight, right shoulder pain has resolved. Today's labs have been reviewed, CBC is unremarkable, serum sodium was 142, potassium is 4.5, BUN was 22, creatinine 0.97. Is on dual antiplatelet therapy in the form of Plavix and aspirin 81 mg daily. The patient is seen today 08/05/2018 in follow-up in the intensive care unit as a overflow patient. She is awake and alert in no acute distress. No further chest pain, palpitations lightheadedness or dizziness. No right shoulder pain. She's been up ambulating in the hallway with assistance without any distress. White count 12.5. Hemoglobin 11.7. Creatinine 1.19. Maintaining good O2 saturations in the high 90s on room air. She's been afebrile. Hemodynamically stable. Objective - Vital Signs Vital signs: Vital Signs Temp 98.5 F 08/05/18 08:00 Pulse 69 08/05/18 08:00 Resp 15 08/05/18 08:00 BP 147/97 08/05/18 08:00 Pulse Ox 98 08/05/18 08:00 Intake & Output 08/04/18 08/05/18 08/05/18 18:59 06:59 18:59 Intake Total 700 Output Total 850 650 350 Balance -150 -650 -350 Weight 94.1 kg Intake: Oral 250 Tube Feeding 450 Output: Urine 850 650 350 Other: Voiding Method Bedside Commode Bedside Commode Bedside Commode # Voids 1 2 1 - Exam GENERAL EXAM: Pleasant 62-year-old female patient. Alert, active, comfortable in no apparent distress. On room air. HEAD: Normocephalic. EYES: Normal reaction of pupils, equal size. NOSE: Clear with pink turbinates. THROAT: No erythema or exudates. NECK: No masses, no JVD. CHEST: No chest wall deformity. LUNGS: Equal air entry with no crackles, wheeze, rhonchi or dullness. CVS: S1 and S2 normal with no audible murmur, regular rhythm. ABDOMEN: No hepatosplenomegaly, normal bowel sounds, no guarding or rigidity. SPINE: No scoliosis or deformity SKIN: No rashes CENTRAL NERVOUS SYSTEM: No focal deficits, tone is normal in all 4 extremities. EXTREMITIES: There is no peripheral edema. No clubbing, no cyanosis. Peripheral pulses are intact. - Labs CBC & Chem 7: 08/05/18 07:29 08/05/18 07:29 Labs: Abnormal Lab Results - Last 24 Hours (Table) 08/04/18 08/04/18 08/04/18 Range/Units 12:11 17:22 20:34 WBC (3.8-10.6) k/uL BUN (7-17) mg/dL Creatinine (0.52-1.04) mg/dL Glucose (74-99) mg/dL POC Glucose (mg/dL) 134 H 129 H 211 H (75-99) mg/dL 08/05/18 08/05/18 08/05/18 Range/Units 06:51 07:29 07:29 WBC 12.5 H (3.8-10.6) k/uL BUN 21 H (7-17) mg/dL Creatinine 1.19 H (0.52-1.04) mg/dL Glucose 139 H (74-99) mg/dL POC Glucose (mg/dL) 125 H (75-99) mg/dL Assessment and Plan Assessment: Assessment: 1acute non-ST elevation myocardial infarction 2 coronary artery disease, status post PCI stenting to the LAD 3 ischemic cardiomyopathy, with moderately impaired LV function, with a EF of 35-40% 4 benign essential hypertension 5 type 2 diabetes 6 tobacco dependence syndrome, supposedly quit recently. 7 dyslipidemia 8 strong family history of coronary artery disease 9 suspect some component of COPD presently inactive 10 diabetic neuropathy 11 history of hypothyroidism 12 chronic disability secondary to chronic low back pain and herniated disc 13 fibromyalgia. Plan: The patient was seen and evaluated by Dr. Godoy. She is stable from the pulmonary and critical care standpoint. She is cleared for discharge once cleared by cardiology. I, the cosigning physician, performed a history & physical examination of the patient. Lungs sounds are clear. Maintaining good O2 saturations in the 90s on room air. I discussed the assessment and plan of care with my nurse practitioner, Latha Vargas. I attest to the above note as dictated by her.
--- NOTE | 2018-08-05 09:56 | PN ---
PROGRESS NOTE Mrs. Edwards is in sinus rhythm, resting comfortably. Denies chest pain. Doing well. She underwent stenting of mid LAD with a non-ST elevation NM. She is on dual antiplatelet therapy, doing well. Vitals are stable. Blood pressure control is better. S1, S2 heard normally. Lungs are clear. Abdomen and lower extremity exam unchanged. Plan is to increase activity possibly discharge her today and see Dr. Stearns in the office in one week. MMODL / IJN: [id number] /
--- NOTE | 2018-08-05 10:49 | CDI ---
Documentation Clarification Form Date: 08/04/2018 11:39:00 AM From: [facility] Phone: '[phone] Admit Date: 08/01/2018 1:22:00 PM Patient Name: Jane Edwards Visit Number: [id number] Discharge Date: ATTENTION: The Clinical Documentation Specialists (CDI) and [facility] Coding Staff appreciate your assistance in clarifying documentation. Please respond to the clarification below the line at the bottom and electronically sign. The CDI & [facility] Coding staff will review the response and follow-up if needed. Please note: Queries are made part of the Legal Health Record. If you have any questions, please contact the author of this message via ITS. Dr. Phuong Martinez The patient is not in overt heart failure is noted in your progress note 08/03/2018 History/Risk Factors: 62 year old female presents to the ED with chest tightness like a burnng sensation running across her chest for the past 3 days. Medical History of HTN, DM , COPD, Hyperlipidemia. Clinical Indicators: VS/Pulse OX: 142/82 68 19 96% ra Echocardiogram Results: Overall left ventricular systolic function is moderately impaired with, an EF between 35 40% Treatment: Losartan , Metoprolol. In your professional opinion, can you please clarify the acuity and type of CHF if known? * Systolic Heart Failure: * Acute Chronic * Acute on Chronic * Systolic & Diastolic Heart Failure: * Acute * Chronic * Acute on Chronic Heart Failure * Unable to Determine * Other, please specify____Acute Systolic CHF (Last Revision: May 2017) MTDD
[2018-08-05] MEDS: CAPSAICIN 0.025% CREAM 60 GM TUBE TOPICAL SCH ×3 (12:09→22:20)
[2018-08-05 12:13] LABS: Glucose,Whole Blood 149 mg/dL (75-99)
[2018-08-05 17:17] LABS: Glucose,Whole Blood 138 mg/dL (75-99)
--- NOTE | 2018-08-05 18:17 | P.PN ---
Subjective Ms. Edwards is a 52-year-old female , who follows with Dr. Cabello in an outpatient setting, with a past medical history of hypertension, diabetes, COPD, fibromyalgia, hyperlipidemia, thyroid disorder, coming into the hospital with a chief complaint of chest pain. Patient states that she has been having chest tightness like a burning sensation running across her chest for the past 3 days. She states that sensation goes to both of her hands. She mentions that mostly her left arm and forearm have been feeling heavy. Patient was also having sweating and she starts having this chest pains. She also reports metallic taste in her mouth and nausea. But she did not throw up. Patient denies having any lower extremity swelling. She reports mild difficulty in breathing when she has this chest tightness. Patient denies having any orthopnea or PND .Patient denies having any cough. No fevers chills or rigors. No complaints of burning micturition or blood in her urine. No abdominal pain nausea vomiting or diarrhea. No constipation. Patient is a former smoker smokes for almost 40 years half to 1 pack a day. She quit smoking 2 months back. She mentions that her mother and mother's sister have coronary artery disease. Patient's diabetes is controlled with a hemoglobin A1c of 7.5.She also reports having chronic low back pain. Patient denies having any headaches and stiffness or blurring of vision. No weakness of her extremities. 08/02/2018 pt is admitted with chest pain ,she is status post cardiac cath with stent placement . she is still in icu , fully awake and oriented, no chest pain and she feels better . 08/03/2018 Patient is doing well after cath placed today postprocedure day #1. She denies chest pain or dyspnea. She has some pain in her right arm which is mild, or discomfort to her pain of her fibromyalgia and degenerative joint disease. She is on Tylenol and Ultram is been added. Patient does not look in distress and her pain is controlled. Patient is been up to the bathroom with gait is improving its at baseline with no difficulty walking. I do think patient will need physical therapy evaluation. Patient is currently on aspirin and Plavix., Importance of addressing therapy explained to the patient and she verbalized understanding and acceptance. Ejection fraction 35-40%. She is hemodynamically stable. CBC and BMP were unremarkable and sugar control. Magnesium 1.9. Leukocytosis back to normal at 10.3 K. Cardiology team are following the case. She remains in the ICU but she can go to select unit soon. IV fluids and nitroglycerin drips were stopped 08/04/2018 pt is doing well , she denies chest pain or dyspnea, she is ambulating with no difficulty , she is afebrile , losartan added for systolic BP 150-160s. cbc ,bmp unremarkable, sugar is controlled 08/05/2018 pt is in the icu for select bed overflow, she still doing well with no chest pain or dyspnea , she complains today from pain in her right side of body which is part of her fibromyalgia as per pt , but also she complains from pain in her right upper ext. no swelling or redness, pulsation is intact and no weakness or abnormal sensation . cath site at right wrist is healing and swelling is coming down. continue with symptomatic treatment. hemodynamically stable, pt has been evaluated by cardiology and pulmonary teams today. wbc 12.5K , sugar is controlled , rest of labs unremarkable. possible discharge in 24-48 hours Objective - Vital Signs Vital signs: Vital Signs Temp 98.2 F 08/05/18 16:00 Pulse 60 08/05/18 16:00 Resp 12 08/05/18 16:00 BP 141/88 08/05/18 16:00 Pulse Ox 98 08/05/18 16:00 Intake & Output 08/04/18 08/05/18 08/05/18 18:59 06:59 18:59 Intake Total 700 Output Total 841 472 4131 Balance -150 -650 -1000 Weight 94.1 kg Intake: Oral 250 Tube Feeding 450 Output: Urine 752 516 8957 Other: Voiding Method Bedside Commode Bedside Commode Bedside Commode # Voids 1 2 1 - Exam HEENT: Head is atraumatic, normocephalic. Pupils equal, round. Neck is supple. There is no elevated jugular venous pressure. HEART EXAMINATION: Heart S1-S2, no murmur is heard CHEST EXAMINATION: Lungs reveal no expiratory wheezes throughout otherwise essentially clear. ABDOMEN: Soft, nontender. Bowel sounds are heard. No organomegaly noted. EXTREMITIES: 2+ peripheral pulses with no evidence of peripheral edema and no calf tenderness noted. NEUROLOGIC patient is awake, alert and oriented -3. - Labs CBC & Chem 7: 08/05/18 07:29 08/05/18 07:29 Labs: Abnormal Lab Results - Last 24 Hours (Table) 08/04/18 08/05/18 08/05/18 Range/Units 20:34 06:51 07:29 WBC 12.5 H (3.8-10.6) k/uL BUN (7-17) mg/dL Creatinine (0.52-1.04) mg/dL Glucose (74-99) mg/dL POC Glucose (mg/dL) 211 H 125 H (75-99) mg/dL 08/05/18 08/05/18 08/05/18 Range/Units 07:29 12:01 17:14 WBC (3.8-10.6) k/uL BUN 21 H (7-17) mg/dL Creatinine 1.19 H (0.52-1.04) mg/dL Glucose 139 H (74-99) mg/dL POC Glucose (mg/dL) 149 H 138 H (75-99) mg/dL Assessment and Plan Assessment: Non-ST elevation MA. Status post cardiac cath and stent placed to the LAD right upper ext pain , mostly musculoskeletal Type 2 diabetes mellitus. Hypertension Fibromyalgia Hyperlipidemia Chronic low back pain with herniated discs Diabetic neuropathy History of migraine headaches Hypothyroidism GERD Asthma/COPD Stroke/TIA Plan: Patient s/p cardiac cath and stent placement in LAD. Cardiology on board and patient is currently clear to go to general medical floor. pt is on asa and plavix Rest of the home medications reconciled. losartan added. Further recommendations depending on the progress of the patient. The treatment plan was discussed in detail with the patient at bedside today.gi and dvt px monitor for her pain in her right side, possible dc tomorrow
[2018-08-05 20:34] LABS: Glucose,Whole Blood 144 mg/dL (75-99)
[2018-08-05] MEDS: MELATONIN 5 MG TABLET PO SCH (21:02)
[2018-08-05] MEDS: DIAZEPAM 5 MG TAB PO PRN (21:03)
[2018-08-05] MEDS: ATORVASTATIN 80 MG TAB PO SCH (21:03)
[2018-08-06 06:54] LABS: Glucose,Whole Blood 139 mg/dL (75-99)
[2018-08-06 06:54] LABS: Basophils # (A) 0.1 k/uL (0-0.2); Basophils % (A) 1 %; Eosinophils # (A) 0.3 k/uL (0-0.7); Eosinophils % (A) 2 %; HCT 36.4 % (34.0-46.0); HGB 11.7 gm/dL (11.4-16.0); Lymphocytes % (A) 30 %; MCH 26.5 pg (25.0-35.0); MCHC 32.1 g/dL (31.0-37.0); MCV 82.5 fL (80.0-100.0); Mean Platelet Volume 7.1; Monocytes # (A) 0.5 k/uL (0-1.0); Monocytes % (A) 4 %; Neutrophils # (A) 8.3 k/uL (1.3-7.7); Neutrophils % (A) 62 %; Platelet Count 267 k/uL (150-450); RBC 4.42 m/uL (3.80-5.40); RDW 14.7 % (11.5-15.5); WBC 13.4 k/uL (3.8-10.6)
[2018-08-06] MEDS: INSULIN ASPART (NovoLOG) 100 UNIT/ML VIAL SQ SCH ×2 (07:00→12:22)
[2018-08-06] MEDS: PANTOPRAZOLE 40 MG TABLET PO SCH (07:00)
[2018-08-06] MEDS: LEVOTHYROXINE 50 MCG TAB PO SCH (07:00)
[2018-08-06 07:04] LABS: Albumin 4.1 g/dL (3.5-5.0); Calcium 10.1 mg/dL (8.4-10.2); Potassium 4.8 mmol/L (3.5-5.1); Total Bilirubin 0.4 mg/dL (0.2-1.3); Total Protein 6.7 g/dL (6.3-8.2)
[2018-08-06 08:44] VITALS: RESP 16; TEMP 98.5
[2018-08-06] MEDS: METOPROLOL TARTRATE 50 MG TAB PO SCH (09:55)
[2018-08-06] MEDS: ASPIRIN 81 MG PO SCH (09:55)
[2018-08-06] MEDS: CLOPIDOGREL 75 MG TAB PO SCH (09:55)
[2018-08-06] MEDS: LOSARTAN 50 MG TAB PO SCH (09:56)
[2018-08-06] MEDS: CAPSAICIN 0.025% CREAM 60 GM TUBE TOPICAL SCH (09:56)
[2018-08-06 11:57] LABS: Glucose,Whole Blood 130 mg/dL (75-99)
[2018-08-06 12:23] VITALS: BP 141/90; PULSE 62
--- NOTE | 2018-08-06 13:34 | P.NPCON ---
History of Present Illness - Reason for Consult acute renal failure - History of Present Illness Reason for consultation: Acute kidney injury History of present illness: Patient is a 62-year-old female seen in renal consultation for acute kidney injury. Patient denies any history of kidney disease. Her baseline creatinine is near 1. It is up to 1.22 today. Patient presented to the hospital on July 11 with chest pain across her chest with radiation to both her arms. She underwent cardiac catheterization on August 02 and had a stent placed to the LAD. Echocardiogram revealed ejection fraction of 35-40%. No edema. No active chest pain or shortness of breath. Oral intake is good. No edema. No vomiting or diarrhea. She was taking ibuprofen on and off 2-3 times daily for the last 2 months. She denies family history of renal disease. She does have history of diabetes mellitus and is maintained on metformin outpatient. Admits to good urine output. No hematuria or dysuria. Hemodynamically she stable. No significant hypotension noted. Patient did receive IV fluids post cardiac bertin terization but has been off fluids for the last 2-3 days. Dose of Cozaar was also increased from 50 to 100 mg this admission. Vital signs are stable. General: The patient appeared well nourished and normally developed. HEENT: Head exam is unremarkable. Neck is without jugular venous distension. LUNGS: Lungs are clear to auscultation and percussion. Breath sounds decreased. HEART: Rate and Rhythm are regular. First and second heart sounds normal. No murmurs, rubs or gallops. ABDOMEN: Abdominal exam reveals normal bowel sounds. Non-tender and non- distended. No evidence of peritonitis. EXTREMITITES: No clubbing, cyanosis, or edema. Past Medical History Past Medical History: Asthma, Cancer, COPD, CVA/TIA, Diabetes Mellitus, Eye Disorder, Fibromyalgia, GERD/Reflux, Hyperlipidemia, Hypertension, Osteoarthritis (OA), Pneumonia, Thyroid Disorder Additional Past Medical History / Comment(s): Recent bronchitis/dehydration and completed antibiotics, past bronchitis, IDDM type II, bilateral lower leg and feet neuropathy, 2009 CVA with some memory issues, possible TIA, basal cell skin cancer removed from L nares, L eye has partially detached retina, cateracts, gastric ulcer, hematemesis, chronic low back pain, sciatica mostly L side occasionally R side, migraines, vertigo, fatty liver, palpitations, past fractures of R thumb/R wrist/L hand, [place] Spotted Fever as an infant, hypothyrodism History of Any Multi-Drug Resistant Organisms: None Reported Past Surgical History: Ablation, Back Surgery, Cholecystectomy, Heart Catheterization, Hernia Repair, Hysterectomy, Tonsillectomy Additional Past Surgical History / Comment(s): 11/2016 EPS with A flutter ablation, 2007 cardiac cath-normal, L nares skin cancer removed, UMBILICAL HERNIA SX 3X, RT Hand SX for middle TRIGGER FINGER, FIBROID TUMORS REMOVED ABD/BACK, LAPROSCOPIES x 3, L5-S1 SX for HERNIATED DISCS, EGD/colonoscopy. Past Anesthesia/Blood Transfusion Reactions: Postoperative Nausea & Vomiting (PONV) Additional Past Anesthesia/Blood Transfusion Reaction / Comment(s): AND SEVERE HEADACHE WITH ANESTHESIA IN PAST Past Psychological History: Anxiety, Bipolar, Depression Additional Psychological History / Comment(s): Pt resides alone in an apartment. She has a glucometer. She has a cane which she uses prn. She does not own a vehicle. She gets to appointments usually thru her home insurance. She states she has had some increased depression lately but denies suicidal thoughts/plans. She states she does not receive any psychiatric care presently but has in the past but cannot recall name. Smoking Status: Former smoker Past Alcohol Use History: Rare Additional Past Alcohol Use History / Comment(s): Pt states she quit smoking in 2010 and had started smoking in 1971. SMOKED1/2-1PPD QUIT ON AND OFF Past Drug Use History: Marijuana Additional Drug Use History / Comment(s): USES OCCASIONALLY - Past Family History Father Family Medical History: Diabetes Mellitus Additional Family Medical History / Comment(s): ONLY MET HIM ONCE IN HER LIFE [employer] IN HIS FAMILY Mother Family Medical History: Cancer Additional Family Medical History / Comment(s): Breast CA. Medications and Allergies Home Medications Medication Instructions Recorded Confirmed Type Aspirin EC [Ecotrin Low Dose] 81 mg PO AC-LUNCH 03/14/15 08/01/18 History Glimepiride [Amaryl] 4 mg PO BID 30 Days #60 tab 03/12/18 08/01/18 Rx Levothyroxine Sodium [Synthroid] 50 mcg PO DAILY 30 Days #60 tab 03/12/18 08/01/18 Rx sitaGLIPtin [Januvia] 100 mg PO W/BRKFST 30 Days #30 tab 03/12/18 08/01/18 Rx Ammonium Lactate Lotion 1 applic TOPICAL DAILY 06/07/18 08/01/18 History [Lac-Hydrin 12% Lotion] Cholecalciferol [Vitamin D3 (25 4,000 unit PO DAILY 06/07/18 08/01/18 History Mcg = 1000 Iu)] Ferrous Sulfate [Iron (65 MG 325 mg PO DAILY 06/07/18 08/01/18 History Elemental)] Multivitamins, Thera [Multivitamin 1 tab PO DAILY 06/07/18 08/01/18 History (formulary)] Omeprazole 40 mg PO DAILY #14 capsule.dr 06/07/18 08/01/18 Rx metFORMIN HCL [Glucophage] 850 mg PO TID 06/07/18 08/01/18 History Atenolol [Tenormin] 25 mg PO DAILY #30 tab 08/05/18 Rx Atorvastatin [Lipitor] 80 mg PO HS #30 tab 08/05/18 Rx Clopidogrel [Plavix] 75 mg PO DAILY #30 tab 08/05/18 Rx Losartan [Cozaar] 100 mg PO DAILY #30 tab 08/05/18 Rx Metoprolol Tartrate [Lopressor] 50 mg PO BID #60 tab 08/05/18 Rx Nitroglycerin Sl Tabs [Nitrostat] 0.4 mg SUBLINGUAL Q5M PRN #25 tab 08/05/18 Rx amLODIPine [Norvasc] 2.5 mg PO BID #60 tab 08/05/18 Rx Capsaicin Cream [Trixaicin Cream] 1 applic TOPICAL TID #1 applic 08/06/18 Rx Allergies Allergy/AdvReac Type Severity Reaction Status Date / Time No Known Allergies Allergy Verified 08/01/18 11:22 Physical Exam Vitals: Vital Signs Temp Pulse Pulse Pulse Resp BP BP 08/06/18 11:55 62 16 141/90 08/06/18 08:45 16 08/06/18 08:44 98.5 F 72 16 142/75 08/06/18 04:10 98.2 F 69 17 137/85 08/06/18 00:10 97.8 F 71 16 133/79 08/05/18 20:00 98.1 F 68 15 133/75 08/05/18 16:00 98.2 F 60 12 141/88 Pulse Ox 08/06/18 11:55 95 08/06/18 08:45 08/06/18 08:44 95 08/06/18 04:10 95 08/06/18 00:10 95 08/05/18 20:00 98 08/05/18 16:00 98 Intake and Output 08/05/18 08/06/18 08/06/18 22:59 06:59 14:59 Intake Total 240 240 Output Total 650 Balance -650 240 240 Intake: Oral 240 240 Output: Urine 650 Other: Voiding Method Bedside Commode Bedside Commode Bedside Commode # Voids 1 Weight 92.9 kg Results - Lab Results Most recent lab results Calcium 10.1 mg/dL (8.4-10.2) 08/06/18 06:29 Magnesium 1.9 mg/dL (1.6-2.3) 08/03/18 05:19 08/06/18 06:29 08/06/18 06:29 Assessment and Plan Plan: Assessment: 1. Acute kidney injury secondary to ATN secondary to contrast-induced nephropathy. Mild decrease in GFR can also be due to increased dose of losartan. Baseline creatinine is near 1 and is up to 1.22 today. She is noted to have proteinuria on UA. Baseline creatinine near 1. 2. Non-ST elevated myocardial infarction status post cardiac catheterization in August 02 with a stent placement to the LAD. 3. Systolic CHF with ejection fraction of 35%. 4. Benign hypertension. 5. Diabetes mellitus. Plan: Start normal saline at 50 mL an hour for the next 3-4 hours. Stable to be discharged home from nephrology standpoint. Repeat BMP on Thursday. She will follow-up with her PCP next week and an office in the next 1-2 weeks. Okay to resume metformin as GFR of 30. Further workup of proteinuria will be done outpatient. Thank you for the consultation. I will continue to follow the patient with you during her hospital stay.
[2018-08-06] MEDS ORDERED: SODIUM CHLORIDE 0.9% 1,000 ML IV SCH (13:45)
--- NOTE | 2018-08-06 18:16 | PN ---
PROGRESS NOTE DATE OF SERVICE: Mrs. Edwards is in sinus rhythm, resting comfortably, doing well. Her creatinine went up to 1.22; however, she also has type 2 diabetes, was on metformin that was not restarted. I am recommending that she should drink plenty of water at home. She can be discharged today, drink 8 glasses of water every day, have a CBC and BMP on Thursday and see Dr. Stearns on Thursday. Her vitals are stable. No JVD or carotid bruit. S1, S2 heard normally. Lungs are clear. Abdomen and lower extremity exam unchanged. This lady has type 2 diabetes, hypertension, underwent flutter ablation about a year ago. She came in with a [id number] CO and had stenting of mid LAD with excellent result. Will follow her creatinine closely. MMODL / IJN: [id number] /
--- NOTE | 2018-08-06 22:39 | P.DS ---
Providers Date of admission: 08/01/18 13:22 Attending physician: Luc Mcdaniel Consults: 08/01/18 13:22 Consult Physician Urgent Consulting Provider: Phuong Martinez Consult Reason/Comments: nstemi Do you want consulting provider notified?: Already Contacted 08/01/18 15:13 Consult Physician Urgent Consulting Provider: Sheldon Alas Consult Reason/Comments: critical care Do you want consulting provider notified?: Already Contacted 08/02/18 08:49 Consult Physician Routine Consulting Provider: [facility] Consult Reason/Comments: Post Interventional patient Do you want consulting provider notified?: Already Contacted Primary care physician: Benedicto Cabello [facility] Course: Diagnoses: Non-ST elevation MN. Status post cardiac cath and stent placed to the LAD right upper ext pain , mostly musculoskeletal . Improving Type 2 diabetes mellitus. Hypertension Fibromyalgia Hyperlipidemia Chronic low back pain with herniated discs Diabetic neuropathy History of migraine headaches Hypothyroidism GERD Asthma/COPD Stroke/TIA Hospital course: Ms. Edwards is a 52-year-old female , who follows with Dr. Cabello in an outpatient setting, with a past medical history of hypertension, diabetes, COPD, fibromyalgia, hyperlipidemia, thyroid disorder, coming into the hospital with a chief complaint of chest pain. Patient found to have non-STEMI. Patient underwent cardiac cath was showing mid LAD disease, status post stent placement. Patient was started on dual antiplatelet therapy, postprocedure she is doing well with no chest pain or dyspnea. She has right arm pain yesterday from the procedure and thus improving. Cath site of the right wrist is healing with no swelling or tenderness or no signs of cellulitis. pt has mild increase in creatinine and WBC mostly related to her procedure, nephrology consult is called . both nephrology and cardiology team recommended to encourage oral hydration and pt will follow up with both services as well as her pcp for checking her creatinine and white cell count. i called office to talk to him but he was unavailable and no medical staff was covering him Patient has been evaluated by pulmonology and cardiology team and cleared her for discharge. Patient was eager to go home today. Patient was cleared for discharge by pulmonary and cardiology team. Problems and management plan were discussed with the patient and he verbalized understanding and acceptance Patient was found stable and can be discharged home however he needs follow-up as an outpatient. pt agrees with appoinment made for her with pcp , cardiology . pt was instructed to f/u with nephrology in one week and she agrees. pt is aware of her increase in wbc and creatinine and the need for f/u with her doctors and she agrees with the plan. Gen: patient is a AAOx3, no distress CVS: S1-S2, RRR, no murmur Lungs: B/L CTA, no wheezing Abdomen: soft, no distention, no tenderness, positive bowel sounds Extremity: no leg edema or induration Time spent more than 35 minutes Patient Condition at Discharge: Serious Plan - Discharge Summary Discharge Rx Participant: Yes New Discharge Prescriptions: New Losartan [Cozaar] 100 mg PO DAILY #30 tab Atorvastatin [Lipitor] 80 mg PO HS #30 tab Metoprolol Tartrate [Lopressor] 50 mg PO BID #60 tab Nitroglycerin Sl Tabs [Nitrostat] 0.4 mg SUBLINGUAL Q5M PRN #25 tab PRN Reason: Chest Pain Clopidogrel [Plavix] 75 mg PO DAILY #30 tab Capsaicin Cream [Trixaicin Cream] 1 applic TOPICAL TID #1 applic Continue Aspirin EC [Ecotrin Low Dose] 81 mg PO AC-LUNCH Glimepiride [Amaryl] 4 mg PO BID 30 Days #60 tab Levothyroxine Sodium [Synthroid] 50 mcg PO DAILY 30 Days #60 tab sitaGLIPtin [Januvia] 100 mg PO W/BRKFST 30 Days #30 tab Ferrous Sulfate [Iron (65 MG Elemental)] 325 mg PO DAILY Ammonium Lactate Lotion [Lac-Hydrin 12% Lotion] 1 applic TOPICAL DAILY Cholecalciferol [Vitamin D3 (25 Mcg = 1000 Iu)] 4,000 unit PO DAILY Multivitamins, Thera [Multivitamin (formulary)] 1 tab PO DAILY metFORMIN HCL [Glucophage] 850 mg PO TID Omeprazole 40 mg PO DAILY #14 capsule. amLODIPine [Norvasc] 2.5 mg PO BID #60 tab Atenolol [Tenormin] 25 mg PO DAILY #30 tab Discontinued Lisinopril [Zestril] 5 mg PO DAILY 30 Days #30 tab Pravastatin Sodium [Pravachol] 20 mg PO DAILY #30 tab Ibuprofen [Motrin] 800 mg PO TID Diclofenac Sodium Gel [Voltaren Gel] 2 gm TOPICAL QID PRN PRN Reason: Pain Discharge Medication List Aspirin EC [Ecotrin Low Dose] 81 mg PO AC-LUNCH 03/14/15 [History] Glimepiride [Amaryl] 4 mg PO BID 30 Days #60 tab 03/12/18 [Rx] Levothyroxine Sodium [Synthroid] 50 mcg PO DAILY 30 Days #60 tab 03/12/18 [Rx] sitaGLIPtin [Januvia] 100 mg PO W/BRKFST 30 Days #30 tab 03/12/18 [Rx] Ammonium Lactate Lotion [Lac-Hydrin 12% Lotion] 1 applic TOPICAL DAILY 06/07/18 [History] Cholecalciferol [Vitamin D3 (25 Mcg = 1000 Iu)] 4,000 unit PO DAILY 06/07/18 [History] Ferrous Sulfate [Iron (65 MG Elemental)] 325 mg PO DAILY 06/07/18 [History] Multivitamins, Thera [Multivitamin (formulary)] 1 tab PO DAILY 06/07/18 [History] Omeprazole 40 mg PO DAILY #14 capsule. 06/07/18 [Rx] metFORMIN HCL [Glucophage] 850 mg PO TID 06/07/18 [History] Atenolol [Tenormin] 25 mg PO DAILY #30 tab 08/05/18 [Rx] Atorvastatin [Lipitor] 80 mg PO HS #30 tab 08/05/18 [Rx] Clopidogrel [Plavix] 75 mg PO DAILY #30 tab 08/05/18 [Rx] Losartan [Cozaar] 100 mg PO DAILY #30 tab 08/05/18 [Rx] Metoprolol Tartrate [Lopressor] 50 mg PO BID #60 tab 08/05/18 [Rx] Nitroglycerin Sl Tabs [Nitrostat] 0.4 mg SUBLINGUAL Q5M PRN #25 tab 08/05/18 [Rx] amLODIPine [Norvasc] 2.5 mg PO BID #60 tab 08/05/18 [Rx] Capsaicin Cream [Trixaicin Cream] 1 applic TOPICAL TID #1 applic 08/06/18 [Rx] Follow up Appointment(s)/Referral(s): Luan Stearns MD [STAFF PHYSICIAN] - 08/11/18 9:30 am (Thursday) Benedicto Cabello DO [Primary Care Provider] - 08/13/18 10:20 am (Thursday -previously scheduled appointment -please check your blood test with your doctor , includign your white cell count (WBC) and renal function ( creatinine) ) Jose Amador, [STAFF PHYSICIAN] - 1 Week [facility] Visiting Nurse, [NON-STAFF] - 1-2 Days Patient Instructions/Handouts: *Surgery [facility] - After Heart Catheterization - [employer] Instructions, Left Heart Catheterization (DC) Activity/Diet/Wound Care/Special Instructions: Cardiac diet Activity is limited till your see your doctor Hold Metformin. Drink plenty of water. Go to lab for a BMP on Thursday. Discharge Disposition: HOME SELF-CARE
== END 2018-08-06 16:40 | disposition home or self-care (01) | DRG 246 ==
LOC: EC 10:53 → 3SCARD 13:22 → 2SICU 15:19 → 3SCARD 08-06 01:10
PROVIDERS: ADMIT Hospitalist; ATTEND Hospitalist
PROC: B2111ZZ Fluoroscopy of Multiple Coronary Arteries using Low Osmolar Contrast (ICD-10-PCS; 2018-08-02)
PROC: B2151ZZ Fluoroscopy of Left Heart using Low Osmolar Contrast (ICD-10-PCS; 2018-08-02)
PROC: 027034Z Dilation of Coronary Artery, One Artery with Drug-eluting Intraluminal Device, Percutaneous Approach (ICD-10-PCS; principal; 2018-08-02 07:28)
PROC: 4A023N7 Measurement of Cardiac Sampling and Pressure, Left Heart, Percutaneous Approach (ICD-10-PCS; 2018-08-02 07:28)
DX: I21.4 Non-ST elevation (NSTEMI) myocardial infarction (principal); I50.21 Acute systolic (congestive) heart failure; N17.0 Acute kidney failure with tubular necrosis; H33.8 Other retinal detachments; I25.5 Ischemic cardiomyopathy; E11.42 Type 2 diabetes mellitus with diabetic polyneuropathy; I11.0 Hypertensive heart disease with heart failure; K76.0 Fatty (change of) liver, not elsewhere classified; E03.9 Hypothyroidism, unspecified; E66.9 Obesity, unspecified; E78.00 Pure hypercholesterolemia, unspecified; E78.5 Hyperlipidemia, unspecified; F31.9 Bipolar disorder, unspecified; F41.0 Panic disorder [episodic paroxysmal anxiety]; G89.29 Other chronic pain; I25.10 Atherosclerotic heart disease of native coronary artery without angina pectoris; J44.9 Chronic obstructive pulmonary disease, unspecified; K21.9 Gastro-esophageal reflux disease without esophagitis; M19.90 Unspecified osteoarthritis, unspecified site; M79.7 Fibromyalgia; N14.1 Nephropathy induced by other drugs, medicaments and biological substances; T50.8X5A Adverse effect of diagnostic agents, initial encounter; G43.909 Migraine, unspecified, not intractable, without status migrainosus; M54.32 Sciatica, left side; M51.26 Other intervertebral disc displacement, lumbar region; R42 Dizziness and giddiness; Z79.82 Long term (current) use of aspirin; Z79.890 Hormone replacement therapy; Z79.899 Other long term (current) drug therapy; Z79.84 Long term (current) use of oral hypoglycemic drugs; Z85.828 Personal history of other malignant neoplasm of skin; Z68.34 Body mass index [BMI] 34.0-34.9, adult; I69.911 Memory deficit following unspecified cerebrovascular disease; Z87.891 Personal history of nicotine dependence; Z90.710 Acquired absence of both cervix and uterus; Z87.11 Personal history of peptic ulcer disease; Z90.49 Acquired absence of other specified parts of digestive tract; Z83.3 Family history of diabetes mellitus; Z82.49 Family history of ischemic heart disease and other diseases of the circulatory system; Z80.3 Family history of malignant neoplasm of breast
CPT/HCPCS: 36415; 71046; 80048; 80053; 80061; 81001; 83036; 83735; 84439; 84443; 84484; 85025; 85379; 85610; 85730; 93005; 93306; 93458; 96365; 96366; 96368; 96376; 99291; C1874

== ENCOUNTER → 2018-10-08 | Outpatient (CLI) | payer OTHER ==
[2018-10-08 16:44] LABS: African American GFR (CKD) 61.4 (60.0-200.0); Anion Gap 11.6 mmol/L (4.00-12.00); BUN/Creat Ratio 18.18 Ratio (12.00-20.00); Calcium 9.9 mg/dL (8.7-10.3); Carbon Dioxide 23.4 mmol/L (21.6-31.8); LDL Cholesterol,Calculated 56.2 mg/dL (0.0-131.0); Potassium 4.8 mmol/L (3.5-5.5); VLDL Calculation 33.8 mg/dL (5.00-40.00)
== END | disposition home or self-care (01) ==
LOC: LABWHC1 10:02
PROVIDERS: ATTEND Physician Assistant
DX: E78.5 Hyperlipidemia, unspecified (principal)
CPT/HCPCS: 36415; 80048; 80061

== ENCOUNTER 2019-02-28 15:19 | Inpatient (IN) | payer MEDICARE, OTHER ==
[2019-02-28] MEDS ORDERED: NITROGLYCERIN SL TABS 0.4 MG TAB SUBLINGUAL STA (16:13)
[2019-02-28 16:30] LABS: Basophils # (A) 0.1 k/uL (0-0.2); Basophils % (A) 1 %; Eosinophils # (A) 0.3 k/uL (0-0.7); Eosinophils % (A) 2 %; HCT 41.7 % (34.0-46.0); Lymphocytes % (A) 29 %; MCHC 33.6 g/dL (31.0-37.0); MCV 83.4 fL (80.0-100.0); Mean Platelet Volume 7.8; Monocytes # (A) 0.6 k/uL (0-1.0); Monocytes % (A) 4 %; Neutrophils # (A) 8.8 k/uL (1.3-7.7); Neutrophils % (A) 63 %; Platelet Count 363 k/uL (150-450)
--- NOTE | 2019-02-28 16:35 | ED ---
Chest Pain HPI - General Chief Complaint: Chest Pain Stated Complaint: chest pain/nausea Time Seen by Provider: 02/28/19 15:30 Source: patient Mode of arrival: ambulatory Limitations: no limitations - History of Present Illness Initial Comments: The patient is a 63-year-old female past history of diabetes, CVA, COPD and coronary artery disease presents emergency room with reported chest pain. She describes it as a pressure sensation over the left side of her chest. His been present for the past week intermittently. She states that yesterday the pain came on severe and has been persistent. She denies any provocative factors. She does have nitro at home however states she did not take it for this symptom. She denies fevers, chills, cough or hemoptysis. She admits to nausea. No vomiting. Admits to diaphoresis. No ripping or tearing sensation to her back. Admits to feeling presyncopal. Denies any abdominal pain or changes in her magdalena l or bladder habits. She was seen in the summer of last year and had a stent placed. She states Dr. Rinaldi in office. She also reports to a history of reflux. Last EGD and colonoscopy was 4 months ago. There are no other alleviating, precipitating or modifying factors - Related Data Home Medications Medication Instructions Recorded Confirmed Ammonium Lactate Lotion 1 applic TOPICAL DAILY 06/07/18 02/28/19 [Lac-Hydrin 12% Lotion] Ferrous Sulfate [Iron (65 MG 325 mg PO DAILY 06/07/18 02/28/19 Elemental)] Multivitamins, Thera [Multivitamin 1 tab PO DAILY 06/07/18 02/28/19 (formulary)] metFORMIN HCL [Glucophage] 850 mg PO BID 06/07/18 02/28/19 Acetaminophen Tab [Tylenol] 325 mg PO Q8H PRN 02/28/19 02/28/19 Apixaban [Eliquis] 5 mg PO BID 02/28/19 02/28/19 Carvedilol [Coreg] 6.25 mg PO BID 02/28/19 02/28/19 Cholecalciferol (Vitamin D3) 4,000 unit PO DAILY 02/28/19 02/28/19 [Vitamin D3] HYDROcodone/APAP 10-325MG [[place] 1 tab PO TID PRN 02/28/19 02/28/19 10-325] Melatonin 6 mg PO HS PRN 02/28/19 02/28/19 Omeprazole 40 mg PO MOWEFR@2100 02/28/19 02/28/19 Temazepam [Restoril] 15 mg PO HS PRN 02/28/19 02/28/19 amLODIPine [Norvasc] 5 mg PO BID 02/28/19 02/28/19 hydrOXYzine HCL [Atarax] 25 mg PO Q8H PRN 02/28/19 02/28/19 sitaGLIPtin [Januvia] 100 mg PO AC-BRKFST 02/28/19 02/28/19 Previous Rx's Medication Instructions Recorded Glimepiride [Amaryl] 4 mg PO BID 30 Days #60 tab 03/12/18 Levothyroxine Sodium [Synthroid] 50 mcg PO DAILY 30 Days #60 tab 03/12/18 Atorvastatin [Lipitor] 80 mg PO HS #30 tab 08/05/18 Clopidogrel [Plavix] 75 mg PO DAILY #30 tab 08/05/18 Losartan [Cozaar] 100 mg PO DAILY #30 tab 08/05/18 Nitroglycerin Sl Tabs [Nitrostat] 0.4 mg SUBLINGUAL Q5M PRN #25 tab 08/05/18 Allergies Allergy/AdvReac Type Severity Reaction Status Date / Time No Known Allergies Allergy Verified 02/28/19 17:52 Review of Systems ROS Statement: Those systems with pertinent positive or pertinent negative responses have been documented in the HPI. ROS Other: All systems not noted in ROS Statement are negative. EKG Findings - EKG Comments: EKG Findings:: EKG demonstrates sinus rhythm with frequent PVCs. Rate of 93. KS interval 134. QRS 80. QTC of 469. There are no acute ST segment elevations or depressions concerning for ischemic changes. Significant baseline artifact. There are PVCs present. Past Medical History Past Medical History: Asthma, Cancer, COPD, CVA/TIA, Diabetes Mellitus, Eye Disorder, Fibromyalgia, GERD/Reflux, Hyperlipidemia, Hypertension, Myocardial Infarction (ID), Osteoarthritis (OA), Pneumonia, Thyroid Disorder Additional Past Medical History / Comment(s): Recent bronchitis/dehydration and completed antibiotics, past bronchitis, IDDM type II, bilateral lower leg and feet neuropathy, 2009 CVA with some memory issues, possible TIA, basal cell skin cancer removed from L nares, L eye has partially detached retina, cateracts, gastric ulcer, hematemesis, chronic low back pain, sciatica mostly L side occasionally R side, migraines, vertigo, fatty liver, palpitations, past fractures of R thumb/R wrist/L hand, [place] Spotted Fever as an , hypothyrodism, ID july 2018 Last Myocardial Infarction Date:: july 2018 History of Any Multi-Drug Resistant Organisms: None Reported Past Surgical History: Ablation, Back Surgery, Cholecystectomy, Heart Catheterization, Hernia Repair, Hysterectomy, Tonsillectomy Additional Past Surgical History / Comment(s): 11/2016 EPS with A flutter ablation, 2007 cardiac cath-normal, L nares skin cancer removed, UMBILICAL HERNIA SX 3X, RT Hand SX for middle TRIGGER FINGER, FIBROID TUMORS REMOVED ABD/BACK, LAPROSCOPIES x 3, L5-S1 SX for HERNIATED DISCS, EGD/colonoscopy. Past Anesthesia/Blood Transfusion Reactions: Postoperative Nausea & Vomiting (PONV) Additional Past Anesthesia/Blood Transfusion Reaction / Comment(s): AND SEVERE HEADACHE WITH ANESTHESIA IN PAST Past Psychological History: Anxiety, Bipolar, Depression Smoking Status: Former smoker Past Alcohol Use History: None Reported Past Drug Use History: None Reported - Past Family History Father Family Medical History: Diabetes Mellitus Additional Family Medical History / Comment(s): ONLY MET HIM ONCE IN HER LIFE [employer] IN HIS FAMILY Mother Family Medical History: Cancer Additional Family Medical History / Comment(s): Breast CA. General Exam Limitations: no limitations General appearance: alert, in no apparent distress Head exam: Present: atraumatic, normocephalic, normal inspection Eye exam: Present: normal appearance, PERRL, EOMI. Absent: scleral icterus, conjunctival injection, periorbital swelling ENT exam: Present: normal exam, mucous membranes moist Neck exam: Present: normal inspection. Absent: tenderness, meningismus, lymphadenopathy Respiratory exam: Present: normal lung sounds bilaterally. Absent: respiratory distress, wheezes, rales, rhonchi, stridor Cardiovascular Exam: Present: regular rate, normal rhythm, normal heart sounds. Absent: systolic murmur, diastolic murmur, rubs, gallop, clicks GI/Abdominal exam: Present: soft, normal bowel sounds. Absent: distended, tenderness, guarding, rebound, rigid Extremities exam: Present: normal inspection, full ROM, normal capillary refill. Absent: tenderness, pedal edema, joint swelling, calf tenderness Back exam: Present: normal inspection Neurological exam: Present: alert, oriented X3, CN II-XII intact Psychiatric exam: Present: normal affect, normal mood Skin exam: Present: warm, dry, intact, normal color. Absent: rash Course Vital Signs 02/28/19 02/28/19 02/28/19 15:27 16:23 18:19 Temperature 98.6 F Pulse Rate 81 82 92 Respiratory 22 19 16 Rate Blood Pressure 190/88 142/99 164/96 O2 Sat by Pulse 99 99 97 Oximetry Chest Pain MDM - MDM Upon arrival the patient is placed into room 1. A thorough history and physical exam was performed. The patient was sent for a chest x-ray. Laboratory studies were conducted. Twelve-lead EKG was performed. Laboratory studies demonstrate a white blood cell count of 14,000. CMP shows a glucose of 28. No signs of DKA. Lipase is 361. Chest x-ray demonstrates no acute cardiopulmonary disease. The patient was given a sublingual nitro and states that she did have improvement in her symptoms. Did discuss the diagnosis, differential treatment options. The patient does have a history of coronary artery disease in did recommend hospital admission noted to trend the patient's troponins in to be evaluated by cardiology. Call discuss case with Dr. Cabello who accepted admission for the patient. He does request a urine drug screen she does have a history of "the past. Study was ordered. Bridging orders were placed. I reevaluated the patient and her chest pain has returned. I did place nitro paste on her chest the patient was transferred to floor in stable condition Disposition Clinical Impression: Chest pain Disposition: ADMITTED IP TO THIS HOSP Condition: Stable Is patient prescribed a controlled substance at d/c from ED?: No Decision to Admit Reason: Admit from EC Decision Date: 02/28/19 Decision Time: 17:31
[2019-02-28 16:44] LABS: Albumin 4.8 g/dL (3.5-5.0); Calcium 10.5 mg/dL (8.4-10.2); Magnesium 1.5 mg/dL (1.6-2.3); Partial Thromboplastin Time 25.5 sec (22.0-30.0); Potassium 4.8 mmol/L (3.5-5.1); Prothrombin Time 10.3 sec (9.0-12.0); Total Bilirubin 0.4 mg/dL (0.2-1.3); Total Protein 7.9 g/dL (6.3-8.2)
--- NOTE | 2019-02-28 17:02 | XR ---
EXAMINATION TYPE: XR chest 2V DATE OF EXAM: 02/28/2019 COMPARISON: 08/01/2018 HISTORY: Chest pain TECHNIQUE: FINDINGS: Heart is normal. Lungs are clear of infiltrate. There is minor spurring in the thoracic spi ne. Thoracic aorta is atheromatous. There is no pleural effusion. Bony thorax is intact. IMPRESSION: No active cardiopulmonary disease. Normal heart. No change.
[2019-02-28] MEDS ORDERED: NALOXONE 0.4 MG/ML 1 ML VIAL IV PRN (17:38)
[2019-02-28] MEDS ORDERED: ACETAMINOPHEN TAB 325 MG TAB PO PRN (18:26)
[2019-02-28] MEDS ORDERED: TEMAZEPAM 15 MG CAP PO PRN (18:26)
[2019-02-28] MEDS ORDERED: hydrOXYzine HCL 25 MG TAB PO PRN (18:26)
[2019-02-28] MEDS ORDERED: NITROGLYCERIN OINT 1 INCH/GM PACKET TOPICAL STA (18:26)
[2019-02-28] MEDS ORDERED: MAGNESIUM SULFATE-D5W PMX 1 GM in DEXTROSE/WATER 1 100ML.BAG IVPB ONE (19:00)
[2019-02-28] MEDS: amLODIPine 5 MG TAB PO SCH (20:01)
[2019-02-28] MEDS: ATORVASTATIN 80 MG TAB PO SCH (20:01)
[2019-02-28] MEDS: APIXABAN 5 MG TAB PO SCH (20:01)
[2019-02-28 20:23] LABS: Glucose,Whole Blood 204 mg/dL (75-99)
[2019-02-28] MEDS: INSULIN ASPART (NovoLOG) 100 UNIT/ML VIAL SQ SCH (20:31)
[2019-02-28] MEDS ORDERED: PANTOPRAZOLE 40 MG TABLET PO SCH (21:00)
[2019-02-28] MEDS: HYDROcodone/APAP 10-325MG 1 EACH TAB PO PRN (21:06)
[2019-03-01] MEDS: MELATONIN 3 MG TABLET PO PRN ×2 (00:56→23:35)
[2019-03-01 02:17] LABS: Amphetamine Screen,Urine Not Detected (NotDetected); Barbiturate Screen,Urine Not Detected (NotDetected); Benzodiazepines Screen,Urine Not Detected (NotDetected); Cocaine Screen,Urine Not Detected (NotDetected); Methadone Screen, Urine Not Detected (NotDetected); Opiate Screen,Urine Detected (NotDetected); Oxycodone Screen, Urine Not Detected (NotDetected); Phencyclidine Screen,Urine Not Detected (NotDetected); Tricyclic Antidepressant,Urine Not Detected (NotDetected); Urn Cannabinoid Scrn Detected (NotDetected)
[2019-03-01 04:13] LABS: Basophils # (A) 0.1 k/uL (0-0.2); Basophils % (A) 1 %; Eosinophils # (A) 0.3 k/uL (0-0.7); Eosinophils % (A) 3 %; HCT 37.3 % (34.0-46.0); HGB 12.2 gm/dL (11.4-16.0); Lymphocytes # (A) 3.9 k/uL (1.0-4.8); Lymphocytes % (A) 37 %; MCH 27.4 pg (25.0-35.0); MCHC 32.7 g/dL (31.0-37.0); MCV 83.7 fL (80.0-100.0); Mean Platelet Volume 7.3; Monocytes # (A) 0.5 k/uL (0-1.0); Monocytes % (A) 4 %; Neutrophils # (A) 5.7 k/uL (1.3-7.7); Neutrophils % (A) 54 %; Platelet Count 272 k/uL (150-450); RBC 4.46 m/uL (3.80-5.40); RDW 13.3 % (11.5-15.5); WBC 10.6 k/uL (3.8-10.6)
[2019-03-01 04:22] LABS: Calcium 9.6 mg/dL (8.4-10.2); Potassium 4.4 mmol/L (3.5-5.1)
[2019-03-01] MEDS: HYDROcodone/APAP 10-325MG 1 EACH TAB PO PRN (05:16)
[2019-03-01] MEDS: LEVOTHYROXINE 50 MCG TAB PO SCH (05:16)
[2019-03-01 07:20] LABS: Glucose,Whole Blood 198 mg/dL (75-99)
[2019-03-01] MEDS ORDERED: CAFFEINE CITRATE 60 MG/3 ML VIAL IV PRN (10:01)
[2019-03-01] MEDS ORDERED: AMINOPHYLLINE 500 MG/20 ML VIAL IV PRN (10:01)
[2019-03-01] MEDS ORDERED: SODIUM CHLORIDE 0.9% 1,000 ML in EMPTY BAG 1 BAG IV ONE (10:29)
[2019-03-01] MEDS ORDERED: REGADENOSON 0.4 MG/5 ML SYRINGE IV ONE (10:30)
[2019-03-01] MEDS: FERROUS SULFATE 325 MG TAB PO SCH (11:02)
[2019-03-01] MEDS: amLODIPine 5 MG TAB PO SCH ×2 (11:02→19:26)
[2019-03-01] MEDS: CLOPIDOGREL 75 MG TAB PO SCH (11:02)
[2019-03-01] MEDS: CARVEDILOL 6.25 MG TAB PO SCH ×2 (11:02→18:01)
[2019-03-01] MEDS: MULTIVITAMINS, THERA 1 EACH TAB PO SCH (11:02)
[2019-03-01] MEDS: LOSARTAN 50 MG TAB PO SCH (11:02)
[2019-03-01] MEDS: INSULIN ASPART (NovoLOG) 100 UNIT/ML VIAL SQ SCH ×4 (11:03→23:18)
[2019-03-01] MEDS: AMMONIUM LACTATE 12% LOTION 225 GM BTL TOPICAL SCH (11:03)
[2019-03-01] MEDS: APIXABAN 5 MG TAB PO SCH (11:03)
--- NOTE | 2019-03-01 11:19 | ECHOF ---
Referral Reason:cp MEASUREMENTS -------- HEIGHT: 167.6 cm WEIGHT: 99.8 kg BP: 120/79 RVIDd: 2.6 cm (< 3.3) IVSd: 1.4 cm (0.6 - 1.1) LVIDd: 4.5 cm (3.9 - 5.3) LVPWd: 1.4 cm (0.6 - 1.1) IVSs: 1.8 cm LVIDs: 2.4 cm LVPWs: 2.0 cm LAESV Index (A-L): 25.00 ml/m Ao Diam: 2.8 cm (2.0 - 3.7) AV Cusp: 1.5 cm (1.5 - 2.6) LA Diam: 3.1 cm (2.7 - 3.8) MV EXCURSION: 12.842 mm (> 18.000) MV EF SLOPE: 47 mm/s (70 - 150) EPSS: 0.9 cm MV E John: 0.60 m/s MV DecT: 252 ms MV A John: 0.87 m/s MV E/A Ratio: 0.69 AV maxP.84 mmHg AV meanP.65 mmHg RAP: 5.00 mmHg RVSP: 12.51 mmHg FINDINGS -------- Sinus rhythm. This was a technically good study. The left ventricular size is normal. There is moderate concentric left ventricular hypertrophy. O verall left ventricular systolic function is low-normal with, an EF between 50 - 55 %. The diastoli c filling pattern is normal for the age of the patient 12.24. The right ventricle is normal in size. The left atrial size is normal. Normal LA size by volume 22+/-6 ml/m2. The right atrial size is normal. Aortic valve is trileaflet and is mildly thickened. There is mild aortic stenosis present. Peak/m len gradient across the Aortic Valve is 15.84mmHg / 9.65mmHg. The mitral valve is normal. The mitral valve leaflets are mildly thickened. Mild mitral regurgita tion is present. The tricuspid valve appears structurally normal. Mild tricuspid regurgitation present. Right vent ricular systolic pressure is normal at < 35 mmHg. There is no pulmonic regurgitation present. The aortic root size is normal. Normal inferior vena cava with normal inspiratory collapse consistent with estimated right atrial pre ssure of 5 mmHg. There is no pericardial effusion. CONCLUSIONS -------- 1. Sinus rhythm. 2. This was a technically good study. 3. The left ventricular size is normal. 4. There is moderate concentric left ventricular hypertrophy. 5. Overall left ventricular systolic function is low-normal with, an EF between 50 - 55 %. 6. The diastolic filling pattern is normal for the age of the patient 12.24 7. The right ventricle is normal in size. 8. The left atrial size is normal. 9. Normal LA size by volume 22+/-6 ml/m2. 10. The right atrial size is normal. 11. Aortic valve is trileaflet and is mildly thickened. 12. There is mild aortic stenosis present. 13. Peak/mean gradient across the Aortic Valve is 15.84mmHg / 9.65mmHg. 14. The mitral valve is normal. 15. The mitral valve leaflets are mildly thickened. 16. Mild mitral regurgitation is present. 17. The tricuspid valve appears structurally normal. 18. Mild tricuspid regurgitation present. 19. Right ventricular systolic pressure is normal at < 35 mmHg. 20. There is no pulmonic regurgitation present. 21. The aortic root size is normal. 22. Normal inferior vena cava with normal inspiratory collapse consistent with estimated right atrial pressure of 5 mmHg. 23. There is no pericardial effusion. MARKET [employer]EARCH ASSOCIATE: Mai Tolentino RDCS
[2019-03-01 11:52] LABS: Glucose,Whole Blood 186 mg/dL (75-99)
--- NOTE | 2019-03-01 12:10 | P.CRDCN ---
History of Present Illness History of present illness: HISTORY OF PRESENTING ILLNESS This is a pleasant 63-year-old female past medical history significant for coronary artery disease s/p stent placement to the mid LAD in the setting of myocardial infarction 07/2018, ischemic cardiomyopathy that improved after PCI, atrial flutter s/p ablation, hypertension, dyslipidemia, fibromyalgia, diabetes mellitus, COPD, TIA, chronic nicotine dependence, aortic stenosis and chronic back pain. She follows in the office with Dr. Stearns. We have been asked to see in consultation for chest pain. She states in July she had been feeling vague sy mptoms of pain in both of her upper arms for 2 weeks prior to having an MS. For the last few days she has been noticing these pains in her arms again. It seems to be worse on the left with some associated discomfort in the left precordial region as well. She denies shortness of breath, dizziness, palpitations, nausea, vomiting or diaphoresis. Currently she is chest pain free. She underwent a nucle ar stress test in the office 10/2018 after her MS that was negative for reversible cardiac ischemia. Most recent echo 10/2018 in the office revealed improved LV systolic function with EF 55%. DIAGNOSTICS EKG reveals sinus mechanism, PVC's and left axis deviation. Chest xray negative for an acute cardiopulmonary process. Laboratory reviewed, WBC on admission 14, repeat today 10.6, hgb 12.2, plt 272, sodium 138, potassium 4.4, creatinine 0.88, magnesium on admission 1.5, cardiac enzymes negative x3, proBNP 314 and lipase 361. Current cardiac medications include amlodipine 5 mg BID, losartan 100 mg daily, plavix 75 mg daily, coreg 6.25 mg BID, atorvastatin 80 mg daily and eliquis 5 mg BID. REVIEW OF SYSTEMS At the time of my exam: CONSTITUTIONAL: Denies fever or chills. CARDIOVASCULAR: Denies chest pain, shortness of breath, orthopnea, PND or palpitations. RESPIRATORY: Denies cough. GASTROINTESTINAL: Denies abdominal pain, diarrhea, constipation, nausea or vomiting. MUSCULOSKELETAL: Denies myalgias. NEUROLOGIC: Denies numbness, tingling or weakness. ENDOCRINE: Denies fatigue, weight change, polydipsia or polyurina. GENITOURINARY: Denies burning, hematuria or urgency with micturation. HEMATOLOGIC: Denies history of anemia or bleeding. PHYSICAL EXAMINATION Blood pressure 148/92 heart rate 80 afebrile and maintaining oxygen saturation on room air. CONSTITUTIONAL: No apparent distress. Obese. HEENT: Head is normocephalic. Pupils are equal, round. Sclerae anicteric. Mucous membranes of the mouth are moist. No JVD. No carotid bruit. CHEST EXAMINATION: Lungs are clear to auscultation. No chest wall tenderness is noted on palpation or with deep breathing. HEART EXAMINATION: Regular rate and rhythm. S1, S2 heard. Systolic ejection murmur at the base, no gallops or rub. ABDOMEN: Soft, nontender. Positive bowel sounds. EXTREMITIES: 2+ peripheral pulses, no lower extremity edema and no calf tenderness. NEUROLOGIC EXAMINATION: Patient is awake, alert and oriented x3. ASSESSMENT Chest pain History of coronary artery disease s/p PCI of the mid LAD July 2018 Ischemic cardiomyopathy Hypomagnesemia Leukocytosis History of atypical atrial flutter s/p ablation Hypertension Dyslipidemia Diabetes mellitus COPD Daily marijuana use Former nicotine dependence Obesity, BMI 35 PLAN Recommend proceeding with cardiac catheterization to assess for progression of underlying CAD or in-stent restenosis. I have discussed the risks, benefits and alternative therapies for the above-mentioned procedure and for both sedation/analgesia as well as necessary blood product administration, if indicated, as they pertain to this patient. The patient has indicated understanding and acceptance of the risks and procedures discussed. Hold Eliquis. Repeat magnesium level and replace per protocol if continues to be low. Repeat echocardiogram to assess cardiac structure and function. Check lipid profile. Smoking cessation recommended. Further recommendations to follow based on clinical course. Thank you kindly for this consultation. Nurse Practitioner note has been reviewed, I agree with a documented findings and plan of care. Patient was seen and examined. Past Medical History Past Medical History: Asthma, Cancer, COPD, CVA/TIA, Diabetes Mellitus, Eye Disorder, Fibromyalgia, GERD/Reflux, Hyperlipidemia, Hypertension, Myocardial Infarction (MS), Osteoarthritis (OA), Pneumonia, Thyroid Disorder Additional Past Medical History / Comment(s): Recent bronchitis/dehydration and completed antibiotics, past bronchitis, IDDM type II, bilateral lower leg and feet neuropathy, 2009 CVA with some memory issues, possible TIA, basal cell skin cancer removed from L nares, L eye has partially detached retina, caterac ts, gastric ulcer, hematemesis, chronic low back pain, sciatica mostly L side occasionally R side, migraines, vertigo, fatty liver, palpitations, past fractures of R thumb/R wrist/L hand, [place] Spotted Fever as an , hypothyrodism, MS july 2018 Last Myocardial Infarction Date:: july 2018 History of Any Multi-Drug Resistant Organisms: None Reported Past Surgical History: Ablation, Back Surgery, Cholecystectomy, Heart Catheterization, Hernia Repair, Hysterectomy, Tonsillectomy Additional Past Surgical History / Comment(s): 11/2016 EPS with A flutter ablation, 2007 cardiac cath-normal, L nares skin cancer removed, UMBILICAL HERNIA SX 3X, RT Hand SX for middle TRIGGER FINGER, FIBROID TUMORS REMOVED ABD/BACK, LAPROSCOPIES x 3, L5-S1 SX for HERNIATED DISCS, EGD/colonoscopy. Past Anesthesia/Blood Transfusion Reactions: Postoperative Nausea & Vomiting (P ONV) Additional Past Anesthesia/Blood Transfusion Reaction / Comment(s): AND SEVERE HEADACHE WITH ANESTHESIA IN PAST Past Psychological History: Anxiety, Bipolar, Depression Additional Psychological History / Comment(s): Pt resides alone in an apartment. She has a glucometer. She has a cane which she uses prn. She does not own a vehicle. She gets to appointments usually thru her home insurance. She states she has had some increased depression lately but denies suicidal thoughts/plans. She states she does not receive any psychiatric care presently but has in the past but cannot recall name. Smoking Status: Former smoker Past Alcohol Use History: None Reported Additional Past Alcohol Use History / Comment(s): Pt states she quit smoking in 2010 and had started smoking in 1971. SMOKED1/2-1PPD QUIT ON AND OFF Past Drug Use History: None Reported Additional Drug Use History / Comment(s): USES OCCASIONALLY - Past Family History Father Family Medical History: Diabetes Mellitus Additional Family Medical History / Comment(s): ONLY MET HIM ONCE IN HER LIFE [email or web address] IN HIS FAMILY Mother Family Medical History: Cancer Additional Family Medical History / Comment(s): Breast CA. Medications and Allergies Home Medications Medication Instructions Recorded Confirmed Type Glimepiride [Amaryl] 4 mg PO BID 30 Days #60 tab 03/12/18 02/28/19 Rx Levothyroxine Sodium [Synthroid] 50 mcg PO DAILY 30 Days #60 tab 03/12/18 02/28/19 Rx Ammonium Lactate Lotion 1 applic TOPICAL DAILY 06/07/18 02/28/19 History [Lac-Hydrin 12% Lotion] Ferrous Sulfate [Iron (65 MG 325 mg PO DAILY 06/07/18 02/28/19 History Elemental)] Multivitamins, Thera [Multivitamin 1 tab PO DAILY 06/07/18 02/28/19 History (formulary)] metFORMIN HCL [Glucophage] 850 mg PO BID 06/07/18 02/28/19 History Atorvastatin [Lipitor] 80 mg PO HS #30 tab 08/05/18 02/28/19 Rx Clopidogrel [Plavix] 75 mg PO DAILY #30 tab 08/05/18 02/28/19 Rx Losartan [Cozaar] 100 mg PO DAILY #30 tab 08/05/18 02/28/19 Rx Nitroglycerin Sl Tabs [Nitrostat] 0.4 mg SUBLINGUAL Q5M PRN #25 tab 08/05/18 02/28/19 Rx Acetaminophen Tab [Tylenol Tab] 325 mg PO Q8H PRN 02/28/19 02/28/19 History Apixaban [Eliquis] 5 mg PO BID 02/28/19 02/28/19 History Carvedilol [Coreg] 6.25 mg PO BID 02/28/19 02/28/19 History Cholecalciferol (Vitamin D3) 4,000 unit PO DAILY 02/28/19 02/28/19 History [Vitamin D3] HYDROcodone/APAP 10-325MG [Carefree 1 tab PO TID PRN 02/28/19 02/28/19 History 10-325] Melatonin 6 mg PO HS PRN 02/28/19 02/28/19 History Omeprazole 40 mg PO MOWEFR@2100 02/28/19 02/28/19 History Temazepam [Restoril] 15 mg PO HS PRN 02/28/19 02/28/19 History amLODIPine [Norvasc] 5 mg PO BID 02/28/19 02/28/19 History hydrOXYzine HCL [Atarax] 25 mg PO Q8H PRN 02/28/19 02/28/19 History sitaGLIPtin [Januvia] 100 mg PO [id number]-[id number] 02/28/19 02/28/19 History Allergies Allergy/AdvReac Type Severity Reaction Status Date / Time No Known Allergies Allergy Verified 02/28/19 17:52 Physical Exam Vitals: Vital Signs Temp Pulse Pulse Resp BP BP BP 03/01/19 08:00 70 18 03/01/19 07:37 98.1 F 70 18 120/79 03/01/19 04:27 98.4 F 74 18 138/86 03/01/19 04:00 76 18 02/28/19 23:30 98.6 F 76 18 144/79 02/28/19 23:15 50 L 18 02/28/19 20:00 50 L 18 02/28/19 19:42 50 L 154/87 02/28/19 18:55 98.4 F 44 L 18 177/110 02/28/19 18:19 92 16 164/96 02/28/19 16:23 82 19 142/99 02/28/19 15:27 98.6 F 81 22 190/88 Pulse Ox 03/01/19 08:00 03/01/19 07:37 94 L 03/01/19 04:27 93 L 03/01/19 04:00 02/28/19 23:30 95 02/28/19 23:15 02/28/19 20:00 02/28/19 19:42 02/28/19 18:55 98 02/28/19 18:19 97 02/28/19 16:23 99 02/28/19 15:27 99 Intake and Output 02/28/19 03/01/19 03/01/19 22:59 06:59 14:59 Other: Voiding Method Toilet # Voids 2 Weight 99.79 kg Results 03/01/19 03:58 03/01/19 03:58 Cardiac Enzymes 02/28/19 02/28/19 02/28/19 Range/Units 15:44 15:44 22:12 AST 28 (14-36) U/L Troponin I <0.012 <0.012 (0.000-0.034) ng/mL 03/01/19 Range/Units 03:58 AST (14-36) U/L Troponin I <0.012 (0.000-0.034) ng/mL Coagulation 02/28/19 Range/Units 15:44 PT 10.3 (9.0-12.0) sec APTT 25.5 (22.0-30.0) sec CBC 01/20/20 01/21/20 Range/Units 15:44 03:58 WBC 14.0 H 10.6 (3.8-10.6) k/uL RBC 5.00 4.46 (3.80-5.40) m/uL Hgb 14.0 12.2 (11.4-16.0) gm/dL Hct 41.7 37.3 (34.0-46.0) % Plt Count 363 272 (150-450) k/uL Comprehensive Metabolic Panel 02/28/19 03/01/19 Range/Units 15:44 03:58 Sodium 141 138 (137-145) mmol/L Potassium 4.8 4.4 (3.5-5.1) mmol/L Chloride 103 103 (98-107) mmol/L Carbon Dioxide 25 26 (22-30) mmol/L BUN 18 H 20 H (7-17) mg/dL Creatinine 0.84 0.88 (0.52-1.04) mg/dL Glucose 208 H 133 H (74-99) mg/dL Calcium 10.5 H 9.6 (8.4-10.2) mg/dL AST 28 (14-36) U/L ALT 28 (4-34) U/L Alkaline Phosphatase 80 (38-126) U/L Total Protein 7.9 (6.3-8.2) g/dL Albumin 4.8 (3.5-5.0) g/dL Current Medications Generic Name Dose Route Start Last Admin Trade Name Freq PRN Reason Stop Dose Admin Acetaminophen 325 mg 02/28/19 18:26 Tylenol Tab PO Q8H PRN Mild Pain Hydrocodone Bitart/Acetaminophen 1 each 02/28/19 18:26 03/01/19 05:16 Carefree 10 PO 1 each TID PRN Administration Moderate Pain Amlodipine Besylate 5 mg 02/28/19 21:00 02/28/19 20:01 Norvasc PO 5 mg BID ERICA Administration Apixaban 5 mg 02/28/19 21:00 02/28/19 20:01 Eliquis PO 5 mg BID ERICA Administration Atorvastatin Calcium 80 mg 02/28/19 21:00 02/28/19 20:01 Lipitor PO 80 mg HS ERICA Administration Carvedilol 6.25 mg 03/01/19 07:30 Coreg PO BID-W/MEALS [facility] Clopidogrel Bisulfate 75 mg 03/01/19 09:00 Plavix PO DAILY [facility] Ferrous Sulfate 325 mg 03/01/19 09:00 Feosol PO DAILY [facility] Hydroxyzine HCl 25 mg 02/28/19 18:26 Atarax PO Q8H PRN ANXIETY/INSOMNIA Insulin Aspart 0 unit 02/28/19 21:00 02/28/19 20:31 Novolog SQ 2 unit ACHS ERICA Administration Protocol Lactic Acid 1 applic 03/01/19 09:00 Lac-Hydrin 12% TOPICAL DAILY [facility] Levothyroxine Sodium 50 mcg 03/01/19 06:30 03/01/19 05:16 Synthroid PO 50 mcg DAILY@0630 ERICA Administration Losartan Potassium 100 mg 03/01/19 09:00 Cozaar PO DAILY [facility] Melatonin 6 mg 02/28/19 18:26 03/01/19 00:56 Melatonin PO 6 mg HS PRN Administration Insomnia Multivitamins 1 each 03/01/19 09:00 Theragran PO DAILY [facility] Naloxone HCl 0.2 mg 02/28/19 17:38 Narcan IV Q2M PRN Opioid Reversal Pantoprazole Sodium 40 mg 02/28/19 21:00 02/28/19 20:01 Protonix PO 40 mg MOWEFR@2100 [facility] Administration Temazepam 15 mg 02/28/19 18:26 Restoril PO HS PRN Insomnia Intake and Output 02/28/19 03/01/19 03/01/19 22:59 06:59 14:59 Other: Voiding Method Toilet # Voids 2 Weight 99.79 kg 03/01/19 03:58 03/01/19 03:58
[2019-03-01 12:22] LABS: Magnesium 1.8 mg/dL (1.6-2.3)
[2019-03-01] MEDS ORDERED: Magnesium Replacement Protocol 1 EACH MISC MISCELLANE PRN (16:33)
[2019-03-01 16:35] LABS: Glucose,Whole Blood 262 mg/dL (75-99)
--- NOTE | 2019-03-01 16:37 | P.HPIM ---
History of Present Illness H&P Date: 03/01/19 Chief Complaint: Chest pain This is a 63-year-old female with a past medical history of hypertension, diabetes, COPD, fibromyalgia, hyperlipidemia, thyroid disorder, former smoker, chronic back pain, recent [place] with stent, coming into the hospital with a chief complaint of chest pain. Patient states that she has been having chest tightness/pressure running across her chest for the past 2 weeks, accompanied by diaphoresis. She states that sensation radiates to both of her arms . Patient reports she became angry, threw the phone, kicked the door, then began having fluctuating right and left-sided chest pain. Patient denies having any orthopnea or PND .Patient denies having any cough. No fevers chills or rigors. No abdominal pain nausea vomiting or diarrhea. No constipation. Patient denies having any headaches and stiffness or blurring of vision. No weakness of her extremities. Drug screen positive for opiates and THC .Chest x-ray reporting no active cardiopulmonary disease. EKG was sinus rhythm with frequent PVCs, left axis deviation. Magnesium 1.5 on admission. Troponins negative 3. Triglycerides 2:15, cholesterol 140, LDL 70, HDL 27. Blood sugars ranging from 130s to 190s. Afebrile, normal WBC, CBC, BMP unremarkable. Received 1 sublingual nitro in the ER and chest pain subsided Review of Systems ROS Statement: Those systems with pertinent positive or pertinent negative responses have been documented in the HPI. ROS Other: All systems not noted in ROS Statement are negative. Past Medical History Past Medical History: Asthma, Cancer, COPD, CVA/TIA, Diabetes Mellitus, Eye Disorder, Fibromyalgia, GERD/Reflux, Hyperlipidemia, Hypertension, Myocardial Infarction (NC), Osteoarthritis (OA), Pneumonia, Thyroid Disorder Additional Past Medical History / Comment(s): Recent bronchitis/dehydration and completed antibiotics, past bronchitis, IDDM type II, bilateral lower leg and feet neuropathy, 2009 CVA with some memory issues, possible TIA, basal cell skin cancer removed from L nares, L eye has partially detached retina, cateracts, gastric ulcer, hematemesis, chronic low back pain, sciatica mostly L side occasionally R side, migraines, vertigo, fatty liver, palpitations, past fractures of R thumb/R wrist/L hand, [place] Spotted Fever as an infant, hypothyrodism, NC july 2018 Last Myocardial Infarction Date:: july 2018 History of Any Multi-Drug Resistant Organisms: None Reported Past Surgical History: Ablation, Back Surgery, Cholecystectomy, Heart Catheterization, Hernia Repair, Hysterectomy, Tonsillectomy Additional Past Surgical History / Comment(s): 11/2016 EPS with A flutter abl ation, 2007 cardiac cath-normal, L nares skin cancer removed, UMBILICAL HERNIA SX 3X, RT Hand SX for middle TRIGGER FINGER, FIBROID TUMORS REMOVED ABD/BACK, LAPROSCOPIES x 3, L5-S1 SX for HERNIATED DISCS, EGD/colonoscopy. Past Anesthesia/Blood Transfusion Reactions: Postoperative Nausea & Vomiting (PONV) Additional Past Anesthesia/Blood Transfusion Reaction / Comment(s): AND SEVERE HEADACHE WITH ANESTHESIA IN PAST Past Psychological History: Anxiety, Bipolar, Depression Additional Psychological History / Comment(s): Pt resides alone in an apartment. She has a glucometer. She has a cane which she uses prn. She does not own a vehicle. She gets to appointments usually thru her home insurance. She states she has had some increased depression lately but denies suicidal thoughts/plans. She states she does not receive any psychiatric care presently but has in the past but cannot recall name. Smoking Status: Former smoker Past Alcohol Use History: None Reported Additional Past Alcohol Use History / Comment(s): Pt states she quit smoking in 2010 and had started smoking in 1971. SMOKED1/2-1PPD QUIT ON AND OFF Past Drug Use History: None Reported Additional Drug Use History / Comment(s): USES OCCASIONALLY - Past Family History Father Family Medical History: Diabetes Mellitus Additional Family Medical History / Comment(s): ONLY MET HIM ONCE IN HER LIFE [employer] RUN[employer] IN HIS FAMILY Mother Family Medical History: Cancer Additional Family Medical History / Comment(s): Breast CA. Medications and Allergies Home Medications Medication Instructions Recorded Confirmed Type Glimepiride [Amaryl] 4 mg PO BID 30 Days #60 tab 03/12/18 02/28/19 Rx Levothyroxine Sodium [Synthroid] 50 mcg PO DAILY 30 Days #60 tab 03/12/18 02/28/19 Rx Ammonium Lactate Lotion 1 applic TOPICAL DAILY 06/07/18 02/28/19 History [Lac-Hydrin 12% Lotion] Ferrous Sulfate [Iron (65 MG 325 mg PO DAILY 06/07/18 02/28/19 History Elemental)] Multivitamins, Thera [Multivitamin 1 tab PO DAILY 06/07/18 02/28/19 History (formulary)] metFORMIN HCL [Glucophage] 850 mg PO BID 06/07/18 02/28/19 History Atorvastatin [Lipitor] 80 mg PO HS #30 tab 08/05/18 02/28/19 Rx Clopidogrel [Plavix] 75 mg PO DAILY #30 tab 08/05/18 02/28/19 Rx Losartan [Cozaar] 100 mg PO DAILY #30 tab 08/05/18 02/28/19 Rx Nitroglycerin Sl Tabs [Nitrostat] 0.4 mg SUBLINGUAL Q5M PRN #25 tab 08/05/18 02/28/19 Rx Acetaminophen Tab [Tylenol Tab] 325 mg PO Q8H PRN 02/28/19 02/28/19 History Apixaban [Eliquis] 5 mg PO BID 02/28/19 02/28/19 History Carvedilol [Coreg] 6.25 mg PO BID 02/28/19 02/28/19 History Cholecalciferol (Vitamin D3) 4,000 unit PO DAILY 02/28/19 02/28/19 History [Vitamin D3] HYDROcodone/APAP 10-325MG [[place] 1 tab PO TID PRN 02/28/19 02/28/19 History 10-325] Melatonin 6 mg PO HS PRN 02/28/19 02/28/19 History Omeprazole 40 mg PO MOWEFR@2100 02/28/19 02/28/19 History Temazepam [Restoril] 15 mg PO HS PRN 02/28/19 02/28/19 History amLODIPine [Norvasc] 5 mg PO BID 02/28/19 02/28/19 History hydrOXYzine HCL [Atarax] 25 mg PO Q8H PRN 02/28/19 02/28/19 History sitaGLIPtin [Januvia] 100 mg PO AC-BRKFST 02/28/19 02/28/19 History Allergies Allergy/AdvReac Type Severity Reaction Status Date / Time No Known Allergies Allergy Verified 02/28/19 17:52 Physical Exam Vitals: Vital Signs Temp Pulse Pulse Resp BP BP BP 03/01/19 08:00 70 18 03/01/19 07:37 98.1 F 70 18 120/79 03/01/19 04:27 98.4 F 74 18 138/86 03/01/19 04:00 76 18 02/28/19 23:30 98.6 F 76 18 144/79 02/28/19 23:15 50 L 18 02/28/19 20:00 50 L 18 02/28/19 19:42 50 L 154/87 02/28/19 18:55 98.4 F 44 L 18 177/110 02/28/19 18:19 92 16 164/96 02/28/19 16:23 82 19 142/99 02/28/19 15:27 98.6 F 81 22 190/88 Pulse Ox 03/01/19 08:00 03/01/19 07:37 94 L 03/01/19 04:27 93 L 03/01/19 04:00 02/28/19 23:30 95 02/28/19 23:15 02/28/19 20:00 02/28/19 19:42 02/28/19 18:55 98 02/28/19 18:19 97 02/28/19 16:23 99 02/28/19 15:27 99 Intake and Output 02/28/19 03/01/19 03/01/19 22:59 06:59 14:59 Other: Voiding Method Toilet # Voids 2 Weight 99.79 kg PHYSICAL EXAM: VITAL SIGNS: As above GENERAL: Sitting up in bed, no acute distress HEENT: Conjunctivae normal. eyes normal. NECK: No JVD. No thyroid enlargement. No LNs CARDIOVASCULAR: S1, S2 regular. Systolic murmur. RESPIRATION: Breath sounds diminished in the bases. No rhonchi or crackles. No bronchial breathing. ABDOMEN: Soft, nontender . No guarding. no masses palpable. No ascites, No hepatosplenomegaly.Bowel sounds heard. LEGS: No edema. no swelling PSYCHIATRY: Alert and oriented X3, mood and affect normal. NERVOUS SYSTEM: Cranial N 2-12 grossly normal. Moves all 4 limbs. Diffuse weakness No focal deficits. Strength and sensation grossly intact.. Skin: no rash Lymphatic system. No LN neck axilla. Results CBC & Chem 7: 03/01/19 03:58 03/01/19 03:58 Labs: Abnormal Lab Results - Last 24 Hours (Table) 02/28/19 02/28/19 02/28/19 Range/Units 15:44 15:44 20:22 WBC 14.0 H (3.8-10.6) k/uL Neutrophils # 8.8 H (1.3-7.7) k/uL BUN 18 H (7-17) mg/dL Glucose 208 H (74-99) mg/dL POC Glucose (mg/dL) 204 H (75-99) mg/dL Calcium 10.5 H (8.4-10.2) mg/dL Magnesium 1.5 L (1.6-2.3) mg/dL Lipase 361 H (23-300) U/L Urine Opiates Screen (NotDetected) U Marijuana (THC) Screen (NotDetected) 03/01/19 03/01/19 03/01/19 Range/Units 00:27 03:58 07:19 WBC (3.8-10.6) k/uL Neutrophils # (1.3-7.7) k/uL BUN 20 H (7-17) mg/dL Glucose 133 H (74-99) mg/dL POC Glucose (mg/dL) 198 H (75-99) mg/dL Calcium (8.4-10.2) mg/dL Magnesium (1.6-2.3) mg/dL Lipase (23-300) U/L Urine Opiates Screen Detected H (NotDetected) U Marijuana (THC) Screen Detected H (NotDetected) Thrombosis Risk Factor Assmnt - Choose All That Apply Any of the Below Risk Factors Present?: Yes Each Factor Represents 1 point: Acute NC, Obesity (BMI >25) Other Risk Factors: Yes Each Risk Factor Represents 2 Points: Age 61-74 years Other congenital or acquired thrombophilia - If yes, enter type in comment: No Thrombosis Risk Factor Assessment Total Risk Factor Score: 4 Thrombosis Risk Factor Assessment Level: Moderate Risk Assessment and Plan Assessment: Acute chest pain, ruling out acute coronary syndrome in a patient with recent [place], stent, July 2018 Ischemic cardiomyopathy Drug screen positive for opiates and THC Daily marijuana use Hypomagnesemia Chronic intermittent asthma COPD, stable CVA/TIA Fibromyalgia Gastroesophageal reflux disease Hypertension Hyperlipidemia Osteoarthritis Hypothyroidism Chronic back pain Diabetes mellitus Diabetic neuropathy Anxiety Depression Bipolar Prior nicotine dependence Obesity, BMI 35.5 Plan: Continue on current medication regime ,monitoring and symptomatic treatment. Magnesium replacement protocol ordered. Evaluated by cardiology and patient is scheduled for cardiac catheterization tomorrow. Hold Eliquis. Home Been reviewed and resumed accordingly. Smoking cessation reinforced. The impression and plan of care has been dictated as directed. : I performed a history and examination of this patient, discussed the same with the dictator. I agree with the dictator's note ,documented as a scribe. Any additional findings or plans will be noted.
[2019-03-01] MEDS: ATORVASTATIN 80 MG TAB PO SCH (19:25)
[2019-03-01 20:20] LABS: Glucose,Whole Blood 212 mg/dL (75-99)
[2019-03-02] MEDS: MULTIVITAMINS, THERA 1 EACH TAB PO SCH ×2 (04:12→08:13)
[2019-03-02] MEDS: INSULIN ASPART (NovoLOG) 100 UNIT/ML VIAL SQ SCH ×3 (04:12→17:16)
[2019-03-02] MEDS: FERROUS SULFATE 325 MG TAB PO SCH ×2 (04:12→08:13)
[2019-03-02] MEDS: AMMONIUM LACTATE 12% LOTION 225 GM BTL TOPICAL SCH (04:12)
[2019-03-02] MEDS: HYDROcodone/APAP 10-325MG 1 EACH TAB PO PRN ×2 (04:18→13:59)
[2019-03-02] MEDS: ALPRAZolam 0.25 MG TAB PO PRN ×2 (04:18→10:00)
[2019-03-02] MEDS: LEVOTHYROXINE 50 MCG TAB PO SCH ×2 (04:19→12:21)
[2019-03-02 05:26] LABS: Basophils # (A) 0.1 k/uL (0-0.2); Basophils % (A) 1 %; Eosinophils # (A) 0.3 k/uL (0-0.7); Eosinophils % (A) 2 %; HCT 37.3 % (34.0-46.0); HGB 12.2 gm/dL (11.4-16.0); Lymphocytes % (A) 40 %; MCH 27.3 pg (25.0-35.0); MCHC 32.7 g/dL (31.0-37.0); MCV 83.6 fL (80.0-100.0); Mean Platelet Volume 7.6; Monocytes # (A) 0.4 k/uL (0-1.0); Monocytes % (A) 4 %; Neutrophils # (A) 5.2 k/uL (1.3-7.7); Neutrophils % (A) 51 %; Platelet Count 285 k/uL (150-450); RBC 4.46 m/uL (3.80-5.40); RDW 13.1 % (11.5-15.5); WBC 10.1 k/uL (3.8-10.6)
[2019-03-02 05:39] LABS: Calcium 9.4 mg/dL (8.4-10.2); Magnesium 1.7 mg/dL (1.6-2.3); Potassium 4.4 mmol/L (3.5-5.1)
[2019-03-02 06:42] LABS: Glucose,Whole Blood 178 mg/dL (75-99)
[2019-03-02] MEDS: amLODIPine 5 MG TAB PO SCH (08:13)
[2019-03-02] MEDS: CARVEDILOL 6.25 MG TAB PO SCH ×2 (08:13→17:16)
[2019-03-02] MEDS: LOSARTAN 50 MG TAB PO SCH (08:13)
[2019-03-02] MEDS: CLOPIDOGREL 75 MG TAB PO SCH (08:13)
[2019-03-02] MEDS ORDERED: ASPIRIN 325 MG TAB PO ONE (09:00)
[2019-03-02] MEDS ORDERED: LIDOCAINE 1% INJ 10MG/ML (20 ML MDV) ONE (10:13)
[2019-03-02] MEDS ORDERED: MIDAZOLAM 2 MG/2 ML VIAL IVP ONE (11:12)
[2019-03-02] MEDS ORDERED: LIDOCAINE 1% INJ 10MG/ML (20 ML MDV) SQ ONE (11:12)
[2019-03-02] MEDS ORDERED: IV FLUID CONTINUATION 1,000 ML IV ONE (11:20)
[2019-03-02] MEDS ORDERED: IOPAMIDOL-370 100ML BTL INJ ONE (11:22)
[2019-03-02] MEDS ORDERED: SODIUM CHLORIDE 0.9% 1,000 ML IV SCH (11:45)
[2019-03-02 11:52] VITALS: TEMP 97
[2019-03-02 11:52] LABS: Glucose,Whole Blood 184 mg/dL (75-99)
--- NOTE | 2019-03-02 12:06 | CC ---
CARDIAC CATHETERIZATION REPORT DATE OF SERVICE: 03/02/2019 PROCEDURE: Left heart catheterization and coronary angiography. PERFORMED BY: Dr. Jazmyn Martinez. Moderate conscious sedation time was 17 minutes. Patient was administered Versed. Oxygen saturation, hemodynamics and EKG were monitored closely. CLINICAL INFORMATION: Mrs. Jane Edwards is a 63-year-old lady who underwent stenting of mid LAD with a non- ST elevation TN in July 2018. Since then, she has done remarkably well with total recovery of LV function that was impaired in July. She comes in with symptoms of angina. No troponin rise, but persistent chest pain. Therefore, she was evaluated and advised cardiac cath by Dr. Feliciano Marin. Risks, benefits, options, and rationale were explained. Patient understood all details and wished to proceed with the procedure. She wanted the procedure to be femoral because she had a lot of pain with spasm from radial approach in July of 2018. PROCEDURE NOTE: Under local anesthesia and strict aseptic precautions, a 6-Urdu sheath was placed in the right femoral artery. Standard Bret catheters were used for coronary angiography and a pigtail catheter to check pressures. LV gram was not performed. The sheath was taken out and Angio-Seal device used to secure hemostasis and she was sent to the room in stable condition. There was no family available. Results were discussed with the patient. There was no significant CAD and she will be discharged later today if she is stable. CARDIAC CATH FINDINGS: The left end-diastolic pressure was 12 mmHg without any gradient across the aortic valve. CORONARY ANGIOGRAPHY FINDINGS: RIGHT CORONARY ARTERY: A large dominant vessel. No significant disease, distally bifurcates into PDA and PLV, has minor irregularities. LEFT MAIN CORONARY ARTERY: Short patent disease-free vessel that bifurcates into LAD and circumflex. LEFT ANTERIOR DESCENDING CORONARY ARTERY: Good caliber vessel extends along the anterior wall. The mid segment is widely patent where there was a stent. No significant disease distally. The vessel runs all the way to the apex, supplies a sizable amount of myocardium. No significant disease in the LAD system. There are smaller septal and diagonal branches which are free of significant disease. LEFT POSTERIOR CIRCUMFLEX CORONARY ARTERY: Technically a nondominant/codominant vessel, which is a large obtuse marginal branch and a small posterolateral branch. No significant disease, only minor irregularities noted, especially the groove branch has some diffuse disease. FINAL IMPRESSION: This patient has a right dominant system, normal filling pressures. No significant disease and previous stented mid LAD is widely patent. Circumflex and RCA have no significant disease. RECOMMENDATIONS: Findings were discussed with the patient. No family available. She can be discharged later today with Eliquis, Plavix, beta blockers and statin agents. She will see Dr. Stearns in one week. MMODL / IJN: [id number] /
[2019-03-02 15:28] VITALS: PULSE 74
[2019-03-02 15:30] VITALS: BP 139/73; RESP 14
[2019-03-02 16:30] LABS: Glucose,Whole Blood 226 mg/dL (75-99)
--- NOTE | 2019-03-02 17:34 | P.DS ---
Providers Date of admission: 03/02/19 08:32 Expected date of discharge: 03/02/19 Attending physician: Benedicto Cabello Consults: 02/28/19 18:25 Consult Physician Urgent Consulting Provider: [facility] Reason/Comments: acute chest pain, hx ascad Do you want consulting provider notified?: Yes Primary care physician: Benedicto Cabello [facility] Course: Final Diagnoses: Acute chest pain, acute coronary syndrome ruled out, in a patient with recent [place], stent, July 2018 Ischemic cardiomyopathy Drug screen positive for opiates and THC Daily marijuana use Hypomagnesemia Chronic intermittent asthma COPD, stable CVA/TIA Fibromyalgia Gastroesophageal reflux disease Hypertension Hyperlipidemia Osteoarthritis Hypothyroidism Chronic back pain Diabetes mellitus Diabetic neuropathy Anxiety Depression Bipolar Prior nicotine dependence Obesity, BMI 35.5 Hospital course:This is a 63-year-old female with a past medical history of hypertension, diabetes, COPD, fibromyalgia, hyperlipidemia, thyroid disorder, former smoker, chronic back pain, recent [place] with stent, coming into the hospital with a chief complaint of chest pain. Patient states that she has been having chest tightness/pressure running across her chest for the past 2 weeks, accompanied by diaphoresis. She states that sensation radiates to both of her arms . Patient reports she became angry, threw the phone, kicked the door, then began having fluctuating right and left-sided chest pain. Patient denies having any orthopnea or PND .Patient denies having any cough. No fevers chills or rigors. No abdominal pain nausea vomiting or diarrhea. No constipation. Patient denies having any headaches and stiffness or blurring of vision. No weakness of her extremities. Drug screen positive for opiates and THC .Chest x- ray reporting no active cardiopulmonary disease. EKG was sinus rhythm with frequent PVCs, left axis deviation. Magnesium 1.5 on admission. Troponins negative 3. Triglycerides 2:15, cholesterol 140, LDL 70, HDL 27. Blood sugars ranging from 130s to 190s. Afebrile, normal WBC, CBC, BMP unremarkable. Received 1 sublingual nitro in the ER and chest pain subsided Evaluated by cardiology, underwent cardiac catheterization reporting right dominant system, normal filling pressures, no significant disease with previous stented mid LAD patent, circumflex and RCA with no significant disease. Significant clinical improvement. Cleared by cardiology for discharge. Patient is being discharged home in a stable condition with guarded prognosis. EXAM: GENERAL: Alert and oriented 3, no acute distress CARDIOVASCULAR: S1, S2 regular. Systolic murmur. RESPIRATION: Breath sounds diminished in the bases. ABDOMEN: Soft, nontender . No guarding. no masses palpable. Bowel sounds heard. NERVOUS SYSTEM:No focal deficits. The impression and plan of care has been dictated as directed. : I performed a history and examination of this patient, discussed the same with the dictator. I agree with the dictator's note ,documented as a scribe. Any additional findings or plans will be noted. Patient Condition at Discharge: Stable Plan - Discharge Summary Discharge Rx Participant: No New Discharge Prescriptions: Continue Glimepiride [Amaryl] 4 mg PO BID 30 Days #60 tab Levothyroxine Sodium [Synthroid] 50 mcg PO DAILY 30 Days #60 tab Ferrous Sulfate [Iron (65 MG Elemental)] 325 mg PO DAILY Ammonium Lactate Lotion [Lac-Hydrin 12% Lotion] 1 applic TOPICAL DAILY Multivitamins, Thera [Multivitamin (formulary)] 1 tab PO DAILY metFORMIN HCL [Glucophage] 850 mg PO BID Losartan [Cozaar] 100 mg PO DAILY #30 tab Atorvastatin [Lipitor] 80 mg PO HS #30 tab Nitroglycerin Sl Tabs [Nitrostat] 0.4 mg SUBLINGUAL Q5M PRN #25 tab PRN Reason: Chest Pain Clopidogrel [Plavix] 75 mg PO DAILY #30 tab Acetaminophen Tab [Tylenol] 325 mg PO Q8H PRN PRN Reason: Pain amLODIPine [Norvasc] 5 mg PO BID Apixaban [Eliquis] 5 mg PO BID Carvedilol [Coreg] 6.25 mg PO BID Cholecalciferol (Vitamin D3) [Vitamin D3] 4,000 unit PO DAILY HYDROcodone/APAP 10-325MG [[place] 10-325] 1 tab PO TID PRN PRN Reason: Pain hydrOXYzine HCL [Atarax] 25 mg PO Q8H PRN PRN Reason: ANXIETY/INSOMNIA Melatonin 6 mg PO HS PRN PRN Reason: Insomnia Omeprazole 40 mg PO MOWEFR@2100 sitaGLIPtin [Januvia] 100 mg PO AC-BRKFST Temazepam [Restoril] 15 mg PO HS PRN PRN Reason: Insomnia Discharge Medication List Glimepiride [Amaryl] 4 mg PO BID 30 Days #60 tab 03/12/18 [Rx] Levothyroxine Sodium [Synthroid] 50 mcg PO DAILY 30 Days #60 tab 03/12/18 [Rx] Ammonium Lactate Lotion [Lac-Hydrin 12% Lotion] 1 applic TOPICAL DAILY 06/07/18 [History] Ferrous Sulfate [Iron (65 MG Elemental)] 325 mg PO DAILY 06/07/18 [History] Multivitamins, Thera [Multivitamin (formulary)] 1 tab PO DAILY 06/07/18 [History] metFORMIN HCL [Glucophage] 850 mg PO BID 06/07/18 [History] Atorvastatin [Lipitor] 80 mg PO HS #30 tab 08/05/18 [Rx] Clopidogrel [Plavix] 75 mg PO DAILY #30 tab 08/05/18 [Rx] Losartan [Cozaar] 100 mg PO DAILY #30 tab 08/05/18 [Rx] Nitroglycerin Sl Tabs [Nitrostat] 0.4 mg SUBLINGUAL Q5M PRN #25 tab 08/05/18 [Rx] Acetaminophen Tab [Tylenol] 325 mg PO Q8H PRN 02/28/19 [History] Apixaban [Eliquis] 5 mg PO BID 02/28/19 [History] Carvedilol [Coreg] 6.25 mg PO BID 02/28/19 [History] Cholecalciferol (Vitamin D3) [Vitamin D3] 4,000 unit PO DAILY 02/28/19 [History] HYDROcodone/APAP 10-325MG [[place] 10-325] 1 tab PO TID PRN 02/28/19 [History] Melatonin 6 mg PO HS PRN 02/28/19 [History] Omeprazole 40 mg PO MOWEFR@2100 02/28/19 [History] Temazepam [Restoril] 15 mg PO HS PRN 02/28/19 [History] amLODIPine [Norvasc] 5 mg PO BID 02/28/19 [History] hydrOXYzine HCL [Atarax] 25 mg PO Q8H PRN 02/28/19 [History] sitaGLIPtin [Januvia] 100 mg PO AC-BRKFST 02/28/19 [History] Follow up Appointment(s)/Referral(s): Luan Stearns MD [STAFF PHYSICIAN] - 03/09/19 1:45 pm Benedicto Cabello DO [Primary Care Provider] - 3 Days Activity/Diet/Wound Care/Special Instructions: resume hailey tomorrow morning (03/03/2019)
[2019-03-03] MEDS ORDERED: ASPIRIN 81 MG PO SCH (09:00)
== END 2019-03-03 00:11 | disposition home or self-care (01) | DRG 287 ==
LOC: EC 15:19 → 1SOBS 17:38 → OBSVTOIN 03-02 08:32
PROVIDERS: ADMIT Family Medicine; ATTEND Family Medicine
PROC: B2111ZZ Fluoroscopy of Multiple Coronary Arteries using Low Osmolar Contrast (ICD-10-PCS; 2019-03-02)
PROC: 4A023N7 Measurement of Cardiac Sampling and Pressure, Left Heart, Percutaneous Approach (ICD-10-PCS; principal; 2019-03-02 10:30)
DX: R07.9 Chest pain, unspecified (principal); H33.8 Other retinal detachments; D72.829 Elevated white blood cell count, unspecified; E03.9 Hypothyroidism, unspecified; E11.40 Type 2 diabetes mellitus with diabetic neuropathy, unspecified; E66.9 Obesity, unspecified; Z68.35 Body mass index [BMI] 35.0-35.9, adult; E78.5 Hyperlipidemia, unspecified; E83.42 Hypomagnesemia; Z87.891 Personal history of nicotine dependence; F31.9 Bipolar disorder, unspecified; F41.9 Anxiety disorder, unspecified; Z86.73 Personal history of transient ischemic attack (TIA), and cerebral infarction without residual deficits; G89.29 Other chronic pain; I10 Essential (primary) hypertension; I25.10 Atherosclerotic heart disease of native coronary artery without angina pectoris; I25.2 Old myocardial infarction; I25.5 Ischemic cardiomyopathy; I35.0 Nonrheumatic aortic (valve) stenosis; I49.3 Ventricular premature depolarization; J44.9 Chronic obstructive pulmonary disease, unspecified; J45.20 Mild intermittent asthma, uncomplicated; K21.9 Gastro-esophageal reflux disease without esophagitis; M19.90 Unspecified osteoarthritis, unspecified site; M79.7 Fibromyalgia; Z79.01 Long term (current) use of anticoagulants; Z79.02 Long term (current) use of antithrombotics/antiplatelets; H26.9 Unspecified cataract; M54.32 Sciatica, left side; Z87.11 Personal history of peptic ulcer disease; G43.909 Migraine, unspecified, not intractable, without status migrainosus; K76.0 Fatty (change of) liver, not elsewhere classified; Z79.890 Hormone replacement therapy; Z79.84 Long term (current) use of oral hypoglycemic drugs; Z79.899 Other long term (current) drug therapy; Z80.3 Family history of malignant neoplasm of breast; Z83.3 Family history of diabetes mellitus; Z85.828 Personal history of other malignant neoplasm of skin; Z90.710 Acquired absence of both cervix and uterus; Z95.5 Presence of coronary angioplasty implant and graft; Z87.01 Personal history of pneumonia (recurrent)
CPT/HCPCS: 36415; 71046; 80048; 80053; 80061; 80306; 83690; 83735; 83880; 84484; 85025; 85610; 85730; 93005; 93306; 93458; 99285

== ENCOUNTER → 2019-05-31 | Outpatient (CLI) | payer MEDICARE, OTHER ==
[2019-05-31 10:15] LABS: Basophils % (A) 0 %; Eosinophils # (A) 0.3 k/uL (0-0.7); Eosinophils % (A) 2 %; HCT 41.8 % (34.0-46.0); HGB 13.3 gm/dL (11.4-16.0); Lymphocytes # (A) 4.9 k/uL (1.0-4.8); Lymphocytes % (A) 39 %; MCH 26.8 pg (25.0-35.0); MCHC 31.8 g/dL (31.0-37.0); MCV 84.5 fL (80.0-100.0); Mean Platelet Volume 8.3; Monocytes # (A) 0.5 k/uL (0-1.0); Monocytes % (A) 4 %; Neutrophils # (A) 6.9 k/uL (1.3-7.7); Neutrophils % (A) 54 %; Platelet Count 302 k/uL (150-450); RBC 4.95 m/uL (3.80-5.40); RDW 13.3 % (11.5-15.5); WBC 12.7 k/uL (3.8-10.6)
[2019-05-31 11:10] LABS: Erythrocyte Sedimentation Rate 17 mm/hr (0-20)
[2019-05-31 20:37] LABS: Gliadin AB IgA, Deaminated NEGATIVE (NEGATIVE); Gliadin AB IgA, Unit <0.2 U/mL; Gliadin AB IgG, Deaminated NEGATIVE (NEGATIVE)
== END | disposition home or self-care (01) ==
LOC: LABWHC1 09:25
PROVIDERS: ATTEND Nurse Practitioner
DX: R19.7 Diarrhea, unspecified (principal)
CPT/HCPCS: 36415; 83516; 85025; 85652; 86140

== ENCOUNTER → 2019-12-05 | Outpatient (CLI) | payer MEDICARE, OTHER ==
[2019-12-05 15:30] LABS: Basophils # (A) 0.1 k/uL (0-0.2); Basophils % (A) 1 %; Eosinophils # (A) 0.3 k/uL (0-0.7); Eosinophils % (A) 2 %; HCT 39.5 % (34.0-46.0); HGB 12.5 gm/dL (11.4-16.0); Lymphocytes # (A) 3.9 k/uL (1.0-4.8); Lymphocytes % (A) 34 %; MCH 27.6 pg (25.0-35.0); MCHC 31.8 g/dL (31.0-37.0); Mean Platelet Volume 7.5; Monocytes # (A) 0.4 k/uL (0-1.0); Monocytes % (A) 4 %; Neutrophils # (A) 6.6 k/uL (1.3-7.7); Neutrophils % (A) 58 %; Platelet Count 322 k/uL (150-450); RBC 4.54 m/uL (3.80-5.40); RDW 13.4 % (11.5-15.5); WBC 11.5 k/uL (3.8-10.6)
[2019-12-06 02:33] LABS: Anion Gap 11.7 mmol/L (4.00-12.00); Carbon Dioxide 22.3 mmol/L (21.6-31.8); Potassium 5.1 mmol/L (3.5-5.5)
== END | disposition home or self-care (01) ==
LOC: LABWHC1 13:55
PROVIDERS: ATTEND Orthopaedic Surgery
DX: M23.91 Unspecified internal derangement of right knee (principal)
CPT/HCPCS: 36415; 80051; 85025

== ENCOUNTER → 2019-12-19 | Outpatient (CLI) | payer MEDICARE, OTHER ==
--- NOTE | 2019-12-19 18:59 | CT ---
EXAMINATION TYPE: CT brain w con DATE OF EXAM: 12/19/2019 COMPARISON: CT brain June 08, 2017. MRI brain June 16, 2017 HISTORY: Confusion and vision changes. History of stroke x15 years ago. CT DLP: 1121 mGycm. Automated Exposure Control for Dose Reduction was Utilized. TECHNIQUE: CT scan of the head is performed with IV Contrast, patient injected with 80ml mL of Isov ue 300. FINDINGS: Mild ventricular and sulcal prominence redemonstrated. Mild low attenuation in the perivent ricular white matter. Postcontrast images show no suspicious enhancing intraparenchymal mass. The trisha bes are intact and the visualized sinuses are clear. IMPRESSION: Mild diffuse age-related cerebral atrophy and chronic small vessel ischemic changes. No s uspicious enhancement. No significant change from prior studies.
== END | disposition home or self-care (01) ==
LOC: RADCTMAIN 16:11
PROVIDERS: ATTEND Ophthalmology
DX: G31.1 Senile degeneration of brain, not elsewhere classified (principal); I67.82 Cerebral ischemia
CPT/HCPCS: 82565; 84520; 70460; 36415; Q9967

== ENCOUNTER → 2020-05-25 | Outpatient (CLI) | payer MEDICARE, OTHER ==
--- NOTE | 2020-05-25 16:26 | CT ---
EXAMINATION TYPE: CT abdomen pelvis wo con DATE OF EXAM: 05/25/2020 COMPARISON: 06/07/2018 INDICATION: abdominal pain, diverticulitis DLP: 938 mGycm, Automated exposure control for dose reduction was used. CONTRAST: 0 mL of Isovue 300. Study performed without Oral Contrast TECHNIQUE: Axial images were obtained from above the diaphragm to the pubic rami in the axial plane a t 5 mm thick sections. Reconstructed images are reviewed on the computer in the coronal plane. FINDINGS: Limited CT sections are obtained the lung bases. The lung bases are clear. CT ABDOMEN: There is a filling umbilical hernia measuring 3.5 cm opening. Surgical clips are adjacent and within this structure. This contains mesenteric fat. No loops of bowel are involved. Liver: There is a 0.8 cm cyst in the posterior right lobe liver. Spleen: Normal Pancreas: Normal Adrenal glands: The adrenal glands are normal. Gallbladder: Surgically absent Kidneys: No masses are evident. No hydronephrosis is present. No cysts are present. No renal stone s are evident. Aorta: Vascular calcification is within the aorta. Inferior vena cava: Normal. CT PELVIS: Loops of bowel within the abdomen and pelvis are normal. This study is without oral contrast limi ting bowel evaluation. Appendix: Not identified. No suspicious dilated tubular structure or inflammatory changes are evident . Urinary bladder: Normal. Genitourinary structures: Uterus and ovaries are not identified. Osseous structures: No suspicious lytic or sclerotic lesions. IMPRESSIONS: 1. Periumbilical hernia present previously and stable. 2. No suspicious changes to suggest acute diverticulitis.
== END | disposition home or self-care (01) ==
LOC: RADCTMAIN 11:10
PROVIDERS: ATTEND Family Medicine
DX: K42.9 Umbilical hernia without obstruction or gangrene (principal)
CPT/HCPCS: 36415; 74176; 82565; 84520

== ENCOUNTER → 2020-06-01 | Outpatient (CLI) | payer MEDICARE, OTHER | END | disposition home or self-care (01) | LOC: LABWHC1 16:58 | PROVIDERS: ATTEND Family Medicine | DX: Z20.822 Contact with and (suspected) exposure to COVID-19 (principal) | CPT/HCPCS: U0003; C9803; U0005 ==

== ENCOUNTER → 2020-08-22 | Outpatient (CLI) | payer MEDICARE, OTHER ==
[2020-08-22 12:15] LABS: Appearance,Urine Clear (Clear); Bacteria,Urine Rare /hpf; Bilirubin,Urine Negative (Negative); Blood,Urine Negative (Negative); Color,Urine Yellow; Glucose,Urine (UA) 1+ (Negative); Ketones,Urine Negative (Negative); Leukocyte Esterase,Urine Negative (Negative); Nitrite,Urine Negative (Negative); PH, Urine 5.5 (5.0-8.0); Protein,Urine 1+ (Negative); Specific Gravity,Urine 1.011 (1.001-1.035); Squamous Epithelial Cell,Urine 1 /hpf (0-4); Urobilinogen,Urine <2.0 mg/dL (<2.0); WBC,Urine 1 /hpf (0-5)
[2020-08-22 16:42] LABS: HCT 36.9 % (37.2-46.3); HGB 12.2 g/dL (12.0-15.0); MCH 28.2 pg (27.0-32.0); MCHC 33.1 g/dL (32.0-37.0); MCV 85.4 fL (80.0-97.0); Mean Platelet Volume 10.9 fL (9.5-12.2); Platelet Count 266 X 10*3/uL (140-440); RBC 4.32 X 10*6/uL (4.10-5.20); RDW 12.7 % (11.5-14.5); WBC 8.74 X 10*3/uL (4.50-10.00)
[2020-08-22 20:40] LABS: Urine Creatinine 107.9 mg/dL
[2020-08-22 20:53] LABS: Ferritin 75.1 ng/mL (10.0-291.0)
[2020-08-22 20:54] LABS: % Iron Saturation 14.58 (12.00-45.00); African American GFR (CKD) 41.6 (60.0-200.0); Albumin 4.7 g/dL (3.80-4.90); Albumin/Globulin Ratio 2.61 (1.60-3.17); Anion Gap 10.2 mmol/L (4.00-12.00); Calcium 9.5 mg/dL (8.7-10.3); Carbon Dioxide 25.8 mmol/L (21.6-31.8); Globulin 1.8 g/dL (1.6-3.3); Magnesium 1.5 mg/dL (1.5-2.4); Non-African American GFR(CKD) 35.9 (60.0-200.0); Phosphorus 3.7 mg/dL (2.4-5.1); Potassium 4.4 mmol/L (3.5-5.5); Total Bilirubin 0.4 mg/dL (0.3-1.2); Total Protein 6.5 g/dL (6.2-8.2)
[2020-08-22 20:55] LABS: Uric Acid 8.3 mg/dL (2.9-7.7)
[2020-08-23 02:26] LABS: Total Volume 24 Hour,Urine 2850 mL
[2020-08-23 04:33] LABS: Total Protein 24 Hour,Urine 669.8 mg/24Hr
== END | disposition home or self-care (01) ==
LOC: LABWHC1 11:24
PROVIDERS: ATTEND Internal Medicine
DX: N17.9 Acute kidney failure, unspecified (principal); N39.0 Urinary tract infection, site not specified; N25.81 Secondary hyperparathyroidism of renal origin; E55.9 Vitamin D deficiency, unspecified; D64.9 Anemia, unspecified; M10.9 Gout, unspecified
CPT/HCPCS: 36415; 80053; 81001; 81050; 82043; 82306; 82570; 82728; 83540; 83550; 83735; 83970; 84100; 84156; 84550; 85027

== ENCOUNTER 2020-10-15 19:09 | Emergency (ER) | payer MEDICARE, OTHER ==
[2020-10-15] MEDS ORDERED: MORPHINE SULFATE 4 MG/ML SYRINGE IVP STA (19:35)
[2020-10-15 19:45] LABS: Glucose,Whole Blood 180 mg/dL (75-99)
[2020-10-15 19:49] LABS: Basophils # (A) 0.1 k/uL (0-0.2); Basophils % (A) 1 %; Eosinophils # (A) 0.3 k/uL (0-0.7); Eosinophils % (A) 3 %; HCT 36.1 % (34.0-46.0); HGB 12.4 gm/dL (11.4-16.0); Lymphocytes # (A) 4.9 k/uL (1.0-4.8); Lymphocytes % (A) 44 %; MCHC 34.4 g/dL (31.0-37.0); MCV 84.4 fL (80.0-100.0); Mean Platelet Volume 6.9; Monocytes # (A) 0.4 k/uL (0-1.0); Monocytes % (A) 4 %; Neutrophils # (A) 5.1 k/uL (1.3-7.7); Neutrophils % (A) 46 %; Platelet Count 300 k/uL (150-450); RBC 4.28 m/uL (3.80-5.40); RDW 13.1 % (11.5-15.5); WBC 11.1 k/uL (3.8-10.6)
--- NOTE | 2020-10-15 19:50 | XR ---
EXAMINATION TYPE: XR chest 1V portable DATE OF EXAM: 10/15/2020 COMPARISON: Chest radiograph 02/28/2019 HISTORY: Trauma, back pain TECHNIQUE: Single frontal view of the chest is obtained. FINDINGS: There is no focal air space opacity, pleural effusion, or pneumothorax seen. The cardiac silhouette size is within normal limits. The osseous structures are intact. IMPRESSION: No acute process.
--- NOTE | 2020-10-15 19:52 | XR ---
EXAMINATION TYPE: XR pelvis AP view DATE OF EXAM: 10/15/2020 CLINICAL HISTORY: Trauma, back pain TECHNIQUE: A single AP view of the pelvis is obtained. COMPARISON: None. FINDINGS: There is no acute fracture/dislocation evident in the pelvis. No diastases pubis or diasta ses of the sacroiliac joints. Bilateral hip joints are symmetric and unremarkable. Mild degenerative changes of the bilateral sacroiliac joints. Moderate degenerative changes of the visualized lower lum bar spine. Sacrum is obscured by overlying bowel gas. The overlying soft tissue appears unremarkable. IMPRESSION: There is no acute fracture or dislocation in the pelvis.
[2020-10-15 20:04] LABS: ALT 38 U/L (4-34); AST 47 U/L (14-36); African American GFR (CKD) 44 (>60 ml/min/1.73 sqM); Albumin 4.6 g/dL (3.5-5.0); Alcohol <10 mg/dL; Alkaline Phosphatase 79 U/L (38-126); Anion Gap 11 mmol/L; Blood Urea Nitrogen 34 mg/dL (7-17); Carbon Dioxide 24 mmol/L (22-30); Chloride 99 mmol/L (98-107); Glucose 182 mg/dL (74-99); Non-African American GFR(CKD) 38 (>60 ml/min/1.73 sqM); Potassium 4.2 mmol/L (3.5-5.1); Sodium 134 mmol/L (137-145); Total Bilirubin 0.4 mg/dL (0.2-1.3); Total Protein 7.4 g/dL (6.3-8.2)
[2020-10-15 20:16] LABS: Prothrombin Time 10.5 sec (9.0-12.0)
--- NOTE | 2020-10-15 20:26 | ED ---
General Adult HPI - General Chief complaint: Fall Stated complaint: Fall Time Seen by Provider: 10/15/20 19:28 Source: patient, RN notes reviewed, old records reviewed Mode of arrival: ambulatory Limitations: no limitations - History of Present Illness Initial comments: Patient is a 64-year-old female with past medical history remarkable for asthma, cancer, COPD, prior CVA, diabetes, fibromyalgia, hypertension, prior DC status post stents currently on elliquis and Plavix, thyroid disorder who presents emergency Department after a fall at home. Patient states that she was one step up on a stepladder when she fell onto her right side. States she lost her balance while she was hanging something on the wall. She fell onto her right side on the ground. She is currently complaining of right hand and wrist pain as well as right knee pain. She has chronic back pains complaining of lumbar spine as well as cervical spine pain which can be chronic but she is uncertain at this time. She was ambulatory afterwards. She denies any headache or weak ness or numbness. She denies any blurry vision. She is not missed any doses of her anticoagulation. She is no obvious abrasions or other injuries at this time. Denies any chest pain, abdominal pain. Patient presents as a priority 2 trauma activation secondary to a fall [facility] with uncertainty hitting her head. Patient's fall occurred approximately 30 minutes prior to arrival. - Related Data Home Medications Medication Instructions Recorded Confirmed Ferrous Sulfate [Iron (65 MG 325 mg PO DAILY 06/07/18 10/15/20 Elemental)] Multivitamins, Thera [Multivitamin 1 tab PO DAILY 06/07/18 10/15/20 (formulary)] Acetaminophen Tab [Tylenol] 325 mg PO Q8H PRN 02/28/19 10/15/20 Apixaban [Eliquis] 5 mg PO BID 02/28/19 10/15/20 Cholecalciferol (Vitamin D3) 2,000 unit PO BID 02/28/19 10/15/20 [Vitamin D3] Melatonin 6 mg PO HS PRN 02/28/19 10/15/20 Omeprazole 40 mg PO HS 02/28/19 10/15/20 carvediloL [Coreg] 6.25 mg PO BID 02/28/19 10/15/20 Albuterol Nebulized [Ventolin 2.5 mg INHALATION RT-QID PRN 10/15/20 10/15/20 Nebulized] Amitriptyline HCl 10 mg PO HS 10/15/20 10/15/20 Dicyclomine HCl 10 mg PO TID 10/15/20 10/15/20 Escitalopram [Lexapro] 10 mg PO DAILY 10/15/20 10/15/20 HYDROcodone/APAP 5-325MG [[place] 1 tab PO DAILY PRN 10/15/20 10/15/20 5-325] Nystatin 100,000 Unit/gm Powd 1 applic TOPICAL QID 10/15/20 10/15/20 [Mycostatin Powder] Temazepam [Restoril] 15 mg PO HS PRN 10/15/20 10/15/20 Valsartan/Hydrochlorothiazide 1 tab PO DAILY 10/15/20 10/15/20 [Valsartan-Hctz 160-12.5 mg Tab] amLODIPine [Norvasc] 10 mg PO DAILY 10/15/20 10/15/20 ondansetron HCL [Zofran] 8 mg PO Q8HR PRN 10/15/20 10/15/20 Previous Rx's Medication Instructions Recorded Glimepiride [Amaryl] 4 mg PO BID 30 Days #60 tab 03/12/18 Levothyroxine Sodium [Synthroid] 50 mcg PO DAILY 30 Days #60 tab 03/12/18 Atorvastatin [Lipitor] 80 mg PO HS #30 tab 08/05/18 Clopidogrel [Plavix] 75 mg PO DAILY #30 tab 08/05/18 Nitroglycerin Sl Tabs [Nitrostat] 0.4 mg SUBLINGUAL Q5M PRN #25 tab 08/05/18 Lidocaine 5% Patch [Lidoderm 5% 1 patch TOPICAL DAILY PRN 7 Days 10/15/20 Patch] #7 patch Allergies Allergy/AdvReac Type Severity Reaction Status Date / Time carbamazepine AdvReac Vomiting, Verified 10/15/20 20:57 dizziness, excessive sleepiness paliperidone [From Invega] AdvReac bad side Verified 10/15/20 20:57 effects Review of Systems ROS Statement: Those systems with pertinent positive or pertinent negative responses have been documented in the HPI. Review of Systems: CONST: Denies fever EYES: Denies blurry vision ENT: Denies nasal congestion C/V: Denies Chest pain RESP: Denies shortness of breath GI: Denies abdominal pain : Denies dysuria SKIN: Denies rash. MSK: Endorses joint pain NEURO: Denies headache ROS Other: All systems not noted in ROS Statement are negative. 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, L eye has partially detached retina, caterac ts, gastric ulcer, hematemesis, chronic low back pain, sciatica mostly L side occasionally R side, migraines, vertigo, fatty liver, palpitations, past fractures of R thumb/R wrist/L hand, [place] Spotted Fever as an , hypothyrodism, DC july 2018 Last Myocardial Infarction Date:: july 2018 History of Any Multi-Drug Resistant Organisms: None Reported Past Surgical History: Ablation, Back Surgery, Cholecystectomy, Heart Catheterization, Hernia Repair, Hysterectomy, Tonsillectomy Additional Past Surgical History / Comment(s): 11/2016 EPS with A flutter ablation, 2007 cardiac cath-normal, L nares skin cancer removed, UMBILICAL HERNIA SX 3X, RT Hand SX for middle TRIGGER FINGER, FIBROID TUMORS REMOVED ABD/BACK, LAPROSCOPIES x 3, L5-S1 SX for HERNIATED DISCS, EGD/colonoscopy. Past Anesthesia/Blood Transfusion Reactions: Postoperative Nausea & Vomiting (P ONV) Additional Past Anesthesia/Blood Transfusion Reaction / Comment(s): AND SEVERE HEADACHE WITH ANESTHESIA IN PAST Past Psychological History: Anxiety, Bipolar, Depression Smoking Status: Never smoker Past Alcohol Use History: None Reported Past Drug Use History: Marijuana - Past Family History Father Family Medical History: Diabetes Mellitus Additional Family Medical History / Comment(s): ONLY MET HIM ONCE IN HER LIFE [employer] IN HIS FAMILY Mother Family Medical History: Cancer Additional Family Medical History / Comment(s): Breast CA. General Exam - General Exam Comments Initial Comments: General: Appears in mild distress secondary to pain. HEAD: Normal with no signs of head trauma. No step-offs or deformities of the skull. Negative [place] sign. Negative raccoon eyes. No facial tenderness to palpation. EYES: PERRLA, EOMI, conjunctiva normal, no discharge. Pupils are 3 mm and equal bilaterally. ENT: Hearing grossly intact, normal oropharynx. Trachea is midline. RESPIRATORY: Clear breath sounds bilaterally. No wheezes, rales, or rhonchi. C/V: Regular rate and rhythm. S1 and S2 auscultated, no edema, peripheral pulses 2+ and intact throughout ABD: Abd is soft, nontender, nondistended EXT: Relatively normal range of motion of all 4 extremities without any obvious deformity. She has tenderness to palpation over the lateral aspect of the right wrist and hand. No snuffbox tenderness. She has some tenderness palpation over the right patella. Pelvis is stable. She has very mild midline tetanus palpation over the cervical spine as well as lumbar spine but no tenderness palpation midline over the thoracic spine. She also has paraspinal muscle tenderness over the sites. SKIN: No rashes or lesions observed on exposed skin. NEURO: Alert and oriented x 4. Cranial nerves II-XII intact. No focal sensory or strength deficits. Cerebellar function is intact as evident by normal finger nose testing. GCS is 15. NIH stroke scale is 0. Limitations: no limitations Course Vital Signs 10/15/20 10/15/20 10/15/20 19:17 22:01 22:50 Temperature 98.3 F 98.8 F 98 F Pulse Rate 85 71 72 Respiratory 20 19 18 Rate Blood Pressure 150/63 146/83 146/88 O2 Sat by Pulse 98 96 96 Oximetry Medical Decision Making - Medical Decision Making Based on the patient's presentation and physical exam, I'm concerned for acute traumatic injury secondary to mechanical fall. Patient is on blood thinners. Patient fell from above standing height. Therefore cardiac 2 trauma activation will be activated. Trauma laboratory studies were ordered. We will obtain CT imaging of the patient's head, C-spine, lumbar spine as well as chest and pelvis x-rays as well as x-rays of the right knee, right hand and wrist. Patient will be given morphine and 1 L fluid bolus for analgesia. ATLS protocol was followed. I spoke with Dr. Barker of trauma surgery who was in agreement th is plan. She will be connected to continuous cardiac monitoring while she is here in the department. Patient's screening EKG showed no signs of acute ischemia. Laboratory studies were remarkable for, a very slight leukocytosis of 11.1 which is likely reactive, normal coags, as well as slightly elevated BUN/creatinine, 34 and 1.43 respectively. I did discuss this with the patient she states that her PCP has been monitoring her renal function which has been slightly worsening. She states this does seem normal for her. Patient's chest and pelvis x-ray showed no acute medical injury. Patient's brain CT, cervical CT, lumbar spine CT showed no acute traumatic process. Patient's knee, wrist, hand x-rays revealed no acute traumatic process. On reevaluation, I was able to clear the patient's cervical spine and removed the cervical collar. She is able to ambulate without difficulty. She states she is feeling improved. I discussed with her the results of her imaging and labs and explained that I believe it is safe for her to be discharged home at this time. She was in agreement this plan. I will provide the patient with a prescription for lidocaine patch. I instructed the patient to follow up with their PCP in the next 3 days. . I explained that the patient should return to the emergency department if they experience any worsening symptoms. Strict return precautions were discussed with the patient. The patient expressed understanding of these instructions. I answered all questions that the patient had. The patient was discharged home in good condition with their prescriptions and follow up information. - Lab Data Result diagrams: 10/15/20 19:46 10/15/20 19:46 Lab Results 10/15/20 10/15/20 10/15/20 Range/Units 19:25 19:36 19:46 WBC 11.1 H (3.8-10.6) k/uL RBC 4.28 (3.80-5.40) m/uL Hgb 12.4 (11.4-16.0) gm/dL Hct 36.1 (34.0-46.0) % MCV 84.4 (80.0-100.0) fL MCH 29.0 (25.0-35.0) pg MCHC 34.4 (31.0-37.0) g/dL RDW 13.1 (11.5-15.5) % Plt Count 300 (150-450) k/uL MPV 6.9 Neutrophils % 46 % Lymphocytes % 44 % Monocytes % 4 % Eosinophils % 3 % Basophils % 1 % Neutrophils # 5.1 (1.3-7.7) k/uL Lymphocytes # 4.9 H (1.0-4.8) k/uL Monocytes # 0.4 (0-1.0) k/uL Eosinophils # 0.3 (0-0.7) k/uL Basophils # 0.1 (0-0.2) k/uL PT (9.0-12.0) sec INR (<1.2) APTT (22.0-30.0) sec Sodium (137-145) mmol/L Potassium (3.5-5.1) mmol/L Chloride (98-107) mmol/L Carbon Dioxide (22-30) mmol/L Anion Gap mmol/L BUN (7-17) mg/dL Creatinine (0.52-1.04) mg/dL Est GFR (CKD-EPI)AfAm (>60 ml/min/1.73 sqM) Est GFR (CKD-EPI)NonAf (>60 ml/min/1.73 sqM) Glucose (74-99) mg/dL POC Glucose (mg/dL) 180 H (75-99) mg/dL POC Glu Foiling Machine Adjuster ID Uyen De Santiago Calcium (8.4-10.2) mg/dL Total Bilirubin (0.2-1.3) mg/dL AST (14-36) U/L ALT (4-34) U/L Alkaline Phosphatase (38-126) U/L Total Protein (6.3-8.2) g/dL Albumin (3.5-5.0) g/dL Urine Color Urine Appearance (Clear) Urine pH (5.0-8.0) Ur Specific [place] (1.001-1.035) Urine Protein (Negative) Urine Glucose (UA) (Negative) Urine Ketones (Negative) Urine Blood (Negative) Urine Nitrite (Negative) Urine Bilirubin (Negative) Urine Urobilinogen (<2.0) mg/dL Ur Leukocyte Esterase (Negative) Urine WBC (0-5) /hpf Ur Squamous Epith Cells (0-4) /hpf Urine Opiates Screen (NotDetected) Ur Oxycodone Screen (NotDetected) Urine Methadone Screen (NotDetected) Ur Propoxyphene Screen (NotDetected) Ur Barbiturates Screen (NotDetected) U Tricyclic Antidepress (NotDetected) Ur Phencyclidine Scrn (NotDetected) Ur Amphetamines Screen (NotDetected) U Methamphetamines Scrn (NotDetected) U Benzodiazepines Scrn (NotDetected) Urine Cocaine Screen (NotDetected) U Marijuana (THC) Screen (NotDetected) Serum Alcohol mg/dL Blood Type O Negative Blood Type Confirm Blood Type Recheck No Previous Record Bld Type Recheck Status CABO Indicated Antibody Screen NEGATIVE Spec Expiration Date 10/18/2020232410/15/20 10/15/20 10/15/20 Range/Units 19:46 19:46 20:15 WBC (3.8-10.6) k/uL RBC (3.80-5.40) m/uL Hgb (11.4-16.0) gm/dL Hct (34.0-46.0) % MCV (80.0-100.0) fL MCH (25.0-35.0) pg MCHC (31.0-37.0) g/dL RDW (11.5-15.5) % Plt Count (150-450) k/uL MPV Neutrophils % % Lymphocytes % % Monocytes % % Eosinophils % % Basophils % % Neutrophils # (1.3-7.7) k/uL Lymphocytes # (1.0-4.8) k/uL Monocytes # (0-1.0) k/uL Eosinophils # (0-0.7) k/uL Basophils # (0-0.2) k/uL PT 10.5 (9.0-12.0) sec INR 1.0 (<1.2) APTT 26.0 (22.0-30.0) sec Sodium 134 L (137-145) mmol/L Potassium 4.2 (3.5-5.1) mmol/L Chloride 99 (98-107) mmol/L Carbon Dioxide 24 (22-30) mmol/L Anion Gap 11 mmol/L BUN 34 H (7-17) mg/dL Creatinine 1.43 H (0.52-1.04) mg/dL Est GFR (CKD-EPI)AfAm 44 (>60 ml/min/1.73 sqM) Est GFR (CKD-EPI)NonAf 38 (>60 ml/min/1.73 sqM) Glucose 182 H (74-99) mg/dL POC Glucose (mg/dL) (75-99) mg/dL POC Glu Foiling Machine Adjuster ID Calcium 10.0 (8.4-10.2) mg/dL Total Bilirubin 0.4 (0.2-1.3) mg/dL AST 47 H (14-36) U/L ALT 38 H (4-34) U/L Alkaline Phosphatase 79 (38-126) U/L Total Protein 7.4 (6.3-8.2) g/dL Albumin 4.6 (3.5-5.0) g/dL Urine Color Urine Appearance (Clear) Urine pH (5.0-8.0) Ur Specific [place] (1.001-1.035) Urine Protein (Negative) Urine Glucose (UA) (Negative) Urine Ketones (Negative) Urine Blood (Negative) Urine Nitrite (Negative) Urine Bilirubin (Negative) Urine Urobilinogen (<2.0) mg/dL Ur Leukocyte Esterase (Negative) Urine WBC (0-5) /hpf Ur Squamous Epith Cells (0-4) /hpf Urine Opiates Screen (NotDetected) Ur Oxycodone Screen (NotDetected) Urine Methadone Screen (NotDetected) Ur Propoxyphene Screen (NotDetected) Ur Barbiturates Screen (NotDetected) U Tricyclic Antidepress (NotDetected) Ur Phencyclidine Scrn (NotDetected) Ur Amphetamines Screen (NotDetected) U Methamphetamines Scrn (NotDetected) U Benzodiazepines Scrn (NotDetected) Urine Cocaine Screen (NotDetected) U Marijuana (THC) Screen (NotDetected) Serum Alcohol <10 mg/dL Blood Type Blood Type Confirm O Negative Blood Type Recheck Bld Type Recheck Status Antibody Screen Spec Expiration Date 10/15/20 Range/Units 21:16 WBC (3.8-10.6) k/uL RBC (3.80-5.40) m/uL Hgb (11.4-16.0) gm/dL Hct (34.0-46.0) % MCV (80.0-100.0) fL MCH (25.0-35.0) pg MCHC (31.0-37.0) g/dL RDW (11.5-15.5) % Plt Count (150-450) k/uL MPV Neutrophils % % Lymphocytes % % Monocytes % % Eosinophils % % Basophils % % Neutrophils # (1.3-7.7) k/uL Lymphocytes # (1.0-4.8) k/uL Monocytes # (0-1.0) k/uL Eosinophils # (0-0.7) k/uL Basophils # (0-0.2) k/uL PT (9.0-12.0) sec INR (<1.2) APTT (22.0-30.0) sec Sodium (137-145) mmol/L Potassium (3.5-5.1) mmol/L Chloride (98-107) mmol/L Carbon Dioxide (22-30) mmol/L Anion Gap mmol/L BUN (7-17) mg/dL Creatinine (0.52-1.04) mg/dL Est GFR (CKD-EPI)AfAm (>60 ml/min/1.73 sqM) Est GFR (CKD-EPI)NonAf (>60 ml/min/1.73 sqM) Glucose (74-99) mg/dL POC Glucose (mg/dL) (75-99) mg/dL POC Glu Foiling Machine Adjuster ID Calcium (8.4-10.2) mg/dL Total Bilirubin (0.2-1.3) mg/dL AST (14-36) U/L ALT (4-34) U/L Alkaline Phosphatase (38-126) U/L Total Protein (6.3-8.2) g/dL Albumin (3.5-5.0) g/dL Urine Color Colorless Urine Appearance Clear (Clear) Urine pH 5.5 (5.0-8.0) Ur Specific [place] 1.004 (1.001-1.035) Urine Protein Trace H (Negative) Urine Glucose (UA) Negative (Negative) Urine Ketones Negative (Negative) Urine Blood Small H (Negative) Urine Nitrite Negative (Negative) Urine Bilirubin Negative (Negative) Urine Urobilinogen <2.0 (<2.0) mg/dL Ur Leukocyte Esterase Negative (Negative) Urine WBC <1 (0-5) /hpf Ur Squamous Epith Cells <1 (0-4) /hpf Urine Opiates Screen Detected H (NotDetected) Ur Oxycodone Screen Not Detected (NotDetected) Urine Methadone Screen Not Detected (NotDetected) Ur Propoxyphene Screen Not Detected (NotDetected) Ur Barbiturates Screen Not Detected (NotDetected) U Tricyclic Antidepress Not Detected (NotDetected) Ur Phencyclidine Scrn Not Detected (NotDetected) Ur Amphetamines Screen Not Detected (NotDetected) U Methamphetamines Scrn Not Detected (NotDetected) U Benzodiazepines Scrn Detected H (NotDetected) Urine Cocaine Screen Not Detected (NotDetected) U Marijuana (THC) Screen Detected H (NotDetected) Serum Alcohol mg/dL Blood Type Blood Type Confirm Blood Type Recheck Bld Type Recheck Status Antibody Screen Spec Expiration Date - EKG Data -: EKG Interpreted by Me EKG Comments: 12-lead Electrocardiogram Interpretation Note EKG was reviewed and interpreted by myself. 12-lead ECG performed at 2019 is interpreted by me as revealing normal sinus rhythm at a rate of at 73 beats per minute. [place] is normal. MO interval appears to be approximately 180 ms. Confucianist is 96 seconds, QTC is 471 ms.. There were no ST or T wave abnormalities to suggest myocardial ischemia or injury. R wave progression across the precordium was satisfactory. By my interpretation this EKG is non-diagnostic for acute ischemia. The machine did interpret this EKG as atrial flutter, however patient may have U waves present in lead V5. Is not reproduced in the other leads. This is normal sinus rhythm. Disposition Clinical Impression: Fall, Musculoskeletal pain Disposition: HOME SELF-CARE Condition: Good Instructions (If sedation given, give patient instructions): Fall Prevention (ED) Prescriptions: Lidocaine 5% Patch [Lidoderm 5% Patch] 1 patch TOPICAL DAILY PRN 7 Days #7 patch PRN Reason: Pain Is patient prescribed a controlled substance at d/c from ED?: No Referrals: Benedicto Cabello DO [Primary Care Provider] - 1-2 days
--- NOTE | 2020-10-15 20:38 | CT ---
EXAMINATION TYPE: CT brain wo con DATE OF EXAM: 10/15/2020 COMPARISON: None available HISTORY: FALL CT DLP: 1663.5 mGycm Automated exposure control for dose reduction was used. TECHNIQUE: Multiple contiguous axial CT head images were obtained without the administration intraven ous contrast. 2-D coronal and sagittal reformats were obtained. FINDINGS: No acute intracranial hemorrhage, mass effect, or midline shift. Mild diffuse cerebral atrophy. Mild burden of decreased attenuation within the periventricular and deep white matter. Billingsley-white differen tiation is preserved. No CT evidence of large territorial infarct. Focal area of decreased attenuatio n within the inferior left basal ganglia which may represent perivascular space or remote lacunar inf arct. Calvarium appears intact. Visualized paranasal sinuses and mastoid air cells are clear. Bilateral trisha bes are symmetric and unremarkable. IMPRESSION: No acute intracranial process.
--- NOTE | 2020-10-15 20:41 | CT ---
EXAMINATION TYPE: CT cervical spine wo con DATE OF EXAM: 10/15/2020 COMPARISON: CT cervical spine 06/08/2017 HISTORY: FALL CT DLP: 1663.5 mGycm Automated exposure control for dose reduction was used. TECHNIQUE: CT scan of the cervical spine is obtained without contrast, axial images are obtained, sa gittal and coronal reformatted images are also reviewed. FINDINGS: Cervical vertebral body heights and alignment are maintained. No acute fracture or traumatic subluxat ion. Odontoid process appears intact. The atlantooccipital joint appears normal. Mild multilevel dege nerative changes. Prespinal soft tissues appear unremarkable. Visualized lung apices are clear. IMPRESSION: No acute fracture or traumatic subluxation of the cervical spine.
--- NOTE | 2020-10-15 20:46 | CT ---
EXAMINATION TYPE: CT lumbar spine wo con DATE OF EXAM: 10/15/2020 8:12 PM COMPARISON: CT abdomen/pelvis 05/25/2020 HISTORY: FALL CT DLP: 2471 mGycm Automated exposure control for dose reduction was used. TECHNIQUE: Unenhanced CT of the lumbar spine was performed. Bone and soft tissue window settings are submitted as well as coronal and sagittal reconstructions. FINDINGS: Lumbar vertebral body heights and alignment are maintained. No acute fracture or traumatic subluxatio n. Moderate multilevel degenerative changes with osteophyte formation, disc height loss, and vacuum disc phenomena most pronounced at L3-4, L4-5, and L5-S1. Moderate multilevel facet arthropathy most prono unced at L3-4, L4-5, and L5-S1. Multilevel disc bulges without significant spinal canal stenosis. Varying degrees of mild to moderate neural foraminal narrowing most pronounced at L5-S1 with at least moderate neural foraminal narrowin g bilaterally, right greater than left. Paraspinal soft tissues appear unremarkable. Visualization of the retroperitoneal structures appear u nremarkable. IMPRESSION: No acute fracture or traumatic subluxation of the lumbar spine.
[2020-10-15] MEDS ORDERED: SODIUM CHLORIDE 0.9% 1,000 ML IV STA (21:17)
[2020-10-15 21:23] LABS: Appearance,Urine Clear (Clear); Bilirubin,Urine Negative (Negative); Blood,Urine Small (Negative); Color,Urine Colorless; Glucose,Urine (UA) Negative (Negative); Ketones,Urine Negative (Negative); Leukocyte Esterase,Urine Negative (Negative); Nitrite,Urine Negative (Negative); PH, Urine 5.5 (5.0-8.0); Protein,Urine Trace (Negative); Specific Gravity,Urine 1.004 (1.001-1.035); Squamous Epithelial Cell,Urine <1 /hpf (0-4); Urobilinogen,Urine <2.0 mg/dL (<2.0); WBC,Urine <1 /hpf (0-5)
[2020-10-15 21:37] LABS: Amphetamine Screen,Urine Not Detected (NotDetected); Barbiturate Screen,Urine Not Detected (NotDetected); Benzodiazepines Screen,Urine Detected (NotDetected); Cocaine Screen,Urine Not Detected (NotDetected); Methadone Screen, Urine Not Detected (NotDetected); Opiate Screen,Urine Detected (NotDetected); Oxycodone Screen, Urine Not Detected (NotDetected); Phencyclidine Screen,Urine Not Detected (NotDetected); Tricyclic Antidepressant,Urine Not Detected (NotDetected); Urn Cannabinoid Scrn Detected (NotDetected)
--- NOTE | 2020-10-15 22:12 | XR ---
EXAMINATION TYPE: XR knee complete RT DATE OF EXAM: 10/15/2020 COMPARISON: NONE HISTORY: Pain TECHNIQUE: 3 views FINDINGS: There is no sign of fracture nor dislocation. Joint spaces are fairly normal. There are tee e rounded calcifications at the posterior aspect of the tibial spines that could relate to old injury . There is no joint effusion. There is minor spurring of the patella and the medial femoral condyle. IMPRESSION: Mild degenerative changes. Calcifications at the tibial spines could relate to old injury .
--- NOTE | 2020-10-15 22:14 | XR ---
EXAMINATION TYPE: XR wrist complete RT DATE OF EXAM: 10/15/2020 COMPARISON: NONE HISTORY: Pain TECHNIQUE: 4 views FINDINGS: Carpal bones are intact. There is mild spurring at the first carpometacarpal joint. Radioca rpal joint is intact. There are no erosions. There are small degenerative cyst in the lunate. IMPRESSION: Mild osteoarthritis. No fracture.
--- NOTE | 2020-10-15 22:15 | XR ---
EXAMINATION TYPE: XR hand complete RT DATE OF EXAM: 10/15/2020 COMPARISON: NONE HISTORY: Pain TECHNIQUE: 3 views FINDINGS: Metacarpals are intact. There are no erosions. There is mild spurring and narrowing at the first carpometacarpal joint. There is no subluxation. IMPRESSION: Osteoarthritis at the base of the thumb. No fracture seen.
[2020-10-15 22:56] VITALS: BP 146/88; PULSE 72; RESP 18; TEMP 98
== END 2020-10-15 22:52 | disposition home or self-care (01) ==
LOC: EC 19:09
DX: M79.18 Myalgia, other site (principal); E11.9 Type 2 diabetes mellitus without complications; E78.5 Hyperlipidemia, unspecified; F31.9 Bipolar disorder, unspecified; F41.9 Anxiety disorder, unspecified; I10 Essential (primary) hypertension; I25.2 Old myocardial infarction; J44.9 Chronic obstructive pulmonary disease, unspecified; K21.9 Gastro-esophageal reflux disease without esophagitis; F12.90 Cannabis use, unspecified, uncomplicated; Z86.73 Personal history of transient ischemic attack (TIA), and cerebral infarction without residual deficits; Z79.01 Long term (current) use of anticoagulants; Z79.02 Long term (current) use of antithrombotics/antiplatelets; Z79.4 Long term (current) use of insulin; Z79.899 Other long term (current) drug therapy; Z90.49 Acquired absence of other specified parts of digestive tract; W08.XXXA Fall from other furniture, initial encounter
CPT/HCPCS: 36415; 93005; 86900; 86901; 80053; 85025; 85610; 85730; 86850; 81001; 80306; 72170; 73110; 73130; 73562; 71045; 72125; 72131; 70450; 99285; 96374; 96361; G0480; J2270; 80320

== ENCOUNTER → 2020-12-10 | Outpatient (CLI) | payer MEDICARE, OTHER ==
[2020-12-10 15:55] LABS: African American GFR (CKD) 36.1 (60.0-200.0); Albumin 4.5 g/dL (3.8-4.9); Albumin/Globulin Ratio 1.79 (1.60-3.17); Anion Gap 14.8 mmol/L (4.00-12.00); BUN/Creat Ratio 20.65 Ratio (12.00-20.00); Blood Urea Nitrogen 34.7 mg/dL (9.0-27.0); Calcium 9.9 mg/dL (8.7-10.3); Carbon Dioxide 23.4 mmol/L (21.6-31.8); Globulin 2.5 g/dL (1.6-3.3); Magnesium 1.7 mg/dL (1.5-2.4); Non-African American GFR(CKD) 31.1 (60.0-200.0); Potassium 4.5 mmol/L (3.5-5.5); Total Bilirubin 0.3 mg/dL (0.30-1.20)
== END | disposition home or self-care (01) ==
LOC: LABWHC1 09:32
PROVIDERS: ATTEND Nurse Practitioner Adult Health
DX: E11.65 Type 2 diabetes mellitus with hyperglycemia (principal); I10 Essential (primary) hypertension
CPT/HCPCS: 36415; 80053; 82043; 82570; 83036; 83735; 84443; 84481

== ENCOUNTER → 2020-12-19 | Outpatient (CLI) | payer MEDICARE, OTHER ==
[2020-12-19 16:26] LABS: African American GFR (CKD) 35.5 (60.0-200.0); Albumin 4.5 g/dL (3.8-4.9); Albumin/Globulin Ratio 1.73 (1.60-3.17); Anion Gap 15.2 mmol/L (4.00-12.00); BUN/Creat Ratio 16.88 Ratio (12.00-20.00); Blood Urea Nitrogen 28.7 mg/dL (9.0-27.0); Calcium 9.7 mg/dL (8.7-10.3); Carbon Dioxide 20.8 mmol/L (21.6-31.8); Chol/HDL Ratio 3.99 Ratio; Globulin 2.6 g/dL (1.6-3.3); HDL Cholesterol 34.6 mg/dL (40.00-60.00); LDL Cholesterol,Calculated 60.6 mg/dL (0.0-131.0); Non-African American GFR(CKD) 30.7 (60.0-200.0); Potassium 4.3 mmol/L (3.5-5.5); Total Bilirubin 0.3 mg/dL (0.30-1.20); Total Protein 7.1 g/dL (6.2-8.2); VLDL Calculation 42.8 mg/dL (5.00-40.00)
== END | disposition home or self-care (01) ==
LOC: LABWHC1 08:22
PROVIDERS: ATTEND Internal Medicine Endocrinology, Diabetes & Metabolism
DX: E11.65 Type 2 diabetes mellitus with hyperglycemia (principal)
CPT/HCPCS: 36415; 80053; 80061; 82043; 82570; 83036; 84443

== ENCOUNTER → 2021-01-24 | Outpatient (CLI) | payer MEDICARE, OTHER ==
--- NOTE | 2021-01-25 08:47 | CT ---
EXAMINATION TYPE: CT abdomen pelvis wo con DATE OF EXAM: 01/24/2021 COMPARISON: None HISTORY: Bilateral flank pain and microscopic hematuria. CT DLP: 1148.9 mGycm Automated exposure control for dose reduction was used. TECHNIQUE: Helical acquisition of images was performed from the lung bases through the pelvis. FINDINGS: LUNG BASES: No significant abnormality is appreciated. LIVER/GB: Liver is prominent in size measuring 20 cm in there is evidence of previous post colectomy. There is a 8 mm hypodensity in the posterior margin of the right lobe the liver too small to charact erize but stable from prior exam. PANCREAS: No significant abnormality is seen. SPLEEN: No significant abnormality is seen. ADRENALS: No significant abnormality is seen. KIDNEYS: No significant abnormality is seen. ADENOPATHY: None visualized. OSSEOUS STRUCTURES: Hypertrophic and degenerative changes spine. BOWEL: No significant abnormality is seen. OTHER: Postsurgical change involving the anterior abdominal wall with evidence of [place] fat conta ining persistent abdominal wall hernia. Mild bladder wall thickening correlate with urinalysis to exclude mild cystitis. IMPRESSION: 1. No evidence of intrarenal calcification or hydroureter process. Mild bladder wall thickening corre late for mild cystitis. 2. Stable indeterminate hepatic lesion too small to characterize. 3 postcholecystectomy changes.
--- NOTE | 2021-01-25 09:34 | CT ---
EXAMINATION TYPE: CT lumbar spine wo con DATE OF EXAM: 01/24/2021 4:34 PM COMPARISON: CT lumbar spine October 15, 2020 HISTORY: Low back pain. CT DLP: 1148.9 mGycm Automated exposure control for dose reduction was used. Unenhanced CT of the lumbar spine was performed. Bone and soft tissue window settings are submitted as well as coronal and sagittal reconstructions. 5 lumbar type vertebra are redemonstrated. Alignment stable and satisfactory. Persistent vacuum disc phenomenon with mild to moderate disc space narrowing and anterior spurring L5-S1 level. Persistent m [id number] narrowing with disc calcification L4-L5 level. Persistent vacuum disc phenomenon with mild to moderate narrowing L3-L4 level. Posterior disc herniation effaces the anterior thecal sac at L2-L3 level similar to prior CT. Axial images redemonstrate moderate facet arthropathy L4-L5 and L5-S1 levels causing asymmetric moder ate to severe left-sided neural foraminal narrowing L5-S1 level sagittal image 40 similar to prior. [id number] calcified plaque of the aorta extends into branch vessels. Visualized liver is low d ense suggesting fatty infiltration. IMPRESSION: As above. No significant change or degenerative progression from recent CT.
== END | disposition home or self-care (01) ==
LOC: RADCTMAIN 15:40
PROVIDERS: ATTEND Psychiatry & Neurology Neurology
DX: N32.89 Other specified disorders of bladder (principal); M51.26 Other intervertebral disc displacement, lumbar region; M51.36 Other intervertebral disc degeneration, lumbar region; M47.816 Spondylosis without myelopathy or radiculopathy, lumbar region
CPT/HCPCS: 72131; 74176

== ENCOUNTER → 2021-01-24 | Outpatient (CLI) | payer MEDICARE, OTHER | END | disposition home or self-care (01) | LOC: LABWHC1 15:29 | PROVIDERS: ATTEND Psychiatry & Neurology Pain Medicine | DX: Z53.9 Procedure and treatment not carried out, unspecified reason (principal) ==

== ENCOUNTER → 2021-01-24 | Outpatient (CLI) | payer MEDICARE, OTHER ==
--- NOTE | 2021-01-24 17:11 | US ---
EXAMINATION TYPE: US kidneys/renal and bladder DATE OF EXAM: 01/24/2021 COMPARISON: Ultrasound 06/10/2017 CLINICAL HISTORY: 65-year-old female N17.9 NARCISO. Patient complains of bilateral flank pain x 6 months TECHNIQUE: Multiple sonographic images of the kidneys and bladder are obtained. FINDINGS: EXAM MEASUREMENTS: Right Kidney: 10.2 x 5.5 x 4.1 cm Left Kidney: 10.8 x 5.3 x 4.3 cm Post Void Residual Volume: 6.4 ml No hydronephrosis on either side. Bladder: Underdistention limits its evaluation. Bilateral Jets seen: Yes Normal Post Void Residual: Yes Liver = 23.1 cm and with increased echogenicity and far field attenuation. Spleen = 12.1 cm IMPRESSION: 1. No hydronephrosis. 2. Incidental hepatomegaly (23.1 cm) with at least moderate hepatic steatosis.
== END | disposition home or self-care (01) ==
LOC: RADUSWWP 14:24
PROVIDERS: ATTEND Internal Medicine Nephrology
DX: N17.9 Acute kidney failure, unspecified (principal)
CPT/HCPCS: 76770

== ENCOUNTER 2021-04-22 19:55 | Emergency (ER) | payer MEDICARE, OTHER ==
[2021-04-22] MEDS ORDERED: SODIUM CHLORIDE 0.9% 500 ML 500 ML IV STA (20:05)
--- NOTE | 2021-04-22 20:11 | ED ---
General Adult HPI - General Stated complaint: Weakness, SOB Time Seen by Provider: 04/22/21 19:59 - History of Present Illness Initial comments: This is a pleasant 65-year-old female with multiple medical issues as reviewed in the medical history. Patient states over the past 2 months she has had intermittent problems controlling her blood sugar. Patient was actually taken off of her oral medications and put on Humalog. Had labile blood sugars. Patient states over the past 2 weeks she started getting muscle cramping and lightheadedness. Patient states that she seems to get muscle spasms sporadically to include leg muscles, are muscles, facial muscles. Patient states that she went to get up today and had more spastic twitching and had lightheadedness. Patient has had no focal weakness. [place] any chest pain or shortness of breath. No fever or chills. No history of electrolyte disturbance. Positive for lightheadedness, No headache, no fever or chills, no changes in vision or hearing, no sore throat or difficulty with speech, no neck pain, no chest pain or shortness of breath, no abdominal pain, no nausea or vomiting, no changes in urination or bowel movements, no numbness or tingling, , no skin rashes or lesions. - Related Data Home Medications Medication Instructions Recorded Confirmed Multivitamins, Thera [Multivitamin 1 tab PO DAILY 06/07/18 04/22/21 (formulary)] Apixaban [Eliquis] 5 mg PO BID 02/28/19 04/22/21 Omeprazole 40 mg PO HS 02/28/19 04/22/21 Amitriptyline HCl 10 mg PO HS 10/15/20 04/22/21 HYDROcodone/APAP 5-325MG [[place] 1 tab PO DAILY PRN 10/15/20 04/22/21 5-325] Nystatin 100,000 Unit/gm Powd 1 applic TOPICAL QID PRN 10/15/20 04/22/21 [Mycostatin Powder] Valsartan/Hydrochlorothiazide 1 tab PO DAILY 10/15/20 04/22/21 [Valsartan-Hctz 160-12.5 mg Tab] amLODIPine [Norvasc] 10 mg PO DAILY 10/15/20 04/22/21 ondansetron HCL [Zofran] 8 mg PO Q8HR PRN 10/15/20 04/22/21 ALPRAZolam [Xanax] 0.25 mg PO DAILY PRN 04/22/21 04/22/21 Albuterol Sulfate [Albuterol 2 puff PO RT-QID PRN 04/22/21 04/22/21 Sulfate Hfa] Atorvastatin [Lipitor] 80 mg PO DAILY 04/22/21 04/22/21 Biotin [Biotin Disolve] 5,000 mcg PO DAILY 04/22/21 04/22/21 Cholecalciferol [Vitamin D3 (25 50 mcg PO DAILY 04/22/21 04/22/21 Mcg = 1000 Iu)] Cyclobenzaprine [Flexeril] 5 mg PO HS PRN 04/22/21 04/22/21 Estradiol Cream [Estrace Cream 1 applic VAGINAL SUWE 04/22/21 04/22/21 0.01%] Insulin Aspart [NovoLOG Flexpen] 15 - 20 units SQ AC-TID 04/22/21 04/22/21 Insulin Glargine,Hum.rec.anlog 80 units SQ HS 04/22/21 04/22/21 [Toujames Solostfrancesco] Loperamide [Imodium] 2 mg PO QID PRN 04/22/21 04/22/21 Metoprolol Succinate [Toprol XL] 25 mg PO HS 04/22/21 04/22/21 Temazepam [Restoril] 30 mg PO HS 04/22/21 04/22/21 estradioL [Estradiol] 10 mcg VAGINAL SUWE 04/22/21 04/22/21 Previous Rx's Medication Instructions Recorded Glimepiride [Amaryl] 4 mg PO BID 30 Days #60 tab 03/12/18 Levothyroxine Sodium [Synthroid] 50 mcg PO DAILY 30 Days #60 tab 03/12/18 Nitroglycerin Sl Tabs [Nitrostat] 0.4 mg SUBLINGUAL Q5M PRN #25 tab 08/05/18 Magnesium Oxide [Mag-Ox] 400 mg PO BID #20 tablet 04/23/21 Allergies Allergy/AdvReac Type Severity Reaction Status Date / Time carbamazepine AdvReac Vomiting, Verified 04/22/21 21:58 dizziness, excessive sleepiness paliperidone [From Invega] AdvReac bad side Verified 04/22/21 21:58 effects Review of Systems ROS Statement: Those systems with pertinent positive or pertinent negative responses have been documented in the HPI. ROS Other: All systems not noted in ROS Statement are negative. 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, L eye has partially detached retina, jade racts, gastric ulcer, hematemesis, chronic low back pain, sciatica mostly L side occasionally R side, migraines, vertigo, fatty liver, palpitations, past fractures of R thumb/R wrist/L hand, [place] Spotted Fever as an infant, hypothyrodism, PA july 2018 Last Myocardial Infarction Date:: july 2018 History of Any Multi-Drug Resistant Organisms: None Reported Past Surgical History: Ablation, Back Surgery, Cholecystectomy, Heart Catheterization, Hernia Repair, Hysterectomy, Tonsillectomy Additional Past Surgical History / Comment(s): 11/2016 EPS with A flutter ablation, 2007 cardiac cath-normal, L nares skin cancer removed, UMBILICAL HERNIA SX 3X, RT Hand SX for middle TRIGGER FINGER, FIBROID TUMORS REMOVED ABD/BACK, LAPROSCOPIES x 3, L5-S1 SX for HERNIATED DISCS, EGD/colonoscopy. Past Anesthesia/Blood Transfusion Reactions: Postoperative Nausea & Vomiting (PONV) Additional Past Anesthesia/Blood Transfusion Reaction / Comment(s): AND SEVERE HEADACHE WITH ANESTHESIA IN PAST Past Psychological History: Anxiety, Bipolar, Depression Smoking Status: Never smoker Past Alcohol Use History: None Reported Past Drug Use History: Marijuana - Past Family History Father Family Medical History: Diabetes Mellitus Additional Family Medical History / Comment(s): ONLY MET HIM ONCE IN HER LIFE [employer] IN HIS FAMILY Mother Family Medical History: Cancer Additional Family Medical History / Comment(s): Breast CA. General Exam - General Exam Comments Initial Comments: 65-year-old female in minimal distress. Patient does not appear to be ill or toxic. Cranial nerves II through XII grossly intact, patient alert and oriented 4, patient does have a fine tremor noted which appears to be generalized. General appearance: alert, in no apparent distress, obese Head exam: Present: atraumatic, normocephalic, normal inspection Eye exam: Present: normal appearance, PERRL, EOMI. Absent: scleral icterus, conjunctival injection, periorbital swelling ENT exam: Present: normal exam, mucous membranes moist Neck exam: Present: normal inspection. Absent: tenderness, meningismus, lymphadenopathy Respiratory exam: Present: normal lung sounds bilaterally. Absent: respiratory distress, wheezes, rales, rhonchi, stridor Cardiovascular Exam: Present: regular rate, normal rhythm, normal heart sounds. Absent: systolic murmur, diastolic murmur, rubs, gallop, clicks GI/Abdominal exam: Present: soft, normal bowel sounds. Absent: distended, tenderness, guarding, rebound, rigid Extremities exam: Present: normal inspection, full ROM, normal capillary refill. Absent: tenderness, pedal edema, joint swelling, calf tenderness Back exam: Present: normal inspection Neurological exam: Present: alert, oriented X3, CN II-XII intact, other (No focal neurologic deficits.). Absent: altered Psychiatric exam: Present: normal affect, normal mood Skin exam: Present: warm, dry, intact, normal color. Absent: rash Course Vital Signs 04/22/21 04/23/21 20:01 01:52 Temperature 98.3 F 98 F Pulse Rate 92 78 Respiratory 18 20 Rate Blood Pressure 107/71 132/74 O2 Sat by Pulse 93 L 98 Oximetry - Reevaluation(s) Reevaluation #1: 04/22/21 22:02 Medical record is reviewed Magnesium 1.3 replacement initiated. Patient is informed of results and questions answered Patient in no distress 04/23/21 00:59 Patient much improved from initial presentation. Patient on her last infusion of magnesium replacement. No distress, vital signs stable, patient afebrile. Asymptomatic. EKG Findings - EKG Comments: EKG Findings:: EKG reveals sinus rhythm with rate of 82. Borderline left axis deviation. Normal intervals. No acute ST or T-wave changes. Normal QRS morphology. Sodium read by the ED attending physician. Medical Decision Making - Medical Decision Making Patient symptomology most consistent with electrolyte abnormality. However hypoglycemic episodes and other etiology is still within the differential. We'll order a general electrolyte workup to include cardiac evaluation. The patient no focal neurologic deficits. Patient presented with generalized muscle weakness with intermittent muscle spasms. Most consistent with electrolyte abnormal. Magnesium was found to be 1.3. Remainder the patient's workup was essentially normal. Patient was much improved after 3 g of magnesium IV piggyback. The case was discussed in detail with ED attending physician. Presentation, findings, treatment plan discussed in detail. Patient was told to return to the ER for any signs or symptoms worsen. Told to return immediately if any other problems arise. All questions answered. Treatment plan discussed. Patient in agreement Every effort has been made to ensure accuracy of this dictation. However, due to the limitations of electronic medical records and dictation devices, errors in charting still occur. - Lab Data Result diagrams: 04/22/21 20:25 04/22/21 20:25 Lab Results 04/22/21 04/22/21 04/22/21 Range/Units 20:25 20:25 20:25 WBC 11.8 H (3.8-10.6) k/uL RBC 4.32 (3.80-5.40) m/uL Hgb 12.2 (11.4-16.0) gm/dL Hct 36.5 (34.0-46.0) % MCV 84.4 (80.0-100.0) fL MCH 28.3 (25.0-35.0) pg MCHC 33.5 (31.0-37.0) g/dL RDW 13.2 (11.5-15.5) % Plt Count 321 (150-450) k/uL MPV 7.2 Neutrophils % 55 % Lymphocytes % 36 % Monocytes % 5 % Eosinophils % 3 % Basophils % 1 % Neutrophils # 6.5 (1.3-7.7) k/uL Lymphocytes # 4.2 (1.0-4.8) k/uL Monocytes # 0.5 (0-1.0) k/uL Eosinophils # 0.3 (0-0.7) k/uL Basophils # 0.1 (0-0.2) k/uL PT 10.6 (9.0-12.0) sec INR 1.0 (<1.2) APTT 25.7 (22.0-30.0) sec Sodium (137-145) mmol/L Potassium (3.5-5.1) mmol/L Chloride (98-107) mmol/L Carbon Dioxide (22-30) mmol/L Anion Gap mmol/L BUN (7-17) mg/dL Creatinine (0.52-1.04) mg/dL Est GFR (CKD-EPI)AfAm (>60 ml/min/1.73 sqM) Est GFR (CKD-EPI)NonAf (>60 ml/min/1.73 sqM) Glucose (74-99) mg/dL POC Glucose (mg/dL) (75-99) mg/dL POC Glu Pipe Washer ID Calcium (8.4-10.2) mg/dL Phosphorus (2.5-4.5) mg/dL Magnesium (1.6-2.3) mg/dL Total Bilirubin (0.2-1.3) mg/dL AST (14-36) U/L ALT (4-34) U/L Alkaline Phosphatase (38-126) U/L Troponin I (0.000-0.034) ng/mL NT-Pro-B Natriuret Pep pg/mL Total Protein (6.3-8.2) g/dL Albumin (3.5-5.0) g/dL Urine Color Light Yellow Urine Appearance Clear (Clear) Urine pH 6.0 (5.0-8.0) Ur Specific [place] 1.005 (1.001-1.035) Urine Protein 1+ H (Negative) Urine Glucose (UA) Negative (Negative) Urine Ketones Negative (Negative) Urine Blood Trace H (Negative) Urine Nitrite Negative (Negative) Urine Bilirubin Negative (Negative) Urine Urobilinogen <2.0 (<2.0) mg/dL Ur Leukocyte Esterase Negative (Negative) Urine RBC <1 (0-5) /hpf Urine WBC 1 (0-5) /hpf Ur Squamous Epith Cells 1 (0-4) /hpf 04/22/21 04/22/21 04/22/21 Range/Units 20:25 20:25 20:25 WBC (3.8-10.6) k/uL RBC (3.80-5.40) m/uL Hgb (11.4-16.0) gm/dL Hct (34.0-46.0) % MCV (80.0-100.0) fL MCH (25.0-35.0) pg MCHC (31.0-37.0) g/dL RDW (11.5-15.5) % Plt Count (150-450) k/uL MPV Neutrophils % % Lymphocytes % % Monocytes % % Eosinophils % % Basophils % % Neutrophils # (1.3-7.7) k/uL Lymphocytes # (1.0-4.8) k/uL Monocytes # (0-1.0) k/uL Eosinophils # (0-0.7) k/uL Basophils # (0-0.2) k/uL PT (9.0-12.0) sec INR (<1.2) APTT (22.0-30.0) sec Sodium 138 (137-145) mmol/L Potassium 3.6 (3.5-5.1) mmol/L Chloride 99 (98-107) mmol/L Carbon Dioxide 28 (22-30) mmol/L Anion Gap 11 mmol/L BUN 37 H (7-17) mg/dL Creatinine 1.52 H (0.52-1.04) mg/dL Est GFR (CKD-EPI)AfAm 41 (>60 ml/min/1.73 sqM) Est GFR (CKD-EPI)NonAf 35 (>60 ml/min/1.73 sqM) Glucose 148 H (74-99) mg/dL POC Glucose (mg/dL) (75-99) mg/dL POC Glu Pipe Washer ID Calcium 9.4 (8.4-10.2) mg/dL Phosphorus 3.9 (2.5-4.5) mg/dL Magnesium 1.3 L (1.6-2.3) mg/dL Total Bilirubin 0.5 (0.2-1.3) mg/dL AST 36 (14-36) U/L ALT 32 (4-34) U/L Alkaline Phosphatase 67 (38-126) U/L Troponin I <0.012 (0.000-0.034) ng/mL NT-Pro-B Natriuret Pep 24 pg/mL Total Protein 7.3 (6.3-8.2) g/dL Albumin 4.3 (3.5-5.0) g/dL Urine Color Urine Appearance (Clear) Urine pH (5.0-8.0) Ur Specific [place] (1.001-1.035) Urine Protein (Negative) Urine Glucose (UA) (Negative) Urine Ketones (Negative) Urine Blood (Negative) Urine Nitrite (Negative) Urine Bilirubin (Negative) Urine Urobilinogen (<2.0) mg/dL Ur Leukocyte Esterase (Negative) Urine RBC (0-5) /hpf Urine WBC (0-5) /hpf Ur Squamous Epith Cells (0-4) /hpf 04/22/21 Range/Units 20:36 WBC (3.8-10.6) k/uL RBC (3.80-5.40) m/uL Hgb (11.4-16.0) gm/dL Hct (34.0-46.0) % MCV (80.0-100.0) fL MCH (25.0-35.0) pg MCHC (31.0-37.0) g/dL RDW (11.5-15.5) % Plt Count (150-450) k/uL MPV Neutrophils % % Lymphocytes % % Monocytes % % Eosinophils % % Basophils % % Neutrophils # (1.3-7.7) k/uL Lymphocytes # (1.0-4.8) k/uL Monocytes # (0-1.0) k/uL Eosinophils # (0-0.7) k/uL Basophils # (0-0.2) k/uL PT (9.0-12.0) sec INR (<1.2) APTT (22.0-30.0) sec Sodium (137-145) mmol/L Potassium (3.5-5.1) mmol/L Chloride (98-107) mmol/L Carbon Dioxide (22-30) mmol/L Anion Gap mmol/L BUN (7-17) mg/dL Creatinine (0.52-1.04) mg/dL Est GFR (CKD-EPI)AfAm (>60 ml/min/1.73 sqM) Est GFR (CKD-EPI)NonAf (>60 ml/min/1.73 sqM) Glucose (74-99) mg/dL POC Glucose (mg/dL) 150 H (75-99) mg/dL POC Glu Pipe Washer ID Daquan Hamilton Calcium (8.4-10.2) mg/dL Phosphorus (2.5-4.5) mg/dL Magnesium (1.6-2.3) mg/dL Total Bilirubin (0.2-1.3) mg/dL AST (14-36) U/L ALT (4-34) U/L Alkaline Phosphatase (38-126) U/L Troponin I (0.000-0.034) ng/mL NT-Pro-B Natriuret Pep pg/mL Total Protein (6.3-8.2) g/dL Albumin (3.5-5.0) g/dL Urine Color Urine Appearance (Clear) Urine pH (5.0-8.0) Ur Specific [place] (1.001-1.035) Urine Protein (Negative) Urine Glucose (UA) (Negative) Urine Ketones (Negative) Urine Blood (Negative) Urine Nitrite (Negative) Urine Bilirubin (Negative) Urine Urobilinogen (<2.0) mg/dL Ur Leukocyte Esterase (Negative) Urine RBC (0-5) /hpf Urine WBC (0-5) /hpf Ur Squamous Epith Cells (0-4) /hpf Disposition Clinical Impression: General weakness, Muscle spasm, Hypomagnesemia Disposition: HOME SELF-CARE Condition: Good Instructions (If sedation given, give patient instructions): Hypomagnesemia (ED) Additional Instructions: Follow-up with your regular physician as directed. Return to the ER immediately if any symptoms worsen, new symptoms arise, or any other problems develop. Prescriptions: Magnesium Oxide [Mag-Ox] 400 mg PO BID #20 tablet Is patient prescribed a controlled substance at d/c from ED?: No Referrals: Benedicto Cabello DO [Primary Care Provider] - 1-2 days Time of Disposition: 01:25
[2021-04-22 20:37] LABS: Glucose,Whole Blood 150 mg/dL (75-99)
[2021-04-22 20:39] LABS: Basophils # (A) 0.1 k/uL (0-0.2); Basophils % (A) 1 %; Eosinophils # (A) 0.3 k/uL (0-0.7); Eosinophils % (A) 3 %; HCT 36.5 % (34.0-46.0); HGB 12.2 gm/dL (11.4-16.0); Lymphocytes # (A) 4.2 k/uL (1.0-4.8); Lymphocytes % (A) 36 %; MCH 28.3 pg (25.0-35.0); MCHC 33.5 g/dL (31.0-37.0); MCV 84.4 fL (80.0-100.0); Mean Platelet Volume 7.2; Monocytes # (A) 0.5 k/uL (0-1.0); Monocytes % (A) 5 %; Neutrophils # (A) 6.5 k/uL (1.3-7.7); Neutrophils % (A) 55 %; Platelet Count 321 k/uL (150-450); RBC 4.32 m/uL (3.80-5.40); RDW 13.2 % (11.5-15.5); WBC 11.8 k/uL (3.8-10.6)
[2021-04-22 20:56] LABS: Potassium 3.6 mmol/L (3.5-5.1)
[2021-04-22 20:57] LABS: Albumin 4.3 g/dL (3.5-5.0); Calcium 9.4 mg/dL (8.4-10.2); Magnesium 1.3 mg/dL (1.6-2.3); Phosphorus 3.9 mg/dL (2.5-4.5); Total Bilirubin 0.5 mg/dL (0.2-1.3); Total Protein 7.3 g/dL (6.3-8.2)
[2021-04-22 21:05] LABS: Appearance,Urine Clear (Clear); Bilirubin,Urine Negative (Negative); Blood,Urine Trace (Negative); Color,Urine Light Yellow; Glucose,Urine (UA) Negative (Negative); Ketones,Urine Negative (Negative); Leukocyte Esterase,Urine Negative (Negative); Nitrite,Urine Negative (Negative); Protein,Urine 1+ (Negative); RBC,Urine <1 /hpf (0-5); Specific Gravity,Urine 1.005 (1.001-1.035); Squamous Epithelial Cell,Urine 1 /hpf (0-4); Urobilinogen,Urine <2.0 mg/dL (<2.0); WBC,Urine 1 /hpf (0-5)
[2021-04-22 21:07] LABS: Partial Thromboplastin Time 25.7 sec (22.0-30.0); Prothrombin Time 10.6 sec (9.0-12.0)
--- NOTE | 2021-04-22 21:54 | XR ---
EXAMINATION TYPE: XR chest 1V portable DATE OF EXAM: 04/22/2021 COMPARISON: 10/15/2020 HISTORY: Chest pain TECHNIQUE: Single view FINDINGS: Heart is normal. Lungs are clear of consolidation. There are no hilar masses. Costophrenic angles are clear. IMPRESSION: No active cardiopulmonary disease. Normal heart. No change.
[2021-04-22] MEDS ORDERED: Magnesium Replacement Protocol 1 EACH MISC MISCELLANE PRN (22:02)
[2021-04-22] MEDS ORDERED: ONDANSETRON 4 MG/2 ML VIAL IVP STA (22:08)
[2021-04-22] MEDS ORDERED: MORPHINE SULFATE 4 MG/ML SYRINGE IV STA (22:08)
[2021-04-22] MEDS: MAGNESIUM SULFATE-D5W PMX 1 GM in DEXTROSE/WATER 1 100ML.BAG IVPB SCH ×2 (22:13→22:40)
[2021-04-23] MEDS: MAGNESIUM SULFATE-D5W PMX 1 GM in DEXTROSE/WATER 1 100ML.BAG IVPB SCH (00:57)
[2021-04-23 01:58] VITALS: BP 132/74; PULSE 78; RESP 20; TEMP 98
== END 2021-04-23 01:57 | disposition home or self-care (01) ==
LOC: EC 19:55
DX: R53.1 Weakness (principal); M62.838 Other muscle spasm; E83.42 Hypomagnesemia; E11.9 Type 2 diabetes mellitus without complications; E78.5 Hyperlipidemia, unspecified; I10 Essential (primary) hypertension; I25.2 Old myocardial infarction; M19.90 Unspecified osteoarthritis, unspecified site; E07.9 Disorder of thyroid, unspecified; M79.7 Fibromyalgia; K21.9 Gastro-esophageal reflux disease without esophagitis; J44.9 Chronic obstructive pulmonary disease, unspecified; F41.9 Anxiety disorder, unspecified; F31.9 Bipolar disorder, unspecified; F12.90 Cannabis use, unspecified, uncomplicated; Z79.01 Long term (current) use of anticoagulants; Z79.4 Long term (current) use of insulin; Z86.73 Personal history of transient ischemic attack (TIA), and cerebral infarction without residual deficits; Z79.899 Other long term (current) drug therapy; Z85.828 Personal history of other malignant neoplasm of skin; Z90.49 Acquired absence of other specified parts of digestive tract; Z90.710 Acquired absence of both cervix and uterus
CPT/HCPCS: 99285; 96365; 96366 ×2; 96375 ×2; 96361; 36415; 93005; 83880; 80053; 83735; 84100; 84484; 85025; 85610; 85730; 81001; 71045; J2270; J2405; J3475 ×2

== ENCOUNTER → 2021-04-25 | Outpatient (CLI) | payer MEDICARE, OTHER ==
[2021-04-25 15:26] LABS: Basophils # (A) 0.07 X 10*3/uL (0.00-0.10); Basophils % (A) 0.7 %; Eosinophils # (A) 0.29 X 10*3/uL (0.04-0.35); Eosinophils % (A) 2.7 %; HCT 39.2 % (37.2-46.3); HGB 12.4 g/dL (12.0-15.0); Immature Grans, Automated 0.3 %; Lymphocytes # (A) 3.48 X 10*3/uL (0.90-5.00); Lymphocytes % (A) 32.8 %; MCH 27.4 pg (27.0-32.0); MCHC 31.6 g/dL (32.0-37.0); MCV 86.5 fL (80.0-97.0); Mean Platelet Volume 10.2 fL (9.5-12.2); Monocytes # (A) 0.56 X 10*3/uL (0.20-1.00); Monocytes % (A) 5.3 %; NRBC Per 100 WBC 0 /100 WBCS (0.0-0.0); Neutrophils # (A) 6.18 X 10*3/uL (1.80-7.70); Neutrophils % (A) 58.2 %; Platelet Count 346 X 10*3/uL (140-440); RBC 4.53 X 10*6/uL (4.10-5.20); RDW 13.2 % (11.5-14.5); WBC 10.61 X 10*3/uL (4.50-10.00)
[2021-04-25 16:26] LABS: % Iron Saturation 15.01 (12.00-45.00); African American GFR (CKD) 38.2 (60.0-200.0); Albumin 4.6 g/dL (3.8-4.9); Albumin/Globulin Ratio 1.77 (1.60-3.17); Anion Gap 15.4 mmol/L (10.00-18.00); BUN/Creat Ratio 23.13 Ratio (12.00-20.00); Calcium 10.3 mg/dL (8.7-10.3); Carbon Dioxide 22.6 mmol/L (20.0-27.5); Globulin 2.6 g/dL (1.6-3.3); Potassium 4.6 mmol/L (3.5-5.5); Total Bilirubin 0.3 mg/dL (0.30-1.20); Total Protein 7.2 g/dL (6.2-8.2); Uric Acid 9.5 mg/dL (2.9-7.7)
[2021-04-25 17:26] LABS: Appearance,Urine Cloudy (Clear); Bacteria,Urine 1+ /HPF (None Seen); Bilirubin,Urine Negative (Negative); Blood,Urine Negative (Negative); Color,Urine Yellow (Yellow); Ketones,Urine Trace mg/dL (Negative); Leukocyte Esterase,Urine Trace (Negative); Nitrite,Urine Negative (Negative); Protein,Urine 100 (Negative); RBC,Urine 0-2 /HPF (0-2); Specific Gravity,Urine 1.019 (1.001-1.030); Urobilinogen,Urine 0.2 (0.2,1.0)
[2021-04-25 17:35] LABS: Ferritin 82.2 ng/mL (10.0-291.0)
== END | disposition home or self-care (01) ==
LOC: LABWHC1 04-04 13:04
PROVIDERS: ATTEND Nurse Practitioner Family
DX: N17.9 Acute kidney failure, unspecified (principal)
CPT/HCPCS: 36415; 80053; 81001; 82043; 82306; 82570; 82728; 83540; 83550; 83735; 83970; 84100; 84550; 85025

== ENCOUNTER → 2021-05-31 | Outpatient (CLI) | payer MEDICARE, OTHER | END | disposition home or self-care (01) | LOC: LABWHC1 12:49 | PROVIDERS: ATTEND Psychiatry & Neurology Neurology | DX: R25.2 Cramp and spasm (principal) | CPT/HCPCS: 36415; 83735 ==

== ENCOUNTER → 2021-08-05 | Outpatient (CLI) | payer MEDICARE, OTHER ==
--- NOTE | 2021-08-05 12:07 | MM ---
Reason for Exam: Clinical finding. Last mammogram was performed 3 year(s) and 3 month(s) ago. Patient History: Menarche at age 9. First Full-Term at age 14. Left ovary removed at age 43. Right ovary removed at age 43. Hysterectomy at age 43. Postmenopausal. Other cancer. Mother had breast cancer. Risk Values: Shayy 5 year model risk: 3.5%. NCI Lifetime model risk: 11.5%. Prior Study Comparison: 05/18/2013 Bilateral Screening Mammogram, [facility]. 03/06/2015 Bilateral Screening Mammogram, [facility]. 04/21/2017 Bilateral Screening Mammogram, [facility]. 05/04/2018 Bilateral Screening Mammogram, [facility]. Tissue Density: There are scattered fibroglandular densities. Findings: Analyzed By CAD. Mammogram Scattered bilateral breast parenchymal tissue is present. There is marked in the left breast lateral position. Faint area of increased density is adjacent which is nonspecific. Large lymph nodes are present more so on the left.. Technique: Method: Targeted. Findings: The area of palpable concern of the left breast and the axilla of the left breast were scanned. Real-time linear array sonography demonstrates a 0.6 x 0.4 x 0.4 cm hyperechoic area within the subcutaneous tissues. This may be a small lipoma. Clinical management and short-term follow-up is recommended. Overall Assessment: Probably benign, BI-RAD 3 Assessment: MG 3D diag mammo w/cad PANFILO - Bilateral: Incomplete: need additional imaging evaluation, BI-RAD 0 - Left. US breast limited LT - Left: Probably benign, BI-RAD 3. Management: Diagnostic Breast Ultrasound of the left breast in 6 months. A clinical breast exam by your physician is recommended on an annual basis and results should be correlated with mammographic findings. Results were given to the patient verbally at the time of exam. Electronically signed and approved by: Samuel Cedeno D.O. Radiologis
== END | disposition home or self-care (01) ==
LOC: RADMAMWWP 09:26
PROVIDERS: ATTEND Family Medicine
DX: R92.8 Other abnormal and inconclusive findings on diagnostic imaging of breast (principal); Z78.0 Asymptomatic menopausal state; Z80.3 Family history of malignant neoplasm of breast
CPT/HCPCS: 77066; 76642; G0279; 77062

== ENCOUNTER → 2021-08-23 | Outpatient (CLI) | payer MEDICARE, OTHER ==
[2021-08-23 14:42] LABS: ALT 36 U/L (8-44); AST 43 U/L (13-35); African American GFR (CKD) 41.4 (60.0-200.0); Albumin 4.5 g/dL (3.8-4.9); Albumin/Globulin Ratio 1.73 (1.60-3.17); Alkaline Phosphatase 87 U/L (41-126); BUN/Creat Ratio 17.33 Ratio (12.00-20.00); Calcium 9.8 mg/dL (8.7-10.3); Carbon Dioxide 22.3 mmol/L (20.0-27.5); Chloride 103 mmol/L (96-109); Chol/HDL Ratio 4.23 Ratio; Globulin 2.6 g/dL (1.6-3.3); Glucose 178 mg/dL (70-110); LDL Cholesterol,Calculated 47.8 mg/dL (0.0-131.0); Non-African American GFR(CKD) 35.7 (60.0-200.0); Potassium 4.3 mmol/L (3.5-5.5); Sodium 141 mmol/L (135-145); Total Protein 7.1 g/dL (6.2-8.2)
[2021-08-23 21:13] LABS: Urine Creatinine 91.7 mg/dL (28.0-217.0)
== END | disposition home or self-care (01) ==
LOC: LABWHC1 09:19
PROVIDERS: ATTEND Internal Medicine Endocrinology, Diabetes & Metabolism
DX: E11.65 Type 2 diabetes mellitus with hyperglycemia (principal)
CPT/HCPCS: 36415; 80053; 80061; 82043; 82570; 83036; 84443

== ENCOUNTER 2021-09-10 05:47 | Observation (INO) | payer MEDICARE, OTHER ==
[2021-09-10] MEDS ORDERED: SODIUM CHLORIDE 0.9% 1,000 ML IV STA (06:24)
[2021-09-10] MEDS ORDERED: diphenhydrAMINE 50 MG/ML 1 ML VIAL IVP STA (06:24)
[2021-09-10] MEDS ORDERED: METOCLOPRAMIDE 5 MG/ML 2 ML VIAL IVP STA (06:25)
[2021-09-10 06:45] LABS: Basophils # (A) 0.1 k/uL (0-0.2); Basophils % (A) 1 %; Eosinophils # (A) 0.2 k/uL (0-0.7); Eosinophils % (A) 2 %; HCT 40.4 % (34.0-46.0); HGB 12.7 gm/dL (11.4-16.0); Lymphocytes # (A) 4.6 k/uL (1.0-4.8); Lymphocytes % (A) 38 %; MCH 26.7 pg (25.0-35.0); MCHC 31.4 g/dL (31.0-37.0); MCV 85.1 fL (80.0-100.0); Mean Platelet Volume 7.9; Monocytes # (A) 0.6 k/uL (0-1.0); Monocytes % (A) 5 %; Neutrophils # (A) 6.6 k/uL (1.3-7.7); Neutrophils % (A) 54 %; Platelet Count 380 k/uL (150-450); RBC 4.74 m/uL (3.80-5.40); RDW 14.3 % (11.5-15.5); WBC 12.3 k/uL (3.8-10.6)
--- NOTE | 2021-09-10 06:56 | XR ---
EXAMINATION TYPE: XR chest 2V DATE OF EXAM: 09/10/2021 COMPARISON: 04/22/2021 HISTORY: Dizziness TECHNIQUE: 2 views FINDINGS: There is no heart failure nor confluent pneumonic infiltrate. Costophrenic angles are clear . There are chest leads. IMPRESSION: No active cardiopulmonary disease. Normal heart. No change.
[2021-09-10 06:57] LABS: ALT 37 U/L (4-34); African American GFR (CKD) 28 (>60 ml/min/1.73 sqM); Albumin 4.6 g/dL (3.5-5.0); Anion Gap 11 mmol/L; Blood Urea Nitrogen 34 mg/dL (7-17); Calcium 9.7 mg/dL (8.4-10.2); Carbon Dioxide 27 mmol/L (22-30); Chloride 99 mmol/L (98-107); Glucose 170 mg/dL (74-99); Non-African American GFR(CKD) 24 (>60 ml/min/1.73 sqM); Sodium 137 mmol/L (137-145); Total Bilirubin 0.8 mg/dL (0.2-1.3); Total Protein 7.6 g/dL (6.3-8.2)
--- NOTE | 2021-09-10 07:00 | ED ---
Dizziness HPI - General Chief Complaint: Dizziness Stated Complaint: Dizziness, Nausea, Vomiting Time Seen by Provider: 09/10/21 06:01 Source: patient, EMS, RN notes reviewed Mode of arrival: EMS Limitations: no limitations - History of Present Illness Initial Comments: This is a 65-year-old female who presents to the emergency department for dizziness. Patient states that this started 3 days ago. She did just have her dose of insulin reduced, states that her night time dose was removed from her regimen. Her amitriptyline was increased from 25 mg to 50 mg. She also had a change made to her levothyroxine. She attributes these medication changes to her symptoms. Symptoms are worse when she changes positions. She does endorse a room spinning sensation. She states that she has never had symptoms this bad before, however she has experienced episodes of dizziness. She is also feeling nauseous and off balance. States that when she woke up this morning, her blood sugar was 86. She felt better after drinking orange juice and eating peanut butter crackers. Denies any fevers, chills, sore throat, cough, dyspnea, chest pain, palp itations, abdominal pain, diarrhea, back pain, or headaches. MD Complaint: dizziness Onset/Timin -: days(s) Description: "room spinning", lightheadedness, off-balance, nausea History of Same: Yes History of Trauma: No - Related Data Home Medications Medication Instructions Recorded Confirmed Multivitamins, Thera [Multivitamin 1 tab PO DAILY 06/07/18 09/10/21 (formulary)] Apixaban [Eliquis] 5 mg PO BID 02/28/19 09/10/21 HYDROcodone/APAP 5-325MG [[place] 1 tab PO BID 10/15/20 09/10/21 5-325] Valsartan/Hydrochlorothiazide 1 tab PO DAILY 10/15/20 09/10/21 [Valsartan-Hctz 160-12.5 mg Tab] amLODIPine [Norvasc] 10 mg PO DAILY 10/15/20 09/10/21 ondansetron HCL [Zofran] 8 mg PO Q8HR PRN 10/15/20 09/10/21 ALPRAZolam [Xanax] 0.25 mg PO HS 04/22/21 09/10/21 Atorvastatin [Lipitor] 80 mg PO HS 04/22/21 09/10/21 Biotin [Biotin Disolve] 5,000 mcg PO DAILY 04/22/21 09/10/21 Cholecalciferol [Vitamin D3 (25 50 mcg PO DAILY 04/22/21 09/10/21 Mcg = 1000 Iu)] Cyclobenzaprine [Flexeril] 5 mg PO HS 04/22/21 09/10/21 Insulin Glargine,Hum.rec.anlog 82 units SQ DAILY 04/22/21 09/10/21 [Toujeo Solostar] Loperamide [Imodium] 2 mg PO QID PRN 04/22/21 09/10/21 Metoprolol Succinate [Toprol XL] 25 mg PO HS 04/22/21 09/10/21 Temazepam [Restoril] 30 mg PO HS 04/22/21 09/10/21 Famotidine 40 mg PO HS 09/10/21 09/10/21 Ferrous Sulfate [Feosol] 325 mg PO Q48H 09/10/21 09/10/21 INSULIN LISPRO (humaLOG) [humaLOG] 15 units SQ AC-TID 09/10/21 09/10/21 Levothyroxine Sodium [Tirosint] 100 mcg PO DAILY 09/10/21 09/10/21 allopurinoL [Zyloprim] 100 mg PO DAILY 09/10/21 09/10/21 calcitrioL [Calcitriol] 0.25 mcg PO WE 09/10/21 09/10/21 Previous Rx's Medication Instructions Recorded Glimepiride [Amaryl] 4 mg PO BID 30 Days #60 tab 03/12/18 Nitroglycerin Sl Tabs [Nitrostat] 0.4 mg SUBLINGUAL Q5M PRN #25 tab 08/05/18 Magnesium Oxide [Mag-Ox] 400 mg PO BID #20 tablet 04/23/21 Allergies Allergy/AdvReac Type Severity Reaction Status Date / Time carbamazepine AdvReac Vomiting, Verified 09/10/21 08:18 dizziness, excessive sleepiness paliperidone [From Invega] AdvReac bad side Verified 09/10/21 08:18 effects Review of Systems ROS Statement: Those systems with pertinent positive or pertinent negative responses have been documented in the HPI. ROS Other: All systems not noted in ROS Statement are negative. Past Medical History Past Medical History: Asthma, Cancer, COPD, CVA/TIA, Diabetes Mellitus, Eye Disorder, Fibromyalgia, GERD/Reflux, Hyperlipidemia, Hypertension, Myocardial Infarction ([place]), Osteoarthritis (OA), Pneumonia, Thyroid Disorder Additional Past Medical History / Comment(s): Recent bronchitis/dehydration and completed antibiotics, past bronchitis, IDDM type II, bilateral lower leg and feet neuropathy, 2008 CVA with some memory issues, possible TIA, basal cell skin cancer removed from L nares, L eye has partially detached retina, cateracts, gastric ulcer, hematemesis, chronic low back pain, sciatica mostly L side occasionally R side, migraines, vertigo, fatty liver, palpitations, past fractures of R thumb/R wrist/L hand, [place] Spotted Fever as an infant, hypothyrodism, [place] july 2018 Last Myocardial Infarction Date:: july 2018 History of Any Multi-Drug Resistant Organisms: None Reported Past Surgical History: Ablation, Back Surgery, Cholecystectomy, Heart Catheterization, Hernia Repair, Hysterectomy, Tonsillectomy Additional Past Surgical History / Comment(s): 11/2016 EPS with A flutter ablation, 2007 cardiac cath-normal, L nares skin cancer removed, UMBILICAL HERNIA SX 3X, RT Hand SX for middle TRIGGER FINGER, FIBROID TUMORS REMOVED ABD/BACK, LAPROSCOPIES x 3, L5-S1 SX for HERNIATED DISCS, EGD/colonoscopy. Past Anesthesia/Blood Transfusion Reactions: Postoperative Nausea & Vomiting (PONV) Additional Past Anesthesia/Blood Transfusion Reaction / Comment(s): AND SEVERE HEADACHE WITH ANESTHESIA IN PAST Past Psychological History: Anxiety, Bipolar, Depression Smoking Status: Never smoker Past Alcohol Use History: None Reported Past Drug Use History: Marijuana - Past Family History Father Family Medical History: Diabetes Mellitus Additional Family Medical History / Comment(s): ONLY MET HIM ONCE IN HER LIFE Tomo Clases RUNS IN HIS FAMILY Mother Family Medical History: Cancer Additional Family Medical History / Comment(s): Breast CA. General Exam Limitations: no limitations General appearance: alert, in no apparent distress Head exam: Present: atraumatic, normocephalic, normal inspection Eye exam: Present: normal appearance, PERRL, EOMI. Absent: scleral icterus, conjunctival injection, periorbital swelling ENT exam: Present: normal exam, normal oropharynx, mucous membranes moist, TM's normal bilaterally, normal external ear exam Neck exam: Present: normal inspection. Absent: tenderness, meningismus, lymphad enopathy Respiratory exam: Present: normal lung sounds bilaterally. Absent: respiratory distress, wheezes, rales, rhonchi, stridor Cardiovascular Exam: Present: regular rate, normal rhythm, normal heart sounds. Absent: systolic murmur, diastolic murmur, rubs, gallop, clicks Neurological exam: Present: alert, oriented X3, CN II-XII intact Psychiatric exam: Present: normal affect, normal mood Skin exam: Present: warm, dry, intact, normal color. Absent: rash Course Vital Signs 09/10/21 09/10/21 06:01 08:47 Temperature 97.5 F L Pulse Rate 100 85 Respiratory 16 16 Rate Blood Pressure 128/55 149/86 O2 Sat by Pulse 97 96 Oximetry EKG Findings - EKG Comments: EKG Findings:: Sinus rhythm with short NH interval. Borderline left axis dev iation. Ventricular rate 87 bpm, NH interval 116 ms, QRS duration 87 ms, QTC 421 ms. Medical Decision Making - Medical Decision Making This is a 65-year-old female who presents to the emergency department for dizziness. Lab work reveals mild leukocytosis and a mild NARCISO. HINTS exam is negative. Patient does report improvement with IV Reglan, fluids, and Benadryl. Chest x-ray revealed no acute cardiopulmonary process. COVID and Influenza were negative. When the patient tried to get up to go to the bathroom, the dizziness returned and she required assistance. The patient does live alone. Given that she is unable to ambulate and use the restroom alone, will plan to admit her for observation and rehydration. This case was discussed in detail with the attending ED physician. Presentation, findings, and treatment plan discussed in detail as well. - Lab Data Result diagrams: 09/10/21 06:26 09/10/21 08:24 Lab Results 09/10/21 09/10/21 09/10/21 Range/Units 06:26 06:26 06:26 WBC 12.3 H (3.8-10.6) k/uL RBC 4.74 (3.80-5.40) m/uL Hgb 12.7 (11.4-16.0) gm/dL Hct 40.4 (34.0-46.0) % MCV 85.1 (80.0-100.0) fL MCH 26.7 (25.0-35.0) pg MCHC 31.4 (31.0-37.0) g/dL RDW 14.3 (11.5-15.5) % Plt Count 380 (150-450) k/uL MPV 7.9 Neutrophils % 54 % Lymphocytes % 38 % Monocytes % 5 % Eosinophils % 2 % Basophils % 1 % Neutrophils # 6.6 (1.3-7.7) k/uL Lymphocytes # 4.6 (1.0-4.8) k/uL Monocytes # 0.6 (0-1.0) k/uL Eosinophils # 0.2 (0-0.7) k/uL Basophils # 0.1 (0-0.2) k/uL Sodium 137 (137-145) mmol/L Potassium 5.5 H (3.5-5.1) mmol/L Chloride 99 (98-107) mmol/L Carbon Dioxide 27 (22-30) mmol/L Anion Gap 11 mmol/L BUN 34 H (7-17) mg/dL Creatinine 2.08 H (0.52-1.04) mg/dL Est GFR (CKD-EPI)AfAm 28 (>60 ml/min/1.73 sqM) Est GFR (CKD-EPI)NonAf 24 (>60 ml/min/1.73 sqM) Glucose 170 H (74-99) mg/dL Calcium 9.7 (8.4-10.2) mg/dL Total Bilirubin 0.8 (0.2-1.3) mg/dL AST 76 H (14-36) U/L ALT 37 H (4-34) U/L Alkaline Phosphatase 69 (38-126) U/L Troponin I <0.012 (0.000-0.034) ng/mL Total Protein 7.6 (6.3-8.2) g/dL Albumin 4.6 (3.5-5.0) g/dL TSH 4.010 (0.465-4.680) mIU/L Urine Color Urine Appearance (Clear) Urine pH (5.0-8.0) Ur Specific [place] (1.001-1.035) Urine Protein (Negative) Urine Glucose (UA) (Negative) Urine Ketones (Negative) Urine Blood (Negative) Urine Nitrite (Negative) Urine Bilirubin (Negative) Urine Urobilinogen (<2.0) mg/dL Ur Leukocyte Esterase (Negative) Urine RBC (0-5) /hpf Urine WBC (0-5) /hpf Ur Squamous Epith Cells (0-4) /hpf Urine Mucus (None) /hpf Coronavirus (PCR) (Not Detectd) Influenza Type A RNA (Not Detectd) Influenza Type B (PCR) (Not Detectd) 09/10/21 09/10/21 09/10/21 Range/Units 07:09 07:09 08:18 WBC (3.8-10.6) k/uL RBC (3.80-5.40) m/uL Hgb (11.4-16.0) gm/dL Hct (34.0-46.0) % MCV (80.0-100.0) fL MCH (25.0-35.0) pg MCHC (31.0-37.0) g/dL RDW (11.5-15.5) % Plt Count (150-450) k/uL MPV Neutrophils % % Lymphocytes % % Monocytes % % Eosinophils % % Basophils % % Neutrophils # (1.3-7.7) k/uL Lymphocytes # (1.0-4.8) k/uL Monocytes # (0-1.0) k/uL Eosinophils # (0-0.7) k/uL Basophils # (0-0.2) k/uL Sodium (137-145) mmol/L Potassium (3.5-5.1) mmol/L Chloride (98-107) mmol/L Carbon Dioxide (22-30) mmol/L Anion Gap mmol/L BUN (7-17) mg/dL Creatinine (0.52-1.04) mg/dL Est GFR (CKD-EPI)AfAm (>60 ml/min/1.73 sqM) Est GFR (CKD-EPI)NonAf (>60 ml/min/1.73 sqM) Glucose (74-99) mg/dL Calcium (8.4-10.2) mg/dL Total Bilirubin (0.2-1.3) mg/dL AST (14-36) U/L ALT (4-34) U/L Alkaline Phosphatase (38-126) U/L Troponin I (0.000-0.034) ng/mL Total Protein (6.3-8.2) g/dL Albumin (3.5-5.0) g/dL TSH (0.465-4.680) mIU/L Urine Color Light Yellow Urine Appearance Clear (Clear) Urine pH 6.0 (5.0-8.0) Ur Specific [place] 1.011 (1.001-1.035) Urine Protein 1+ H (Negative) Urine Glucose (UA) Negative (Negative) Urine Ketones Negative (Negative) Urine Blood Negative (Negative) Urine Nitrite Negative (Negative) Urine Bilirubin Negative (Negative) Urine Urobilinogen <2.0 (<2.0) mg/dL Ur Leukocyte Esterase Negative (Negative) Urine RBC <1 (0-5) /hpf Urine WBC 1 (0-5) /hpf Ur Squamous Epith Cells 2 (0-4) /hpf Urine Mucus Rare H (None) /hpf Coronavirus (PCR) Not Detected (Not Detectd) Influenza Type A RNA Not Detected (Not Detectd) Influenza Type B (PCR) Not Detected (Not Detectd) - Radiology Data Radiology results: report reviewed, image reviewed Disposition Clinical Impression: Dizziness, Dehydration Disposition: ADMITTED IP TO THIS HOSP
[2021-09-10 07:19] LABS: Potassium 5.5 mmol/L (3.5-5.1)
[2021-09-10 07:20] LABS: AST 76 U/L (14-36); Alkaline Phosphatase 69 U/L (38-126)
[2021-09-10] MEDS ORDERED: HYDROcodone/APAP 5-325MG 1 EACH TAB PO PRN (08:41)
[2021-09-10] MEDS ORDERED: ONDANSETRON 4 MG/2 ML VIAL IVP PRN (08:41)
[2021-09-10] MEDS ORDERED: ACETAMINOPHEN TAB 325 MG TAB PO PRN (08:41)
[2021-09-10] MEDS ORDERED: NALOXONE 0.4 MG/ML 1 ML VIAL IV PRN (08:41)
[2021-09-10 09:01] LABS: Appearance,Urine Clear (Clear); Bilirubin,Urine Negative (Negative); Blood,Urine Negative (Negative); Color,Urine Light Yellow; Glucose,Urine (UA) Negative (Negative); Ketones,Urine Negative (Negative); Leukocyte Esterase,Urine Negative (Negative); Mucus,Urine Rare /hpf; Nitrite,Urine Negative (Negative); Protein,Urine 1+ (Negative); RBC,Urine <1 /hpf (0-5); Specific Gravity,Urine 1.011 (1.001-1.035); Squamous Epithelial Cell,Urine 2 /hpf (0-4); Urobilinogen,Urine <2.0 mg/dL (<2.0); WBC,Urine 1 /hpf (0-5)
[2021-09-10] MEDS: SODIUM CHLORIDE 0.9% 1,000 ML IV SCH ×2 (10:26→23:55)
[2021-09-10 10:56] LABS: Glucose,Whole Blood 140 mg/dL (70-110)
[2021-09-10] MEDS ORDERED: NITROGLYCERIN SL TABS 0.4 MG TAB SUBLINGUAL PRN (14:46)
[2021-09-10] MEDS ORDERED: ONDANSETRON 4 MG TAB PO PRN (14:46)
[2021-09-10] MEDS ORDERED: DEXTROSE 50% SYRINGE 50 ML IVP PRN ×4 (14:50→14:52)
[2021-09-10 17:13] LABS: Glucose,Whole Blood 130 mg/dL (70-110)
[2021-09-10] MEDS: PANTOPRAZOLE 40 MG/10 ML VIAL IVP SCH (17:34)
[2021-09-10] MEDS: INSULIN ASPART (NovoLOG) 100 UNIT/ML VIAL SQ SCH ×3 (17:38→20:28)
[2021-09-10 19:42] LABS: Glucose,Whole Blood 171 mg/dL (70-110)
[2021-09-10] MEDS: INSULIN DETEMIR (LEVEMIR) 100 UNIT/ML SYR SQ SCH (19:56)
[2021-09-10] MEDS: GLIMEPIRIDE 4 MG TAB PO SCH (20:28)
[2021-09-10] MEDS: APIXABAN 5 MG TAB PO SCH (20:28)
[2021-09-10] MEDS: MAGNESIUM OXIDE 400 MG TAB PO SCH (20:28)
[2021-09-10] MEDS ORDERED: ATORVASTATIN 80 MG TAB PO SCH (21:00)
[2021-09-10] MEDS ORDERED: HYDROcodone/APAP 5-325MG 1 EACH TAB PO SCH (21:00)
[2021-09-10] MEDS ORDERED: TEMAZEPAM 30 MG CAP PO SCH (21:00)
[2021-09-10] MEDS ORDERED: FAMOTIDINE 20 MG TAB PO SCH (21:00)
[2021-09-10] MEDS ORDERED: ALPRAZolam 0.25 MG TAB PO SCH (21:00)
[2021-09-10] MEDS ORDERED: CYCLOBENZAPRINE 5 MG TAB PO SCH (21:00)
[2021-09-10] MEDS ORDERED: METOPROLOL SUCCINATE (ER) 25 MG TAB.ER.24H PO SCH (21:00)
[2021-09-11 04:24] VITALS: RESP 16; TEMP 98
[2021-09-11] MEDS ORDERED: LEVOTHYROXINE 100 MCG TAB PO SCH (06:30)
[2021-09-11 07:34] LABS: Glucose,Whole Blood 172 mg/dL (70-110)
[2021-09-11] MEDS: INSULIN ASPART (NovoLOG) 100 UNIT/ML VIAL SQ SCH ×4 (08:56→13:28)
[2021-09-11] MEDS: INSULIN DETEMIR (LEVEMIR) 100 UNIT/ML SYR SQ SCH (08:56)
[2021-09-11] MEDS: PANTOPRAZOLE 40 MG/10 ML VIAL IVP SCH (08:57)
[2021-09-11] MEDS: GLIMEPIRIDE 4 MG TAB PO SCH (08:58)
[2021-09-11] MEDS: MAGNESIUM OXIDE 400 MG TAB PO SCH (08:58)
[2021-09-11] MEDS: APIXABAN 5 MG TAB PO SCH (08:59)
[2021-09-11] MEDS ORDERED: FERROUS SULFATE 325 MG TAB PO SCH (09:00)
[2021-09-11] MEDS ORDERED: amLODIPine 10 MG TAB PO SCH (09:00)
[2021-09-11] MEDS ORDERED: VALSARTAN 160 MG TAB PO SCH (09:00)
[2021-09-11] MEDS ORDERED: MULTIVITAMINS, THERA 1 EACH TAB PO SCH (09:00)
[2021-09-11] MEDS ORDERED: NON FORMULARY DRUG (Biotin [Biotin Disolve] 5,000 MCG Tablet) PO SCH (09:00)
[2021-09-11] MEDS ORDERED: CHOLECALCIFEROL 25 MCG (1000 IU) TABLET PO SCH (09:00)
[2021-09-11] MEDS ORDERED: hydroCHLOROthiazide 12.5 MG CAP PO SCH (09:00)
[2021-09-11] MEDS ORDERED: allopurinoL 100 MG TAB PO SCH (09:00)
[2021-09-11 09:13] LABS: Basophils # (A) 0.04 X 10*3/uL (0.00-0.10); Basophils % (A) 0.4 %; Eosinophils # (A) 0.28 X 10*3/uL (0.04-0.35); Eosinophils % (A) 2.6 %; HGB 11.3 g/dL (12.0-15.0); Immature Grans, Automated 0.3 %; Lymphocytes # (A) 3.98 X 10*3/uL (0.90-5.00); Lymphocytes % (A) 37.4 %; MCH 26.3 pg (27.0-32.0); MCHC 29.7 g/dL (32.0-37.0); MCV 88.6 fL (80.0-97.0); Mean Platelet Volume 9.8 fL (9.5-12.2); Monocytes # (A) 0.62 X 10*3/uL (0.20-1.00); Monocytes % (A) 5.8 %; NRBC Per 100 WBC 0 /100 WBCS (0.0-0.0); Neutrophils # (A) 5.68 X 10*3/uL (1.80-7.70); Neutrophils % (A) 53.5 %; Platelet Count 295 X 10*3/uL (140-440); RBC 4.29 X 10*6/uL (4.10-5.20); RDW 14.6 % (11.5-14.5); WBC 10.63 X 10*3/uL (4.50-10.00)
[2021-09-11 09:31] LABS: African American GFR (CKD) 38.2 (60.0-200.0); Albumin 4.1 g/dL (3.8-4.9); Albumin/Globulin Ratio 1.78 (1.60-3.17); Anion Gap 13.3 mmol/L (10.00-18.00); BUN/Creat Ratio 16.31 Ratio (12.00-20.00); Blood Urea Nitrogen 26.1 mg/dL (9.0-27.0); Calcium 9.2 mg/dL (8.7-10.3); Carbon Dioxide 25.7 mmol/L (20.0-27.5); Globulin 2.3 g/dL (1.6-3.3); Potassium 4.5 mmol/L (3.5-5.5); Total Bilirubin 0.3 mg/dL (0.30-1.20); Total Protein 6.4 g/dL (6.2-8.2)
[2021-09-11] MEDS: SODIUM CHLORIDE 0.9% 1,000 ML IV SCH (11:44)
[2021-09-11] MEDS ORDERED: Magnesium Replacement Protocol 1 EACH MISC MISCELLANE PRN (12:00)
[2021-09-11 12:08] LABS: Glucose,Whole Blood 151 mg/dL (70-110)
[2021-09-11 12:19] VITALS: BP 117/73; PULSE 68
[2021-09-11] MEDS ORDERED: TEMAZEPAM 15 MG CAP PO SCH (21:00)
[2021-09-11] MEDS ORDERED: FAMOTIDINE 20 MG TAB PO SCH (21:00)
[2021-09-12] MEDS ORDERED: PANTOPRAZOLE 40 MG TABLET PO SCH (07:30)
--- NOTE | 2021-09-13 11:41 | P.HPIM ---
History of Present Illness H&P Date: 09/11/21 Chief Complaint: Dizziness History and Physical and Discharge Summary This is a 65-year-old female with past medical history of hypertension, diabe dejan, COPD, fibromyalgia, hyperlipidemia, thyroid disorder, bipolar disorder, anxiety, depression presented to the hospital with complaints of dizziness, reporting recent multiple med changes including to her amitriptyline- which later she informed the RN that she does not take any longer. He reports positive diet intake, denies nausea vomiting or diarrhea. Denies dizziness with turning of head, ambulating in room, tolerating exertion well. Reports her blood sugar was 87 which she feels is too low for her and doesn't tolerate BS less than 100. Denies any chest pain, palpitations or shortness of breath. Denied any cough congestion, chills, sore throat or headaches. Follows routinely with Dr. Schwarz from neurology, last seen 2 months ago. Chest x-ray no active cardiopulmonary process. EKG normal sinus rhythm. Troponin negative. TSH normal/4.010. Afebrile, WBC 12.3 on admission, normalized. Hemoglobin 11.3 platelets 295, electrolytes stable, BUN 34/creatinine 2.08 on admission improved with IV fluid hydration currently 26.1, 1.6. Blood sugars on admission 140. Hemoglobin A1c 7.8. Magnesium 1.3, supplemented, currently 1.9. AST 76, ALT 37, decreased to 49/37 respectively. UA negative, Coronaviirus/ influenza A and B not detected. Received IV fluids, Benadryl and IV Reglan in the ER. Currently ambulating in the patel, tolerating exertion well with no further dizziness. Review of Systems Constitutional: Denied any fatigue denied any fever. Cardio vascular: denied any chest pain, palpitations Gastrointestinal denied any nausea vomiting Pulmonary: Denied any shortness of breath cough Neurologic denied any new focal deficits ROS Statement: Those systems with pertinent positive or pertinent negative responses have been documented in the HPI. ROS Other: All systems not noted in ROS Statement are negative. Past Medical History Past Medical History: Asthma, Cancer, COPD, CVA/TIA, Diabetes Mellitus, Eye Disorder, Fibromyalgia, GERD/Reflux, Hyperlipidemia, Hypertension, Myocardial Infarction (RI), Osteoarthritis (OA), Pneumonia, Thyroid Disorder Additional Past Medical History / Comment(s): Recent bronchitis/dehydration and completed antibiotics, past bronchitis, IDDM type II, bilateral lower leg and feet neuropathy, 2008 CVA with some memory issues, possible TIA, basal cell skin cancer removed from L nares, L eye has partially detached retina, cateracts, gastric ulcer, hematemesis, chronic low back pain, sciatica mostly L side occasionally R side, migraines, vertigo, fatty liver, palpitations, past fractures of R thumb/R wrist/L hand, [place] Spotted Fever as an , hypothyrodism, [place] july 2018 Last Myocardial Infarction Date:: july 2018 History of Any Multi-Drug Resistant Organisms: None Reported Past Surgical History: Ablation, Back Surgery, Cholecystectomy, Heart Catheterization With Stent, Hernia Repair, Hysterectomy, Tonsillectomy Additional Past Surgical History / Comment(s): 11/2016 EPS with A flutter ablation, 2007 cardiac cath-normal, L nares skin cancer removed, UMBILICAL HERNIA SX 3X, RT Hand SX for middle TRIGGER FINGER, FIBROID TUMORS REMOVED ABD/BACK, LAPROSCOPIES x 3, L5-S1 SX for HERNIATED DISCS, EGD/colonoscopy. Past Anesthesia/Blood Transfusion Reactions: Postoperative Nausea & Vomiting (PONV) Additional Past Anesthesia/Blood Transfusion Reaction / Comment(s): AND SEVERE HEADACHE WITH ANESTHESIA IN PAST Date of Last Stent Placement:: 2018 Past Psychological History: Anxiety, Bipolar, Depression Additional Psychological History / Comment(s): Pt resides alone in an apartment. She has a glucometer. She has a cane which she uses prn. She does not own a vehicle. She gets to appointments usually thru her home insurance. She states she has had some increased depression lately but denies suicidal thoughts/plans. She states she does not receive any psychiatric care presently but has in the past but cannot recall name. Smoking Status: Never smoker Past Alcohol Use History: None Reported Additional Past Alcohol Use History / Comment(s): Pt states she quit smoking in 2010 and had started smoking in 1971. SMOKED1/2-1PPD QUIT ON AND OFF Past Drug Use History: Marijuana Additional Drug Use History / Comment(s): USES OCCASIONALLY - Past Family History Father Family Medical History: Diabetes Mellitus Additional Family Medical History / Comment(s): ONLY MET HIM ONCE IN HER LIFE Yedda RUNS IN HIS FAMILY Mother Family Medical History: Cancer Additional Family Medical History / Comment(s): Breast CA. Medications and Allergies Home Medications Medication Instructions Recorded Confirmed Type Glimepiride [Amaryl] 4 mg PO BID 30 Days #60 tab 03/12/18 09/10/21 Rx Multivitamins, Thera [Multivitamin 1 tab PO DAILY 06/07/18 09/10/21 History (formulary)] Nitroglycerin Sl Tabs [Nitrostat] 0.4 mg SUBLINGUAL Q5M PRN #25 tab 08/05/18 09/10/21 Rx Apixaban [Eliquis] 5 mg PO BID 02/28/19 09/10/21 History HYDROcodone/APAP 5-325MG [[place] 1 tab PO BID 10/15/20 09/10/21 History 5-325] Valsartan/Hydrochlorothiazide 1 tab PO DAILY 10/15/20 09/10/21 History [Valsartan-Hctz 160-12.5 mg Tab] amLODIPine [Norvasc] 10 mg PO DAILY 10/15/20 09/10/21 History ondansetron HCL [Zofran] 8 mg PO Q8HR PRN 10/15/20 09/10/21 History ALPRAZolam [Xanax] 0.25 mg PO HS 04/22/21 09/10/21 History Atorvastatin [Lipitor] 80 mg PO HS 04/22/21 09/10/21 History Biotin [Biotin Disolve] 5,000 mcg PO DAILY 04/22/21 09/10/21 History Cholecalciferol [Vitamin D3 (25 50 mcg PO DAILY 04/22/21 09/10/21 History Mcg = 1000 Iu)] Cyclobenzaprine [Flexeril] 5 mg PO HS 04/22/21 09/10/21 History Loperamide [Imodium] 2 mg PO QID PRN 04/22/21 09/10/21 History Metoprolol Succinate [Toprol XL] 25 mg PO HS 04/22/21 09/10/21 History Temazepam [Restoril] 30 mg PO HS 04/22/21 09/10/21 History Magnesium Oxide [Mag-Ox] 400 mg PO BID #20 tablet 04/23/21 09/10/21 Rx Famotidine 40 mg PO HS 09/10/21 09/10/21 History Ferrous Sulfate [Iron (65 MG 325 mg PO Q48H 09/10/21 09/10/21 History Elemental)] INSULIN LISPRO (humaLOG) [humaLOG] 15 units SQ AC-TID 09/10/21 09/10/21 History Levothyroxine Sodium [Tirosint] 100 mcg PO DAILY 09/10/21 09/10/21 History allopurinoL [Zyloprim] 100 mg PO DAILY 09/10/21 09/10/21 History calcitrioL [Calcitriol] 0.25 mcg PO WE 09/10/21 09/10/21 History Insulin Glargine,Hum.rec.anlog 65 units SQ DAILY #0 09/11/21 09/10/21 Rx [Toujeo Solostar] Allergies Allergy/AdvReac Type Severity Reaction Status Date / Time carbamazepine AdvReac Vomiting, Verified 09/10/21 08:18 dizziness, excessive sleepiness paliperidone [From Invega] AdvReac bad side Verified 09/10/21 08:18 effects Physical Exam Vitals: Vital Signs Temp Pulse Resp BP Pulse Ox 09/11/21 07:00 98.0 F 78 16 122/68 97 09/11/21 04:00 98.0 F 76 16 130/72 94 L 09/10/21 19:41 98.6 F 83 17 114/69 94 L 09/10/21 14:30 98.2 F 85 143/90 95 Intake and Output 09/10/21 09/11/21 09/11/21 22:59 06:59 14:59 Intake Total 118 1304 Balance 118 1304 Intake: Oral 118 1304 Other: # Voids 2 1 GEN. APPEARANCE: Alert and oriented 3, calm, sitting up in bed, no acute distress. Conversing fluently and appropriately, turning head from side to side without dizziness. HEAD EXAM: Atraumatic normocephalic. EYE EXAM: No pallor. No icterus. ENT EXAM: Mucous membranes are moist. NECK EXAM: Supple, no JVD, No thyromegaly RESPIRATORY EXAM: Unlabored ,Bilateral breath sounds clear. No wheezes or crackles. CARDIOVASCULAR EXAM: S1-S2 heard. Regular, No murmurs or rubs GI/ABDOMINAL EXAM: soft, nondistended, nontender. No guarding. Bowel sounds are positive. EXTREMITIES EXAM: No pedal edema. No clubbing, no cyanosis, no calf tenderness NEUROLOGICAL EXAM: alert, oriented X3, no focal neurological deficits SKIN EXAM: warm, dry, Absent: rash Results CBC & Chem 7: 09/11/21 04:37 09/11/21 04:37 Labs: Abnormal Lab Results - Last 24 Hours (Table) 09/10/21 09/10/21 09/10/21 Range/Units 06:26 08:24 17:11 WBC (4.50-10.00) X 10*3/uL Hgb (12.0-15.0) g/dL MCH (27.0-32.0) pg MCHC (32.0-37.0) g/dL RDW (11.5-14.5) % Creatinine (0.6-1.5) mg/dL Est GFR (CKD-EPI)AfAm (60.0-200.0) Est GFR (CKD-EPI)NonAf (60.0-200.0) Glucose (70-110) mg/dL POC Glucose (mg/dL) 130 H (70-110) mg/dL Hemoglobin A1c 7.8 H (0.0-6.0) % Magnesium 1.3 L (1.6-2.3) mg/dL AST (13-35) U/L 09/10/21 09/11/21 09/11/21 Range/Units 19:41 04:37 04:37 WBC 10.63 H (4.50-10.00) X 10*3/uL Hgb 11.3 L (12.0-15.0) g/dL MCH 26.3 L (27.0-32.0) pg MCHC 29.7 L (32.0-37.0) g/dL RDW 14.6 H (11.5-14.5) % Creatinine 1.6 H (0.6-1.5) mg/dL Est GFR (CKD-EPI)AfAm 38.2 L (60.0-200.0) Est GFR (CKD-EPI)NonAf 33.0 L (60.0-200.0) Glucose 175 H (70-110) mg/dL POC Glucose (mg/dL) 171 H (70-110) mg/dL Hemoglobin A1c (0.0-6.0) % Magnesium (1.6-2.3) mg/dL AST 49 H (13-35) U/L 08/03/22 Range/Units 07:32 WBC (4.50-10.00) X 10*3/uL Hgb (12.0-15.0) g/dL MCH (27.0-32.0) pg MCHC (32.0-37.0) g/dL RDW (11.5-14.5) % Creatinine (0.6-1.5) mg/dL Est GFR (CKD-EPI)AfAm (60.0-200.0) Est GFR (CKD-EPI)NonAf (60.0-200.0) Glucose (70-110) mg/dL POC Glucose (mg/dL) 172 H (70-110) mg/dL Hemoglobin A1c (0.0-6.0) % Magnesium (1.6-2.3) mg/dL AST (13-35) U/L Thrombosis Risk Factor Assmnt - Choose All That Apply Each Risk Factor Represents 2 Points: Age 61-74 years Thrombosis Risk Factor Assessment Total Risk Factor Score: 2 Thrombosis Risk Factor Assessment Level: Low Risk Assessment and Plan Assessment: Dizziness secondary to suspected Dehydration, possibly hypoglycemia-the blood sugars have been well-controlled from admission with lowest blood sugar 1:30. Hypomagnesemia Type 2 diabetes mellitus.Complained of feeling hypoglycemic , reporting blood sugars of 87 at home. A1c 7.8.Toujeo insulin decreased. Maintain log of Accu- Cheks before meals and at bedtime, take to follow clinic with PCP for further recommendations. CAD, history of [place] and cardiac stents Hypertension Fibromyalgia Hyperlipidemia Chronic low back pain with herniated discs Diabetic neuropathy History of migraine headaches Hypothyroidism GERD Asthma,COPD, stable Stroke,TIA, history of Bipolar, anxiety, depression Plan: Continue on current medication regime, monitoring and symptomatically treatment. Discussed with nylon winder, Dr. Stearns, who recommends increasing Elavil dose. Vague historian. Patient states she does not take elavil/amitriptyline. Good diet intake, no nausea vomiting or diarrhea. Magnesium supplemented. Creatinine improved with IV fluid hydration, down to 1.6. Negative orthostatic hypotension. Follows routinely with Dr. Schwarz. Denies chest pain, palpitations, shortness of breath, maintaining O2 sats in the high 90s on room air. Denies lightheadedness dizziness or focal deficits. Significant clinical improvement. Patient will be discharged home in a stable condition with guarded prognosis.Complained of feeling hypoglycemic blood sugars of 87 at home. A1c 7.8.Toujeo insulin decreased. Maintain log of Accu-Cheks before meals and at bedtime, take to follow clinic with PCP for further recommendations. Discharge Medication List Glimepiride [Amaryl] 4 mg PO BID 30 Days #60 tab 03/12/18 [Rx] Multivitamins, Thera [Multivitamin (formulary)] 1 tab PO DAILY 06/07/18 [History] Nitroglycerin Sl Tabs [Nitrostat] 0.4 mg SUBLINGUAL Q5M PRN #25 tab 08/05/18 [Rx] Apixaban [Eliquis] 5 mg PO BID 02/28/19 [History] HYDROcodone/APAP 5-325MG [[place] 5-325] 1 tab PO BID 10/15/20 [History] Valsartan/Hydrochlorothiazide [Valsartan-Hctz 160-12.5 mg Tab] 1 tab PO DAILY 10/15/20 [History] amLODIPine [Norvasc] 10 mg PO DAILY 10/15/20 [History] ondansetron HCL [Zofran] 8 mg PO Q8HR PRN 10/15/20 [History] ALPRAZolam [Xanax] 0.25 mg PO HS 04/22/21 [History] Atorvastatin [Lipitor] 80 mg PO HS 04/22/21 [History] Biotin [Biotin Disolve] 5,000 mcg PO DAILY 04/22/21 [History] Cholecalciferol [Vitamin D3 (25 Mcg = 1000 Iu)] 50 mcg PO DAILY 04/22/21 [History] Cyclobenzaprine [Flexeril] 5 mg PO HS 04/22/21 [History] Loperamide [Imodium] 2 mg PO QID PRN 04/22/21 [History] Metoprolol Succinate [Toprol XL] 25 mg PO HS 04/22/21 [History] Temazepam [Restoril] 30 mg PO HS 04/22/21 [History] Magnesium Oxide [Mag-Ox] 400 mg PO BID #20 tablet 04/23/21 [Rx] Famotidine 40 mg PO HS 09/10/21 [History] Ferrous Sulfate [Iron (65 MG Elemental)] 325 mg PO Q48H 09/10/21 [History] INSULIN LISPRO (humaLOG) [humaLOG] 15 units SQ AC-TID 09/10/21 [History] Levothyroxine Sodium [Tirosint] 100 mcg PO DAILY 09/10/21 [History] allopurinoL [Zyloprim] 100 mg PO DAILY 09/10/21 [History] calcitrioL [Calcitriol] 0.25 mcg PO WE 09/10/21 [History] Insulin Glargine,Hum.rec.anlog [Ori [place]] 65 units SQ DAILY #0 09/11/21 [Rx] The impression and plan of care has been dictated as directed. : I performed a history and examination of this patient, discussed the same with the dictator. I agree with the dictator's note ,documented as a scribe. Any additional findings or plans will be noted.
== END 2021-09-11 16:38 | disposition home or self-care (01) ==
LOC: EC 05:47 → 6NMEDSUR 08:21
PROVIDERS: ADMIT Family Medicine; ATTEND Family Medicine
DX: R42 Dizziness and giddiness (principal); E83.42 Hypomagnesemia; I25.10 Atherosclerotic heart disease of native coronary artery without angina pectoris; M51.27 Other intervertebral disc displacement, lumbosacral region; J44.9 Chronic obstructive pulmonary disease, unspecified; E11.40 Type 2 diabetes mellitus with diabetic neuropathy, unspecified; I10 Essential (primary) hypertension; K21.9 Gastro-esophageal reflux disease without esophagitis; E78.5 Hyperlipidemia, unspecified; M79.7 Fibromyalgia; I25.2 Old myocardial infarction; E03.9 Hypothyroidism, unspecified; F31.9 Bipolar disorder, unspecified; K76.0 Fatty (change of) liver, not elsewhere classified; F41.9 Anxiety disorder, unspecified; F12.90 Cannabis use, unspecified, uncomplicated; Z86.73 Personal history of transient ischemic attack (TIA), and cerebral infarction without residual deficits; Z79.890 Hormone replacement therapy; Z79.4 Long term (current) use of insulin; Z79.84 Long term (current) use of oral hypoglycemic drugs; Z79.01 Long term (current) use of anticoagulants; Z79.899 Other long term (current) drug therapy; Z85.828 Personal history of other malignant neoplasm of skin; Z90.49 Acquired absence of other specified parts of digestive tract; Z90.710 Acquired absence of both cervix and uterus; Z83.3 Family history of diabetes mellitus; Z80.3 Family history of malignant neoplasm of breast; Z20.822 Contact with and (suspected) exposure to COVID-19; Z87.891 Personal history of nicotine dependence; Z95.5 Presence of coronary angioplasty implant and graft
CPT/HCPCS: 96376; 96375 ×3; 96374; 99285; 36415; 93005; 80053 ×2; 84443; 83735 ×2; 84132; 84484; 85025 ×2; 81001; 87502; 83036; 87635; 71046; G0378 ×2; J1200; J2765; J2405; C9113 ×2

== ENCOUNTER → 2021-10-08 | Outpatient (CLI) | payer MEDICARE, OTHER ==
[2021-10-08 19:00] LABS: C-Peptide 5.56 ng/mL (0.81-3.85)
== END | disposition home or self-care (01) ==
LOC: LABWHC1 09:13
PROVIDERS: ATTEND Internal Medicine Endocrinology, Diabetes & Metabolism
DX: E11.65 Type 2 diabetes mellitus with hyperglycemia (principal)
CPT/HCPCS: 36415; 82947; 84443; 84681

== ENCOUNTER → 2022-01-23 | Outpatient (CLI) | payer MEDICARE, OTHER ==
[2022-01-23 17:21] LABS: ALT 50 U/L (8-44); AST 55 U/L (13-35); African American GFR (CKD) 41.7 (60.0-200.0); Albumin 4.5 g/dL (3.8-4.9); Albumin/Globulin Ratio 1.74 (1.60-3.17); Alkaline Phosphatase 79 U/L (41-126); Calcium 9.7 mg/dL (8.7-10.3); Carbon Dioxide 25.2 mmol/L (20.0-27.5); Chloride 101 mmol/L (96-109); Chol/HDL Ratio 3.63 Ratio; Globulin 2.6 g/dL (1.6-3.3); Glucose 150 mg/dL (70-110); LDL Cholesterol,Calculated 56.2 mg/dL (0.0-131.0); Potassium 4.2 mmol/L (3.5-5.5); Sodium 140 mmol/L (135-145)
== END | disposition home or self-care (01) ==
LOC: LABWHC1 10:18
PROVIDERS: ATTEND Internal Medicine Endocrinology, Diabetes & Metabolism
DX: E11.65 Type 2 diabetes mellitus with hyperglycemia (principal)
CPT/HCPCS: 36415; 80053; 80061; 82043; 82570; 83036; 84443

== ENCOUNTER → 2022-02-27 | Outpatient (CLI) | payer MEDICARE, OTHER ==
--- NOTE | 2022-02-27 12:47 | USB ---
Reason for Exam: Follow-up at short interval from prior study. Patient History: Menarche at age 9. First Full-Term at age 14. Left ovary removed at age 43. Right ovary removed at age 43. Hysterectomy at age 43. Postmenopausal. Other cancer. Mother had breast cancer. Risk Values: Shayy 5 year model risk: 3.5%. NCI Lifetime model risk: 11.0%. Technique: Method: Targeted. Prior Study Comparison: 04/21/2017 Bilateral Screening Mammogram, [facility]. 05/04/2018 Bilateral Screening Mammogram, [facility]. 08/05/2021 Left US breast limited LT, [facility]. 08/05/2021 Bilateral MG 3D diag mammo w/cad PANFILO, [facility]. Findings: The upper outer quadrant of the left breast, the axilla of the left breast and the retroareolar of the left breast were scanned. There is a hyperechoic area in the 3:00 position 13 cm from the nipple measuring 12.4 x 0.5 x 0.3 cm in size. This is stable from comparison may be a small lipoma. Patient reports a palpable area at 12:00 position approximately 6 cm from the nipple. No discrete solid or cystic areas evident by ultrasound this area. Clinical management is recommended. If this is suspicious, diagnostic mammography can be performed. In the absence of suspicious findings, follow-up mammogram can be performed on schedule 6 months. Overall Assessment: Benign, BI-RAD 2 Management: Screening Mammogram of both breasts in 6 months. A clinical breast exam by your physician is recommended on an annual basis and results should be correlated with mammographic findings. This exam should not preclude additional follow-up of suspicious palpable abnormalities. Results were given to the patient verbally at the time of exam. Electronically signed and approved by: Samuel Cedeno D.O. Radiologis
== END | disposition home or self-care (01) ==
LOC: RADUSWWP 12:09
PROVIDERS: ATTEND Family Medicine
DX: R92.8 Other abnormal and inconclusive findings on diagnostic imaging of breast (principal); Z78.0 Asymptomatic menopausal state; Z80.3 Family history of malignant neoplasm of breast

== ENCOUNTER → 2022-03-04 | Outpatient (CLI) | payer MEDICARE, OTHER ==
[2022-03-04 17:38] LABS: ALT 37 U/L (8-44); AST 37 U/L (13-35); African American GFR (CKD) 35.3 (60.0-200.0); Albumin 4.6 g/dL (3.8-4.9); Albumin/Globulin Ratio 1.53 (1.60-3.17); Alkaline Phosphatase 75 U/L (41-126); BUN/Creat Ratio 16.06 Ratio (12.00-20.00); Blood Urea Nitrogen 27.3 mg/dL (9.0-27.0); Calcium 10.5 mg/dL (8.7-10.3); Carbon Dioxide 26.9 mmol/L (20.0-27.5); Chloride 100 mmol/L (96-109); Chol/HDL Ratio 3.69 Ratio; Glucose 196 mg/dL (70-110); LDL Cholesterol,Calculated 52.4 mg/dL (0.0-131.0); Non-African American GFR(CKD) 30.5 (60.0-200.0); Potassium 4.8 mmol/L (3.5-5.5); Sodium 141 mmol/L (135-145); Total Protein 7.6 g/dL (6.2-8.2)
== END | disposition home or self-care (01) ==
LOC: LABWHC1 08:37
PROVIDERS: ATTEND Internal Medicine Endocrinology, Diabetes & Metabolism
DX: E11.65 Type 2 diabetes mellitus with hyperglycemia (principal)
CPT/HCPCS: 36415; 80053; 80061; 82043; 82570; 83036; 84443

== ENCOUNTER → 2022-08-26 | Outpatient (CLI) | payer MEDICARE, OTHER ==
--- NOTE | 2022-08-27 19:17 | MM ---
Reason for Exam: Screening (asymptomatic). Last mammogram was performed 1 year(s) and 1 month(s) ago. Patient History: Menarche at age 9. First Full-Term at age 14. Left ovary removed at age 43. Right ovary removed at age 43. Hysterectomy at age 43. Postmenopausal. Mother had breast cancer. Risk Values: Shayy 5 year model risk: 3.5%. NCI Lifetime model risk: 11.0%. Prior Study Comparison: 04/21/2017 Bilateral Screening Mammogram, [facility]. 05/04/2018 Bilateral Screening Mammogram, [facility]. 08/05/2021 Bilateral MG 3D diag mammo w/cad PANFILO, [facility]. Tissue Density: There are scattered fibroglandular densities. Findings: Analyzed By CAD. There is no suspicious group of microcalcifications or new suspicious mass in either breast. Overall Assessment: Negative, BI-RAD 1 Management: Screening Mammogram of both breasts in 1 year. See note below in regards to patient's increased five-year Shayy score. Patient should continue monthly self-breast exams. A clinical breast exam by your physician is recommended on an annual basis. This exam should not preclude additional follow-up of suspicious palpable abnormalities. Note on Shayy scores and lifetime risk: 1. A Shayy score greater than 3% is considered moderate risk. If this is the case, consider specialist referral to assess eligibility for a risk reducing agent. 2. If overall lifetime risk for the development of breast cancer is 20% or higher, the patient may qualify for future screening with alternating mammogram and breast MRI. Electronically signed and approved by: Brenda Winn M.D. Radiologist
== END | disposition home or self-care (01) ==
LOC: RADMAMWWP 16:44
PROVIDERS: ATTEND Family Medicine
DX: Z12.31 Encounter for screening mammogram for malignant neoplasm of breast (principal); Z78.0 Asymptomatic menopausal state; Z80.3 Family history of malignant neoplasm of breast
CPT/HCPCS: 77063; 77067

== ENCOUNTER 2023-03-06 21:02 | Emergency (ER) | payer MEDICARE, OTHER ==
--- NOTE | 2023-03-06 21:19 | ED ---
General Adult HPI - General Chief complaint: Arrhythmia/Palpitations Stated complaint: Palpitations Time Seen by Provider: 03/06/23 21:05 Source: patient, EMS, RN notes reviewed, old records reviewed Mode of arrival: EMS Limitations: no limitations - History of Present Illness Initial comments: 67-year-old female presenting for evaluation of chest pain, dyspnea, dizziness. Symptoms have been present for several months however 5 days ago she had an ep isode of increased chest pain and this evening has been more dizzy than usual. Denies focal numbness or weakness. Denies current chest pain. Denies current dyspnea. Patient is hypertensive and states she did take her medication today - Related Data Home Medications Medication Instructions Recorded Confirmed Multivitamins, Thera [Multivitamin 1 tab PO DAILY 06/07/18 03/21/22 (formulary)] Apixaban [Eliquis] 5 mg PO BID 02/28/19 03/21/22 Valsartan/Hydrochlorothiazide 1 tab PO QAM 10/15/20 03/21/22 [Valsartan-Hctz 160-12.5 mg Tab] amLODIPine [Norvasc] 10 mg PO QAM 10/15/20 03/21/22 ondansetron HCL [Zofran] 8 mg PO Q8HR PRN 10/15/20 03/21/22 ALPRAZolam [Xanax] 0.25 mg PO DAILY PRN 04/22/21 03/21/22 Atorvastatin [Lipitor] 80 mg PO HS 04/22/21 03/21/22 Biotin [Biotin Disolve] 5,000 mcg PO DAILY 04/22/21 03/21/22 Cholecalciferol [Vitamin D3 (25 50 mcg PO DAILY 04/22/21 03/21/22 Mcg = 1000 Iu)] Loperamide [Imodium] 2 mg PO QID PRN 04/22/21 03/21/22 Metoprolol Succinate [Toprol XL] 25 mg PO HS 04/22/21 03/21/22 Temazepam [Restoril] 30 mg PO HS 04/22/21 03/21/22 Famotidine 40 mg PO HS 09/10/21 03/21/22 Ferrous Sulfate [Iron (65 MG 325 mg PO Q48H 09/10/21 03/21/22 Elemental)] INSULIN LISPRO (humaLOG) [humaLOG] 20 units SQ AC-TID 09/10/21 03/21/22 Levothyroxine Sodium [Tirosint] 125 mcg PO DAILY 09/10/21 03/21/22 allopurinoL [Zyloprim] 100 mg PO DAILY 09/10/21 03/21/22 calcitrioL 0.25 mcg PO MOFR 09/10/21 03/21/22 Dulaglutide [Trulicity] 1.5 mg SQ TU 03/19/22 03/21/22 Estradiol Cream [Estrace Cream 1 gm VAGINAL Q7DAYS 03/19/22 03/21/22 0.01%] HYDROcodone/APAP 7.5-325MG [[place] 1 tab PO BID PRN 03/19/22 03/21/22 7.5-325] Insulin Glargine,Hum.rec.anlog 70 units SQ QAM 03/19/22 03/21/22 [Ori Olm[place]] Magnesium Oxide [Mag-Ox] 400 mg PO TID 03/19/22 03/21/22 Pantoprazole Sodium 40 mg PO BID 03/19/22 03/21/22 Repaglinide [Prandin] 1 mg PO ONCE PRN 03/19/22 03/21/22 Previous Rx's Medication Instructions Recorded Nitroglycerin Sl Tabs [Nitrostat] 0.4 mg SUBLINGUAL Q5M PRN #25 tab 08/05/18 Allergies Allergy/AdvReac Type Severity Reaction Status Date / Time amitriptyline AdvReac dizziness,s Verified 03/21/22 10:36 weating carbamazepine AdvReac Vomiting, Verified 03/21/22 10:36 dizziness, excessive sleepiness levothyroxine sodium AdvReac Vomiting Verified 03/21/22 10:36 [From Synthroid] milnacipran [From Savella] AdvReac constipated Verified 03/21/22 10:36 paliperidone [From Invega] AdvReac bad side Verified 03/21/22 10:36 effects pregabalin [From Lyrica] AdvReac severe pain Verified 03/21/22 10:36 Review of Systems ROS Statement: Those systems with pertinent positive or pertinent negative responses have been documented in the HPI. ROS Other: All systems not noted in ROS Statement are negative. 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, L eye has partially detached retina, gastric ulcer, hematemesis, chronic low back pain, sciatica mostly L side occasionally R side, migraines, vertigo, fatty liver, palpitations, past fractures of R thumb/R wrist/L hand, [place] Spotted Fever as an , hypothyrodism, CT july 2018,plantar fasciitis Last Myocardial Infarction Date:: july 2018 History of Any Multi-Drug Resistant Organisms: None Reported Past Surgical History: Back Surgery, Cardiac Ablation, Cholecystectomy, Heart Catheterization With Stent, Hernia Repair, Hysterectomy, Tonsillectomy Additional Past Surgical History / Comment(s): 11/2016 EPS with A flutter ablation, 2007 cardiac cath-normal, L nares skin cancer removed, UMBILICAL HERNIA SX 3X, RT Hand SX for middle TRIGGER FINGER, FIBROID TUMORS REMOVED ABD/BACK, LAPROSCOPIES x 3, L5-S1 SX for HERNIATED DISCS, EGD/colonoscopy,maxx cataracts Past Anesthesia/Blood Transfusion Reactions: Postoperative Nausea & Vomiting (PONV) Additional Past Anesthesia/Blood Transfusion Reaction / Comment(s): AND SEVERE HEADACHE WITH ANESTHESIA IN PAST Date of Last Stent Placement:: 2019 Past Psychological History: Anxiety, Depression Smoking Status: Former smoker Past Alcohol Use History: None Reported Past Drug Use History: Marijuana - Past Family History Father Family Medical History: Diabetes Mellitus Additional Family Medical History / Comment(s): ONLY MET HIM ONCE IN HER LIFE [employer] IN HIS FAMILY Mother Family Medical History: Cancer Additional Family Medical History / Comment(s): Breast CA. General Exam Limitations: no limitations General appearance: alert, in no apparent distress Head exam: Present: atraumatic, normocephalic Eye exam: Present: normal appearance, PERRL ENT exam: Present: normal exam Neck exam: Present: normal inspection. Absent: tenderness, meningismus Respiratory exam: Present: normal lung sounds bilaterally. Absent: respiratory distress, wheezes Cardiovascular Exam: Present: regular rate, normal rhythm GI/Abdominal exam: Present: soft. Absent: distended Extremities exam: Present: normal inspection, normal capillary refill. Absent: pedal edema, calf tenderness Neurological exam: Present: alert, oriented X3, CN II-XII intact. Absent: motor sensory deficit Psychiatric exam: Present: anxious Skin exam: Present: warm, dry, intact. Absent: cyanosis, diaphoretic Course Vital Signs 03/06/23 03/06/23 03/06/23 21:04 21:09 22:48 Temperature 98.2 F Pulse Rate 73 72 Pulse Rate [ 79 Django Developer ] Respiratory 18 19 Rate Blood Pressure 231/107 148/64 O2 Sat by Pulse 98 97 Oximetry Medical Decision Making - Medical Decision Making Was pt. sent in by a medical professional or institution (, PA, SENIOR GEOLOGIST, urgent care, hospital, or halfway...) When possible be specific @ -No Did you speak to anyone other than the patient for history (EMS, parent, family, police, friend...)? What history was obtained from this source @ -No Did you review nursing and triage notes (agree or disagree)? Why? @ -I reviewed and agree with nursing and triage notes Were old charts reviewed (outside hosp., previous admission, EMS record, old EKG, old radiological studies, urgent care reports/EKG's, halfway records)? Report findings @ -No old charts were reviewed Differential Diagnosis (chest pain, altered mental status, abdominal pain women, abdominal pain men, vaginal bleeding, weakness, fever, dyspnea, syncope, headache, dizziness, GI bleed, back pain, seizure, CVA, palpatations, mental health, musculoskeletal)? @ -Differential Chest Pain: Stable Angina, Unstable Angina, STEMI, NSTEMI Aortic Dissection, Pneumothorax, Musculoskeletal, Esophageal Spasm GERD, Cholecystitis, Pancreatitis, Zoster, this is not meant to be an all-inclusive list. EKG interpreted by me (3pts min.). @ -Sinus rhythm rate of 71, [place] interval 162, QRS duration 99, QTc 443 left anterior fascicular block no ST segment elevation. X-rays interpreted by me (1pt min.). @ -No acute cardiopulmonary findings on chest x-ray CT interpreted by me (1pt min.). @ -None done U/S interpreted by me (1pt. min.). @ -None done What testing was considered but not performed or refused? (CT, X-rays, U/S, labs)? Why? @ -None What meds were considered but not given or refused? Why? @ -None Did you discuss the management of the patient with other professionals (mignon camara i.e. , PA, SENIOR GEOLOGIST, lab, RT, psych nurse, secondary social studies teacher, cargo broker, teacher, canine enforcement officer, protective services case worker)? Give summary @ -No Was smoking cessation discussed for >3mins.? @ -No Was critical care preformed (if so, how long)? @ -No Were there social determinants of health that impacted care today? How? (Homelessness, low income, unemployed, alcoholism, drug addiction, transportation, low edu. Level, literacy, decrease access to med. care, fdc, rehab)? @ -No Was there de-escalation of care discussed even if they declined (Discuss DNR or withdrawal of care, Hospice)? DNR status @ -No What co-morbidities impacted this encounter? (DM, HTN, Smoking, COPD, CAD, Cancer, CVA, ARF, Chemo, Hep., AIDS, mental health diagnosis, sleep apnea, morbid obesity)? @ -Hypertension Was patient admitted / discharged? Hospital course, mention meds given and route, prescriptions, significant lab abnormalities, going to OR and other pertinent info. @ -67-year-old female with chronic dizziness presenting with dizziness and hypertension. No focal neurological findings. Patient had an episode of chest pain several days ago which is resolved. No chest pain at this time. Troponin negative. Laboratory testing is stable from baseline. Patient very eager for discharge. I did offer admission for symptomatic treatment and further evaluation but she declines. Eager for discharge. Undiagnosed new problem with uncertain prognosis? @ -No Drug Therapy requiring intensive monitoring for toxicity (Heparin, Nitro, Insulin, Cardizem)? @ -No Were any procedures done? @ -No Diagnosis/symptom? @ -Dizziness, hypertension Acute, or Chronic, or Acute on Chronic? @ -[Acute Uncomplicated (without systemic symptoms) or Complicated (systemic symptoms)? @ -Default Side effects of treatment? @ -No Exacerbation, Progression, or Severe Exacerbation? @ -No Poses a threat to life or bodily function? How? (Chest pain, USA, CT, pneumonia, PE, COPD, DKA, ARF, appy, cholecystitis, CVA, Diverticulitis, Homicidal, Suicidal, threat to staff... and all critical care pts) @ -Low risk at this time - Lab Data Result diagrams: 03/06/23 21:24 03/06/23 21:24 Lab Results 03/06/23 03/06/23 03/06/23 Range/Units 21:24 21:24 21:24 WBC 15.6 H (3.8-10.6) k/uL RBC 5.26 (3.80-5.40) m/uL Hgb 14.9 (11.4-16.0) gm/dL Hct 44.8 (34.0-46.0) % MCV 85.2 (80.0-100.0) fL MCH 28.4 (25.0-35.0) pg MCHC 33.3 (31.0-37.0) g/dL RDW 14.1 (11.5-15.5) % Plt Count 256 (150-450) k/uL MPV 8.5 Neutrophils % (Manual) 51 % Lymphocytes % (Manual) 42 % Monocytes % (Manual) 3 % Eosinophils % (Manual) 4 % Neutrophils # (Manual) 7.96 H (1.3-7.7) k/uL Lymphocytes # (Manual) 6.55 H (1.0-4.8) k/uL Monocytes # (Manual) 0.47 (0-1.0) k/uL Eosinophils # (Manual) 0.62 (0-0.7) k/uL Nucleated RBCs 0 (0-0) /100 WBC Manual Slide Review Performed RBC Morphology Normal PT 10.6 (10.0-12.5) sec INR 1.0 (<1.2) APTT 28.1 (22.0-30.0) sec Sodium (137-145) mmol/L Potassium (3.5-5.1) mmol/L Chloride (98-107) mmol/L Carbon Dioxide (22-30) mmol/L Anion Gap mmol/L BUN (7-17) mg/dL Creatinine (0.52-1.04) mg/dL Est GFR (CKD-EPI)AfAm (>60 ml/min/1.73 sqM) Est GFR (CKD-EPI)NonAf (>60 ml/min/1.73 sqM) Glucose (74-99) mg/dL Calcium (8.4-10.2) mg/dL Magnesium (1.6-2.3) mg/dL Total Bilirubin (0.2-1.3) mg/dL AST (14-36) U/L ALT (4-34) U/L Alkaline Phosphatase (38-126) U/L Troponin I (0.000-0.034) ng/mL NT-Pro-B Natriuret Pep pg/mL Total Protein (6.3-8.2) g/dL Albumin (3.5-5.0) g/dL Urine Color Colorless Urine Appearance Clear (Clear) Urine pH 7.0 (5.0-8.0) Ur Specific Tiro 1.007 (1.001-1.035) Urine Protein Trace H (Negative) Urine Glucose (UA) 4+ H (Negative) Urine Ketones Negative (Negative) Urine Blood Negative (Negative) Urine Nitrite Negative (Negative) Urine Bilirubin Negative (Negative) Urine Urobilinogen <2.0 (<2.0) mg/dL Ur Leukocyte Esterase Negative (Negative) 03/06/23 03/06/23 Range/Units 21:24 21:24 WBC (3.8-10.6) k/uL RBC (3.80-5.40) m/uL Hgb (11.4-16.0) gm/dL Hct (34.0-46.0) % MCV (80.0-100.0) fL MCH (25.0-35.0) pg MCHC (31.0-37.0) g/dL RDW (11.5-15.5) % Plt Count (150-450) k/uL MPV Neutrophils % (Manual) % Lymphocytes % (Manual) % Monocytes % (Manual) % Eosinophils % (Manual) % Neutrophils # (Manual) (1.3-7.7) k/uL Lymphocytes # (Manual) (1.0-4.8) k/uL Monocytes # (Manual) (0-1.0) k/uL Eosinophils # (Manual) (0-0.7) k/uL Nucleated RBCs (0-0) /100 WBC Manual Slide Review RBC Morphology PT (10.0-12.5) sec INR (<1.2) APTT (22.0-30.0) sec Sodium 140 (137-145) mmol/L Potassium 4.2 (3.5-5.1) mmol/L Chloride 103 (98-107) mmol/L Carbon Dioxide 25 (22-30) mmol/L Anion Gap 12 mmol/L BUN 35 H (7-17) mg/dL Creatinine 1.51 H (0.52-1.04) mg/dL Est GFR (CKD-EPI)AfAm 41 (>60 ml/min/1.73 sqM) Est GFR (CKD-EPI)NonAf 35 (>60 ml/min/1.73 sqM) Glucose 206 H (74-99) mg/dL Calcium 10.4 H (8.4-10.2) mg/dL Magnesium 2.0 (1.6-2.3) mg/dL Total Bilirubin 0.6 (0.2-1.3) mg/dL AST 31 (14-36) U/L ALT 27 (4-34) U/L Alkaline Phosphatase 83 (38-126) U/L Troponin I <0.012 (0.000-0.034) ng/mL NT-Pro-B Natriuret Pep 460 pg/mL Total Protein 7.8 (6.3-8.2) g/dL Albumin 4.8 (3.5-5.0) g/dL Urine Color Urine Appearance (Clear) Urine pH (5.0-8.0) Ur Specific Tiro (1.001-1.035) Urine Protein (Negative) Urine Glucose (UA) (Negative) Urine Ketones (Negative) Urine Blood (Negative) Urine Nitrite (Negative) Urine Bilirubin (Negative) Urine Urobilinogen (<2.0) mg/dL Ur Leukocyte Esterase (Negative) Disposition Clinical Impression: Dizziness, Hypertension Disposition: HOME SELF-CARE Condition: Fair Instructions (If sedation given, give patient instructions): Hypertension (ED), Dizziness (ED) Is patient prescribed a controlled substance at d/c from ED?: No Referrals: Benedicto Cabello DO [Primary Care Provider] - 1-2 days Time of Disposition: 23:14
[2023-03-06 22:02] LABS: Appearance,Urine Clear (Clear); Bilirubin,Urine Negative (Negative); Blood,Urine Negative (Negative); Color,Urine Colorless; Glucose,Urine (UA) 4+ (Negative); Ketones,Urine Negative (Negative); Leukocyte Esterase,Urine Negative (Negative); Nitrite,Urine Negative (Negative); Protein,Urine Trace (Negative); Specific Gravity,Urine 1.007 (1.001-1.035); Urobilinogen,Urine <2.0 mg/dL (<2.0)
[2023-03-06 22:15] LABS: HCT 44.8 % (34.0-46.0); HGB 14.9 gm/dL (11.4-16.0); MCH 28.4 pg (25.0-35.0); MCHC 33.3 g/dL (31.0-37.0); MCV 85.2 fL (80.0-100.0); Mean Platelet Volume 8.5; Partial Thromboplastin Time 28.1 sec (22.0-30.0); Platelet Count 256 k/uL (150-450); Prothrombin Time 10.6 sec (10.0-12.5); RBC 5.26 m/uL (3.80-5.40); RDW 14.1 % (11.5-15.5); WBC 15.6 k/uL (3.8-10.6)
[2023-03-06 22:40] LABS: ALT 27 U/L (4-34); AST 31 U/L (14-36); African American GFR (CKD) 41 (>60 ml/min/1.73 sqM); Albumin 4.8 g/dL (3.5-5.0); Alkaline Phosphatase 83 U/L (38-126); Anion Gap 12 mmol/L; Blood Urea Nitrogen 35 mg/dL (7-17); Calcium 10.4 mg/dL (8.4-10.2); Carbon Dioxide 25 mmol/L (22-30); Chloride 103 mmol/L (98-107); Glucose 206 mg/dL (74-99); Non-African American GFR(CKD) 35 (>60 ml/min/1.73 sqM); Potassium 4.2 mmol/L (3.5-5.1); Sodium 140 mmol/L (137-145); Total Bilirubin 0.6 mg/dL (0.2-1.3); Total Protein 7.8 g/dL (6.3-8.2)
[2023-03-06 22:49] LABS: NT-Pro-B-Type Natriuretic Pept 460 pg/mL
--- NOTE | 2023-03-06 23:00 | XR ---
EXAM: XR Chest, 2 Views CLINICAL HISTORY: ITS.REASON XR Reason: dysrhythmia TECHNIQUE: Frontal and lateral views of the chest. COMPARISON: 09/10/2021. FINDINGS: Lungs: Unremarkable. No consolidative change. Pleural space: Unremarkable. No pneumothorax. No pleural effusions. Heart: There is mild cardiomegaly. Mediastinum: Unremarkable. Normal mediastinal contour. Bones/joints: Osseous structures are unremarkable. Moderate to severe degenerative disc disease of the thoracic spine. No acute fracture. Vasculature: Atherosclerotic disease. IMPRESSION: 1. Mild cardiomegaly. 2. Atherosclerotic disease. 3. No active disease.
[2023-03-06 23:09] LABS: Eosinophils # (M) 0.62 k/uL (0-0.7); Lymphocytes # (M) 6.55 k/uL (1.0-4.8); Monocytes # (M) 0.47 k/uL (0-1.0); Neutrophils # (M) 7.96 k/uL (1.3-7.7); Neutrophils % (M) 51 %; Nucleated Red Blood Cells 0 /100 WBC (0-0); RBC Morphology Normal; Total Cells Counted 100
[2023-03-06 23:37] VITALS: BP 182/93; PULSE 69; RESP 16; TEMP 98.7
== END 2023-03-06 23:35 | disposition home or self-care (01) ==
LOC: EC 21:02
DX: R42 Dizziness and giddiness (principal); I10 Essential (primary) hypertension; E78.5 Hyperlipidemia, unspecified; F32.A Depression, unspecified; F41.9 Anxiety disorder, unspecified; I11.9 Hypertensive heart disease without heart failure; I25.2 Old myocardial infarction; K21.9 Gastro-esophageal reflux disease without esophagitis; M19.90 Unspecified osteoarthritis, unspecified site; F12.90 Cannabis use, unspecified, uncomplicated; Z79.01 Long term (current) use of anticoagulants; Z79.890 Hormone replacement therapy; Z79.899 Other long term (current) drug therapy; Z79.4 Long term (current) use of insulin; Z87.891 Personal history of nicotine dependence; Z88.5 Allergy status to narcotic agent; Z88.8 Allergy status to other drugs, medicaments and biological substances; Z90.49 Acquired absence of other specified parts of digestive tract
CPT/HCPCS: 36415; 71046; 80053; 81003; 83735; 83880; 84484; 85025; 85610; 85730; 93005; 99285

== ENCOUNTER → 2023-04-16 | Outpatient (CLI) | payer MEDICARE, OTHER ==
[2023-04-16 18:30] LABS: ALT 23 U/L (8-44); AST 16 U/L (13-35); Albumin 4.2 g/dL (3.8-4.9); Albumin/Globulin Ratio 1.62 Ratio (1.60-3.17); Alkaline Phosphatase 78 U/L (41-126); BUN/Creat Ratio 23.88 Ratio (12.00-20.00); Blood Urea Nitrogen 38.2 mg/dL (9.0-27.0); Calcium 9.6 mg/dL (8.7-10.3); Carbon Dioxide 25.1 mmol/L (21.6-31.8); Chloride 105 mmol/L (96-109); Chol/HDL Ratio 3.05 Ratio; Globulin 2.6 g/dL (1.6-3.3); Glucose 163 mg/dL (70-110); LDL Cholesterol,Calculated 51.4 mg/dL (0.0-131.0); Potassium 4.4 mmol/L (3.5-5.5); Sodium 142 mmol/L (135-145); Total Bilirubin 0.3 mg/dL (0.3-1.2); Total Protein 6.8 g/dL (6.2-8.2)
== END | disposition home or self-care (01) ==
LOC: LABWHC1 10:48
PROVIDERS: ATTEND Internal Medicine
DX: E11.65 Type 2 diabetes mellitus with hyperglycemia (principal)
CPT/HCPCS: 36415; 80053; 80061; 82043; 82570; 83036

== ENCOUNTER → 2023-04-27 | Outpatient (CLI) | payer MEDICARE, OTHER ==
--- NOTE | 2023-04-27 12:42 | XR ---
EXAMINATION TYPE: XR chest 2V DATE OF EXAM: 04/27/2023 COMPARISON: 03/06/2023 TECHNIQUE: PA and lateral views submitted. HISTORY: Shortness of breath FINDINGS: The lungs are clear and there is no pneumothorax, pleural effusion, or focal pneumonia. Heart size normal and no overt failure. Osseous structures demonstrate hypertrophic and degenerative changes of the spine. Atherosclerotic change aorta. Surgical clips in the abdomen noted. IMPRESSION: 1. No acute process.
== END | disposition home or self-care (01) ==
LOC: RADXRMAIN 12:15
PROVIDERS: ATTEND Family Medicine
DX: R06.02 Shortness of breath (principal)
CPT/HCPCS: 71046

== ENCOUNTER → 2023-08-27 | Outpatient (CLI) | payer MEDICARE, OTHER | END | disposition home or self-care (01) | LOC: LABWHC1 14:59 | PROVIDERS: ATTEND Internal Medicine | DX: E11.65 Type 2 diabetes mellitus with hyperglycemia (principal) | CPT/HCPCS: 36415; 83036 ==

== ENCOUNTER 2023-09-11 08:14 | Day surgery (SDC) | payer MEDICARE, OTHER ==
[2023-09-09 11:44] VITALS: BMI 37.1
[~2023-09-11 08:14] MED LIST changes: -LACTATED RINGERS 1,000 ML IV SCH; +LIDOCAINE 1% (10MG/ML) FOR IV START INTRADERMA PRN
[2023-09-11] MEDS: IV FLUID CONTINUATION 1,000 ML IV ONE (08:34)
[2023-09-11 09:00] LABS: Glucose,Whole Blood 142 mg/dL (70-110)
[2023-09-11] MEDS: METOCLOPRAMIDE 5 MG/ML 2 ML VIAL IVP STA (09:09)
[2023-09-11] MEDS: ONDANSETRON 4 MG/2 ML VIAL IVP STA (09:10)
[2023-09-11] MEDS: LACTATED RINGERS 1,000 ML IV SCH (09:11)
[2023-09-11 09:13] VITALS: TEMP 97.6
[2023-09-11] MEDS ORDERED: PROPOFOL 10 MG/ML 20 ML VIAL IV ONE (09:16)
[2023-09-11] MEDS ORDERED: LIDOCAINE 1% INJ 10MG/ML (20 ML MDV) ONE (09:16)
--- NOTE | 2023-09-11 09:52 | P.PCN ---
Date of Procedure: 09/11/23 Procedure(s) Performed: BRIEF HISTORY: Patient is a 67-year-old pleasant white female scheduled for an elective colonoscopy as a part of evaluation of lower abdominal pain and change in bowel habits for the last several months duration PROCEDURE PERFORMED: Colonoscopy. PREOPERATIVE DIAGNOSIS: Lower abdominal pain and change in bowel habits. IV sedation per Anesthesia. PROCEDURE: After informed consent was obtained, the patient, was brought into the endoscopy unit. IV sedation was administered by Anesthesia under continuous monitoring. Digital rectal examination was normal. Initially the Olympus CF-160 flexible video colonoscope was then inserted in the rectum, gradually advanced into the cecum without any difficulty. Careful examination was performed as the scope was gradually being withdrawn. Ileocecal valve and the appendiceal orifice were visualized and appeared normal. Prep was excellent. Mucosa of the cecum, ascending colon, transverse colon, descending colon, sigmoid colon, and rectum appeared normal. Retroflexion was performed in the rectum and no lesions were seen. The patient tolerated the procedure well. IMPRESSION: Normal-appearing colon from rectum to cecum no evidence of colorectal neoplasia. RECOMMENDATIONS: Findings of this examination were discussed with the patient as well as her family. She was advised to have repeat screening colonoscopy in 10 years..
[2023-09-11 09:58] VITALS: RESP 14
[2023-09-11 10:15] VITALS: BP 129/85; PULSE 65
== END 2023-09-11 10:56 | disposition home or self-care (01) ==
LOC: ORWHC2ENDO 08:14
PROVIDERS: ATTEND Internal Medicine Gastroenterology
DX: R19.4 Change in bowel habit (principal); R10.30 Lower abdominal pain, unspecified; K58.1 Irritable bowel syndrome with constipation; I25.10 Atherosclerotic heart disease of native coronary artery without angina pectoris; I10 Essential (primary) hypertension; E11.69 Type 2 diabetes mellitus with other specified complication; E78.5 Hyperlipidemia, unspecified; I48.92 Unspecified atrial flutter; Z95.5 Presence of coronary angioplasty implant and graft; J44.9 Chronic obstructive pulmonary disease, unspecified; E07.9 Disorder of thyroid, unspecified; N28.9 Disorder of kidney and ureter, unspecified; M79.7 Fibromyalgia; F41.8 Other specified anxiety disorders; K21.9 Gastro-esophageal reflux disease without esophagitis; E11.40 Type 2 diabetes mellitus with diabetic neuropathy, unspecified; K76.0 Fatty (change of) liver, not elsewhere classified; Z88.8 Allergy status to other drugs, medicaments and biological substances; Z87.891 Personal history of nicotine dependence; Z79.01 Long term (current) use of anticoagulants; Z79.84 Long term (current) use of oral hypoglycemic drugs; Z79.899 Other long term (current) drug therapy; Z79.4 Long term (current) use of insulin; Z79.890 Hormone replacement therapy
CPT/HCPCS: 45378; J2765; J2405; J2001; J2704

== ENCOUNTER → 2023-10-16 | Outpatient (CLI) | payer MEDICARE, OTHER ==
--- NOTE | 2023-10-16 13:12 | CT ---
EXAMINATION TYPE: CT abdomen pelvis wo con CT DLP: 1026 mGycm, Automated exposure control for dose reduction was used. DATE OF EXAM: 10/16/2023 12:39 PM COMPARISON: None CLINICAL INDICATION: Female, 67 years old with history of R10.9 AB PELVIC PAIN; abd/pel pain TECHNIQUE: Axial CT abdomen pelvis wo con;Sagittal and coronal reformats were created on a separate workstation. Contrast used: mL of , (none if empty) Oral contrast used: without Oral Contrast (none if empty) FINDINGS: LOWER CHEST: Unremarkable ABDOMEN LIVER: Hypodense probable cyst in the posterior aspect of the right hepatic lobe. GALLBLADDER AND BILE DUCTS: The gallbladder is surgically absent. PANCREAS: Unremarkable. SPLEEN: Unremarkable. ADRENAL GLANDS: Unremarkable. KIDNEYS AND URETERS: No evidence of hydronephrosis or renal calculus. The ureters are unremarkable. PELVIS BLADDER: Unremarkable REPRODUCTIVE: Unremarkable. ABDOMEN & PELVIS STOMACH AND BOWEL: No evidence of bowel obstruction. Moderate amount stool throughout colon. The appe ndix is within normal limits. PERITONEUM/RETROPERITONEUM: No evidence of pneumoperitoneum or free fluid. VASCULATURE: No evidence of aortic aneurysm. MUSCULOSKELETAL: No acute osseous abnormalities LYMPH NODES: No gross evidence for lymphadenopathy. SOFT TISSUE/ABDOMINAL WALL: Fat-containing umbilical hernia. Prior hernia repair changes noted. Herni a measuring 3.7 cm at the neck. IMPRESSION: 1. Prior hernia repair changes with persistent defect with fat-containing hernia of the anterior abd ominal wall. 2. Moderate amount of stool in the colon.
== END | disposition home or self-care (01) ==
LOC: RADCTMAIN 11:53
PROVIDERS: ATTEND Family Medicine
DX: R10.9 Unspecified abdominal pain
CPT/HCPCS: 74176

== ENCOUNTER 2023-12-07 15:17 | Observation (INO) | payer MEDICARE, OTHER ==
--- NOTE | 2023-12-07 15:54 | ED ---
Chest Pain HPI - General Source: patient, RN notes reviewed Mode of arrival: wheelchair Limitations: no limitations - History of Present Illness Onset/Timin -: days(s) Onset: during rest Pain Location: left chest Consistency: intermittent Anginal Symptoms: nausea Other Symptoms: other (Constant dizziness) Treatments Prior to Arrival: none <Clark Duron - Last Filed: 12/07/23 15:55> - General Source: patient, RN notes reviewed, old records reviewed Mode of arrival: wheelchair Limitations: no limitations - History of Present Illness MD Complaint: chest pain -: days(s) Onset: during rest Pain Location: left chest Pain Radiation: LUE Improves With: nothing Worsens With: nothing Anginal Symptoms: nausea Other Symptoms: other Treatments Prior to Arrival: none - Related Data On Oral Contraceptives: No <Flaco Elkins - Last Filed: 12/09/23 19:55> - General Chief Complaint: Chest Pain Stated Complaint: chest pain,dizziness Time Seen by Provider: 12/07/23 15:30 - History of Present Illness Initial Comments: Quick note: This is a 68-year-old female with history of RI x5 years ago presenting with intermittent chest pain x 5 days. Patient endorses associated constant dizziness, low blood pressure and nausea patient states dizziness with worsens with position change. Endorses having a " maker" AMI x 5 years ago, receiving 1 stent at the time. Patient states she was sent by her kidney doctor after mentioning her symptoms. Patient denies shortness of breath, sweating, pallor, abdominal pain. (Clark Duron) This is a 68-year-old female with history of CAD patient coming in for chest pain x 5 days (Flaco Elkins) - Related Data Home Medications Medication Instructions Recorded Confirmed Multivitamins, Thera [Multivitamin 1 tab PO DAILY 06/07/18 12/08/23 (formulary)] Apixaban [Eliquis] 5 mg PO BID 02/28/19 12/08/23 ondansetron HCL [Zofran] 8 mg PO BID PRN 10/15/20 12/08/23 ALPRAZolam [Xanax] 0.25 mg PO HS PRN 04/22/21 12/08/23 Atorvastatin [Lipitor] 80 mg PO HS 04/22/21 12/08/23 Loperamide [Imodium] 2 mg PO QID PRN 04/22/21 12/08/23 calcitrioL 0.25 mcg PO WE 09/10/21 12/08/23 Magnesium Oxide [Mag-Ox] 400 mg PO TID 03/19/22 12/08/23 Albuterol Sulfate [Albuterol 1 puff INHALATION RT-Q6H PRN 09/09/23 12/08/23 Sulfate Hfa] Empagliflozin [Jardiance] 25 mg PO DAILY 09/09/23 12/08/23 Pioglitazone [Actos] 15 mg PO DAILY 09/09/23 12/08/23 Valsartan 160 mg PO HS 09/09/23 12/08/23 Dicyclomine [Bentyl] 10 mg PO TID PRN 12/08/23 12/08/23 Gabapentin 300 mg PO DIRECTED 12/08/23 12/08/23 HYDROcodone/APAP 10-325MG [[place] 1 tab PO BID 12/08/23 12/08/23 10-325] Insulin Glargine,Hum.rec.anlog 44 units SQ DAILY 12/08/23 12/08/23 [Toujeo Max Solostar] Levothyroxine Sodium [Synthroid] 75 mcg PO HS 12/08/23 12/08/23 Metoprolol Succinate [Toprol XL] 50 mg PO HS 12/08/23 12/08/23 Temazepam [Restoril] 30 mg PO HS 12/08/23 12/08/23 amLODIPine [Norvasc] 5 mg PO DAILY 12/08/23 12/08/23 Previous Rx's Medication Instructions Recorded Nitroglycerin Sl Tabs [Nitrostat] 0.4 mg SUBLINGUAL Q5M PRN #25 tab 08/05/18 Meclizine [Antivert] 25 mg PO TID PRN #20 tab 12/09/23 Allergies Allergy/AdvReac Type Severity Reaction Status Date / Time amitriptyline AdvReac dizziness,s Verified 12/08/23 08:20 weating carbamazepine AdvReac Vomiting, Verified 12/08/23 08:20 dizziness, excessive sleepiness levothyroxine sodium AdvReac Vomiting Verified 12/08/23 08:20 [From Synthroid] milnacipran [From Savella] AdvReac constipated Verified 12/08/23 08:20 paliperidone [From Invega] AdvReac severe Verified 12/08/23 08:20 side effects pregabalin [From Lyrica] AdvReac severe pain Verified 12/08/23 08:20 Review of Systems ROS Other: All systems not noted in ROS Statement are negative. <Clark Duron - Last Filed: 12/07/23 15:55> ROS Other: All systems not noted in ROS Statement are negative. <Flaco Elkins - Last Filed: 12/09/23 19:55> ROS Statement: Those systems with pertinent positive or pertinent negative responses have been documented in the HPI. EKG Findings - EKG Comments: EKG Findings:: EKG sinus 61 NV 151 QRS 81 QTc 420 - EKG Results: EKG: interpreted by ERMD <Flaco Elkins - Last Filed: 12/09/23 19:55> Past Medical History Past Medical History: Atrial Flutter, Asthma, Cancer, COPD, CVA/TIA, Diabetes Mellitus, Eye Disorder, Fibromyalgia, GERD/Reflux, Hyperlipidemia, Hypertension, Myocardial Infarction (RI), Osteoarthritis (OA), Pneumonia, Thyroid Disorder Additional Past Medical History / Comment(s): morning nausea/vomiting, bilateral lower leg and feet neuropathy, 2009 CVA with some memory issues, possible TIA, basal cell skin cancer, L eye has partially detached retina, gastric ulcer, chronic low back pain, sciatica mostly L side occasionally R side, migraines, vertigo, fatty liver, palpitations, [place] Spotted Fever as an infant, hypothyrodism Last Myocardial Infarction Date:: July 2018 History of Any Multi-Drug Resistant Organisms: None Reported Past Surgical History: Back Surgery, Cardiac Ablation, Cholecystectomy, EPS, Heart Catheterization With Stent, Hernia Repair, Hysterectomy, Tonsillectomy Additional Past Surgical History / Comment(s): EPS with A flutter ablation, L nares skin cancer removed, UMBILICAL HERNIA SX 3X, RT Hand SX for middle TRIGGER FINGER, LAPAROSCOPIES x 3, L5-S1 SX for HERNIATED DISCS, EGD/colonoscopy,maxx cataracts Past Anesthesia/Blood Transfusion Reactions: Postoperative Nausea & Vomiting (PONV) Additional Past Anesthesia/Blood Transfusion Reaction / Comment(s): AND SEVERE HEADACHE WITH ANESTHESIA IN PAST Date of Last Stent Placement:: 2019 Past Psychological History: Anxiety, Depression Smoking Status: Former smoker Past Alcohol Use History: None Reported Past Drug Use History: Marijuana - Past Family History Father Family Medical History: Diabetes Mellitus Additional Family Medical History / Comment(s): DOESN'T KNOW MUCH ABOUT HIM Mother Family Medical History: Cancer Additional Family Medical History / Comment(s): Breast CA. <Clark Duron - Last Filed: 12/07/23 15:55> General Exam Limitations: no limitations <Clark Duron - Last Filed: 12/07/23 15:55> General appearance: alert, in no apparent distress Head exam: Present: atraumatic, normocephalic, normal inspection Eye exam: Present: normal appearance, PERRL, EOMI. Absent: scleral icterus, conjunctival injection, periorbital swelling ENT exam: Present: normal exam, mucous membranes moist Neck exam: Present: normal inspection. Absent: tenderness, meningismus, lymphadenopathy Respiratory exam: Present: normal lung sounds bilaterally. Absent: respiratory distress, wheezes, rales, rhonchi, stridor Cardiovascular Exam: Present: regular rate, normal rhythm, normal heart sounds. Absent: systolic murmur, diastolic murmur, rubs, gallop, clicks GI/Abdominal exam: Present: soft, normal bowel sounds. Absent: distended, tenderness, guarding, rebound, rigid Extremities exam: Present: normal inspection, full ROM, normal capillary refill. Absent: tenderness, pedal edema, joint swelling, calf tenderness Back exam: Present: normal inspection Neurological exam: Present: alert, oriented X3, CN II-XII intact Psychiatric exam: Present: normal affect, normal mood Skin exam: Present: warm, dry, intact, normal color. Absent: rash <Flaco Elkins - Last Filed: 12/09/23 19:55> - General Exam Comments Initial Comments: Visual Physical Exam Vital signs reviewed General: Well-appearing, nontoxic, no acute distress. Head: Normocephalic, atraumatic Eyes: PERRLA, EOMI ENT: Airway patent Chest: Nonlabored breathing Skin: No visual rash, normal skin tone Neuro: Alert and oriented 3 Musculoskeletal: No gross abnormalities (Clark Duron) Course <Flaco Elkins - Last Filed: 12/09/23 19:55> Vital Signs 12/07/23 12/08/23 12/08/23 15:25 03:22 05:31 Temperature 98.4 F Pulse Rate 61 58 L 57 L Pulse Rate [ Right Sitting] Pulse Rate [ Right Standing] Pulse Rate [ Right Supine] Respiratory 18 16 18 Rate Blood Pressure 142/72 125/69 112/41 Blood Pressure [Left Arm Sitting] Blood Pressure [Left Arm Standing] Blood Pressure [Left Arm Supine] O2 Sat by Pulse 96 98 96 Oximetry 12/08/23 12/08/23 12/08/23 07:40 09:06 12:04 Temperature 97.5 F L 98.0 F Pulse Rate 61 57 L Pulse Rate [ 50 L Right Sitting] Pulse Rate [ 56 L Right Standing] Pulse Rate [ 53 L Right Supine] Respiratory 16 17 19 Rate Blood Pressure 135/76 150/72 Blood Pressure 153/94 [Left Arm Sitting] Blood Pressure 112/73 [Left Arm Standing] Blood Pressure 133/93 [Left Arm Supine] O2 Sat by Pulse 95 Oximetry - Reevaluation(s) Reevaluation #1: 12/07/23 20:07 Medical records reviewed (Flaco Elkins) Reevaluation #2: 12/07/23 20:07 Patient symptoms unchanged (Flaco Elkins) Reevaluation #3: 12/07/23 20:07 Patient informed of results and questions answered (Flaco Elkins) Reevaluation #4: Was pt. sent in by a medical professional or institution (, PA, LOCKSTITCH SHOULDER JOINER, urgent care, hospital, or fci...) When possible be specific @ -no Did you speak to anyone other than the patient for history (EMS, parent, family, police, friend...)? What history was obtained from this source @ -no Did you review nursing and triage notes (agree or disagree)? Why? @ -agree Are old charts reviewed (outside hosp., previous admission, EMS record, old EKG, old radiological studies, urgent care reports/EKG's, fci records)? Report findings @ -yes Differential Diagnosis (chest pain, altered mental status, abdominal pain women, abdominal pain men, vaginal bleeding, weakness, fever, dyspnea, syncope, headache, dizziness, GI bleed, back pain, seizure, CVA, palpatations, mental hea lth, musculoskeletal)? @ -prior EKG interpreted by me (3pts min.). @ -yes X-rays interpreted by me (1pt min.). @ -yes negative for acute disease CT interpreted by me (1pt min.). @ -no U/S interpreted by me (1pt. min.). @ -no What testing was considered but not performed or refused? (CT, X-rays, U/S, labs)? Why? @ -none What meds were considered but not given or refused? Why? @ -none Did you discuss the management of the patient with other professionals (professionals i.e. Dr., PA, LOCKSTITCH SHOULDER JOINER, lab, RT, psych nurse, bilingual social worker, fur blower operator, teacher, disability insurance hearing officer, disability case manager)? Give summary @ -no Was smoking cessation discussed for >3mins.? @ -no Was critical care preformed (if so, how long)? @ -no Were there social determinants of health that impacted care today? How? (Homelessness, low income, unemployed, alcoholism, drug addiction, transportation, low edu. Level, literacy, decrease access to med. care, senior living, rehab)? @ -none Was there de-escalation of care discussed even if they declined (Discuss DNR or withdrawal of care, Hospice)? DNR status @ -no What co-morbidities impacted this encounter? (DM, HTN, Smoking, COPD, CAD, Cancer, CVA, ARF, Chemo, Hep., AIDS, mental health diagnosis, sleep apnea, morbid obesity)? @ -none Was patient admitted / discharged? Hospital course, mention meds given and route, prescriptions, significant lab abnormalities, going to OR and other per tinent info. @ - 68 female will be admitted for chest pain observation Admitted Undiagnosed new problem with uncertain prognosis? @ -no Drug Therapy requiring intensive monitoring for toxicity (Heparin, Nitro, Insulin, Cardizem)? @ -no Were any procedures done? @ -no Diagnosis/symptom? @ -Chest pain and CAD Acute, or Chronic, or Acute on Chronic? @ -Acute Uncomplicated (without systemic symptoms) or Complicated (systemic symptoms)? @ -Complicated Side effects of treatment? @ -no Exacerbation, Progression, or Severe Exacerbation? @ -exacerbation Poses a threat to life or bodily function? How? (Chest pain, [place], RI, pneumonia, PE, COPD, DKA, ARF, appy, cholecystitis, CVA, Diverticulitis, Homicidal, Suicidal, threat to staff... and all critical care pts) @ -yes with chest pain (Flaco Elkins) Reevaluation #5: Differential Chest Pain: Stable Angina, Unstable Angina, STEMI, NSTEMI Aortic Dissection, Pneumothorax, Musculoskeletal, Esophageal Spasm GERD, Cholecystitis, Pancreatitis, Zoster, this is not meant to be an all-inclusive list. (Flaco Elkins) - Consultations Consultation #1: Spoke with [facility] who agrees to admit this patient (Flaco Elkins) Chest Pain MDM <Clark Duron - Last Filed: 12/07/23 15:55> <Flaco Elkins - Last Filed: 12/09/23 19:55> - MDM I completed the quick note portion of this chart signed SHIELA Mancilla (Clark Duron) 68 female will be admitted for chest pain observation (Flaco Elkins) Critical Care Time Critical Care Time: Yes Total Critical Care Time: 31 <Flaco Elkins - Last Filed: 12/09/23 19:55> Disposition <Clark Duron - Last Filed: 12/07/23 15:55> Is patient prescribed a controlled substance at d/c from ED?: No Time of Disposition: 19:40 <Flaco Elkins - Last Filed: 12/09/23 19:55> Clinical Impression: Panic attack, Atypical chest pain, Chest pain, Unstable angina pectoris Disposition: ADMITTED IP TO THIS HOSP Condition: Fair
[2023-12-07 16:47] LABS: Basophils % (A) 0 %; Eosinophils # (A) 0.2 k/uL (0-0.7); Eosinophils % (A) 2 %; HCT 42.8 % (34.0-46.0); Lymphocytes # (A) 3.1 k/uL (1.0-4.8); Lymphocytes % (A) 31 %; MCH 28.6 pg (25.0-35.0); MCHC 32.8 g/dL (31.0-37.0); MCV 87.3 fL (80.0-100.0); Mean Platelet Volume 7.9; Monocytes # (A) 0.4 k/uL (0-1.0); Monocytes % (A) 4 %; Neutrophils # (A) 6.1 k/uL (1.3-7.7); Neutrophils % (A) 62 %; Platelet Count 250 k/uL (150-450); RDW 13.7 % (11.5-15.5); WBC 9.9 k/uL (3.8-10.6)
[2023-12-07 16:55] LABS: Partial Thromboplastin Time 27.5 sec (22.0-30.0)
[2023-12-07 17:02] LABS: ALT 24 U/L (4-34); AST 27 U/L (14-36); African American GFR (CKD) 40 (>60 ml/min/1.73 sqM); Albumin 4.4 g/dL (3.5-5.0); Alkaline Phosphatase 67 U/L (38-126); Anion Gap 7 mmol/L; Blood Urea Nitrogen 34 mg/dL (7-17); Calcium 9.4 mg/dL (8.4-10.2); Carbon Dioxide 32 mmol/L (22-30); Chloride 100 mmol/L (98-107); Glucose 198 mg/dL (74-99); Magnesium 2.1 mg/dL (1.6-2.3); Non-African American GFR(CKD) 35 (>60 ml/min/1.73 sqM); Potassium 4.4 mmol/L (3.5-5.1); Sodium 139 mmol/L (137-145); Total Bilirubin 0.5 mg/dL (0.2-1.3); Total Protein 7.1 g/dL (6.3-8.2)
--- NOTE | 2023-12-07 17:04 | XR ---
EXAMINATION TYPE: XR chest 2V DATE OF EXAM: 12/07/2023 4:49 PM COMPARISON: Chest radiographs from 04/27/2023 CLINICAL INDICATION: Female, 68 years old with history of Chest Pain; TECHNIQUE: XR chest 2V Frontal and lateral views of the chest. FINDINGS: Lungs/Pleura: There is flattening of the diaphragm with increased lucency of the lungs. No evidence o f pneumothorax, pleural effusion or focal consolidation. Pulmonary vascularity: Unremarkable. Heart/mediastinum: Cardiomediastinal silhouette is unremarkable. Musculoskeletal: No acute osseous pathology. IMPRESSION: 1. No acute cardiopulmonary disease process. 2. COPD changes. [facility], , 12/07/2023 5:02 PM
[2023-12-07] MEDS: ASPIRIN 81 MG PO STA (17:05)
[2023-12-07] MEDS ORDERED: MORPHINE SULFATE 4 MG/ML SYRINGE IV PRN (19:39)
[2023-12-07] MEDS ORDERED: ONDANSETRON 4 MG/2 ML VIAL IVP PRN (19:39)
[2023-12-07] MEDS ORDERED: NALOXONE 0.4 MG/ML 1 ML VIAL IV PRN (19:39)
[2023-12-08] MEDS: SODIUM CHLORIDE 0.9% 1,000 ML IV SCH (00:02)
[2023-12-08 08:18] LABS: Glucose,Whole Blood 108 mg/dL (70-110)
[2023-12-08] MEDS ORDERED: NITROGLYCERIN SL TABS 0.4 MG TAB SUBLINGUAL PRN (08:31)
[2023-12-08 08:40] LABS: Basophils # (A) 0.04 X 10*3/uL (0.00-0.10); Basophils % (A) 0.5 %; Eosinophils # (A) 0.17 X 10*3/uL (0.04-0.35); HCT 38.8 % (37.2-46.3); HGB 12.1 g/dL (12.0-15.0); Lymphocytes # (A) 3.79 X 10*3/uL (0.90-5.00); Lymphocytes % (A) 44.9 %; MCHC 31.2 g/dL (32.0-37.0); MCV 89.8 FL (80.0-97.0); Mean Platelet Volume 10.7 FL (9.5-12.2); Monocytes # (A) 0.59 X 10*3/uL (0.20-1.00); NRBC Per 100 WBC 0 X 10*3/uL (0.00-0.01); Neutrophils # (A) 3.83 X 10*3/uL (1.80-7.70); Neutrophils % (A) 45.4 %; Platelet Count 213 X 10*3/uL (140-440); RBC 4.32 X 10*6/uL (4.10-5.20); RDW 14.1 % (11.5-14.5); WBC 8.44 X 10*3/uL (4.50-10.00)
[2023-12-08] MEDS ORDERED: CAFFEINE CITRATE 60 MG/3 ML VIAL IV PRN (08:45)
[2023-12-08] MEDS ORDERED: AMINOPHYLLINE 500 MG/20 ML VIAL IV PRN (08:45)
[2023-12-08] MEDS ORDERED: REGADENOSON 0.4 MG/5 ML SYRINGE IV PRN (08:45)
[2023-12-08 08:53] LABS: ALT 19 U/L (8-44); AST 19 U/L (13-35); Albumin 3.8 g/dL (3.8-4.9); Albumin/Globulin Ratio 1.73 Ratio (1.60-3.17); Alkaline Phosphatase 64 U/L (41-126); BUN/Creat Ratio 21.33 Ratio (12.00-20.00); Calcium 8.8 mg/dL (8.7-10.3); Carbon Dioxide 24.3 mmol/L (21.6-31.8); Chloride 106 mmol/L (96-109); Globulin 2.2 g/dL (1.6-3.3); Glucose 119 mg/dL (70-110); Magnesium 2.1 mg/dL (1.5-2.4); Phosphorus 4.3 mg/dL (2.4-5.1); Potassium 4.5 mmol/L (3.5-5.5); Sodium 142 mmol/L (135-145); Total Bilirubin 0.3 mg/dL (0.3-1.2)
[2023-12-08] MEDS: APIXABAN 5 MG TAB PO SCH (09:10)
[2023-12-08] MEDS: amLODIPine 5 MG TAB PO SCH (09:10)
[2023-12-08] MEDS ORDERED: DICYCLOMINE 10 MG CAP PO PRN (09:29)
[2023-12-08] MEDS ORDERED: ALBUTEROL NEBULIZED 2.5 MG/3 ML INHALATION PRN (09:29)
[2023-12-08] MEDS ORDERED: ALPRAZolam 0.25 MG TAB PO PRN (09:29)
--- NOTE | 2023-12-08 09:35 | P.HPIM ---
History of Present Illness 68-year-old female came with complaints of chest tightness started yesterday on and off last about 35 minutes on the left side of the chest nonradiating associate with lightheadedness denies any diaphoresis. Patient had a history of coronary disease in the past patient had stents in the past. Patient has chronic kidney disease with baseline creatinine around 1.9 patient present creatinine is around breath at this time. Patient had an EKG which showed sinus bradycardia no other significant abnormality was evident. REVIEW OF SYSTEMS: All other systems are negative except those mentioned in the HPI PHYSICAL EXAMINATION: GENERAL: The patient is alert and oriented x3, not in any acute distress. Well developed, well nourished. HEENT: Pupils are round and equally reacting to light. EOMI. No scleral icterus. No conjunctival pallor. Normocephalic, atraumatic. No pharyngeal erythema. No thyromegaly. CARDIOVASCULAR: S1 and S2 present. No murmurs, rubs, or gallops. PULMONARY: Chest is clear to auscultation, no wheezing or crackles. ABDOMEN: Soft, nontender, nondistended, normoactive bowel sounds. No palpable organomegaly. MUSCULOSKELETAL: No joint swelling or deformity. EXTREMITIES: No cyanosis, clubbing, or pedal edema. NEUROLOGICAL: Gross neurological examination did not reveal any focal deficits. SKIN: No rashes. Assessment and plan Chest pain rule out acute coronary syndromes. Results of troponins are negative cardiology evaluated the patient recommending stress test tomorrow morning. -Chronic kidney disease stage IIIb -History of paroxysmal atrial fibrillation/flutter: Presently sinus rhythm pat ient is on anticoagulation with Eliquis which was resumed -Hypertension -Type 2 diabetes mellitus patient will be resumed on home regimen except for Actos and will add sliding scale insulin -Gastroesophageal reflux disease -Hyperlipidemia -Hypothyroidism -For above-mentioned chronic medical problems list patient will be resumed on appropriate home medications DVT prophylaxis: Early ambulation Past Medical History Past Medical History: Atrial Flutter, Asthma, Cancer, COPD, CVA/TIA, Diabetes Mellitus, Eye Disorder, Fibromyalgia, GERD/Reflux, Hyperlipidemia, Hypertension, Myocardial Infarction ([place]), Osteoarthritis (OA), Pneumonia, Thyroid Disorder Additional Past Medical History / Comment(s): morning nausea/vomiting, bilateral lower leg and feet neuropathy, 2009 CVA with some memory issues, possible TIA, basal cell skin cancer, L eye has partially detached retina, gastric ulcer, chronic low back pain, sciatica mostly L side occasionally R side, migraines, vertigo, fatty liver, palpitations, [place] Spotted Fever as an , hypothyrodism Last Myocardial Infarction Date:: July 2018 History of Any Multi-Drug Resistant Organisms: None Reported Past Surgical History: Back Surgery, Cardiac Ablation, Cholecystectomy, EPS, He art Catheterization With Stent, Hernia Repair, Hysterectomy, Tonsillectomy Additional Past Surgical History / Comment(s): EPS with A flutter ablation, L nares skin cancer removed, UMBILICAL HERNIA SX 3X, RT Hand SX for middle TRIGGER FINGER, LAPAROSCOPIES x 3, L5-S1 SX for HERNIATED DISCS, EGD/colonoscopy,maxx cataracts Past Anesthesia/Blood Transfusion Reactions: Postoperative Nausea & Vomiting (PONV) Additional Past Anesthesia/Blood Transfusion Reaction / Comment(s): AND SEVERE HEADACHE WITH ANESTHESIA IN PAST Date of Last Stent Placement:: 2019 Past Psychological History: Anxiety, Depression Smoking Status: Former smoker Past Alcohol Use History: None Reported Past Drug Use History: Marijuana - Past Family History Father Family Medical History: Diabetes Mellitus Additional Family Medical History / Comment(s): DOESN'T KNOW MUCH ABOUT HIM Mother Family Medical History: Cancer Additional Family Medical History / Comment(s): Breast CA. Medications and Allergies Home Medications Medication Instructions Recorded Confirmed Type Multivitamins, Thera [Multivitamin 1 tab PO DAILY 06/07/18 12/08/23 History (formulary)] Nitroglycerin Sl Tabs [Nitrostat] 0.4 mg SUBLINGUAL Q5M PRN #25 tab 08/05/18 12/08/23 Rx Apixaban [Eliquis] 5 mg PO BID 02/28/19 12/08/23 History ondansetron HCL [Zofran] 8 mg PO BID PRN 10/15/20 12/08/23 History ALPRAZolam [Xanax] 0.25 mg PO HS PRN 04/22/21 12/08/23 History Atorvastatin [Lipitor] 80 mg PO HS 04/22/21 12/08/23 History Loperamide [Imodium] 2 mg PO QID PRN 04/22/21 12/08/23 History calcitrioL 0.25 mcg PO WE 09/10/21 12/08/23 History Magnesium Oxide [Mag-Ox] 400 mg PO TID 03/19/22 12/08/23 History Albuterol Sulfate [Albuterol 1 puff INHALATION RT-Q6H PRN 09/09/23 12/08/23 History Sulfate Hfa] Empagliflozin [Jardiance] 25 mg PO DAILY 09/09/23 12/08/23 History Meclizine [Antivert] 25 mg PO TID PRN 09/09/23 12/08/23 History Pioglitazone [Actos] 15 mg PO DAILY 09/09/23 12/08/23 History Valsartan 160 mg PO HS 09/09/23 12/08/23 History Dicyclomine [Bentyl] 10 mg PO TID PRN 12/08/23 12/08/23 History Gabapentin 300 mg PO DIRECTED 12/08/23 12/08/23 History HYDROcodone/APAP 10-325MG [[place] 1 tab PO BID 12/08/23 12/08/23 History 10-325] Insulin Glargine,Hum.rec.anlog 44 units SQ DAILY 12/08/23 12/08/23 History [Toujeo Max Solostar] Levothyroxine Sodium [Synthroid] 75 mcg PO HS 12/08/23 12/08/23 History Metoprolol Succinate [Toprol XL] 50 mg PO HS 12/08/23 12/08/23 History Temazepam [Restoril] 30 mg PO HS 12/08/23 12/08/23 History amLODIPine [Norvasc] 5 mg PO DAILY 12/08/23 12/08/23 History Allergies Allergy/AdvReac Type Severity Reaction Status Date / Time amitriptyline AdvReac dizziness,s Verified 12/08/23 08:20 weating carbamazepine AdvReac Vomiting, Verified 12/08/23 08:20 dizziness, excessive sleepiness levothyroxine sodium AdvReac Vomiting Verified 12/08/23 08:20 [From Synthroid] milnacipran [From Savella] AdvReac constipated Verified 12/08/23 08:20 paliperidone [From Invega] AdvReac severe Verified 12/08/23 08:20 side effects pregabalin [From Lyrica] AdvReac severe pain Verified 12/08/23 08:20 Physical Exam Vitals: Vital Signs Temp Pulse Pulse Pulse Pulse Resp BP 12/08/23 09:06 61 17 135/76 12/08/23 07:40 97.5 F L 50 L 56 L 53 L 16 12/08/23 05:31 57 L 18 112/41 12/08/23 03:22 58 L 16 125/69 12/07/23 15:25 98.4 F 61 18 142/72 BP BP BP Pulse Ox 12/08/23 09:06 12/08/23 07:40 153/94 112/73 133/93 95 12/08/23 05:31 96 12/08/23 03:22 98 12/07/23 15:25 96 Intake and Output 12/07/23 12/08/23 12/08/23 22:59 06:59 14:59 Other: Weight 99.79 kg Results CBC & Chem 7: 12/08/23 06:19 12/08/23 06:19 Labs: Abnormal Lab Results - Last 24 Hours (Table) 12/07/23 12/08/23 12/08/23 Range/Units 16:15 06:19 06:19 MCHC 31.2 L (32.0-37.0) g/dL Carbon Dioxide 32 H (22-30) mmol/L BUN 34 H 32.0 H (7-17) mg/dL Creatinine 1.50 H (0.52-1.04) mg/dL Est GFR (CKD-EPI) 37 L (>=60) BUN/Creatinine Ratio 21.33 H (12.00-20.00) Ratio Glucose 198 H 119 H (74-99) mg/dL Total Protein 6.0 L (6.2-8.2) g/dL
[2023-12-08] MEDS: GABAPENTIN 300 MG CAP PO SCH (10:07)
--- NOTE | 2023-12-08 10:48 | P.CRDCN ---
History of Present Illness Consult date: 12/08/23 Consult reason: chest pain History of present illness: This is a 68-year-old female patient of Dr. Stearns with past medical history of coronary artery disease status post stenting to the mid LAD in 2019, ischemic cardiomyopathy, hypertension, atrial flutter status post ablation, diabetes mellitus type 2, COPD, dyslipidemia, fibromyalgia, prior CVA, chronic kidney disease. We have been asked to evaluate the patient for chest pain. Blood pressure 112/41, heart rate 57, pulse ox 96% on room air. Orthostatic vital signs were positive. Patient was seen in the emergency center waiting for a bed on the observation unit. EKG: Sinus bradycardia with no acute changes. Chest x-ray: No acute process. COPD changes. Laboratory studies: CBC unremarkable. Electrolytes are normal. BUN 32 creatinine 1.5 which is patient's baseline. Troponins negative x 3. Home cardiac medications: Norvasc 5 mg daily, Eliquis 5 mg twice daily, atorvastatin 80 mg at bedtime, Jardiance 25 mg daily, Toprol XL 50 mg at bedtime, Nitrostat as needed, valsartan 160 mg at bedtime. Cardiac catheterization performed 03/02/[address] ELISABET Martinez revealed a right dominant system, normal filling pressures. No significant disease and previous stented mid LAD is widely patent. Circumflex and RCA have no significant disease. Echocardiogram performed in the office on 05/07/2023 revealed EF 50 to 55%, mild concentric left ventricular hypertrophy. Mild aortic stenosis, mild mitral regurgitation, mild tricuspid regurgitation. Lexiscan Cardiolite stress test performed in the office on 03/11/2022 revealed negative stress test by EKG criteria. Probably normal myocardial perfusion and function with fixed inferior wall defect secondary to soft tissue attenuation. 24-hour Holter monitor 03/11/2022 [place] [address], average 76 bpm. No significant pauses. Longest RR interval of 1.4 seconds. No arrhythmias. Review Of Systems: At the time of my exam: CONSTITUTIONAL: Denies fever or chills. HEENT: Denies blurred vision, vision changes, or eye pain. Denies hemoptysis CARDIOVASCULAR: Denies chest pain. Denies orthopnea. Denies PND. Denies palp itations RESPIRATORY: Denies shortness of breath. GASTROINTESTINAL: Denies abdominal pain. Denies nausea or vomiting. HEMATOLOGIC: Denies bleeding disorders. GENITOURINARY: Denies any blood in urine. SKIN: Denies puritis. Denies rash. Physical examination: Gen: This is a 68-year-old female in no acute distress VS: reviewed HEENT: Head is atraumatic, normocephalic. Pupils equal, round. Sclerae is anicteric. NECK: Supple. No JVD. LUNGS: Clear to auscultation. No wheezes or rhonchi. No intercostal retractions. HEART: Regular rate and rhythm. No murmur. ABDOMEN: Soft No tenderness. EXTREMITIES: No pedal edema. No calf tenderness. NEUROLOGICAL: Patient is awake, alert and oriented x3. Assessment: Atypical chest pain, acute coronary syndrome ruled out History of coronary artery disease with previous stenting of the mid LAD in 2019, cardiac catheterization and 2020 revealed no significant disease and patent stent Hypertension Ischemic cardiomyopathy Atrial flutter status post ablation Diabetes mellitus type 2 COPD Dyslipidemia Fibromyalgia Prior CVA Chronic kidney disease Plan: Resume patient's home cardiac medications Schedule patient for Lexiscan Cardiolite stress test tomorrow Obtain 2-D echocardiogram and Doppler study to assess cardiac structure and function Further recommendations to follow based upon clinical course Thank you kindly for this consultation. Nurse practitioner note has been reviewed, I agree with documented findings and plan of care. Patient was seen and examined. Past Medical History Past Medical History: Atrial Flutter, Asthma, Cancer, COPD, CVA/TIA, Diabetes Mellitus, Eye Disorder, Fibromyalgia, GERD/Reflux, Hyperlipidemia, Hypertension, Myocardial Infarction ([place]), Osteoarthritis (OA), Pneumonia, Thyroid Disorder Additional Past Medical History / Comment(s): morning nausea/vomiting, bilateral lower leg and feet neuropathy, 2009 CVA with some memory issues, possible TIA, basal cell skin cancer, L eye has partially detached retina, gastric ulcer, chronic low back pain, sciatica mostly L side occasionally R side, migraines, vertigo, fatty liver, palpitations, [place] Spotted Fever as an infant, hypothyrodism Last Myocardial Infarction Date:: July 2018 History of Any Multi-Drug Resistant Organisms: None Reported Past Surgical History: Back Surgery, Cardiac Ablation, Cholecystectomy, EPS, Heart Catheterization With Stent, Hernia Repair, Hysterectomy, Tonsillectomy Additional Past Surgical History / Comment(s): EPS with A flutter ablation, L nares skin cancer removed, UMBILICAL HERNIA SX 3X, RT Hand SX for middle TRIGGER FINGER, LAPAROSCOPIES x 3, L5-S1 SX for HERNIATED DISCS, EGD/colonoscopy,maxx cataracts Past Anesthesia/Blood Transfusion Reactions: Postoperative Nausea & Vomiting (PONV) Additional Past Anesthesia/Blood Transfusion Reaction / Comment(s): AND SEVERE HEADACHE WITH ANESTHESIA IN PAST Date of Last Stent Placement:: 2019 Past Psychological History: Anxiety, Depression Smoking Status: Former smoker Past Alcohol Use History: None Reported Past Drug Use History: Marijuana - Past Family History Father Family Medical History: Diabetes Mellitus Additional Family Medical History / Comment(s): DOESN'T KNOW MUCH ABOUT HIM Mother Family Medical History: Cancer Additional Family Medical History / Comment(s): Breast CA. Medications and Allergies Home Medications Medication Instructions Recorded Confirmed Type Multivitamins, Thera [Multivitamin 1 tab PO DAILY 06/07/18 12/08/23 History (formulary)] Nitroglycerin Sl Tabs [Nitrostat] 0.4 mg SUBLINGUAL Q5M PRN #25 tab 08/05/18 12/08/23 Rx Apixaban [Eliquis] 5 mg PO BID 02/28/19 12/08/23 History ondansetron HCL [Zofran] 8 mg PO BID PRN 10/15/20 12/08/23 History ALPRAZolam [Xanax] 0.25 mg PO HS PRN 04/22/21 12/08/23 History Atorvastatin [Lipitor] 80 mg PO HS 04/22/21 12/08/23 History Loperamide [Imodium] 2 mg PO QID PRN 04/22/21 12/08/23 History calcitrioL 0.25 mcg PO WE 09/10/21 12/08/23 History Magnesium Oxide [Mag-Ox] 400 mg PO TID 03/19/22 12/08/23 History Albuterol Sulfate [Albuterol 1 puff INHALATION RT-Q6H PRN 09/09/23 12/08/23 History Sulfate Hfa] Empagliflozin [Jardiance] 25 mg PO DAILY 09/09/23 12/08/23 History Meclizine [Antivert] 25 mg PO TID PRN 09/09/23 12/08/23 History Pioglitazone [Actos] 15 mg PO DAILY 09/09/23 12/08/23 History Valsartan 160 mg PO HS 09/09/23 12/08/23 History Dicyclomine [Bentyl] 10 mg PO TID PRN 12/08/23 12/08/23 History Gabapentin 300 mg PO DIRECTED 12/08/23 12/08/23 History HYDROcodone/APAP 10-325MG [[place] 1 tab PO BID 12/08/23 12/08/23 History 10-325] Insulin Glargine,Hum.rec.anlog 44 units SQ DAILY 12/08/23 12/08/23 History [Toujeo Max Solostar] Levothyroxine Sodium [Synthroid] 75 mcg PO HS 12/08/23 12/08/23 History Metoprolol Succinate [Toprol XL] 50 mg PO HS 12/08/23 12/08/23 History Temazepam [Restoril] 30 mg PO HS 12/08/23 12/08/23 History amLODIPine [Norvasc] 5 mg PO DAILY 12/08/23 12/08/23 History Allergies Allergy/AdvReac Type Severity Reaction Status Date / Time amitriptyline AdvReac dizziness,s Verified 12/08/23 08:20 weating carbamazepine AdvReac Vomiting, Verified 12/08/23 08:20 dizziness, excessive sleepiness levothyroxine sodium AdvReac Vomiting Verified 12/08/23 08:20 [From Synthroid] milnacipran [From Savella] AdvReac constipated Verified 12/08/23 08:20 paliperidone [From Invega] AdvReac severe Verified 12/08/23 08:20 side effects pregabalin [From Lyrica] AdvReac severe pain Verified 12/08/23 08:20 Physical Exam Vitals: Vital Signs Temp Pulse Resp BP Pulse Ox 12/08/23 05:31 57 L 18 112/41 96 12/08/23 03:22 58 L 16 125/69 98 12/07/23 15:25 98.4 F 61 18 142/72 96 Intake and Output 12/07/23 12/08/23 12/08/23 22:59 06:59 14:59 Other: Weight 99.79 kg Results 12/08/23 06:19 12/08/23 06:19 Cardiac Enzymes 12/07/23 12/07/23 12/07/23 Range/Units 16:15 16:15 23:59 AST 27 (14-36) U/L Troponin I <0.012 <0.012 (0.000-0.034) ng/mL 12/08/23 Range/Units 03:15 AST (14-36) U/L Troponin I <0.012 (0.000-0.034) ng/mL Coagulation 12/07/23 Range/Units 16:15 PT 11.0 (10.0-12.5) sec APTT 27.5 (22.0-30.0) sec CBC 12/07/23 Range/Units 16:15 WBC 9.9 (3.8-10.6) k/uL RBC 4.90 (3.80-5.40) m/uL Hgb 14.0 (11.4-16.0) gm/dL Hct 42.8 (34.0-46.0) % Plt Count 250 (150-450) k/uL Comprehensive Metabolic Panel 12/07/23 Range/Units 16:15 Sodium 139 (137-145) mmol/L Potassium 4.4 (3.5-5.1) mmol/L Chloride 100 (98-107) mmol/L Carbon Dioxide 32 H (22-30) mmol/L BUN 34 H (7-17) mg/dL Creatinine 1.50 H (0.52-1.04) mg/dL Glucose 198 H (74-99) mg/dL Calcium 9.4 (8.4-10.2) mg/dL AST 27 (14-36) U/L ALT 24 (4-34) U/L Alkaline Phosphatase 67 (38-126) U/L Total Protein 7.1 (6.3-8.2) g/dL Albumin 4.4 (3.5-5.0) g/dL Current Medications Generic Name Dose Route Start Last Admin Trade Name Freq PRN Reason Stop Dose Admin Sodium Chloride 1,000 mls @ 75 mls/hr 12/07/23 19:45 12/08/23 00:02 Saline 0.9% IV 75 mls/hr .[id number] ERICA Administration Morphine Sulfate 4 mg 12/07/23 19:39 Morphine Sulfate 4 Mg/Ml Syringe IV Q4HR PRN Severe Pain (Scale 7 to 10) Naloxone HCl 0.2 mg 12/07/23 19:39 Naloxone 0.4 Mg/Ml 1 Ml Vial IV Q2M PRN Opioid Reversal Ondansetron HCl 4 mg 12/07/23 19:39 Ondansetron 4 Mg/2 Ml Vial IVP Q8HR PRN Nausea And Vomiting Intake and Output 12/07/23 12/08/23 12/08/23 22:59 06:59 14:59 Other: Weight 99.79 kg 12/07/23 16:15 12/07/23 16:15
[2023-12-08] MEDS: INSULIN ASPART (NovoLOG) 100 UNIT/ML VIAL SQ SCH (12:03)
[2023-12-08 12:04] LABS: Glucose,Whole Blood 109 mg/dL (70-110)
[2023-12-08] MEDS: HYDROcodone/APAP 10-325MG 1 EACH TAB PO SCH (13:42)
[2023-12-08] MEDS: MAGNESIUM OXIDE 400 MG TAB PO SCH (15:24)
[2023-12-08] MEDS: INSULIN DETEMIR (LEVEMIR) 100 UNIT/ML SYR SQ SCH (15:24)
[2023-12-08 17:04] LABS: Glucose,Whole Blood 156 mg/dL (70-110)
[2023-12-08 19:51] LABS: Glucose,Whole Blood 151 mg/dL (70-110)
[2023-12-08] MEDS: VALSARTAN 160 MG TAB PO SCH (19:59)
[2023-12-08] MEDS: METOPROLOL SUCCINATE (ER) 50 MG TAB.ER.24H PO SCH (19:59)
[2023-12-08] MEDS: LEVOTHYROXINE 75 MCG TAB PO SCH (19:59)
[2023-12-08] MEDS: ATORVASTATIN 80 MG TAB PO SCH (19:59)
[2023-12-08] MEDS ORDERED: HYDROcodone/APAP 10-325MG 1 EACH TAB PO SCH (21:00)
[2023-12-08] MEDS: TEMAZEPAM 7.5 MG CAP PO PRN (21:38)
[2023-12-09] MEDS ORDERED: REGADENOSON 0.4 MG/5 ML SYRINGE IV PRN ×2 (05:00)
[2023-12-09 06:12] LABS: Glucose,Whole Blood 89 mg/dL (70-110)
[2023-12-09] MEDS ORDERED: INSULIN DETEMIR (LEVEMIR) 100 UNIT/ML SYR SQ SCH (07:00)
[2023-12-09] MEDS: amLODIPine 2.5 MG TAB PO SCH (08:52)
--- NOTE | 2023-12-09 09:22 | PN ---
PROGRESS NOTE HISTORY OF PRESENT ILLNESS: Jane is a 68-year-old lady whom I saw yesterday with chest pain, ruled out for myocardial infarction and is to undergo a stress test today. PHYSICAL EXAMINATION: GENERAL: This morning, she is comfortable at rest. VITAL SIGNS: Stable. CHEST: Reveals good air entry bilaterally. HEART: Reveals first and second heart sounds. No gallop. No murmur. ABDOMEN: Soft. EXTREMITIES: Did not reveal any edema. Peripheral pulses are felt. ASSESSMENT: 1. Chest pain, rule out coronary artery disease. 2. Known coronary artery disease, status post prior angioplasty. 3. Hypertension. 4. Atrial flutter, status post ablation. PLAN: The patient will undergo a stress test today and an echocardiogram and we will decide on further course of action. MMELOISA / IJN: [id number] /
--- NOTE | 2023-12-09 11:49 | CA ---
Transthoracic Echo Report Name: Jane Edwards Age: 68 Gender: F : 1955 Exam Date: 12/09/2023 09:55 Exam Location: [place] [facility] Ht (in): 66 Wt (lb): 220 Ordering Physician: Jacki Block Attending/Referring Phys: [id number], Umair [employer] Diane Sevilla RDCS Procedure CPT: Indications: Chest Pain Cardiac Hx: Technical Quality: Fair Contrast 1: Total Dose (mL): Contrast 2: Total Dose (mL): MEASUREMENTS (Male / Female) Normal Values 2D ECHO LV Diastolic Diameter PLAX 5.6 cm 4.2 - 5.9 / 3.9 - 5.3 cm LV Systolic Diameter PLAX 3.4 cm IVS Diastolic Thickness 0.7 cm 0.6 - 1.0 / 0.6 - 0.9 cm LVPW Diastolic Thickness 1.1 cm 0.6 - 1.0 / 0.6 - 0.9 cm LV Relative Wall Thickness 0.3 LVOT Diameter 2.0 cm LV Diastolic Volume MOD BP 94.1 cm??? 67 - 155 / 56 - 104 cm??? LV Systolic Volume MOD BP 34.4 cm??? 22 - 58 / 19 - 49 cm??? LV Ejection Fraction MOD BP 63.4 % >= 55 % LV Cardiac Index MOD BP 1655.0 cm???/min???m??? LV Diastolic Volume MOD 4C 88.1 cm??? LV Systolic Volume MOD 4C 31.8 cm??? LV Ejection Fraction MOD 4C 63.9 % LV Cardiac Index MOD 4C 1564.6 cm???/min???m??? LV Diastolic Length 4C 7.1 cm LV Systolic Length 4C 5.5 cm LV Diastolic Volume MOD 2C 92.3 cm??? LV Systolic Volume MOD 2C 35.5 cm??? LV Ejection Fraction MOD 2C 61.5 % LV Cardiac Index MOD 2C 1576.7 cm???/min???m??? LV Diastolic Length 2C 7.7 cm LV Systolic Length 2C 5.8 cm LA Volume 47.1 cm??? 18 - 58 / 22 - 52 cm??? LA Volume Index 21.4 cm???/m??? 16 - 28 cm???/m??? Ascending Aorta Diameter 3.5 cm DOPPLER AV Peak Velocity 187.1 cm/s AV Peak Gradient 14.0 mmHg AV Mean Velocity 121.6 cm/s AV Mean Gradient 6.7 mmHg AV Velocity Time Integral 39.3 cm LVOT Peak Velocity 87.0 cm/s LVOT Peak Gradient 3.0 mmHg LVOT Velocity Time Integral 21.0 cm LVOT Stroke Volume 67.4 cm??? LVOT Stroke Volume Index 32.3 ml/m??? LVOT Cardiac Index 1870.2 cm???/min???m??? AV Area Cont Eq vti 1.7 cm??? AV Area Cont Eq pk 1.5 cm??? MV Area PHT 2.4 cm??? Mitral E Point Velocity 48.3 cm/s Mitral A Point Velocity 65.3 cm/s Mitral E to A Ratio 0.7 MV Deceleration Time 314.6 ms PV Peak Velocity 80.9 cm/s PV Peak Gradient 2.6 mmHg FINDINGS Left Ventricle Left ventricular ejection fraction is estimated at 60 %. Mildly increased posterior wall thickness. Mildly increased left ventricular diastolic diameter. No obvious regional wall motion abnormalities. Right Ventricle Normal right ventricular size and function. Unable to estimate the right ventricular systolic pressure. Right Atrium Normal right atrial size. Left Atrium Normal left atrial size. Mitral Valve Structurally normal mitral valve. No evidence for mitral valve prolapse. No mitral stenosis. Trace mitral regurgitation. Aortic Valve Aortic valve not well visualized. No aortic valve stenosis or regurgitation. Tricuspid Valve Structurally normal tricuspid valve. No tricuspid stenosis. No tricuspid regurgitation. Pulmonic Valve Pulmonic valve not well visualized. No pulmonic stenosis. No pulmonic regurgitation. Pericardium No pericardial effusion. Prominent epicardial fat. Aorta Normal size aortic root and proximal ascending aorta. CONCLUSIONS Normal LV function Previewed by: Dr. Anastacio Garsia MD (Electronically Signed) Final Date: 09 December 2023 11:48
--- NOTE | 2023-12-09 12:24 | CA ---
Lexiscan Nuclear Stress Test Report Name: Jane Edwards Exam Date: 12/09/2023 11:05 Exam Location: [place] [facility] Ht (in): Wt (lb): BSA: Ordering Phys: Jacki Block Referring Phys: VONDA, Technologist: SHIRA,, Age: 68 Gender: F : 1955 Procedure CPT: Indications: Reflex order-Stress test ICD-10 Codes: Patient History: Chest pain Medications: Meds past 24 hrs: Pretest Chest Pain: STRESS TEST Lexiscan Protocol Exercise Duration (min:sec): 02:[address] Depressions (mm): Angina Score: Isabel Score: Resting HR (bpm): 52 Peak HR (bpm): 91 Resting BP (mmHg): 132 / 72 Peak BP (mmHg): 190 / 79 MPHR: 150 Target HR: 128 % MPHR: 61 METS: 1.0 Total Dose: Peak Dose: Atropine: Double Product: 81549 BP Response: Stress Termination: Infusion complete Stress Symptoms: Nausea Stress Summary: ECG ANALYSIS Resting ECG: Normal sinus rhythm normal axis normal intervals Stress ECG: Patient was given intravenous Lexiscan as per protocol did not have chest pain or diagnostic ST segment depression CONCLUSIONS Negative stress test by EKG criteria Cardiolite portion of the stress test will be reported separate Dr. Anastacio Garsia MD (Electronically Signed) Final Date: 09 December 2023 12:23
[2023-12-09] MEDS: DAPAGLIFLOZIN PROPANEDIOL 10 MG TABLET PO SCH (12:34)
[2023-12-09 12:52] LABS: Glucose,Whole Blood 102 mg/dL (70-110)
[2023-12-09] MEDS: MECLIZINE 25 MG TAB PO PRN (13:02)
[2023-12-09] MEDS: polyethylene glycoL 3350 17 GM POWD.PACK PO STA (13:02)
[2023-12-09 13:50] VITALS: BP 169/90; PULSE 59; RESP 16; TEMP 98.8
--- NOTE | 2023-12-09 13:57 | NM ---
EXAMINATION TYPE: NM stress lexiscan cardiolite DATE OF EXAM: 12/09/2023 COMPARISON: NONE CLINICAL INDICATION: Female, 68 years old with history of Chest pain; TECHNIQUE: After the intravenous administration of 8.7 mCi Tc 99m Sestamibi - Cardiolite resting SPE CT images acquired 55 minutes post injection. The patient received 0.4mg Lexiscan, 25.5 mCi Tc 99m Sestamibi - Stress images obtained [address] injection FINDINGS: Review of stress and rest SPECT images demonstrates fixed perfusion defect along the inferior wall. N o discrete reversibility is seen. Gated analysis shows normal wall motion with an estimated left vent ricular ejection fraction of 57 %. TID is calculated at 1.07, upper limits of normal. IMPRESSION: Attenuation artifact involving the inferior wall. This is felt more likely than old inferior wall inf arct given augmentation on gated analysis. Clinically correlate. No scintigraphic evidence for rever sible ischemia. [facility], , 12/09/2023 1:55 PM
--- NOTE | 2023-12-12 15:02 | P.DS ---
Providers Date of admission: 12/07/23 19:40 Attending physician: Benedicto Caebllo Consults: 12/07/23 19:39 Consult Physician Routine Consulting Provider: Ian Atkins Consult Reason/Comments: cp Do you want consulting provider notified?: Yes Primary care physician: Benedicto Cabello Hospital Course: Final Diagnosis Atypical chest pain, acute coronary syndrome ruled out History of coronary artery disease with previous stenting of the mid LAD in 2019, cardiac catheterization and 2020 revealed no significant disease and patent stent Hypertension Ischemic cardiomyopathy paroxysmal atrial flutter status post ablation Diabetes mellitus type 2 COPD Dyslipidemia Fibromyalgia Prior CVA Chronic kidney disease 3B Discharge Disposition Stable for discharge home patient to continue all same home medications patient should follow-up with her PCP Dr. Benedicto Cabello in 1 to 2 days and follow-up with her normal sales management intern Dr. Wooten in 1 week. Hospital Course This is a 68-year-old female patient of Dr. Stearns with past medical history of coronary artery disease status post stenting to the mid LAD in 2019, ischemic cardiomyopathy, hypertension, atrial flutter status post ablation, diabetes mellitus type 2, COPD, dyslipidemia, fibromyalgia, prior CVA, chronic kidney disease. Came into the hospital with complaints of chest tightness started yesterday on and off last about 35 minutes on the left side of the chest nonradiating associate with lightheadedness denies any diaphoresis. Patient had troponin level that was negative x 3. Electrolytes are within normal limits. She was admitted to the hospital for workup and evaluation. Echocardiogram reveals normal LV function with no significant valvular dysfunction. Lexiscan stress chest which reveals old inferior wall infarct no scintigraphic evidence for reversible ischemia. Cardiology had cleared the patient recommending to follow-up outpatient. Please see medication reconciliation for a list of current medications. Thank you for allowing us to participate in the care of this patient. The impression and plan of care has been dictated by Renee Huerta Nurse Practitioner as directed. Dr. Caio MD I have performed a history and physical examination and medical decision making of this patient, discussed the same with the dictator, and agree with the dictators assessment and plan as written, documented as a scribe. Based on total visit time, I have performed more than 50% of this visit. Patient Condition at Discharge: Fair Plan - Discharge Summary New Discharge Prescriptions: Continue Multivitamins, Thera [Multivitamin (formulary)] 1 tab PO DAILY Nitroglycerin Sl Tabs [Nitrostat] 0.4 mg SUBLINGUAL Q5M PRN #25 tab PRN Reason: Chest Pain Apixaban [Eliquis] 5 mg PO BID Atorvastatin [Lipitor] 80 mg PO HS ALPRAZolam [Xanax] 0.25 mg PO HS PRN PRN Reason: Anxiety Magnesium Oxide [Mag-Ox] 400 mg PO TID Albuterol Sulfate [Albuterol Sulfate Hfa] 1 puff INHALATION RT-Q6H PRN PRN Reason: Shortness Of Breath Pioglitazone [Actos] 15 mg PO DAILY Temazepam [Restoril] 30 mg PO HS Dicyclomine [Bentyl] 10 mg PO TID PRN PRN Reason: ibs Metoprolol Succinate [Toprol XL] 50 mg PO HS Insulin Glargine,Hum.rec.anlog [Toujeo Max Solostar] 44 units SQ DAILY Levothyroxine Sodium [Synthroid] 75 mcg PO HS HYDROcodone/APAP 10-325MG [[place] 10-325] 1 tab PO BID amLODIPine [Norvasc] 5 mg PO DAILY Meclizine [Antivert] 25 mg PO TID PRN #20 tab PRN Reason: Vertigo ondansetron HCL [Zofran] 8 mg PO BID PRN PRN Reason: Nausea Loperamide [Imodium] 2 mg PO QID PRN PRN Reason: Diarrhea calcitrioL 0.25 mcg PO WE Valsartan 160 mg PO HS Empagliflozin [Jardiance] 25 mg PO DAILY Gabapentin 300 mg PO DIRECTED Discharge Medication List Multivitamins, Thera [Multivitamin (formulary)] 1 tab PO DAILY 06/07/18 [History] Nitroglycerin Sl Tabs [Nitrostat] 0.4 mg SUBLINGUAL Q5M PRN #25 tab 08/05/18 [Rx] Apixaban [Eliquis] 5 mg PO BID 02/28/19 [History] ondansetron HCL [Zofran] 8 mg PO BID PRN 10/15/20 [History] ALPRAZolam [Xanax] 0.25 mg PO HS PRN 04/22/21 [History] Atorvastatin [Lipitor] 80 mg PO HS 04/22/21 [History] Loperamide [Imodium] 2 mg PO QID PRN 04/22/21 [History] calcitrioL 0.25 mcg PO WE 09/10/21 [History] Magnesium Oxide [Mag-Ox] 400 mg PO TID 03/19/22 [History] Albuterol Sulfate [Albuterol Sulfate Hfa] 1 puff INHALATION RT-Q6H PRN 09/09/23 [History] Empagliflozin [Jardiance] 25 mg PO DAILY 09/09/23 [History] Pioglitazone [Actos] 15 mg PO DAILY 09/09/23 [History] Valsartan 160 mg PO HS 09/09/23 [History] Dicyclomine [Bentyl] 10 mg PO TID PRN 12/08/23 [History] Gabapentin 300 mg PO DIRECTED 12/08/23 [History] HYDROcodone/APAP 10-325MG [[place] 10-325] 1 tab PO BID 12/08/23 [History] Insulin Glargine,Hum.rec.anlog [Toujeo Max Solostar] 44 units SQ DAILY 12/08/23 [History] Levothyroxine Sodium [Synthroid] 75 mcg PO HS 12/08/23 [History] Metoprolol Succinate [Toprol XL] 50 mg PO HS 12/08/23 [History] Temazepam [Restoril] 30 mg PO HS 12/08/23 [History] amLODIPine [Norvasc] 5 mg PO DAILY 12/08/23 [History] Meclizine [Antivert] 25 mg PO TID PRN #20 tab 12/09/23 [Rx] Follow up Appointment(s)/Referral(s): Luan Stearns MD [STAFF PHYSICIAN] - 12/16/23 11:45 am Benedicto Cabello DO [Primary Care Provider] - 1-2 days Patient Instructions/Handouts: Chest Pain (DC) Discharge Disposition: HOME SELF-CARE
== END 2023-12-09 16:21 | disposition home or self-care (01) ==
LOC: EC 15:17 → 6NMEDSUR 19:40
PROVIDERS: ADMIT Family Medicine; ATTEND Family Medicine
DX: R07.89 Other chest pain (principal); I25.10 Atherosclerotic heart disease of native coronary artery without angina pectoris; J44.9 Chronic obstructive pulmonary disease, unspecified; K21.9 Gastro-esophageal reflux disease without esophagitis; E78.5 Hyperlipidemia, unspecified; I13.10 Hypertensive heart and chronic kidney disease without heart failure, with stage 1 through stage 4 chronic kidney disease, or unspecified chronic kidney disease; N18.32 Chronic kidney disease, stage 3b; E11.22 Type 2 diabetes mellitus with diabetic chronic kidney disease; E11.40 Type 2 diabetes mellitus with diabetic neuropathy, unspecified; E03.9 Hypothyroidism, unspecified; F32.A Depression, unspecified; F41.0 Panic disorder [episodic paroxysmal anxiety]; I25.5 Ischemic cardiomyopathy; I48.92 Unspecified atrial flutter; I48.0 Paroxysmal atrial fibrillation; M79.7 Fibromyalgia; I25.2 Old myocardial infarction; Z85.828 Personal history of other malignant neoplasm of skin; Z86.73 Personal history of transient ischemic attack (TIA), and cerebral infarction without residual deficits; Z87.891 Personal history of nicotine dependence; Z95.5 Presence of coronary angioplasty implant and graft; Z79.84 Long term (current) use of oral hypoglycemic drugs; Z79.01 Long term (current) use of anticoagulants; Z79.4 Long term (current) use of insulin; Z79.890 Hormone replacement therapy; Z79.899 Other long term (current) drug therapy
CPT/HCPCS: 96361 ×2; 96360; 99291; 36415; 93005; 93017; 93306; 80053 ×2; 83735 ×2; 84100; 84484 ×2; 85025 ×2; 85610; 85730; 71046; 78452; G0378 ×3; A9500; J2785

== ENCOUNTER → 2023-12-17 | Outpatient (CLI) | payer MEDICARE, OTHER ==
[2023-12-17 19:13] LABS: Appearance,Urine Clear (Clear); Bilirubin,Urine Negative (Negative); Blood,Urine Negative (Negative); Color,Urine Yellow (Yellow); Ketones,Urine Negative (Negative); Nitrite,Urine Negative (Negative); Specific Gravity,Urine 1.027 (1.001-1.030); Urobilinogen,Urine 0.2 E.U./DL
[2023-12-17 19:25] LABS: HCT 41.7 % (37.2-46.3); HGB 13.4 g/dL (12.0-15.0); MCH 28.5 pg (27.0-32.0); MCHC 32.1 g/dL (32.0-37.0); MCV 88.7 FL (80.0-97.0); Mean Platelet Volume 10.7 FL (9.5-12.2); NRBC Per 100 WBC 0 X 10*3/uL (0.00-0.01); Platelet Count 278 X 10*3/uL (140-440); RDW 13.7 % (11.5-14.5)
[2023-12-17 21:12] LABS: % Iron Saturation 17.09 (12.00-45.00); BUN/Creat Ratio 22.43 Ratio (12.00-20.00); Blood Urea Nitrogen 31.4 mg/dL (9.0-27.0); Chloride 104 mmol/L (96-109); Glucose 187 mg/dL (70-110); Iron 67 UG/DL (50-170); Magnesium 2.1 mg/dL (1.5-2.4); Phosphorus 3.9 mg/dL (2.4-5.1); Potassium 5.4 mmol/L (3.5-5.5); Sodium 142 mmol/L (135-145); Total Iron Binding Capacity 392 UG/DL (228-460); Uric Acid 7.4 mg/dL (2.9-7.7)
[2023-12-17 21:53] LABS: Urine Creatinine 60.8 mg/dL (28.0-217.0)
== END | disposition home or self-care (01) ==
LOC: LABWHC1 15:55
PROVIDERS: ATTEND Internal Medicine
DX: N18.32 Chronic kidney disease, stage 3b (principal)
CPT/HCPCS: 36415; 80048; 81003; 82043; 82306; 82570; 82728; 83540; 83550; 83735; 83970; 84100; 84550; 85027

== ENCOUNTER → 2023-12-21 | Outpatient (CLI) | payer MEDICARE, OTHER ==
[2023-12-21 18:29] LABS: BUN/Creat Ratio 22.79 Ratio (12.00-20.00); Blood Urea Nitrogen 31.9 mg/dL (9.0-27.0); Chloride 102 mmol/L (96-109); Glucose 181 mg/dL (70-110); Potassium 5.1 mmol/L (3.5-5.5); Sodium 139 mmol/L (135-145)
[2023-12-21 18:30] LABS: ALT 25 U/L (8-44); AST 24 U/L (13-35); Albumin 4.4 g/dL (3.8-4.9); Albumin/Globulin Ratio 1.63 Ratio (1.60-3.17); Alkaline Phosphatase 78 U/L (41-126); Calcium 9.6 mg/dL (8.7-10.3); Globulin 2.7 g/dL (1.6-3.3); T4, Free (Free Thyroxine) 1.08 ng/dL (0.80-1.80); Total Bilirubin 0.3 mg/dL (0.3-1.2); Total Protein 7.1 g/dL (6.2-8.2)
== END | disposition home or self-care (01) ==
LOC: LABWHC1 13:02
PROVIDERS: ATTEND Internal Medicine
DX: E11.65 Type 2 diabetes mellitus with hyperglycemia (principal); E03.9 Hypothyroidism, unspecified; Z79.4 Long term (current) use of insulin
CPT/HCPCS: 36415; 80053; 83036; 84439; 84443

== ENCOUNTER → 2024-04-13 | Outpatient (CLI) | payer MEDICARE, OTHER ==
[2024-04-13 16:18] LABS: Appearance,Urine Clear (Clear); Bilirubin,Urine Negative (Negative); Blood,Urine Negative (Negative); Color,Urine Light Yellow; Glucose,Urine (UA) 4+ (Negative); Ketones,Urine Negative (Negative); Leukocyte Esterase,Urine Negative (Negative); Nitrite,Urine Negative (Negative); PH, Urine 5.5 (5.0-8.0); Protein,Urine Negative (Negative); Specific Gravity,Urine 1.014 (1.001-1.035); Urobilinogen,Urine <2.0 mg/dL (<2.0)
[2024-04-13 18:20] LABS: HCT 44.9 % (37.2-46.3); MCH 27.5 pg (27.0-32.0); MCHC 31.2 g/dL (32.0-37.0); MCV 88.2 FL (80.0-97.0); Mean Platelet Volume 10.5 FL (9.5-12.2); NRBC Per 100 WBC 0 X 10*3/uL (0.00-0.01); Platelet Count 298 X 10*3/uL (140-440); RBC 5.09 X 10*6/uL (4.10-5.20); RDW 13.8 % (11.5-14.5); WBC 11.23 X 10*3/uL (4.50-10.00)
[2024-04-13 18:49] LABS: % Iron Saturation 23.12 (12.00-45.00); ALT 22 U/L (8-44); AST 24 U/L (13-35); Albumin 4.7 g/dL (3.8-4.9); Albumin/Globulin Ratio 1.74 Ratio (1.60-3.17); Alkaline Phosphatase 80 U/L (41-126); Blood Urea Nitrogen 24.9 mg/dL (9.0-27.0); Calcium 10.1 mg/dL (8.7-10.3); Carbon Dioxide 26.9 mmol/L (21.6-31.8); Chloride 100 mmol/L (96-109); Ferritin 75.8 ng/mL (10.0-291.0); Globulin 2.7 g/dL (1.6-3.3); Glucose 125 mg/dL (70-110); Iron 86 UG/DL (50-170); Magnesium 2.1 mg/dL (1.5-2.4); Phosphorus 3.1 mg/dL (2.4-5.1); Sodium 140 mmol/L (135-145); Total Bilirubin 0.4 mg/dL (0.3-1.2); Total Iron Binding Capacity 372 UG/DL (228-460); Total Protein 7.4 g/dL (6.2-8.2); Uric Acid 6.1 mg/dL (2.9-7.7)
[2024-04-13 19:43] LABS: Urine Creatinine 67.5 mg/dL (28.0-217.0)
== END | disposition home or self-care (01) ==
LOC: LABWHC1 14:59
PROVIDERS: ATTEND Internal Medicine
DX: N18.32 Chronic kidney disease, stage 3b (principal)
CPT/HCPCS: 36415; 80053; 81003; 82043; 82306; 82570; 82728; 83540; 83550; 83735; 83970; 84100; 84550; 85027

== ENCOUNTER → 2024-04-20 | Outpatient (CLI) | payer MEDICARE, OTHER | END | disposition home or self-care (01) | LOC: LABWHC1 16:04 | PROVIDERS: ATTEND Internal Medicine | DX: E11.65 Type 2 diabetes mellitus with hyperglycemia (principal); Z79.4 Long term (current) use of insulin | CPT/HCPCS: 36415; 83036 ==

== ENCOUNTER → 2024-06-17 | Outpatient (CLI) | payer MEDICARE, OTHER ==
--- NOTE | 2024-06-17 20:10 | CT ---
EXAMINATION TYPE: CT thoracic spine wo con DATE OF EXAM: 06/17/2024 5:47 PM COMPARISON: None. 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 Coronal and sagittal re formats were performed. 3-D reformats of the bones were created on a separate workstation and submitt ed for review. CT DLP: 2621.5 mGycm, Automated exposure control for dose reduction was used. FINDINGS: The thoracic vertebral bodies have preserved heights and alignment. Multilevel interverteb ral disc space loss and evidence of bridging anterior osteophyte formation along the lower thoracic s pine. Osseous structures are demineralized. Multilevel facet arthropathy without evidence of high-grade spinal canal stenosis. Varying degrees of mild multilevel neural foraminal narrowing secondary to facet arthropathy. No aggressive osseous les ion. Paraspinal soft tissues are unremarkable. The visualized lungs are acutely unremarkable. IMPRESSION: 1. No acute osseous abnormality. Thoracic spine vertebral body heights are maintained. 2. Decreased osseous mineralization and multilevel thoracic spine degenerative changes with lower th oracic spine flowing anterior osteophyte formation. 3. No evidence of high-grade spinal canal or neural foraminal stenosis. [facility], , 06/17/2024 8:08 PM
--- NOTE | 2024-06-17 20:33 | CT ---
EXAMINATION TYPE: CT cervical spine wo con DATE OF EXAM: 06/17/2024 5:47 PM COMPARISON: None. 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 Coronal and sagittal reformatted images were also reviewed. CT DLP: 666.2 mGycm, Automated exposure control for dose reduction was used. FINDINGS: Fracture: None. Osseous structures: Multilevel mild vertebral disc space loss, most pronounced at C4-C5 and C6-C7. An terior osteophyte formation at C7-T1. Vertebral alignment: Mild straightening of the normal cervical spine lordotic curvature. Minimal ante rolisthesis of C2 on C3. Otherwise, no evidence of significant spondylolisthesis. Spinal canal/Neural Foramina: Dilation of the spinal canal is limited due to streak artifact. Left pa racentral posterior disc osteophyte complex at C2-C3 in combination with facet arthropathy/vertebral hypertrophy causes moderate left-sided neural foraminal narrowing. Small posterior disc ossify comple x at C3-C4 minimally effaces the ventral thecal sac. Facet arthropathy and uncovertebral hypertrophy causes mild bilateral neural foraminal narrowing, left greater than right. No high-grade spinal canal neural foraminal narrowing at the remaining levels. Neck soft tissues: Prevertebral soft tissues are within normal limits. Other: The airway is patent. The lung apices are clear. IMPRESSION: 1. No acute osseous abnormality. 2. Multilevel cervical spine degenerative changes as described above with varying degrees of multile benoit neural foraminal narrowing. No high-grade spinal canal stenosis. Consider further evaluation with MRI cervical spine if clinically warranted. [facility], , 06/17/2024 8:30 PM
== END | disposition home or self-care (01) ==
LOC: RADCTMAIN 16:19
PROVIDERS: ATTEND Psychiatry & Neurology Neurology
DX: M50.123 Cervical disc disorder at C6-C7 level with radiculopathy (principal); M47.814 Spondylosis without myelopathy or radiculopathy, thoracic region; M99.71 Connective tissue and disc stenosis of intervertebral foramina of cervical region
CPT/HCPCS: 72125; 72128

== ENCOUNTER → 2024-06-28 | Outpatient (CLI) | payer MEDICARE, OTHER ==
--- NOTE | 2024-06-28 15:43 | XR ---
EXAMINATION TYPE: XR abdomen 2V DATE OF EXAM: 06/28/2024 3:31 PM COMPARISON: 09/28/2016 CLINICAL INDICATION: Female, 68 years old with history of R10.84 GENERALIZED ABDOMINAL PAIN; [facility] TECHNIQUE: Two views of the abdomen were obtained. FINDINGS: Lung bases are clear. No evidence for free intraperitoneal air. Scattered colonic air-fluid levels. No dilated small bowel or differential air-fluid levels are seen. No significant stool burden. Cholecystectomy clips. Some surgical material right mid abdomen. Multiple pelvic phleboliths. IMPRESSION: Scattered gassy colon. Overall nonobstructive bowel gas pattern. No significant stool burden. No free air. [facility], , 06/28/2024 3:40 PM
[2024-06-28 17:58] LABS: Basophils # (A) 0.06 X 10*3/uL (0.00-0.10); Basophils % (A) 0.4 %; Eosinophils # (A) 0.23 X 10*3/uL (0.04-0.35); Eosinophils % (A) 1.7 %; HCT 47.4 % (37.2-46.3); HGB 14.9 g/dL (12.0-15.0); Lymphocytes # (A) 3.61 X 10*3/uL (0.90-5.00); MCH 27.7 pg (27.0-32.0); MCHC 31.4 g/dL (32.0-37.0); MCV 88.1 FL (80.0-97.0); Mean Platelet Volume 10.3 FL (9.5-12.2); Monocytes # (A) 0.79 X 10*3/uL (0.20-1.00); Monocytes % (A) 5.9 %; NRBC Per 100 WBC 0 X 10*3/uL (0.00-0.01); Neutrophils # (A) 8.66 X 10*3/uL (1.80-7.70); Neutrophils % (A) 64.7 %; Platelet Count 363 X 10*3/uL (140-440); RBC 5.38 X 10*6/uL (4.10-5.20); RDW 14.2 % (11.5-14.5); WBC 13.39 X 10*3/uL (4.50-10.00)
[2024-06-28 18:11] LABS: ALT 22 U/L (8-44); AST 29 U/L (13-35); Albumin 4.7 g/dL (3.8-4.9); Albumin/Globulin Ratio 1.57 Ratio (1.60-3.17); Alkaline Phosphatase 84 U/L (41-126); Blood Urea Nitrogen 27.9 mg/dL (9.0-27.0); Calcium 10.1 mg/dL (8.7-10.3); Carbon Dioxide 25.1 mmol/L (21.6-31.8); Chloride 100 mmol/L (96-109); Glucose 112 mg/dL (70-110); Potassium 4.5 mmol/L (3.5-5.5); Sodium 140 mmol/L (135-145); Total Bilirubin 0.5 mg/dL (0.3-1.2); Total Protein 7.7 g/dL (6.2-8.2)
== END | disposition home or self-care (01) ==
LOC: LABWHC1 14:07
PROVIDERS: ATTEND Internal Medicine Gastroenterology
DX: R10.84 Generalized abdominal pain (principal)
CPT/HCPCS: 36415; 74019; 80053; 85025

== ENCOUNTER → 2024-07-28 | Outpatient (CLI) | payer MEDICARE, OTHER ==
--- NOTE | 2024-07-28 13:09 | NM ---
EXAMINATION TYPE: NM gastric emptying static DATE OF EXAM: 07/28/2024 COMPARISON: NONE CLINICAL INDICATION: Female, 68 years old with history of R11.0 NAUSEA; Following administration of 2 mCi Tc 99m Sulfur Colloid with 4 oz eggs, 2 pieces of toast, and 10 oz of water, projection images of the abdomen were obtained 15 minutes post ingestion. Patient Emptying Values 1 Hour 24 % (normal 10-70%) 2 Hours 59 % (normal> 40%) 3 Hours 80 % (normal> 70%) 4 Hours 92 % (normal> 90%) Gastroesophagel reflux: None IMPRESSION: Gastric emptying: Normal Gastroesophageal reflux: None visualized No scintigraphic evidence for gastroparesis. Gastric emptying normal percentage values: 30 minutes: <70% of retention (> 30% emptying) suggests abnormally fast emptying. 60 minutes: <90% retention (>10% emptying) is normal; less than 30% retention (>70% emptying) suggest s abnormally rapid emptying. 90 minutes: <65% retention (> 35% emptying) is normal. 120 minutes: <60% retention (> 40% emptying) is normal. 180 minutes: <30% retention (> 70% emptying) is normal. Gastric emptying T-1/2: Solid: The normal range is 60-105 minutes Liquid only: Normal range is 10-45 minutes. Liquid only-children: At 60 minutes, normal range is 44-58 % . Liquid only-infants: At 60 minutes, normal range is 32-64 %. Additional references: Gastric Emptying Scintigraphy [email or web address] [facility], , 07/28/2024 1:07 PM
== END | disposition home or self-care (01) ==
LOC: RADNMMAIN 06:43
PROVIDERS: ATTEND Internal Medicine Gastroenterology
DX: R11.0 Nausea (principal)
CPT/HCPCS: 78264; A9541